=== PATIENT | male | born 1995 | race Asian ===

== ENCOUNTER 2016-07-16 14:17 | Inpatient (IN) | payer MEDICAID, OTHER ==
[~2016-07-16] VITALS: Ht 160 cm; Wt 84.8 kg
[~2016-07-16 14:17] MED LIST: DIVA500T52 PO; QUET300T2 PO; SIMV-260 PO
[2016-07-16 14:44] LABS: BASOPHILS # (AUTO) 0.02 K/uL (0.00-0.20); BASOPHILS % (AUTO) 0.3 % (0.0-2.0); EOSINOPHILS # (AUTO) 0.15 K/uL (0.00-0.70); EOSINOPHILS % (AUTO) 2.08 % (1.0-6.0); HEMATOCRIT 43.1 % (41-53); HEMOGLOBIN 14.8 g/dL (13.5-17.5); LYMPHOCYTES # (AUTO) 2.8 K/uL (1.0-4.8); LYMPHOCYTES % (AUTO) 37.7 % (22.0-44.0); MEAN CORPUSCULAR HEMOGLOBIN 30.5 pg (26.0-34.0); MEAN CORPUSCULAR HGB CONC 34.3 G/dL (31.0-37.0); MEAN CORPUSCULAR VOLUME 89 fL (80-100); MONOCYTES # (AUTO) 0.7 K/uL (0.1-1.0); MONOCYTES % (AUTO) 9.2 % (2.0-9.0); NEUTROPHILS # (AUTO) 3.8 K/uL (1.8-7.7); NEUTROPHILS % (AUTO) 50.7 % (40.0-70.0); PLATELET COUNT (AUTO) 244 K/uL (150-450); RED BLOOD CELL COUNT(AUTO) 4.84 MIL/uL (4.50-5.90); RED CELL DISTRIBUTION WIDTH 12.7 % (11.5-14.5); WHITE BLOOD COUNT (AUTO) 7.4 K/uL (4.5-11.0)
[2016-07-16 14:52] LABS: ANION GAP 15 mmol/L (8-16); CALCIUM, TOTAL 8.8 mg/dL (8.8-10.5); CARBON DIOXIDE 21 mmol/L (22-29); CHLORIDE 105 mmol/L (98-107); CREATININE 1.19 mg/dL (0.60-1.30); GLOMERULAR FILTR. RATE CALC > 60 mL/min (>60); POTASSIUM 3.6 mmol/L (3.5-5.1); SODIUM SERUM 141 mmol/L (136-145); UREA NITROGEN, BLOOD 11 mg/dL (7-18)
[2016-07-16 14:59] LABS: ALANINE AMINOTRANSFERASE 70 U/L (12-78); ASPARTATE AMINOTRANSFERASE 36 U/L (15-37); BILIRUBIN,TOTAL 0.1 mg/dL (0.1-1.0); TOTAL PROTEIN, SERUM 8.1 g/dL (6.4-8.2)
[2016-07-16] MEDS ORDERED: FOLI1 PO (15:24)
[2016-07-16] MEDS ORDERED: TOPI100 PO (15:24)
[2016-07-16] MEDS ORDERED: FISH1CAP27 PO (15:24)
[2016-07-16] MEDS ORDERED: QUET300T2 PO (15:24)
[2016-07-16] MEDS ORDERED: TOPI25 PO (15:24)
[2016-07-16] MEDS ORDERED: MULT-723 PO (15:24)
[2016-07-16] MEDS ORDERED: LEVO25TA4 PO (15:24)
[2016-07-16] MEDS ORDERED: GuaiFENesin/D-METHORPHAN [SUGAR-FREE] 200-20MG/10 ML SYRUP UDCUP PO PRN (16:30)
[2016-07-16] MEDS ORDERED: PROMETHAZINE HCL 25 MG TABLET PO PRN (16:30)
[2016-07-16] MEDS ORDERED: MAGNESIUM HYDROXIDE SUSPENSION 30 ML UDCUP PO PRN (16:30)
[2016-07-16] MEDS ORDERED: ACETAMINOPHEN 325 MG TABLET PO PRN (16:30)
[2016-07-16] MEDS ORDERED: QUEtiapine FUMARATE 100 MG TABLET PO PRN (16:30)
[2016-07-16] MEDS ORDERED: MAG HYDROX/AL HYDROX/SIMETH ES 30 ML SUSPENSION UDCUP PO PRN (16:30)
[2016-07-16] MEDS ORDERED: HydrOXYzine PAMOATE 50 MG CAPSULE PO PRN (16:30)
[2016-07-16] MEDS ORDERED: LOPERAMIDE HCL 2 MG CAPSULE PO PRN (16:30)
[2016-07-16] MEDS ORDERED: ZOLPIDEM TARTRATE 10 MG TABLET PO PRN (16:30)
[2016-07-16] MEDS ORDERED: LORazepam 2 MG TABLET PO PRN (16:30)
[2016-07-16 20:38] VITALS: BP 120/98
[2016-07-16] MEDS: DIVALPROEX SODIUM 500 MG ER TABLET PO SCH (20:45)
[2016-07-16] MEDS: THIAMINE HCL 100 MG TABLET PO SCH (20:46)
[2016-07-16] MEDS: TOPIRAMATE 100 MG TABLET PO SCH (20:46)
[2016-07-16] MEDS ORDERED: QUEtiapine FUMARATE 200 MG TABLET PO SCH (21:00)
[2016-07-17 06:28] LABS: BASOPHILS % (AUTO) 0.2 % (0.0-2.0); EOSINOPHILS % (AUTO) 2.5 % (1.0-6.0); LYMPHOCYTES # (AUTO) 2.7 K/uL (1.0-4.8); LYMPHOCYTES % (AUTO) 37.5 % (22.0-44.0); MEAN CORPUSCULAR HEMOGLOBIN 30.9 pg (26.0-34.0); MEAN CORPUSCULAR HGB CONC 34.1 G/dL (31.0-37.0); MEAN CORPUSCULAR VOLUME 91 fL (80-100); MONOCYTES # (AUTO) 0.8 K/uL (0.1-1.0); MONOCYTES % (AUTO) 11.5 % (2.0-9.0); NEUTROPHILS # (AUTO) 3.5 K/uL (1.8-7.7); NEUTROPHILS % (AUTO) 48.3 % (40.0-70.0); PLATELET COUNT (AUTO) 238 K/uL (150-450); RED BLOOD CELL COUNT(AUTO) 4.53 MIL/uL (4.50-5.90); RED CELL DISTRIBUTION WIDTH 12.9 % (11.5-14.5); WHITE BLOOD COUNT (AUTO) 7.3 K/uL (4.5-11.0)
[2016-07-17 07:14] LABS: ALANINE AMINOTRANSFERASE 59 U/L (12-78); ALBUMIN 3.5 g/dL (3.4-5.0); ANION GAP 10 mmol/L (8-16); ASPARTATE AMINOTRANSFERASE 32 U/L (15-37); BILIRUBIN,TOTAL 0.3 mg/dL (0.1-1.0); CALCIUM, TOTAL 8.9 mg/dL (8.8-10.5); CARBON DIOXIDE 24 mmol/L (22-29); CHLORIDE 107 mmol/L (98-107); CHOL/HDL RATIO 2.4 (4.2-7.3); CREATININE 1.06 mg/dL (0.60-1.30); GLOMERULAR FILTR. RATE CALC > 60 mL/min (>60); SODIUM SERUM 141 mmol/L (136-145); THYROID STIMULATING HORMONE 3.06 uIU/mL (0.36-3.74); TOTAL PROTEIN, SERUM 7.4 g/dL (6.4-8.2); UREA NITROGEN, BLOOD 14 mg/dL (7-18); VALPROIC ACID 82 mcg/mL (50-100)
[2016-07-17 07:35] LABS: HEMOGLOBIN A1C 5.5 % (4.5-6.2)
[2016-07-17] MEDS: TOPIRAMATE 25 MG TABLET PO SCH (09:05)
[2016-07-17] MEDS: FOLIC ACID 1 MG TABLET PO SCH (09:05)
[2016-07-17] MEDS: MULTIVITAMINS WITH MINERALS, THERAPEUTIC TABLET PO SCH (09:05)
[2016-07-17] MEDS: THIAMINE HCL 100 MG TABLET PO SCH ×2 (09:05→17:24)
[2016-07-17 10:46] VITALS: BP 130/80
[2016-07-17 16:00] VITALS: BP 134/68
[2016-07-17] MEDS: DIVALPROEX SODIUM 500 MG ER TABLET PO SCH (20:49)
[2016-07-17] MEDS: TOPIRAMATE 100 MG TABLET PO SCH (20:50)
[2016-07-17] MEDS ORDERED: QUEtiapine FUMARATE 200 MG TABLET PO SCH (21:00)
[2016-07-18] MEDS: MULTIVITAMINS WITH MINERALS, THERAPEUTIC TABLET PO SCH (08:23)
[2016-07-18] MEDS: FOLIC ACID 1 MG TABLET PO SCH (08:24)
[2016-07-18] MEDS: THIAMINE HCL 100 MG TABLET PO SCH ×2 (08:24→17:39)
[2016-07-18] MEDS: TOPIRAMATE 25 MG TABLET PO SCH (08:24)
[2016-07-18 08:34] VITALS: BP 111/74
[2016-07-18] MEDS ORDERED: DIVA500T69 PO (11:04)
[2016-07-18] MEDS ORDERED: TOPI25 PO (11:04)
[2016-07-18] MEDS ORDERED: TOPI100 PO (11:04)
[2016-07-18] MEDS ORDERED: QUET200T29 PO (11:04)
[2016-07-18 16:00] VITALS: BP 141/91
[2016-07-18] MEDS: DIVALPROEX SODIUM 500 MG ER TABLET PO SCH (20:00)
[2016-07-18] MEDS: TOPIRAMATE 100 MG TABLET PO SCH (20:00)
[2016-07-18] MEDS ORDERED: QUEtiapine FUMARATE 300 MG TABLET PO SCH (21:00)
[2016-07-19] MEDS: TOPIRAMATE 25 MG TABLET PO SCH (08:03)
[2016-07-19] MEDS: FOLIC ACID 1 MG TABLET PO SCH (08:03)
[2016-07-19] MEDS: THIAMINE HCL 100 MG TABLET PO SCH (08:03)
[2016-07-19] MEDS: MULTIVITAMINS WITH MINERALS, THERAPEUTIC TABLET PO SCH (08:03)
[2016-07-19 08:43] VITALS: BP 120/77
== END 2016-07-19 14:00 | disposition home or self-care (01) | DRG 750 ==
LOC: EMS 14:20 → 3EC 19:09 → 3EI 07-19 11:07
PROVIDERS: ADMIT Psychiatry & Neurology Psychiatry; ATTEND Psychiatry & Neurology Psychiatry
DX: F25.9 Schizoaffective disorder, unspecified (principal); Z78.1 Physical restraint status; E03.9 Hypothyroidism, unspecified; E78.1 Pure hyperglyceridemia; E66.9 Obesity, unspecified; F70 Mild intellectual disabilities; G80.9 Cerebral palsy, unspecified; K31.9 Disease of stomach and duodenum, unspecified; R26.89 Other abnormalities of gait and mobility; E78.5 Hyperlipidemia, unspecified; Z91.19 Patient's noncompliance with other medical treatment and regimen; Z79.899 Other long term (current) drug therapy; Z68.33 Body mass index [BMI] 33.0-33.9, adult
CPT/HCPCS: 83036; 84439; 84443; 86592; 99285; G0480

== ENCOUNTER 2016-08-07 07:07 | Emergency (ER) | payer MEDICAID, OTHER ==
[~2016-08-07] VITALS: Ht 160 cm; Wt 86.4 kg
[~2016-08-07 07:07] MED LIST changes: +DIVA500T69 PO; +QUET200T29 PO; -SIMV-260 PO; +TOPI100 PO; +TOPI25 PO
[2016-08-07] MEDS ORDERED: SODIUM CHLORIDE 0.9% 250 ML IRRIG SOLUTION BOTTLE IRRIG ONE (07:15)
[2016-08-07 09:55] VITALS: BP 147/82
[2016-08-08] MEDS ORDERED: SIMV-260 PO (07:38)
[2016-08-08] MEDS ORDERED: TOPI25 PO (07:38)
[2016-08-08] MEDS ORDERED: LEVO25TA4 PO (07:38)
[2016-08-08] MEDS ORDERED: FOLI1 PO (07:38)
[2016-08-08] MEDS ORDERED: [UNRECOGNIZED DRUG - OTHER] PO (07:38)
[2016-08-08] MEDS ORDERED: OMEG1CAP45 PO (07:38)
[2016-08-08] MEDS ORDERED: QUET25TA PO (07:38)
[2016-08-08] MEDS ORDERED: TOPI100 PO (07:38)
== END 2016-08-07 09:57 | disposition home or self-care (01) ==
LOC: EMS 07:09
DX: S01.511A Laceration without foreign body of lip, initial encounter (principal); F31.9 Bipolar disorder, unspecified; F91.1 Conduct disorder, childhood-onset type; G80.9 Cerebral palsy, unspecified; X83.8XXA Intentional self-harm by other specified means, initial encounter; Y93.89 Activity, other specified; Y92.89 Other specified places as the place of occurrence of the external cause; Y99.8 Other external cause status
CPT/HCPCS: 99283

== ENCOUNTER 2016-08-08 07:18 | Inpatient (IN) | payer MEDICAID, OTHER ==
[~2016-08-08] VITALS: Ht 160 cm; Wt 84.4 kg
[2016-08-08] MEDS ORDERED: OMEG1CAP45 PO (07:38)
[2016-08-08] MEDS ORDERED: SIMV-260 PO (07:38)
[2016-08-08] MEDS ORDERED: [UNRECOGNIZED DRUG - OTHER] PO (07:38)
[2016-08-08] MEDS ORDERED: TOPI100 PO (07:38)
[2016-08-08] MEDS ORDERED: TOPI25 PO (07:38)
[2016-08-08] MEDS ORDERED: LEVO25TA4 PO (07:38)
[2016-08-08] MEDS ORDERED: FOLI1 PO (07:38)
[2016-08-08] MEDS ORDERED: QUET25TA PO (07:38)
[2016-08-08 07:50] LABS: BASOPHILS % (AUTO) 0.2 % (0.0-2.0); EOSINOPHILS % (AUTO) 3.9 % (1.0-6.0); HEMATOCRIT 42.9 % (41-53); LYMPHOCYTES # (AUTO) 1.3 K/uL (1.0-4.8); LYMPHOCYTES % (AUTO) 21.1 % (22.0-44.0); MEAN CORPUSCULAR HEMOGLOBIN 29.9 pg (26.0-34.0); MEAN CORPUSCULAR HGB CONC 32.8 G/dL (31.0-37.0); MEAN CORPUSCULAR VOLUME 91 fL (80-100); MONOCYTES # (AUTO) 0.5 K/uL (0.1-1.0); MONOCYTES % (AUTO) 8.5 % (2.0-9.0); NEUTROPHILS # (AUTO) 3.9 K/uL (1.8-7.7); NEUTROPHILS % (AUTO) 66.3 % (40.0-70.0); PLATELET COUNT (AUTO) 207 K/uL (150-450); WHITE BLOOD COUNT (AUTO) 5.9 K/uL (4.5-11.0)
[2016-08-08] MEDS ORDERED: LORazepam 2 MG/ML VIAL IM ONE (08:00)
[2016-08-08] MEDS ORDERED: HALOPERIDOL LACTATE 5 MG/ML VIAL IM ONE (08:00)
[2016-08-08] MEDS ORDERED: HALOPERIDOL 5 MG TABLET PO PRN (08:00)
[2016-08-08] MEDS ORDERED: QUEtiapine FUMARATE 100 MG TABLET PO PRN (08:00)
[2016-08-08] MEDS ORDERED: DiphenhydrAMINE HCL 50 MG/ML VIAL IM ONE (08:00)
[2016-08-08 08:03] LABS: ANION GAP 13 mmol/L (8-16); CALCIUM, TOTAL 8.3 mg/dL (8.8-10.5); CARBON DIOXIDE 23 mmol/L (22-29); CHLORIDE 105 mmol/L (98-107); CREATININE 1.19 mg/dL (0.60-1.30); GLOMERULAR FILTR. RATE CALC > 60 mL/min (>60); POTASSIUM 3.7 mmol/L (3.5-5.1); SODIUM SERUM 141 mmol/L (136-145); UREA NITROGEN, BLOOD 13 mg/dL (7-18)
[2016-08-08 08:07] LABS: ALANINE AMINOTRANSFERASE 124 U/L (12-78); ALBUMIN 3.4 g/dL (3.4-5.0); ASPARTATE AMINOTRANSFERASE 66 U/L (15-37); BILIRUBIN,TOTAL 0.4 mg/dL (0.1-1.0); TOTAL PROTEIN, SERUM 7.4 g/dL (6.4-8.2); VALPROIC ACID 79 mcg/mL (50-100)
[2016-08-08] MEDS: TOPIRAMATE 25 MG TABLET PO SCH (09:10)
[2016-08-08] MEDS ORDERED: MAGNESIUM HYDROXIDE SUSPENSION 30 ML UDCUP PO PRN (10:00)
[2016-08-08] MEDS ORDERED: ACETAMINOPHEN 325 MG TABLET PO PRN (10:00)
[2016-08-08] MEDS ORDERED: HydrOXYzine PAMOATE 50 MG CAPSULE PO PRN (10:00)
[2016-08-08] MEDS ORDERED: LOPERAMIDE HCL 2 MG CAPSULE PO PRN (10:00)
[2016-08-08] MEDS ORDERED: GuaiFENesin/D-METHORPHAN [SUGAR-FREE] 200-20MG/10 ML SYRUP UDCUP PO PRN (10:00)
[2016-08-08] MEDS ORDERED: MAG HYDROX/AL HYDROX/SIMETH ES 30 ML SUSPENSION UDCUP PO PRN (10:00)
[2016-08-08] MEDS ORDERED: PROMETHAZINE HCL 25 MG TABLET PO PRN (10:00)
[2016-08-08 12:42] VITALS: BP 114/72
[2016-08-08] MEDS ORDERED: INFLUENZA VIRUS VACCINE QVS 2016-17 (3YR+)/PF 60 MCG/0.5 ML SYRINGE IM ONE (13:00)
[2016-08-08] MEDS ORDERED: PNEUMOCOCCAL VACCINE POLYVALENT 0.5 ML VIAL [PPSV23] IM ONE (13:00)
[2016-08-08 16:07] VITALS: BP 117/68
[2016-08-08] MEDS: DIVALPROEX SODIUM 500 MG DR TABLET PO SCH (20:32)
[2016-08-08] MEDS: SIMVASTATIN 20 MG TABLET PO SCH (20:32)
[2016-08-08] MEDS: TOPIRAMATE 100 MG TABLET PO SCH (20:32)
[2016-08-08] MEDS ORDERED: QUEtiapine FUMARATE 300 MG TABLET PO SCH (21:00)
[2016-08-09] VITALS (11 sets, daily range): BP systolic 100–148; BP diastolic 59–88
[2016-08-09] MEDS: THIAMINE HCL 100 MG TABLET PO SCH ×2 (09:21→17:35)
[2016-08-09] MEDS: LEVOTHYROXINE SODIUM 25 MCG TABLET PO SCH (09:21)
[2016-08-09] MEDS: FOLIC ACID 1 MG TABLET PO SCH (09:22)
[2016-08-09] MEDS: MULTIVITAMINS WITH MINERALS, THERAPEUTIC TABLET PO SCH (09:22)
[2016-08-09] MEDS: TOPIRAMATE 25 MG TABLET PO SCH (09:22)
[2016-08-09] MEDS ORDERED: DiphenhydrAMINE HCL 50 MG/ML VIAL ONE (11:58)
[2016-08-09] MEDS ORDERED: LORazepam 2 MG/ML VIAL ONE (11:58)
[2016-08-09] MEDS ORDERED: HALOPERIDOL LACTATE 5 MG/ML VIAL ONE (11:58)
[2016-08-09] MEDS ORDERED: HALOPERIDOL LACTATE 5 MG/ML VIAL IM ONE (12:00)
[2016-08-09] MEDS ORDERED: LORazepam 2 MG/ML VIAL IM ONE (12:00)
[2016-08-09] MEDS ORDERED: DiphenhydrAMINE HCL 50 MG/ML VIAL IM ONE (12:00)
[2016-08-09] MEDS: LITHIUM CARBONATE 300 MG CAPSULE PO SCH (17:35)
[2016-08-09] MEDS: SIMVASTATIN 20 MG TABLET PO SCH (20:41)
[2016-08-09] MEDS: TOPIRAMATE 100 MG TABLET PO SCH (20:41)
[2016-08-09] MEDS: QUEtiapine FUMARATE 200 MG TABLET PO SCH (20:41)
[2016-08-09] MEDS: DIVALPROEX SODIUM 500 MG DR TABLET PO SCH (20:41)
[2016-08-10 04:00] VITALS: BP 116/66
[2016-08-10 07:45] VITALS: BP 133/74
[2016-08-10 08:09] VITALS: BP 129/76
[2016-08-10] MEDS: THIAMINE HCL 100 MG TABLET PO SCH ×2 (08:23→17:12)
[2016-08-10] MEDS: LITHIUM CARBONATE 300 MG CAPSULE PO SCH ×3 (08:23→17:12)
[2016-08-10] MEDS: MULTIVITAMINS WITH MINERALS, THERAPEUTIC TABLET PO SCH (08:23)
[2016-08-10] MEDS: FOLIC ACID 1 MG TABLET PO SCH (08:23)
[2016-08-10] MEDS: LEVOTHYROXINE SODIUM 25 MCG TABLET PO SCH (08:23)
[2016-08-10] MEDS: TOPIRAMATE 25 MG TABLET PO SCH (08:23)
[2016-08-10] MEDS: LORazepam 2 MG TABLET PO PRN (10:28)
[2016-08-10 12:00] VITALS: BP 129/73
[2016-08-10 12:17] VITALS: BP 129/73
[2016-08-10 16:00] VITALS: BP 118/68
[2016-08-10] MEDS: DIVALPROEX SODIUM 500 MG DR TABLET PO SCH (20:35)
[2016-08-10] MEDS: QUEtiapine FUMARATE 200 MG TABLET PO SCH (20:35)
[2016-08-10] MEDS: TOPIRAMATE 100 MG TABLET PO SCH (20:35)
[2016-08-10] MEDS: SIMVASTATIN 20 MG TABLET PO SCH (20:35)
[2016-08-11] MEDS: LEVOTHYROXINE SODIUM 25 MCG TABLET PO SCH (06:33)
[2016-08-11 06:42] VITALS: BP 119/72
[2016-08-11 08:09] VITALS: BP 124/68
[2016-08-11] MEDS: TOPIRAMATE 25 MG TABLET PO SCH (09:17)
[2016-08-11] MEDS: FOLIC ACID 1 MG TABLET PO SCH (09:17)
[2016-08-11] MEDS: LITHIUM CARBONATE 300 MG CAPSULE PO SCH ×3 (09:17→16:37)
[2016-08-11] MEDS: MULTIVITAMINS WITH MINERALS, THERAPEUTIC TABLET PO SCH (09:17)
[2016-08-11] MEDS: THIAMINE HCL 100 MG TABLET PO SCH ×2 (09:17→16:37)
[2016-08-11] MEDS: LORazepam 2 MG TABLET PO PRN ×2 (09:18→16:37)
[2016-08-11 16:00] VITALS: BP 114/60
[2016-08-11] MEDS: SIMVASTATIN 20 MG TABLET PO SCH (20:11)
[2016-08-11] MEDS: DIVALPROEX SODIUM 500 MG DR TABLET PO SCH (20:11)
[2016-08-11] MEDS: TOPIRAMATE 100 MG TABLET PO SCH (20:11)
[2016-08-11] MEDS: QUEtiapine FUMARATE 200 MG TABLET PO SCH (20:11)
[2016-08-12] MEDS: LEVOTHYROXINE SODIUM 25 MCG TABLET PO SCH (06:07)
[2016-08-12 06:43] VITALS: BP 109/63
[2016-08-12 08:06] VITALS: BP 111/67
[2016-08-12] MEDS: TOPIRAMATE 25 MG TABLET PO SCH (08:49)
[2016-08-12] MEDS: LITHIUM CARBONATE 300 MG CAPSULE PO SCH ×3 (08:49→16:47)
[2016-08-12] MEDS: THIAMINE HCL 100 MG TABLET PO SCH ×2 (08:49→16:47)
[2016-08-12] MEDS: FOLIC ACID 1 MG TABLET PO SCH (08:49)
[2016-08-12] MEDS: MULTIVITAMINS WITH MINERALS, THERAPEUTIC TABLET PO SCH (08:49)
[2016-08-12 16:43] VITALS: BP 128/71
[2016-08-12] MEDS: QUEtiapine FUMARATE 200 MG TABLET PO SCH (20:25)
[2016-08-12] MEDS: TOPIRAMATE 100 MG TABLET PO SCH (20:25)
[2016-08-12] MEDS: DIVALPROEX SODIUM 500 MG DR TABLET PO SCH (20:25)
[2016-08-12] MEDS: SIMVASTATIN 20 MG TABLET PO SCH (20:25)
[2016-08-13 06:11] VITALS: BP 102/62
[2016-08-13] MEDS: LEVOTHYROXINE SODIUM 25 MCG TABLET PO SCH (06:43)
[2016-08-13 08:48] VITALS: BP 126/64
[2016-08-13] MEDS: TOPIRAMATE 25 MG TABLET PO SCH (08:51)
[2016-08-13] MEDS: THIAMINE HCL 100 MG TABLET PO SCH ×2 (08:51→16:19)
[2016-08-13] MEDS: MULTIVITAMINS WITH MINERALS, THERAPEUTIC TABLET PO SCH (08:51)
[2016-08-13] MEDS: LITHIUM CARBONATE 300 MG CAPSULE PO SCH ×3 (08:51→16:19)
[2016-08-13] MEDS: FOLIC ACID 1 MG TABLET PO SCH (08:51)
[2016-08-13 16:00] VITALS: BP 112/68
[2016-08-13] MEDS: DIVALPROEX SODIUM 500 MG DR TABLET PO SCH (20:31)
[2016-08-13] MEDS: QUEtiapine FUMARATE 200 MG TABLET PO SCH (20:31)
[2016-08-13] MEDS: SIMVASTATIN 20 MG TABLET PO SCH (20:31)
[2016-08-13] MEDS: TOPIRAMATE 100 MG TABLET PO SCH (20:31)
[2016-08-14] MEDS: LEVOTHYROXINE SODIUM 25 MCG TABLET PO SCH (06:36)
[2016-08-14 07:02] VITALS: BP 122/71
[2016-08-14 08:34] VITALS: BP 128/73
[2016-08-14] MEDS: LITHIUM CARBONATE 300 MG CAPSULE PO SCH ×3 (09:46→16:15)
[2016-08-14] MEDS: FOLIC ACID 1 MG TABLET PO SCH (09:46)
[2016-08-14] MEDS: TOPIRAMATE 25 MG TABLET PO SCH (09:46)
[2016-08-14] MEDS: THIAMINE HCL 100 MG TABLET PO SCH ×2 (09:47→16:15)
[2016-08-14] MEDS: MULTIVITAMINS WITH MINERALS, THERAPEUTIC TABLET PO SCH (09:47)
[2016-08-14] MEDS ORDERED: MULT-29 PO (14:29)
[2016-08-14] MEDS ORDERED: QUET300T2 PO (14:29)
[2016-08-14] MEDS ORDERED: DIVA500T2 PO (14:45)
[2016-08-14] MEDS ORDERED: LITH300C3 PO (14:45)
[2016-08-14] MEDS ORDERED: QUET200T29 PO (14:45)
[2016-08-14] MEDS ORDERED: TOPI100 PO (14:45)
[2016-08-14 16:00] VITALS: BP 140/80
[2016-08-14] MEDS: TOPIRAMATE 100 MG TABLET PO SCH (20:25)
[2016-08-14] MEDS: QUEtiapine FUMARATE 200 MG TABLET PO SCH (20:25)
[2016-08-14] MEDS: SIMVASTATIN 20 MG TABLET PO SCH (20:25)
[2016-08-14] MEDS: DIVALPROEX SODIUM 500 MG DR TABLET PO SCH (20:25)
[2016-08-15] MEDS: LEVOTHYROXINE SODIUM 25 MCG TABLET PO SCH (06:06)
[2016-08-15 06:50] VITALS: BP 113/73
[2016-08-15] MEDS ORDERED: TOPI100 PO (08:07)
[2016-08-15] MEDS ORDERED: QUET200T PO (08:08)
[2016-08-15] MEDS ORDERED: LITH300C3 PO (08:08)
[2016-08-15 08:09] VITALS: BP 136/76
[2016-08-15] MEDS ORDERED: SIMV20TA6 PO (08:10)
[2016-08-15] MEDS: MULTIVITAMINS WITH MINERALS, THERAPEUTIC TABLET PO SCH (08:36)
[2016-08-15] MEDS: TOPIRAMATE 100 MG TABLET PO SCH (08:36)
[2016-08-15] MEDS: FOLIC ACID 1 MG TABLET PO SCH (08:36)
[2016-08-15] MEDS: LITHIUM CARBONATE 300 MG CAPSULE PO SCH ×2 (08:36→13:24)
[2016-08-15] MEDS: THIAMINE HCL 100 MG TABLET PO SCH (08:36)
== END 2016-08-15 14:40 | disposition home or self-care (01) | DRG 750 ==
LOC: EEVIPCON 07:20 → EMS 07:20 → B3A 11:24 → EMS 11:48
PROVIDERS: ADMIT Psychiatry & Neurology Psychiatry; ATTEND Psychiatry & Neurology Psychiatry
PROC: GZ51ZZZ Individual Psychotherapy, Behavioral (ICD-10-PCS; principal; 2016-08-08)
DX: F25.0 Schizoaffective disorder, bipolar type (principal); Z78.1 Physical restraint status; E66.9 Obesity, unspecified; E03.9 Hypothyroidism, unspecified; E78.5 Hyperlipidemia, unspecified; F70 Mild intellectual disabilities; G80.9 Cerebral palsy, unspecified; Z65.3 Problems related to other legal circumstances; Z91.19 Patient's noncompliance with other medical treatment and regimen; Z68.32 Body mass index [BMI] 32.0-32.9, adult
CPT/HCPCS: 87081; 96372; 99291; G0480; J1200; J1630; J2060

== ENCOUNTER 2016-11-07 08:05 | Inpatient (IN) | payer MEDICAID, OTHER ==
[~2016-11-07] VITALS: Ht 160 cm; Wt 84.9 kg
[~2016-11-07 08:05] MED LIST changes: +DIVA500T2 PO; -DIVA500T52 PO; +LEVO25TA4 PO; +LITH300C3 PO; +QUET200T PO; -QUET300T2 PO; +SIMV-260 PO; +SIMV20TA6 PO; -TOPI25 PO
[2016-11-07 08:34] LABS: BASOPHILS # (AUTO) 0.02 K/uL (0.00-0.20); BASOPHILS % (AUTO) 0.3 % (0.0-2.0); EOSINOPHILS # (AUTO) 0.16 K/uL (0.00-0.70); EOSINOPHILS % (AUTO) 3.01 % (1.0-6.0); HEMATOCRIT 41.2 % (41-53); HEMOGLOBIN 14.2 g/dL (13.5-17.5); LYMPHOCYTES # (AUTO) 1.9 K/uL (1.0-4.8); LYMPHOCYTES % (AUTO) 36.7 % (22.0-44.0); MEAN CORPUSCULAR HEMOGLOBIN 31.3 pg (26.0-34.0); MEAN CORPUSCULAR HGB CONC 34.4 G/dL (31.0-37.0); MEAN CORPUSCULAR VOLUME 91 fL (80-100); MONOCYTES # (AUTO) 0.4 K/uL (0.1-1.0); MONOCYTES % (AUTO) 8.3 % (2.0-9.0); NEUTROPHILS # (AUTO) 2.7 K/uL (1.8-7.7); NEUTROPHILS % (AUTO) 51.7 % (40.0-70.0); PLATELET COUNT (AUTO) 249 K/uL (150-450); RED BLOOD CELL COUNT(AUTO) 4.54 MIL/uL (4.50-5.90); RED CELL DISTRIBUTION WIDTH 13.2 % (11.5-14.5); WHITE BLOOD COUNT (AUTO) 5.3 K/uL (4.5-11.0)
[2016-11-07 08:48] LABS: ANION GAP 10 mmol/L (8-16); CALCIUM, TOTAL 9.2 mg/dL (8.8-10.5); CARBON DIOXIDE 25 mmol/L (22-29); CHLORIDE 102 mmol/L (98-107); CREATININE 1.11 mg/dL (0.60-1.30); GLOMERULAR FILTR. RATE CALC > 60 mL/min (>60); POTASSIUM 3.7 mmol/L (3.5-5.1); SODIUM SERUM 137 mmol/L (136-145); UREA NITROGEN, BLOOD 7 mg/dL (7-18)
[2016-11-07 09:02] LABS: ALANINE AMINOTRANSFERASE 42 U/L (12-78); ASPARTATE AMINOTRANSFERASE 31 U/L (15-37); BILIRUBIN,TOTAL 0.2 mg/dL (0.1-1.0); THYROID STIMULATING HORMONE 4.91 uIU/mL (0.36-3.74); TOTAL PROTEIN, SERUM 8.3 g/dL (6.4-8.2); VALPROIC ACID 87 mcg/mL (50-100)
[2016-11-07 09:17] LABS: LITHIUM 0.82 mmol/L (0.60-1.20)
[2016-11-07] MEDS ORDERED: QUEtiapine FUMARATE 100 MG TABLET PO ONE (09:30)
[2016-11-07] MEDS ORDERED: LORazepam 2 MG TABLET PO PRN (09:45)
[2016-11-07] MEDS ORDERED: HALOPERIDOL 5 MG TABLET PO PRN (09:45)
[2016-11-07] MEDS ORDERED: ZOLPIDEM TARTRATE 10 MG TABLET PO PRN (09:45)
[2016-11-07 10:15] LABS: CHOL/HDL RATIO 3.2 (4.2-7.3)
[2016-11-07] MEDS: LITHIUM CARBONATE 300 MG CAPSULE PO SCH ×2 (12:18→17:13)
[2016-11-07 12:42] VITALS: BP 134/84
[2016-11-07] MEDS: TOPIRAMATE 100 MG TABLET PO SCH (17:13)
[2016-11-07 17:47] VITALS: BP 127/79
[2016-11-07] MEDS: SIMVASTATIN 20 MG TABLET PO SCH (20:28)
[2016-11-07] MEDS: DIVALPROEX SODIUM 500 MG ER TABLET PO SCH (20:28)
[2016-11-07] MEDS: QUEtiapine FUMARATE 200 MG TABLET PO SCH (20:28)
[2016-11-08] MEDS: LEVOTHYROXINE SODIUM 25 MCG TABLET PO SCH (06:52)
[2016-11-08 08:01] VITALS: BP 117/72
[2016-11-08] MEDS: TOPIRAMATE 100 MG TABLET PO SCH ×2 (09:43→16:09)
[2016-11-08] MEDS: LITHIUM CARBONATE 300 MG CAPSULE PO SCH ×3 (09:43→16:09)
[2016-11-08 16:30] VITALS: BP 153/80
[2016-11-08] MEDS: DIVALPROEX SODIUM 500 MG ER TABLET PO SCH (20:06)
[2016-11-08] MEDS: SIMVASTATIN 20 MG TABLET PO SCH (20:06)
[2016-11-08] MEDS: QUEtiapine FUMARATE 200 MG TABLET PO SCH (20:06)
[2016-11-09] MEDS: LEVOTHYROXINE SODIUM 25 MCG TABLET PO SCH (06:55)
[2016-11-09] MEDS: TOPIRAMATE 100 MG TABLET PO SCH ×2 (07:50→16:40)
[2016-11-09] MEDS: LITHIUM CARBONATE 300 MG CAPSULE PO SCH ×3 (07:50→16:40)
[2016-11-09 08:08] VITALS: BP 124/84
[2016-11-09 19:34] VITALS: BP 126/78
[2016-11-09] MEDS: QUEtiapine FUMARATE 200 MG TABLET PO SCH (20:24)
[2016-11-09] MEDS: DIVALPROEX SODIUM 500 MG ER TABLET PO SCH (20:24)
[2016-11-09] MEDS: SIMVASTATIN 20 MG TABLET PO SCH (20:24)
[2016-11-10] MEDS: LEVOTHYROXINE SODIUM 25 MCG TABLET PO SCH (06:55)
[2016-11-10 08:03] VITALS: BP 114/73
[2016-11-10] MEDS: LITHIUM CARBONATE 300 MG CAPSULE PO SCH ×3 (08:04→16:45)
[2016-11-10] MEDS: TOPIRAMATE 100 MG TABLET PO SCH ×2 (08:04→16:45)
[2016-11-10 16:17] VITALS: BP 131/76
[2016-11-10] MEDS: DIVALPROEX SODIUM 500 MG ER TABLET PO SCH (20:13)
[2016-11-10] MEDS: QUEtiapine FUMARATE 200 MG TABLET PO SCH (20:13)
[2016-11-10] MEDS: SIMVASTATIN 20 MG TABLET PO SCH (20:13)
[2016-11-11] MEDS: LEVOTHYROXINE SODIUM 25 MCG TABLET PO SCH (06:54)
[2016-11-11 08:00] LABS: LITHIUM 0.72 mmol/L (0.60-1.20)
[2016-11-11] MEDS: LITHIUM CARBONATE 300 MG CAPSULE PO SCH ×2 (08:06→12:17)
[2016-11-11] MEDS: TOPIRAMATE 100 MG TABLET PO SCH (08:06)
[2016-11-11 08:34] VITALS: BP 136/69
== END 2016-11-11 13:45 | disposition home or self-care (01) | DRG 750 ==
LOC: EEVIPCON 08:07 → EMS 08:07 → 3EC 11:14
PROVIDERS: ADMIT Psychiatry & Neurology Psychiatry; ATTEND Psychiatry & Neurology Psychiatry
DX: F25.9 Schizoaffective disorder, unspecified (principal); E03.9 Hypothyroidism, unspecified; E78.5 Hyperlipidemia, unspecified; G80.9 Cerebral palsy, unspecified
CPT/HCPCS: 84443; 99285; G0480

== ENCOUNTER 2016-12-27 08:55 | Inpatient (IN) | payer MEDICAID, OTHER ==
[~2016-12-27] VITALS: Ht 154.9 cm; Wt 82.9 kg
[~2016-12-27 08:55] MED LIST changes: +CHLO100T24 PO; +DIVA500T35 PO; +DIVA500T52 PO; +FISH1CAP27 PO; +FISH1CAP49 PO; +FOLI1 PO; +LEVO25TA9 PO; +LORA1TAB3 PO; +MULT-29 PO; +MULT-723 PO; +NEOM28.36 TP; +OMEG1CAP45 PO; +QUET100T PO; +QUET25TA PO; +QUET300T2 PO; +RANI150T7 PO; +RISP2 PO; +TOPI25 PO; +TRAZ-147 PO; +TRAZ150 PO; +ZIPR60CA2 PO; +[UNRECOGNIZED DRUG - OTHER] PO
[2016-12-27 09:29] LABS: BASOPHILS % (AUTO) 0.1 % (0.0-2.0); HEMATOCRIT 41.1 % (41-53); HEMOGLOBIN 14.1 g/dL (13.5-17.5); LYMPHOCYTES # (AUTO) 0.8 K/uL (1.0-4.8); LYMPHOCYTES % (AUTO) 9.5 % (22.0-44.0); MEAN CORPUSCULAR HEMOGLOBIN 31.3 pg (26.0-34.0); MEAN CORPUSCULAR HGB CONC 34.4 G/dL (31.0-37.0); MEAN CORPUSCULAR VOLUME 91 fL (80-100); MONOCYTES # (AUTO) 0.9 K/uL (0.1-1.0); MONOCYTES % (AUTO) 10.7 % (2.0-9.0); NEUTROPHILS # (AUTO) 6.8 K/uL (1.8-7.7); NEUTROPHILS % (AUTO) 77.7 % (40.0-70.0); PLATELET COUNT (AUTO) 247 K/uL (150-450); RED BLOOD CELL COUNT(AUTO) 4.52 MIL/uL (4.50-5.90); RED CELL DISTRIBUTION WIDTH 12.7 % (11.5-14.5); WHITE BLOOD COUNT (AUTO) 8.7 K/uL (4.5-11.0)
[2016-12-27] MEDS ORDERED: DiphenhydrAMINE HCL 50 MG/ML VIAL IM ONE (09:30)
[2016-12-27] MEDS ORDERED: HALOPERIDOL LACTATE 5 MG/ML VIAL IM ONE (09:30)
[2016-12-27] MEDS ORDERED: DiphenhydrAMINE HCL 50 MG/ML VIAL ONE (09:30)
[2016-12-27] MEDS ORDERED: HALOPERIDOL LACTATE 5 MG/ML VIAL ONE (09:30)
[2016-12-27] MEDS ORDERED: LORazepam 2 MG/ML VIAL ONE (09:30)
[2016-12-27] MEDS ORDERED: LORazepam 2 MG/ML VIAL IM ONE (09:30)
[2016-12-27 09:37] LABS: ANION GAP 11 mmol/L (8-16); CALCIUM, TOTAL 8.9 mg/dL (8.8-10.5); CARBON DIOXIDE 22 mmol/L (22-29); CHLORIDE 106 mmol/L (98-107); CREATININE 1.11 mg/dL (0.60-1.30); GLOMERULAR FILTR. RATE CALC > 60 mL/min (>60); POTASSIUM 3.5 mmol/L (3.5-5.1); SODIUM SERUM 139 mmol/L (136-145); UREA NITROGEN, BLOOD 6 mg/dL (7-18)
[2016-12-27 09:43] LABS: ALANINE AMINOTRANSFERASE 96 U/L (12-78); ALBUMIN 3.6 g/dL (3.4-5.0); ASPARTATE AMINOTRANSFERASE 64 U/L (15-37); BILIRUBIN,TOTAL 0.4 mg/dL (0.1-1.0); TOTAL PROTEIN, SERUM 7.6 g/dL (6.4-8.2); VALPROIC ACID 94 mcg/mL (50-100)
[2016-12-27 09:51] LABS: LITHIUM 0.62 mmol/L (0.60-1.20)
[2016-12-27] MEDS ORDERED: ZOLPIDEM TARTRATE 10 MG TABLET PO PRN (10:15)
[2016-12-27] MEDS ORDERED: LORazepam 2 MG TABLET PO PRN (10:15)
[2016-12-27] MEDS ORDERED: HALOPERIDOL 5 MG TABLET PO PRN (10:15)
[2016-12-27 11:00] VITALS: BP 114/82
[2016-12-27] MEDS: LITHIUM CARBONATE 300 MG CAPSULE PO SCH ×2 (13:15→16:58)
[2016-12-27] MEDS: TOPIRAMATE 100 MG TABLET PO SCH (16:58)
[2016-12-27 17:44] VITALS: BP 108/74
[2016-12-27] MEDS: DIVALPROEX SODIUM 500 MG DR TABLET PO SCH (20:29)
[2016-12-27] MEDS: QUEtiapine FUMARATE 200 MG TABLET PO SCH (20:29)
[2016-12-27] MEDS: SIMVASTATIN 20 MG TABLET PO SCH (20:29)
[2016-12-28] MEDS: LEVOTHYROXINE SODIUM 25 MCG TABLET PO SCH (06:47)
[2016-12-28 06:49] LABS: BASOPHILS % (AUTO) 0.3 % (0.0-2.0); EOSINOPHILS % (AUTO) 3.1 % (1.0-6.0); HEMATOCRIT 40.9 % (41-53); HEMOGLOBIN 13.9 g/dL (13.5-17.5); LYMPHOCYTES # (AUTO) 1.8 K/uL (1.0-4.8); LYMPHOCYTES % (AUTO) 24.7 % (22.0-44.0); MEAN CORPUSCULAR HEMOGLOBIN 31.3 pg (26.0-34.0); MEAN CORPUSCULAR VOLUME 92 fL (80-100); MONOCYTES # (AUTO) 1.3 K/uL (0.1-1.0); NEUTROPHILS # (AUTO) 4.1 K/uL (1.8-7.7); NEUTROPHILS % (AUTO) 54.9 % (40.0-70.0); PLATELET COUNT (AUTO) 267 K/uL (150-450); RED BLOOD CELL COUNT(AUTO) 4.43 MIL/uL (4.50-5.90); RED CELL DISTRIBUTION WIDTH 12.8 % (11.5-14.5); WHITE BLOOD COUNT (AUTO) 7.4 K/uL (4.5-11.0)
[2016-12-28 06:59] LABS: LITHIUM 0.66 mmol/L (0.60-1.20)
[2016-12-28 07:18] LABS: ALANINE AMINOTRANSFERASE 117 U/L (12-78); ALBUMIN 3.5 g/dL (3.4-5.0); ANION GAP 10 mmol/L (8-16); ASPARTATE AMINOTRANSFERASE 101 U/L (15-37); BILIRUBIN,TOTAL 0.2 mg/dL (0.1-1.0); CALCIUM, TOTAL 9.2 mg/dL (8.8-10.5); CARBON DIOXIDE 23 mmol/L (22-29); CHLORIDE 105 mmol/L (98-107); CHOL/HDL RATIO 2.8 (4.2-7.3); CREATININE 1.21 mg/dL (0.60-1.30); GLOMERULAR FILTR. RATE CALC > 60 mL/min (>60); POTASSIUM 3.7 mmol/L (3.5-5.1); SODIUM SERUM 138 mmol/L (136-145); THYROID STIMULATING HORMONE 6.45 uIU/mL (0.36-3.74); TOTAL PROTEIN, SERUM 7.6 g/dL (6.4-8.2); UREA NITROGEN, BLOOD 9 mg/dL (7-18); VALPROIC ACID 102 mcg/mL (50-100)
[2016-12-28] MEDS: LITHIUM CARBONATE 300 MG CAPSULE PO SCH ×3 (07:31→16:30)
[2016-12-28] MEDS: TOPIRAMATE 100 MG TABLET PO SCH ×2 (07:31→16:30)
[2016-12-28 08:00] VITALS: BP 123/77
[2016-12-28 16:00] VITALS: BP 118/74
[2016-12-28] MEDS: QUEtiapine FUMARATE 200 MG TABLET PO SCH (20:31)
[2016-12-28] MEDS: SIMVASTATIN 20 MG TABLET PO SCH (20:31)
[2016-12-28] MEDS: DIVALPROEX SODIUM 500 MG DR TABLET PO SCH (20:31)
[2016-12-29] MEDS: LEVOTHYROXINE SODIUM 25 MCG TABLET PO SCH (06:52)
[2016-12-29 08:16] VITALS: BP 109/72
[2016-12-29] MEDS: LITHIUM CARBONATE 300 MG CAPSULE PO SCH ×3 (08:49→16:33)
[2016-12-29] MEDS: TOPIRAMATE 100 MG TABLET PO SCH ×2 (08:49→16:33)
[2016-12-29] MEDS: DIVALPROEX SODIUM 500 MG DR TABLET PO SCH (20:20)
[2016-12-29] MEDS: QUEtiapine FUMARATE 200 MG TABLET PO SCH (20:20)
[2016-12-29] MEDS: SIMVASTATIN 20 MG TABLET PO SCH (20:20)
[2016-12-29 21:29] VITALS: BP 112/78
[2016-12-30] MEDS: LEVOTHYROXINE SODIUM 25 MCG TABLET PO SCH (07:00)
[2016-12-30] MEDS: TOPIRAMATE 100 MG TABLET PO SCH ×2 (08:10→16:00)
[2016-12-30] MEDS: LITHIUM CARBONATE 300 MG CAPSULE PO SCH ×3 (08:10→16:00)
[2016-12-30 09:39] VITALS: BP 139/83
[2016-12-30 16:21] VITALS: BP 134/74
[2016-12-30] MEDS: DIVALPROEX SODIUM 500 MG DR TABLET PO SCH (20:32)
[2016-12-30] MEDS: QUEtiapine FUMARATE 200 MG TABLET PO SCH (20:32)
[2016-12-30] MEDS: SIMVASTATIN 20 MG TABLET PO SCH (20:32)
[2016-12-31] MEDS: LEVOTHYROXINE SODIUM 25 MCG TABLET PO SCH (06:52)
[2016-12-31 08:47] VITALS: BP 116/65
[2016-12-31] MEDS: LITHIUM CARBONATE 300 MG CAPSULE PO SCH ×2 (08:56→12:25)
[2016-12-31] MEDS: TOPIRAMATE 100 MG TABLET PO SCH (08:57)
== END 2016-12-31 15:00 | disposition home or self-care (01) | DRG 750 ==
LOC: EMS 08:59 → 3EC 10:31
PROVIDERS: ADMIT Psychiatry & Neurology Psychiatry; ATTEND Psychiatry & Neurology Psychiatry
DX: F25.0 Schizoaffective disorder, bipolar type (principal); Z78.1 Physical restraint status; F79 Unspecified intellectual disabilities; E03.9 Hypothyroidism, unspecified; E78.5 Hyperlipidemia, unspecified; G80.9 Cerebral palsy, unspecified
CPT/HCPCS: 84443; 96372; 99285; G0480; J1200; J1630; J2060

== ENCOUNTER 2017-03-14 20:11 | Emergency (ER) | payer MEDICAID, OTHER ==
[~2017-03-14] VITALS: Ht 160 cm; Wt 84.5 kg
[~2017-03-14 20:11] MED LIST changes: -CHLO100T24 PO; -DIVA500T2 PO; -DIVA500T35 PO; -DIVA500T52 PO; -FISH1CAP27 PO; -FISH1CAP49 PO; -FOLI1 PO; -LEVO25TA9 PO; -LORA1TAB3 PO; -MULT-29 PO; -MULT-723 PO; -NEOM28.36 TP; -OMEG1CAP45 PO; -QUET100T PO; -QUET200T PO; -QUET25TA PO; -QUET300T2 PO; -RANI150T7 PO; -RISP2 PO; -SIMV-260 PO; -TOPI100 PO; +TOPI100T37 PO; -TOPI25 PO; -TRAZ-147 PO; -TRAZ150 PO; -ZIPR60CA2 PO; -[UNRECOGNIZED DRUG - OTHER] PO
[2017-03-14] MEDS ORDERED: SIMV-260 PO (20:22)
[2017-03-14] MEDS ORDERED: QUET200T PO (20:22)
[2017-03-14 20:54] LABS: BASOPHILS % (AUTO) 0.3 % (0.0-2.0); EOSINOPHILS % (AUTO) 2.8 % (1.0-6.0); HEMATOCRIT 40.7 % (41-53); LYMPHOCYTES # (AUTO) 1.7 K/uL (1.0-4.8); LYMPHOCYTES % (AUTO) 26.6 % (22.0-44.0); MEAN CORPUSCULAR HEMOGLOBIN 31.6 pg (26.0-34.0); MEAN CORPUSCULAR HGB CONC 34.4 G/dL (31.0-37.0); MEAN CORPUSCULAR VOLUME 92 fL (80-100); MONOCYTES # (AUTO) 0.8 K/uL (0.1-1.0); MONOCYTES % (AUTO) 12.4 % (2.0-9.0); NEUTROPHILS # (AUTO) 3.8 K/uL (1.8-7.7); NEUTROPHILS % (AUTO) 57.9 % (40.0-70.0); PLATELET COUNT (AUTO) 228 K/uL (150-450); RED BLOOD CELL COUNT(AUTO) 4.42 MIL/uL (4.50-5.90); RED CELL DISTRIBUTION WIDTH 12.5 % (11.5-14.5); WHITE BLOOD COUNT (AUTO) 6.5 K/uL (4.5-11.0)
[2017-03-14 21:07] LABS: ANION GAP 13 mmol/L (8-16); CALCIUM, TOTAL 8.9 mg/dL (8.8-10.5); CARBON DIOXIDE 22 mmol/L (22-29); CHLORIDE 108 mmol/L (98-107); CREATININE 1.05 mg/dL (0.60-1.30); GLOMERULAR FILTR. RATE CALC > 60 mL/min (>60); POTASSIUM 3.8 mmol/L (3.5-5.1); SODIUM SERUM 143 mmol/L (136-145); UREA NITROGEN, BLOOD 5 mg/dL (7-18)
[2017-03-14 21:15] LABS: ALANINE AMINOTRANSFERASE 30 U/L (12-78); ALBUMIN 3.9 g/dL (3.4-5.0); ASPARTATE AMINOTRANSFERASE 22 U/L (15-37); BILIRUBIN,TOTAL 0.2 mg/dL (0.1-1.0); TOTAL PROTEIN, SERUM 8.1 g/dL (6.4-8.2)
[2017-03-14 22:02] VITALS: BP 118/62
== END 2017-03-14 22:26 | disposition home or self-care (01) ==
LOC: EMS 20:13
DX: F91.1 Conduct disorder, childhood-onset type (principal); F31.9 Bipolar disorder, unspecified; G80.9 Cerebral palsy, unspecified
CPT/HCPCS: 36415; 80053; 80307; 85025; 99285; G0480

== ENCOUNTER 2017-05-26 14:44 | Emergency (ER) | payer OTHER ==
[~2017-05-26] VITALS: Ht 160 cm; Wt 88.6 kg
[~2017-05-26 14:44] MED LIST changes: +QUET200T PO; -QUET200T29 PO; +SIMV-260 PO; -SIMV20TA6 PO
[2017-05-26 15:27] LABS: BASOPHILS % (AUTO) 0.3 % (0.0-2.0); EOSINOPHILS % (AUTO) 1.7 % (1.0-6.0); HEMATOCRIT 40.6 % (41-53); HEMOGLOBIN 14.2 g/dL (13.5-17.5); LYMPHOCYTES # (AUTO) 1.5 K/uL (1.0-4.8); LYMPHOCYTES % (AUTO) 14.1 % (22.0-44.0); MEAN CORPUSCULAR HEMOGLOBIN 31.5 pg (26.0-34.0); MEAN CORPUSCULAR HGB CONC 34.9 G/dL (31.0-37.0); MEAN CORPUSCULAR VOLUME 90 fL (80-100); MONOCYTES # (AUTO) 1.2 K/uL (0.1-1.0); MONOCYTES % (AUTO) 11.3 % (2.0-9.0); NEUTROPHILS # (AUTO) 7.6 K/uL (1.8-7.7); NEUTROPHILS % (AUTO) 72.6 % (40.0-70.0); PLATELET COUNT (AUTO) 249 K/uL (150-450); RED BLOOD CELL COUNT(AUTO) 4.49 MIL/uL (4.50-5.90); WHITE BLOOD COUNT (AUTO) 10.4 K/uL (4.5-11.0)
[2017-05-26 15:41] LABS: ANION GAP 13 mmol/L (8-16); CALCIUM, TOTAL 9.4 mg/dL (8.8-10.5); CARBON DIOXIDE 22 mmol/L (22-29); CHLORIDE 108 mmol/L (98-107); CREATININE 1.13 mg/dL (0.60-1.30); GLOMERULAR FILTR. RATE CALC > 60 mL/min (>60); POTASSIUM 3.8 mmol/L (3.5-5.1); SODIUM SERUM 143 mmol/L (136-145); UREA NITROGEN, BLOOD 3 mg/dL (7-18)
[2017-05-26 15:47] LABS: ALANINE AMINOTRANSFERASE 47 U/L (12-78); ALBUMIN 3.8 g/dL (3.4-5.0); ASPARTATE AMINOTRANSFERASE 30 U/L (15-37); BILIRUBIN,TOTAL 0.2 mg/dL (0.1-1.0); TOTAL PROTEIN, SERUM 8.3 g/dL (6.4-8.2)
[2017-05-26 16:43] VITALS: BP 140/82
== END 2017-05-26 18:03 | disposition home or self-care (01) ==
LOC: EMS 14:46
DX: S00.83XA Contusion of other part of head, initial encounter (principal); F31.9 Bipolar disorder, unspecified; F79 Unspecified intellectual disabilities; F91.8 Other conduct disorders; X79.XXXA Intentional self-harm by blunt object, initial encounter; Y93.89 Activity, other specified; Y92.89 Other specified places as the place of occurrence of the external cause; Y99.8 Other external cause status
CPT/HCPCS: 36415; 80053; 80307; 85025; 99285; G0480; 99284

== ENCOUNTER 2017-07-11 12:34 | Emergency (ER) | payer OTHER ==
[~2017-07-11] VITALS: Ht 160 cm; Wt 81.8 kg
[2017-07-11] MEDS ORDERED: PERTUSS(ACELL),DIPH,TET VAC/PF 0.5 ML VIAL IM ONE (13:00)
[2017-07-11] MEDS ORDERED: SODIUM CHLORIDE 0.9% 250 ML IRRIG SOLUTION BOTTLE IRRIG ONE (13:00)
[2017-07-11 13:33] LABS: BASOPHILS % (AUTO) 0.3 % (0.0-2.0); EOSINOPHILS % (AUTO) 2.9 % (1.0-6.0); HEMATOCRIT 39.1 % (41-53); HEMOGLOBIN 13.4 g/dL (13.5-17.5); LYMPHOCYTES # (AUTO) 1.6 K/uL (1.0-4.8); LYMPHOCYTES % (AUTO) 25.6 % (22.0-44.0); MEAN CORPUSCULAR HEMOGLOBIN 31.3 pg (26.0-34.0); MEAN CORPUSCULAR HGB CONC 34.2 G/dL (31.0-37.0); MEAN CORPUSCULAR VOLUME 92 fL (80-100); MONOCYTES # (AUTO) 0.6 K/uL (0.1-1.0); MONOCYTES % (AUTO) 9.3 % (2.0-9.0); NEUTROPHILS # (AUTO) 3.9 K/uL (1.8-7.7); NEUTROPHILS % (AUTO) 61.9 % (40.0-70.0); PLATELET COUNT (AUTO) 258 K/uL (150-450); RED BLOOD CELL COUNT(AUTO) 4.26 MIL/uL (4.50-5.90); RED CELL DISTRIBUTION WIDTH 13.1 % (11.5-14.5)
[2017-07-11 13:46] LABS: ANION GAP 5 mmol/L (8-16); CALCIUM, TOTAL 9.3 mg/dL (8.8-10.5); CARBON DIOXIDE 27 mmol/L (22-29); CHLORIDE 108 mmol/L (98-107); CREATININE 1.15 mg/dL (0.60-1.30); GLOMERULAR FILTR. RATE CALC > 60 mL/min (>60); GLUCOSE,RANDOM 96 mg/dL (70-110); LITHIUM 1.27 mmol/L (0.60-1.20); POTASSIUM 4.2 mmol/L (3.5-5.1); SODIUM SERUM 140 mmol/L (136-145); UREA NITROGEN, BLOOD 7 mg/dL (7-18)
[2017-07-11 14:00] LABS: ALANINE AMINOTRANSFERASE 56 U/L (12-78); ALBUMIN 3.8 g/dL (3.4-5.0); ALKALINE PHOSPHATASE 54 U/L (46-116); ASPARTATE AMINOTRANSFERASE 42 U/L (15-37); BILIRUBIN,TOTAL 0.3 mg/dL (0.1-1.0); THYROID STIMULATING HORMONE 4.64 uIU/mL (0.36-3.74); TOTAL PROTEIN, SERUM 8.1 g/dL (6.4-8.2); VALPROIC ACID 94 mcg/mL (50-100)
[2017-07-11 15:13] VITALS: BP 140/77
== END 2017-07-11 15:41 | disposition home or self-care (01) ==
LOC: EMS 12:38
DX: F25.9 Schizoaffective disorder, unspecified (principal); R46.89 Other symptoms and signs involving appearance and behavior; S00.01XA Abrasion of scalp, initial encounter; F31.9 Bipolar disorder, unspecified; Y04.0XXA Assault by unarmed brawl or fight, initial encounter; Y93.89 Activity, other specified; Y92.89 Other specified places as the place of occurrence of the external cause; Y99.8 Other external cause status
CPT/HCPCS: 36415; 80053; 80164; 80178; 84443; 85025; 90471; 90715; 99284; G0480

== ENCOUNTER 2017-07-29 16:28 | Inpatient (IN) | payer MEDICAID, OTHER ==
[~2017-07-29] VITALS: Ht 160 cm; Wt 81.6 kg
[2017-07-29] MEDS ORDERED: UNABLE PO (16:45)
[2017-07-29] MEDS ORDERED: ZOLPIDEM TARTRATE 10 MG TABLET PO PRN (17:00)
[2017-07-29] MEDS ORDERED: LORazepam 2 MG TABLET PO PRN (17:00)
[2017-07-29] MEDS ORDERED: OLANZapine 5 MG RAPDIS TABLET PO PRN (17:00)
[2017-07-29 17:02] LABS: EOSINOPHILS % (AUTO) 3.5 % (1.0-6.0); HEMATOCRIT 38.5 % (41-53); HEMOGLOBIN 13.1 g/dL (13.5-17.5); LYMPHOCYTES % (AUTO) 28.7 % (22.0-44.0); MEAN CORPUSCULAR HEMOGLOBIN 30.8 pg (26.0-34.0); MEAN CORPUSCULAR HGB CONC 34.1 G/dL (31.0-37.0); MEAN CORPUSCULAR VOLUME 91 fL (80-100); MONOCYTES # (AUTO) 0.7 K/uL (0.1-1.0); MONOCYTES % (AUTO) 10.5 % (2.0-9.0); NEUTROPHILS % (AUTO) 56.3 % (40.0-70.0); PLATELET COUNT (AUTO) 191 K/uL (150-450); RED BLOOD CELL COUNT(AUTO) 4.26 MIL/uL (4.50-5.90); RED CELL DISTRIBUTION WIDTH 13.4 % (11.5-14.5)
[2017-07-29 17:20] LABS: ANION GAP 12 mmol/L (8-16); CALCIUM, TOTAL 8.8 mg/dL (8.8-10.5); CARBON DIOXIDE 22 mmol/L (22-29); CHLORIDE 108 mmol/L (98-107); CREATININE 0.91 mg/dL (0.60-1.30); GLOMERULAR FILTR. RATE CALC > 60 mL/min (>60); GLUCOSE,RANDOM 116 mg/dL (70-110); POTASSIUM 3.5 mmol/L (3.5-5.1); SODIUM SERUM 142 mmol/L (136-145); UREA NITROGEN, BLOOD 8 mg/dL (7-18)
[2017-07-29 17:26] LABS: ALANINE AMINOTRANSFERASE 50 U/L (12-78); ALBUMIN 3.5 g/dL (3.4-5.0); ALKALINE PHOSPHATASE 50 U/L (46-116); ASPARTATE AMINOTRANSFERASE 33 U/L (15-37); BILIRUBIN,TOTAL 0.2 mg/dL (0.1-1.0); TOTAL PROTEIN, SERUM 7.6 g/dL (6.4-8.2)
[2017-07-29 18:33] LABS: AMPHET/METH SCREEN,URINE NEGATIVE (NEGATIVE); BARBITURATE SCREEN, URINE NEGATIVE (NEGATIVE); BENZODIAZEPINES SCREEN,URINE POSITIVE (NEGATIVE); CANNABINOID SCREEN,URINE NEGATIVE (NEGATIVE); COCAINE SCREEN,URINE NEGATIVE (NEGATIVE); METHADONE SCREEN, URINE NEGATIVE (NEGATIVE); OPIATE SCREEN,URINE NEGATIVE (NEGATIVE)
[2017-07-29 18:35] LABS: PHENCYCLIDINE SCREEN,URINE NEGATIVE (NEGATIVE)
[2017-07-30 01:54] VITALS: BP 132/92
[2017-07-30] MEDS ORDERED: PNEUMOCOCCAL VACCINE POLYVALENT 0.5 ML VIAL [PPSV23] IM ONE (02:15)
[2017-07-30 07:46] LABS: CHOL/HDL RATIO 2.4 (4.2-7.3)
[2017-07-30 08:00] VITALS: BP 126/66
[2017-07-30] MEDS ORDERED: ACETAMINOPHEN 325 MG TABLET PO PRN (11:15)
[2017-07-30] MEDS ORDERED: GuaiFENesin/D-METHORPHAN [SUGAR-FREE] 200-20MG/10 ML SYRUP UDCUP PO PRN (11:15)
[2017-07-30] MEDS ORDERED: MAGNESIUM HYDROXIDE SUSPENSION 30 ML UDCUP PO PRN (11:15)
[2017-07-30] MEDS ORDERED: HydrOXYzine PAMOATE 50 MG CAPSULE PO PRN (11:15)
[2017-07-30] MEDS ORDERED: LOPERAMIDE HCL 2 MG CAPSULE PO PRN (11:15)
[2017-07-30] MEDS ORDERED: PROMETHAZINE HCL 25 MG TABLET PO PRN (11:15)
[2017-07-30] MEDS ORDERED: MAG HYDROX/AL HYDROX/SIMETH ES 30 ML SUSPENSION UDCUP PO PRN (11:15)
[2017-07-30] MEDS: QUEtiapine FUMARATE 200 MG TABLET PO SCH (16:10)
[2017-07-30] MEDS: THIAMINE HCL 100 MG TABLET PO SCH (16:11)
[2017-07-30] MEDS: TOPIRAMATE 100 MG TABLET PO SCH (16:11)
[2017-07-30] MEDS ORDERED: DiphenhydrAMINE HCL 50 MG/ML VIAL ONE (17:13)
[2017-07-30] MEDS ORDERED: HALOPERIDOL LACTATE 5 MG/ML VIAL ONE (17:13)
[2017-07-30] MEDS ORDERED: LORazepam 2 MG/ML VIAL ONE (17:13)
[2017-07-30] MEDS ORDERED: HALOPERIDOL LACTATE 5 MG/ML VIAL IM ONE (17:15)
[2017-07-30] MEDS ORDERED: DiphenhydrAMINE HCL 50 MG/ML VIAL IM ONE (17:15)
[2017-07-30] MEDS ORDERED: LORazepam 2 MG/ML VIAL IM ONE (17:15)
[2017-07-30] MEDS: DIVALPROEX SODIUM 500 MG ER TABLET PO SCH (21:00)
[2017-07-30] MEDS: LITHIUM CARBONATE 300 MG CAPSULE PO SCH (21:00)
[2017-07-30 23:17] VITALS: BP 122/78
[2017-07-31 07:33] LABS: LITHIUM 0.31 mmol/L (0.60-1.20)
[2017-07-31 07:51] LABS: CHOL/HDL RATIO 2.8 (4.2-7.3)
[2017-07-31 08:00] VITALS: BP 108/57
[2017-07-31] MEDS: TOPIRAMATE 100 MG TABLET PO SCH ×2 (09:15→17:00)
[2017-07-31] MEDS: FOLIC ACID 1 MG TABLET PO SCH (09:16)
[2017-07-31] MEDS: MULTIVITAMINS WITH MINERALS, THERAPEUTIC TABLET PO SCH (09:16)
[2017-07-31] MEDS: THIAMINE HCL 100 MG TABLET PO SCH ×2 (09:16→16:59)
[2017-07-31] MEDS: QUEtiapine FUMARATE 200 MG TABLET PO SCH ×2 (09:16→16:59)
[2017-07-31] MEDS: GuanFACINE HCL 1 MG TABLET PO SCH ×2 (12:40→17:00)
[2017-07-31] MEDS: DIVALPROEX SODIUM 500 MG ER TABLET PO SCH (20:10)
[2017-07-31] MEDS: LITHIUM CARBONATE 300 MG CAPSULE PO SCH (20:10)
[2017-07-31] MEDS: SIMVASTATIN 20 MG TABLET PO SCH (20:12)
[2017-07-31 21:14] VITALS: BP 132/74
[2017-08-01] MEDS: LEVOTHYROXINE SODIUM 25 MCG TABLET PO SCH (06:43)
[2017-08-01 07:53] LABS: LITHIUM 0.69 mmol/L (0.60-1.20)
[2017-08-01 08:00] VITALS: BP 112/71
[2017-08-01] MEDS: GuanFACINE HCL 1 MG TABLET PO SCH ×3 (09:44→16:30)
[2017-08-01] MEDS: QUEtiapine FUMARATE 200 MG TABLET PO SCH ×2 (09:44→16:30)
[2017-08-01] MEDS: MULTIVITAMINS WITH MINERALS, THERAPEUTIC TABLET PO SCH (09:45)
[2017-08-01] MEDS: FOLIC ACID 1 MG TABLET PO SCH (09:45)
[2017-08-01] MEDS: THIAMINE HCL 100 MG TABLET PO SCH ×2 (09:45→16:30)
[2017-08-01] MEDS: TOPIRAMATE 100 MG TABLET PO SCH ×2 (09:46→16:30)
[2017-08-01 19:43] VITALS: BP 122/74
[2017-08-01] MEDS: SIMVASTATIN 20 MG TABLET PO SCH (21:32)
[2017-08-01] MEDS: DIVALPROEX SODIUM 500 MG ER TABLET PO SCH (21:32)
[2017-08-01] MEDS: LITHIUM CARBONATE 600 MG CAPSULE PO SCH (21:40)
[2017-08-02] MEDS: LEVOTHYROXINE SODIUM 25 MCG TABLET PO SCH (07:00)
[2017-08-02 08:00] VITALS: BP 112/71
[2017-08-02] MEDS: MULTIVITAMINS WITH MINERALS, THERAPEUTIC TABLET PO SCH (08:40)
[2017-08-02] MEDS: FOLIC ACID 1 MG TABLET PO SCH (08:40)
[2017-08-02] MEDS: THIAMINE HCL 100 MG TABLET PO SCH ×2 (08:40→17:40)
[2017-08-02] MEDS: QUEtiapine FUMARATE 200 MG TABLET PO SCH ×2 (08:41→17:40)
[2017-08-02] MEDS: TOPIRAMATE 100 MG TABLET PO SCH ×2 (08:41→17:40)
[2017-08-02] MEDS: GuanFACINE HCL 1 MG TABLET PO SCH ×3 (08:41→17:40)
[2017-08-02] MEDS: SIMVASTATIN 20 MG TABLET PO SCH (20:28)
[2017-08-02] MEDS: DIVALPROEX SODIUM 500 MG ER TABLET PO SCH (20:29)
[2017-08-02] MEDS: LITHIUM CARBONATE 600 MG CAPSULE PO SCH (20:29)
[2017-08-03] MEDS: LEVOTHYROXINE SODIUM 25 MCG TABLET PO SCH (07:03)
[2017-08-03 08:14] VITALS: BP 131/72
[2017-08-03] MEDS: MULTIVITAMINS WITH MINERALS, THERAPEUTIC TABLET PO SCH (09:59)
[2017-08-03] MEDS: QUEtiapine FUMARATE 200 MG TABLET PO SCH ×2 (09:59→16:41)
[2017-08-03] MEDS: THIAMINE HCL 100 MG TABLET PO SCH ×2 (09:59→16:40)
[2017-08-03] MEDS: FOLIC ACID 1 MG TABLET PO SCH (09:59)
[2017-08-03] MEDS: TOPIRAMATE 100 MG TABLET PO SCH ×2 (10:00→16:42)
[2017-08-03] MEDS: GuanFACINE HCL 1 MG TABLET PO SCH ×3 (10:00→16:42)
[2017-08-03 17:29] VITALS: BP 124/61
[2017-08-03] MEDS: LITHIUM CARBONATE 600 MG CAPSULE PO SCH (20:01)
[2017-08-03] MEDS: DIVALPROEX SODIUM 500 MG ER TABLET PO SCH (20:01)
[2017-08-03] MEDS: SIMVASTATIN 20 MG TABLET PO SCH (20:01)
[2017-08-04] MEDS: LEVOTHYROXINE SODIUM 25 MCG TABLET PO SCH (06:52)
[2017-08-04 08:22] VITALS: BP 111/68
[2017-08-04] MEDS: TOPIRAMATE 100 MG TABLET PO SCH ×2 (09:19→16:39)
[2017-08-04] MEDS: GuanFACINE HCL 1 MG TABLET PO SCH ×3 (09:19→16:39)
[2017-08-04] MEDS: THIAMINE HCL 100 MG TABLET PO SCH ×2 (09:21→16:39)
[2017-08-04] MEDS: MULTIVITAMINS WITH MINERALS, THERAPEUTIC TABLET PO SCH (09:22)
[2017-08-04] MEDS: FOLIC ACID 1 MG TABLET PO SCH (09:22)
[2017-08-04] MEDS: QUEtiapine FUMARATE 200 MG TABLET PO SCH ×2 (09:22→16:39)
[2017-08-04 16:00] VITALS: BP 126/78
[2017-08-04] MEDS: SIMVASTATIN 20 MG TABLET PO SCH (21:22)
[2017-08-04] MEDS: DIVALPROEX SODIUM 500 MG ER TABLET PO SCH (21:22)
[2017-08-04] MEDS: LITHIUM CARBONATE 600 MG CAPSULE PO SCH (21:22)
[2017-08-05] MEDS: LEVOTHYROXINE SODIUM 25 MCG TABLET PO SCH (06:59)
[2017-08-05 08:00] VITALS: BP 103/62
[2017-08-05] MEDS: FOLIC ACID 1 MG TABLET PO SCH (08:13)
[2017-08-05] MEDS: TOPIRAMATE 100 MG TABLET PO SCH ×2 (08:14→17:01)
[2017-08-05] MEDS: GuanFACINE HCL 1 MG TABLET PO SCH ×3 (08:14→17:01)
[2017-08-05] MEDS: MULTIVITAMINS WITH MINERALS, THERAPEUTIC TABLET PO SCH (08:14)
[2017-08-05] MEDS: QUEtiapine FUMARATE 200 MG TABLET PO SCH ×2 (08:14→17:01)
[2017-08-05] MEDS: THIAMINE HCL 100 MG TABLET PO SCH ×2 (08:15→17:01)
[2017-08-05 08:29] VITALS: BP 103/62
[2017-08-05] MEDS ORDERED: GUAN1TAB2 PO (15:16)
[2017-08-05] MEDS ORDERED: DIVA500T52 PO (15:16)
[2017-08-05] MEDS ORDERED: QUET200T29 PO (15:16)
[2017-08-05] MEDS ORDERED: TOPI100T31 PO (15:16)
[2017-08-05] MEDS ORDERED: LITH600 PO (15:16)
[2017-08-05 16:00] VITALS: BP 115/73
[2017-08-05] MEDS: SIMVASTATIN 20 MG TABLET PO SCH (20:20)
[2017-08-05] MEDS: DIVALPROEX SODIUM 500 MG ER TABLET PO SCH (20:20)
[2017-08-05] MEDS: LITHIUM CARBONATE 600 MG CAPSULE PO SCH (20:20)
[2017-08-06] MEDS: LEVOTHYROXINE SODIUM 25 MCG TABLET PO SCH (06:39)
[2017-08-06 09:00] VITALS: BP 117/79
[2017-08-06] MEDS: THIAMINE HCL 100 MG TABLET PO SCH ×2 (09:12→15:50)
[2017-08-06] MEDS: FOLIC ACID 1 MG TABLET PO SCH (09:12)
[2017-08-06] MEDS: MULTIVITAMINS WITH MINERALS, THERAPEUTIC TABLET PO SCH (09:13)
[2017-08-06] MEDS: QUEtiapine FUMARATE 200 MG TABLET PO SCH ×2 (09:13→15:50)
[2017-08-06] MEDS: TOPIRAMATE 100 MG TABLET PO SCH ×2 (09:13→15:50)
[2017-08-06] MEDS: GuanFACINE HCL 1 MG TABLET PO SCH ×3 (09:14→15:50)
[2017-08-06] MEDS: SIMVASTATIN 20 MG TABLET PO SCH (20:22)
[2017-08-06] MEDS: DIVALPROEX SODIUM 500 MG ER TABLET PO SCH (20:22)
[2017-08-06 20:50] VITALS: BP 112/78
[2017-08-07] MEDS: LEVOTHYROXINE SODIUM 25 MCG TABLET PO SCH (07:00)
[2017-08-07 07:07] LABS: ANION GAP 10 mmol/L (8-16); CALCIUM, TOTAL 8.9 mg/dL (8.8-10.5); CARBON DIOXIDE 24 mmol/L (22-29); CHLORIDE 107 mmol/L (98-107); CREATININE 0.88 mg/dL (0.60-1.30); GLOMERULAR FILTR. RATE CALC > 60 mL/min (>60); GLUCOSE,RANDOM 98 mg/dL (70-110); POTASSIUM 3.8 mmol/L (3.5-5.1); SODIUM SERUM 141 mmol/L (136-145); UREA NITROGEN, BLOOD 15 mg/dL (7-18)
[2017-08-07 07:18] LABS: LITHIUM 0.62 mmol/L (0.60-1.20)
[2017-08-07] MEDS: MULTIVITAMINS WITH MINERALS, THERAPEUTIC TABLET PO SCH (08:22)
[2017-08-07] MEDS: FOLIC ACID 1 MG TABLET PO SCH (08:22)
[2017-08-07] MEDS: THIAMINE HCL 100 MG TABLET PO SCH ×2 (08:23→16:46)
[2017-08-07] MEDS: QUEtiapine FUMARATE 200 MG TABLET PO SCH ×2 (08:23→16:46)
[2017-08-07] MEDS: GuanFACINE HCL 1 MG TABLET PO SCH ×3 (08:24→16:46)
[2017-08-07] MEDS: TOPIRAMATE 100 MG TABLET PO SCH ×2 (08:24→16:46)
[2017-08-07 10:04] VITALS: BP 149/70
[2017-08-07] MEDS ORDERED: GUAN1TAB22 PO (10:35)
[2017-08-07 16:37] VITALS: BP 111/71
== END 2017-08-07 17:30 | disposition home or self-care (01) | DRG 750 ==
LOC: EMS 16:30 → 3EI 07-30 00:11 → 3EC 07-30 18:41
PROVIDERS: ADMIT Psychiatry & Neurology Psychiatry; ATTEND Psychiatry & Neurology Psychiatry
DX: F25.9 Schizoaffective disorder, unspecified (principal); R45.851 Suicidal ideations; Z78.1 Physical restraint status; E03.9 Hypothyroidism, unspecified; E66.9 Obesity, unspecified; E78.00 Pure hypercholesterolemia, unspecified; G47.00 Insomnia, unspecified; G80.9 Cerebral palsy, unspecified; D64.9 Anemia, unspecified; F41.9 Anxiety disorder, unspecified; E78.5 Hyperlipidemia, unspecified; R03.0 Elevated blood-pressure reading, without diagnosis of hypertension; Z68.31 Body mass index [BMI] 31.0-31.9, adult; Z79.899 Other long term (current) drug therapy; Z91.19 Patient's noncompliance with other medical treatment and regimen
CPT/HCPCS: 70450; 99285; G0480; J1200; J1630; J2060

== ENCOUNTER 2017-08-18 13:29 | Inpatient (IN) | payer MEDICAID, OTHER ==
[~2017-08-18] VITALS: Ht 160 cm; Wt 76.3 kg
[2017-08-18] MEDS: TOPIRAMATE 100 MG TABLET PO SCH (10:45)
[2017-08-18] MEDS: QUEtiapine FUMARATE 200 MG TABLET PO SCH (10:45)
[~2017-08-18 13:29] MED LIST changes: +DIVA500T52 PO; -DIVA500T69 PO; +GUAN1TAB2 PO; -LITH300C3 PO; +LITH600 PO; -QUET200T PO; +QUET200T29 PO; +TOPI100T31 PO; -TOPI100T37 PO
[2017-08-18 13:53] LABS: BASOPHILS % (AUTO) 0.2 % (0.0-2.0); HEMATOCRIT 40.2 % (41-53); HEMOGLOBIN 13.8 g/dL (13.5-17.5); LYMPHOCYTES # (AUTO) 2.5 K/uL (1.0-4.8); LYMPHOCYTES % (AUTO) 32.2 % (22.0-44.0); MEAN CORPUSCULAR HGB CONC 34.3 G/dL (31.0-37.0); MEAN CORPUSCULAR VOLUME 90 fL (80-100); MONOCYTES # (AUTO) 0.5 K/uL (0.1-1.0); MONOCYTES % (AUTO) 6.8 % (2.0-9.0); NEUTROPHILS # (AUTO) 4.4 K/uL (1.8-7.7); NEUTROPHILS % (AUTO) 56.8 % (40.0-70.0); PLATELET COUNT (AUTO) 257 K/uL (150-450); RED BLOOD CELL COUNT(AUTO) 4.44 MIL/uL (4.50-5.90); RED CELL DISTRIBUTION WIDTH 12.7 % (11.5-14.5)
[2017-08-18 14:02] LABS: ANION GAP 13 mmol/L (8-16); CALCIUM, TOTAL 9.1 mg/dL (8.8-10.5); CARBON DIOXIDE 23 mmol/L (22-29); CHLORIDE 105 mmol/L (98-107); CREATININE 1.15 mg/dL (0.60-1.30); GLOMERULAR FILTR. RATE CALC > 60 mL/min (>60); GLUCOSE,RANDOM 142 mg/dL (70-110); POTASSIUM 3.3 mmol/L (3.5-5.1); SODIUM SERUM 141 mmol/L (136-145); UREA NITROGEN, BLOOD 12 mg/dL (7-18)
[2017-08-18 14:08] LABS: ALANINE AMINOTRANSFERASE 26 U/L (12-78); ALBUMIN 3.7 g/dL (3.4-5.0); ALKALINE PHOSPHATASE 48 U/L (46-116); ASPARTATE AMINOTRANSFERASE 16 U/L (15-37); BILIRUBIN,TOTAL 0.1 mg/dL (0.1-1.0)
[2017-08-18] MEDS: GuanFACINE HCL 1 MG TABLET PO SCH ×2 (16:00→20:45)
[2017-08-18 16:35] LABS: LITHIUM 0.85 mmol/L (0.60-1.20)
[2017-08-18 16:49] LABS: THYROID STIMULATING HORMONE 7.61 uIU/mL (0.36-3.74)
[2017-08-18 18:50] LABS: AMPHET/METH SCREEN,URINE NEGATIVE (NEGATIVE); BARBITURATE SCREEN, URINE NEGATIVE (NEGATIVE); BENZODIAZEPINES SCREEN,URINE POSITIVE (NEGATIVE); CANNABINOID SCREEN,URINE NEGATIVE (NEGATIVE); COCAINE SCREEN,URINE NEGATIVE (NEGATIVE); METHADONE SCREEN, URINE NEGATIVE (NEGATIVE); OPIATE SCREEN,URINE NEGATIVE (NEGATIVE)
[2017-08-18 19:06] LABS: PHENCYCLIDINE SCREEN,URINE NEGATIVE (NEGATIVE)
[2017-08-19] MEDS: TOPIRAMATE 100 MG TABLET PO SCH ×2 (09:00→17:15)
[2017-08-19] MEDS: QUEtiapine FUMARATE 200 MG TABLET PO SCH ×2 (09:00→17:15)
[2017-08-19] MEDS: DIVALPROEX SODIUM 500 MG ER TABLET PO SCH ×2 (09:18→20:10)
[2017-08-19] MEDS: GuanFACINE HCL 1 MG TABLET PO SCH ×3 (10:45→17:00)
[2017-08-19] MEDS ORDERED: LOPERAMIDE HCL 2 MG CAPSULE PO PRN (13:15)
[2017-08-19] MEDS ORDERED: HydrOXYzine PAMOATE 50 MG CAPSULE PO PRN (13:15)
[2017-08-19] MEDS ORDERED: MAG HYDROX/AL HYDROX/SIMETH ES 30 ML SUSPENSION UDCUP PO PRN (13:15)
[2017-08-19] MEDS ORDERED: GuaiFENesin/D-METHORPHAN [SUGAR-FREE] 200-20MG/10 ML SYRUP UDCUP PO PRN (13:15)
[2017-08-19] MEDS ORDERED: MAGNESIUM HYDROXIDE SUSPENSION 30 ML UDCUP PO PRN (13:15)
[2017-08-19] MEDS ORDERED: ACETAMINOPHEN 325 MG TABLET PO PRN (13:15)
[2017-08-19] MEDS ORDERED: PROMETHAZINE HCL 25 MG TABLET PO PRN (13:15)
[2017-08-19 14:06] VITALS: BP 120/81
[2017-08-19] MEDS: THIAMINE HCL 100 MG TABLET PO SCH (17:15)
[2017-08-19] MEDS: SIMVASTATIN 20 MG TABLET PO SCH (20:10)
[2017-08-20] MEDS: LEVOTHYROXINE SODIUM 25 MCG TABLET PO SCH (06:28)
[2017-08-20 06:36] LABS: BASOPHILS % (AUTO) 0.3 % (0.0-2.0); EOSINOPHILS % (AUTO) 4.1 % (1.0-6.0); HEMATOCRIT 41.4 % (41-53); HEMOGLOBIN 14.2 g/dL (13.5-17.5); LYMPHOCYTES # (AUTO) 2.7 K/uL (1.0-4.8); LYMPHOCYTES % (AUTO) 36.4 % (22.0-44.0); MEAN CORPUSCULAR HEMOGLOBIN 31.1 pg (26.0-34.0); MEAN CORPUSCULAR HGB CONC 34.4 G/dL (31.0-37.0); MEAN CORPUSCULAR VOLUME 91 fL (80-100); MONOCYTES # (AUTO) 0.9 K/uL (0.1-1.0); MONOCYTES % (AUTO) 11.5 % (2.0-9.0); NEUTROPHILS # (AUTO) 3.6 K/uL (1.8-7.7); NEUTROPHILS % (AUTO) 47.7 % (40.0-70.0); PLATELET COUNT (AUTO) 273 K/uL (150-450); RED BLOOD CELL COUNT(AUTO) 4.57 MIL/uL (4.50-5.90); RED CELL DISTRIBUTION WIDTH 12.6 % (11.5-14.5)
[2017-08-20 07:03] LABS: LITHIUM 0.35 mmol/L (0.60-1.20)
[2017-08-20 07:05] LABS: CHOL/HDL RATIO 3.1 (4.2-7.3)
[2017-08-20 07:07] LABS: HEMOGLOBIN A1C 5.3 % (4.5-6.2)
[2017-08-20] MEDS: FOLIC ACID 1 MG TABLET PO SCH (08:23)
[2017-08-20] MEDS: MULTIVITAMINS WITH MINERALS, THERAPEUTIC TABLET PO SCH (08:23)
[2017-08-20] MEDS: THIAMINE HCL 100 MG TABLET PO SCH ×2 (08:24→15:56)
[2017-08-20] MEDS: QUEtiapine FUMARATE 200 MG TABLET PO SCH ×2 (08:24→15:56)
[2017-08-20] MEDS: TOPIRAMATE 100 MG TABLET PO SCH ×2 (08:24→15:56)
[2017-08-20] MEDS: GuanFACINE HCL 1 MG TABLET PO SCH ×3 (08:25→15:56)
[2017-08-20 08:47] VITALS: BP 121/65
[2017-08-20] MEDS ORDERED: HALOPERIDOL LACTATE 5 MG/ML VIAL IM ONE (09:30)
[2017-08-20] MEDS ORDERED: LORazepam 2 MG/ML VIAL IM ONE (09:30)
[2017-08-20] MEDS ORDERED: DiphenhydrAMINE HCL 50 MG/ML VIAL IM ONE (09:30)
[2017-08-20 11:15] VITALS: BP 142/82
[2017-08-20 21:37] VITALS: BP 125/74
[2017-08-20] MEDS: RisperiDONE 0.5 MG TABLET PO SCH (21:41)
[2017-08-20] MEDS: SIMVASTATIN 20 MG TABLET PO SCH (21:41)
[2017-08-20] MEDS: DIVALPROEX SODIUM 500 MG ER TABLET PO SCH (21:41)
[2017-08-21] MEDS ORDERED: PNEUMOCOCCAL VACCINE POLYVALENT 0.5 ML VIAL [PPSV23] IM ONE (02:30)
[2017-08-21] MEDS: LEVOTHYROXINE SODIUM 25 MCG TABLET PO SCH (06:58)
[2017-08-21] MEDS: FOLIC ACID 1 MG TABLET PO SCH (08:08)
[2017-08-21] MEDS: LORazepam 2 MG TABLET PO PRN (08:08)
[2017-08-21] MEDS: THIAMINE HCL 100 MG TABLET PO SCH ×2 (08:08→16:02)
[2017-08-21] MEDS: RisperiDONE 0.5 MG TABLET PO SCH ×3 (08:08→16:02)
[2017-08-21] MEDS: MULTIVITAMINS WITH MINERALS, THERAPEUTIC TABLET PO SCH (08:08)
[2017-08-21] MEDS: TOPIRAMATE 100 MG TABLET PO SCH ×2 (08:09→16:02)
[2017-08-21] MEDS: GuanFACINE HCL 1 MG TABLET PO SCH ×3 (08:09→16:02)
[2017-08-21 08:21] VITALS: BP 124/63
[2017-08-21 16:00] VITALS: BP 130/65
[2017-08-21] MEDS: DIVALPROEX SODIUM 500 MG ER TABLET PO SCH (20:44)
[2017-08-21] MEDS: SIMVASTATIN 20 MG TABLET PO SCH (20:44)
[2017-08-21] MEDS: ZOLPIDEM TARTRATE 10 MG TABLET PO PRN (21:00)
[2017-08-22] MEDS: LORazepam 2 MG TABLET PO PRN (00:07)
[2017-08-22 05:52] VITALS: BP 128/68
[2017-08-22] MEDS: LEVOTHYROXINE SODIUM 25 MCG TABLET PO SCH (06:32)
[2017-08-22] MEDS: RisperiDONE 0.5 MG TABLET PO SCH (08:28)
[2017-08-22] MEDS: GuanFACINE HCL 1 MG TABLET PO SCH ×3 (08:28→17:54)
[2017-08-22] MEDS: MULTIVITAMINS WITH MINERALS, THERAPEUTIC TABLET PO SCH (08:28)
[2017-08-22] MEDS: TOPIRAMATE 100 MG TABLET PO SCH ×2 (08:28→17:53)
[2017-08-22] MEDS: THIAMINE HCL 100 MG TABLET PO SCH ×2 (08:28→17:54)
[2017-08-22] MEDS: FOLIC ACID 1 MG TABLET PO SCH (08:28)
[2017-08-22 08:42] VITALS: BP 112/52
[2017-08-22] MEDS ORDERED: DiphenhydrAMINE HCL 50 MG/ML VIAL IM ONE (09:00)
[2017-08-22] MEDS ORDERED: LORazepam 2 MG/ML VIAL IM ONE (09:00)
[2017-08-22] MEDS ORDERED: HALOPERIDOL LACTATE 5 MG/ML VIAL IM ONE (09:00)
[2017-08-22] MEDS: LITHIUM CARBONATE 300 MG CAPSULE PO SCH ×2 (12:31→17:54)
[2017-08-22 16:00] VITALS: BP 123/71
[2017-08-22] MEDS: DIVALPROEX SODIUM 500 MG ER TABLET PO SCH (20:24)
[2017-08-22] MEDS: QUEtiapine FUMARATE 300 MG TABLET PO SCH (20:24)
[2017-08-22] MEDS: SIMVASTATIN 20 MG TABLET PO SCH (20:24)
[2017-08-23] MEDS: LEVOTHYROXINE SODIUM 25 MCG TABLET PO SCH (06:37)
[2017-08-23] MEDS: LITHIUM CARBONATE 300 MG CAPSULE PO SCH ×2 (10:05→17:38)
[2017-08-23] MEDS: FOLIC ACID 1 MG TABLET PO SCH (10:05)
[2017-08-23] MEDS: THIAMINE HCL 100 MG TABLET PO SCH ×2 (10:06→17:38)
[2017-08-23] MEDS: GuanFACINE HCL 1 MG TABLET PO SCH ×2 (10:06→17:38)
[2017-08-23] MEDS: TOPIRAMATE 100 MG TABLET PO SCH ×2 (10:06→17:38)
[2017-08-23] MEDS: MULTIVITAMINS WITH MINERALS, THERAPEUTIC TABLET PO SCH (10:06)
[2017-08-23] MEDS ORDERED: DiphenhydrAMINE HCL 50 MG/ML VIAL IM ONE (12:00)
[2017-08-23] MEDS ORDERED: LORazepam 2 MG/ML VIAL IM ONE (12:00)
[2017-08-23] MEDS ORDERED: HALOPERIDOL LACTATE 5 MG/ML VIAL IM ONE (12:00)
[2017-08-23 13:51] VITALS: BP 136/96
[2017-08-23 13:56] VITALS: BP 124/72
[2017-08-23 16:22] VITALS: BP 121/70
[2017-08-23] MEDS: SIMVASTATIN 20 MG TABLET PO SCH (20:21)
[2017-08-23] MEDS: QUEtiapine FUMARATE 300 MG TABLET PO SCH (20:21)
[2017-08-23] MEDS: DIVALPROEX SODIUM 500 MG ER TABLET PO SCH (20:21)
[2017-08-23] MEDS: LORazepam 2 MG TABLET PO PRN (20:21)
[2017-08-23] MEDS: ZOLPIDEM TARTRATE 10 MG TABLET PO PRN (21:49)
[2017-08-24] MEDS: LEVOTHYROXINE SODIUM 25 MCG TABLET PO SCH (06:35)
[2017-08-24 09:34] VITALS: BP 105/63
[2017-08-24] MEDS: MULTIVITAMINS WITH MINERALS, THERAPEUTIC TABLET PO SCH (10:12)
[2017-08-24] MEDS: LORazepam 2 MG TABLET PO PRN (10:12)
[2017-08-24] MEDS: FOLIC ACID 1 MG TABLET PO SCH (10:12)
[2017-08-24] MEDS: TOPIRAMATE 100 MG TABLET PO SCH ×2 (10:12→17:48)
[2017-08-24] MEDS: THIAMINE HCL 100 MG TABLET PO SCH ×2 (10:12→17:48)
[2017-08-24] MEDS: LITHIUM CARBONATE 300 MG CAPSULE PO SCH ×3 (10:12→17:48)
[2017-08-24] MEDS: GuanFACINE HCL 1 MG TABLET PO SCH ×3 (10:12→17:48)
[2017-08-24] MEDS: QUEtiapine FUMARATE 300 MG TABLET PO SCH (20:48)
[2017-08-24] MEDS: DIVALPROEX SODIUM 500 MG ER TABLET PO SCH (20:48)
[2017-08-24] MEDS: SIMVASTATIN 20 MG TABLET PO SCH (20:49)
[2017-08-24 21:57] VITALS: BP 119/70
[2017-08-25] MEDS: ZOLPIDEM TARTRATE 10 MG TABLET PO PRN (01:49)
[2017-08-25] MEDS: LEVOTHYROXINE SODIUM 25 MCG TABLET PO SCH (06:47)
[2017-08-25 08:50] VITALS: BP 113/68
[2017-08-25] MEDS: LORazepam 2 MG TABLET PO PRN (09:43)
[2017-08-25] MEDS: THIAMINE HCL 100 MG TABLET PO SCH ×2 (09:43→16:33)
[2017-08-25] MEDS: FOLIC ACID 1 MG TABLET PO SCH (09:43)
[2017-08-25] MEDS: LITHIUM CARBONATE 300 MG CAPSULE PO SCH ×3 (09:43→16:33)
[2017-08-25] MEDS: MULTIVITAMINS WITH MINERALS, THERAPEUTIC TABLET PO SCH (09:43)
[2017-08-25] MEDS: TOPIRAMATE 100 MG TABLET PO SCH ×2 (09:44→16:33)
[2017-08-25] MEDS: GuanFACINE HCL 1 MG TABLET PO SCH ×3 (09:44→16:33)
[2017-08-25 17:03] VITALS: BP 115/78
[2017-08-25] MEDS: SIMVASTATIN 20 MG TABLET PO SCH (20:17)
[2017-08-25] MEDS: DIVALPROEX SODIUM 500 MG ER TABLET PO SCH (20:17)
[2017-08-25] MEDS: QUEtiapine FUMARATE 300 MG TABLET PO SCH (20:18)
[2017-08-26] MEDS: LEVOTHYROXINE SODIUM 25 MCG TABLET PO SCH (07:03)
[2017-08-26 08:28] VITALS: BP 102/52
[2017-08-26] MEDS: RisperiDONE 0.5 MG TABLET PO PRN (09:37)
[2017-08-26] MEDS: GuanFACINE HCL 1 MG TABLET PO SCH ×3 (09:37→17:45)
[2017-08-26] MEDS: FOLIC ACID 1 MG TABLET PO SCH (09:37)
[2017-08-26] MEDS: MULTIVITAMINS WITH MINERALS, THERAPEUTIC TABLET PO SCH (09:37)
[2017-08-26] MEDS: LITHIUM CARBONATE 300 MG CAPSULE PO SCH ×3 (09:37→17:45)
[2017-08-26] MEDS: THIAMINE HCL 100 MG TABLET PO SCH ×2 (09:37→17:45)
[2017-08-26] MEDS: TOPIRAMATE 100 MG TABLET PO SCH ×2 (09:37→17:45)
[2017-08-26] MEDS: LORazepam 2 MG TABLET PO PRN (09:39)
[2017-08-26] MEDS: OLANZapine 5 MG RAPDIS TABLET PO PRN (09:40)
[2017-08-26 16:24] VITALS: BP 110/75
[2017-08-26] MEDS: SIMVASTATIN 20 MG TABLET PO SCH (20:20)
[2017-08-26] MEDS: DIVALPROEX SODIUM 500 MG ER TABLET PO SCH (20:20)
[2017-08-26] MEDS: QUEtiapine FUMARATE 300 MG TABLET PO SCH (20:20)
[2017-08-26] MEDS: ZOLPIDEM TARTRATE 10 MG TABLET PO PRN (21:47)
[2017-08-27] MEDS: LEVOTHYROXINE SODIUM 25 MCG TABLET PO SCH (06:39)
[2017-08-27 08:22] VITALS: BP 126/74
[2017-08-27] MEDS: TOPIRAMATE 100 MG TABLET PO SCH (08:26)
[2017-08-27] MEDS: LITHIUM CARBONATE 300 MG CAPSULE PO SCH ×2 (08:26→13:36)
[2017-08-27] MEDS: LORazepam 2 MG TABLET PO PRN (08:26)
[2017-08-27] MEDS: FOLIC ACID 1 MG TABLET PO SCH (08:26)
[2017-08-27] MEDS: THIAMINE HCL 100 MG TABLET PO SCH (08:26)
[2017-08-27] MEDS: RisperiDONE 0.5 MG TABLET PO PRN (08:26)
[2017-08-27] MEDS: GuanFACINE HCL 1 MG TABLET PO SCH ×2 (08:26→13:36)
[2017-08-27] MEDS: OLANZapine 5 MG RAPDIS TABLET PO PRN (08:26)
[2017-08-27] MEDS: MULTIVITAMINS WITH MINERALS, THERAPEUTIC TABLET PO SCH (08:26)
[2017-08-27] MEDS ORDERED: GUAN1TAB22 PO (11:51)
[2017-08-27] MEDS ORDERED: QUET300T2 PO (11:51)
[2017-08-27] MEDS ORDERED: LITH300C3 PO (11:51)
== END 2017-08-27 14:00 | disposition home or self-care (01) | DRG 750 ==
LOC: EMS 13:31 → EEVIPCON 13:31 → 3EC 08-19 12:07
PROVIDERS: ADMIT Psychiatry & Neurology Psychiatry; ATTEND Psychiatry & Neurology Psychiatry
PROC: 3E0234Z Introduction of Serum, Toxoid and Vaccine into Muscle, Percutaneous Approach (ICD-10-PCS; principal; 2017-08-21)
DX: F25.0 Schizoaffective disorder, bipolar type (principal); F79 Unspecified intellectual disabilities; E03.9 Hypothyroidism, unspecified; E78.00 Pure hypercholesterolemia, unspecified; E66.9 Obesity, unspecified; E78.1 Pure hyperglyceridemia; G80.9 Cerebral palsy, unspecified; E78.5 Hyperlipidemia, unspecified; F17.210 Nicotine dependence, cigarettes, uncomplicated; I34.0 Nonrheumatic mitral (valve) insufficiency; Z79.899 Other long term (current) drug therapy; Z68.29 Body mass index [BMI] 29.0-29.9, adult; Z23 Encounter for immunization; Z91.19 Patient's noncompliance with other medical treatment and regimen
CPT/HCPCS: 70450; 72125; 83036; 84443; 87081; 99285; G0480; J1200; J1630; J2060

== ENCOUNTER 2017-10-21 16:54 | Emergency (ER) | payer MEDICAID, OTHER ==
[~2017-10-21] VITALS: Ht 160 cm; Wt 81.8 kg
[~2017-10-21 16:54] MED LIST changes: -GUAN1TAB2 PO; +LITH300C3 PO; -LITH600 PO; -QUET200T29 PO; +QUET300T2 PO
[2017-10-21 18:57] LABS: BASOPHILS % (AUTO) 0.4 % (0.0-2.0); EOSINOPHILS % (AUTO) 0.9 % (1.0-6.0); HEMATOCRIT 43.1 % (41-53); HEMOGLOBIN 14.5 g/dL (13.5-17.5); LYMPHOCYTES # (AUTO) 1.7 K/uL (1.0-4.8); LYMPHOCYTES % (AUTO) 14.3 % (22.0-44.0); MEAN CORPUSCULAR HEMOGLOBIN 30.4 pg (26.0-34.0); MEAN CORPUSCULAR HGB CONC 33.7 G/dL (31.0-37.0); MEAN CORPUSCULAR VOLUME 90 fL (80-100); MONOCYTES # (AUTO) 1.3 K/uL (0.1-1.0); MONOCYTES % (AUTO) 10.9 % (2.0-9.0); NEUTROPHILS # (AUTO) 8.8 K/uL (1.8-7.7); NEUTROPHILS % (AUTO) 73.5 % (40.0-70.0); PLATELET COUNT (AUTO) 300 K/uL (150-450); RED BLOOD CELL COUNT(AUTO) 4.77 MIL/uL (4.50-5.90); RED CELL DISTRIBUTION WIDTH 12.7 % (11.5-14.5)
[2017-10-21 19:19] LABS: ANION GAP 9 mmol/L (8-16); CALCIUM, TOTAL 9.1 mg/dL (8.8-10.5); CARBON DIOXIDE 26 mmol/L (22-29); CHLORIDE 107 mmol/L (98-107); CREATININE 0.96 mg/dL (0.60-1.30); GLOMERULAR FILTR. RATE CALC > 60 mL/min (>60); GLUCOSE,RANDOM 104 mg/dL (70-110); POTASSIUM 4.2 mmol/L (3.5-5.1); SODIUM SERUM 142 mmol/L (136-145); UREA NITROGEN, BLOOD 4 mg/dL (7-18)
[2017-10-21 19:21] LABS: ALANINE AMINOTRANSFERASE 26 U/L (12-78); ALBUMIN 3.8 g/dL (3.4-5.0); ALKALINE PHOSPHATASE 51 U/L (46-116); ASPARTATE AMINOTRANSFERASE 17 U/L (15-37); BILIRUBIN,TOTAL 0.2 mg/dL (0.1-1.0); TOTAL PROTEIN, SERUM 8.3 g/dL (6.4-8.2); VALPROIC ACID 92 mcg/mL (50-100)
[2017-10-21 19:57] LABS: LITHIUM 0.77 mmol/L (0.60-1.20)
[2017-10-21 20:07] LABS: AMPHET/METH SCREEN,URINE NEGATIVE (NEGATIVE); BARBITURATE SCREEN, URINE NEGATIVE (NEGATIVE); BENZODIAZEPINES SCREEN,URINE NEGATIVE (NEGATIVE); CANNABINOID SCREEN,URINE NEGATIVE (NEGATIVE); COCAINE SCREEN,URINE NEGATIVE (NEGATIVE); METHADONE SCREEN, URINE NEGATIVE (NEGATIVE); OPIATE SCREEN,URINE NEGATIVE (NEGATIVE); PHENCYCLIDINE SCREEN,URINE NEGATIVE (NEGATIVE)
[2017-10-21 20:54] VITALS: BP 111/79
== END 2017-10-21 21:05 | disposition home or self-care (01) ==
LOC: EMS 16:55
DX: F31.9 Bipolar disorder, unspecified (principal)
CPT/HCPCS: 36415; 80053; 80164; 80178; 80307; 85025; 99285; G0480

== ENCOUNTER 2017-12-02 09:47 | Emergency (ER) | payer OTHER ==
[~2017-12-02] VITALS: Ht 154.9 cm; Wt 81.5 kg
[2017-12-02 10:30] VITALS: BP 127/89
[2017-12-02 10:57] LABS: APPEARANCE,URINE CLEAR (CLEAR); BILIRUBIN,URINE NEGATIVE (NEGATIVE); GLUCOSE, URINE (UA) NEGATIVE (NEGATIVE); KETONES,URINE NEGATIVE (NEGATIVE); LEUKOCYTE ESTERASE ,URINE NEGATIVE (NEGATIVE); NITRATE,URINE NEGATIVE (NEGATIVE); OCCULT BLOOD,URINE NEGATIVE (NEGATIVE); PROTEIN,URINE TRACE (NEGATIVE); UROBILINOGEN,URINE 0.2 mg/dL (<=1.0)
[2017-12-02 11:00] LABS: AMPHET/METH SCREEN,URINE NEGATIVE (NEGATIVE); BARBITURATE SCREEN, URINE NEGATIVE (NEGATIVE); BENZODIAZEPINES SCREEN,URINE NEGATIVE (NEGATIVE); CANNABINOID SCREEN,URINE NEGATIVE (NEGATIVE); COCAINE SCREEN,URINE NEGATIVE (NEGATIVE); METHADONE SCREEN, URINE NEGATIVE (NEGATIVE); OPIATE SCREEN,URINE NEGATIVE (NEGATIVE)
[2017-12-02 11:02] LABS: PHENCYCLIDINE SCREEN,URINE NEGATIVE (NEGATIVE)
== END 2017-12-02 12:41 | disposition home or self-care (01) ==
LOC: EMS 09:49
DX: F25.9 Schizoaffective disorder, unspecified (principal); F91.9 Conduct disorder, unspecified; J34.89 Other specified disorders of nose and nasal sinuses; F31.9 Bipolar disorder, unspecified
CPT/HCPCS: 99284

== ENCOUNTER 2017-12-19 13:21 | Inpatient (IN) | payer MEDICAID, OTHER ==
[~2017-12-19] VITALS: Ht 154.9 cm; Wt 81.2 kg
[2017-12-19 15:46] LABS: BASOPHILS % (AUTO) 0.2 % (0.0-2.0); HEMATOCRIT 38.6 % (41-53); HEMOGLOBIN 13.3 g/dL (13.5-17.5); LYMPHOCYTES # (AUTO) 1.6 K/uL (1.0-4.8); LYMPHOCYTES % (AUTO) 20.4 % (22.0-44.0); MEAN CORPUSCULAR HEMOGLOBIN 31.3 pg (26.0-34.0); MEAN CORPUSCULAR HGB CONC 34.5 G/dL (31.0-37.0); MEAN CORPUSCULAR VOLUME 91 fL (80-100); MONOCYTES # (AUTO) 0.9 K/uL (0.1-1.0); MONOCYTES % (AUTO) 11.4 % (2.0-9.0); NEUTROPHILS # (AUTO) 5.2 K/uL (1.8-7.7); PLATELET COUNT (AUTO) 257 K/uL (150-450); RED BLOOD CELL COUNT(AUTO) 4.26 MIL/uL (4.50-5.90); RED CELL DISTRIBUTION WIDTH 13.2 % (11.5-14.5)
[2017-12-19 15:48] LABS: ANION GAP 5 mmol/L (8-16); CALCIUM, TOTAL 8.9 mg/dL (8.8-10.5); CARBON DIOXIDE 27 mmol/L (22-29); CHLORIDE 105 mmol/L (98-107); CREATININE 0.92 mg/dL (0.60-1.30); GLOMERULAR FILTR. RATE CALC > 60 mL/min (>60); GLUCOSE,RANDOM 101 mg/dL (70-110); POTASSIUM 3.7 mmol/L (3.5-5.1); SODIUM SERUM 137 mmol/L (136-145); UREA NITROGEN, BLOOD 3 mg/dL (7-18)
[2017-12-19 15:52] LABS: APPEARANCE,URINE CLEAR (CLEAR); BILIRUBIN,URINE NEGATIVE (NEGATIVE); GLUCOSE, URINE (UA) NEGATIVE (NEGATIVE); KETONES,URINE NEGATIVE (NEGATIVE); LEUKOCYTE ESTERASE ,URINE NEGATIVE (NEGATIVE); NITRATE,URINE NEGATIVE (NEGATIVE); OCCULT BLOOD,URINE NEGATIVE (NEGATIVE); PROTEIN,URINE SEE CONFIRM (NEGATIVE); UROBILINOGEN,URINE 0.2 mg/dL (<=1.0)
[2017-12-19 15:54] LABS: ALANINE AMINOTRANSFERASE 46 U/L (12-78); ALBUMIN 3.6 g/dL (3.4-5.0); ALKALINE PHOSPHATASE 57 U/L (46-116); ASPARTATE AMINOTRANSFERASE 35 U/L (15-37); BILIRUBIN,TOTAL 0.2 mg/dL (0.1-1.0); TOTAL PROTEIN, SERUM 7.9 g/dL (6.4-8.2)
[2017-12-19 15:56] LABS: AMPHET/METH SCREEN,URINE NEGATIVE (NEGATIVE); BARBITURATE SCREEN, URINE NEGATIVE (NEGATIVE); BENZODIAZEPINES SCREEN,URINE NEGATIVE (NEGATIVE); CANNABINOID SCREEN,URINE NEGATIVE (NEGATIVE); COCAINE SCREEN,URINE NEGATIVE (NEGATIVE); METHADONE SCREEN, URINE NEGATIVE (NEGATIVE); OPIATE SCREEN,URINE NEGATIVE (NEGATIVE)
[2017-12-19 16:00] LABS: PHENCYCLIDINE SCREEN,URINE NEGATIVE (NEGATIVE)
[2017-12-19 16:04] LABS: SULFOSALICYLIC ACID,URINE 3+ (Negative)
[2017-12-19 16:06] LABS: BACTERIA,URINE None Seen /HPF (None Seen); RBC,URINE 0-2 /HPF (0-2); SQUAMOUS EPITHELIAL CELL,UR Few /LPF (None Seen); WBC,URINE 0-2 /HPF (0-5)
[2017-12-19] MEDS ORDERED: DiphenhydrAMINE HCL 50 MG/ML VIAL ONE (16:22)
[2017-12-19] MEDS ORDERED: HALOPERIDOL LACTATE 5 MG/ML VIAL ONE (16:22)
[2017-12-19] MEDS ORDERED: LORazepam 2 MG/ML VIAL ONE (16:22)
[2017-12-19] MEDS ORDERED: DiphenhydrAMINE HCL 50 MG/ML VIAL IM ONE (16:30)
[2017-12-19] MEDS ORDERED: HALOPERIDOL LACTATE 5 MG/ML VIAL IM ONE (16:30)
[2017-12-19] MEDS ORDERED: LORazepam 2 MG/ML VIAL IM ONE (16:30)
[2017-12-19] MEDS ORDERED: HALOPERIDOL 5 MG TABLET PO PRN (18:15)
[2017-12-19 19:48] VITALS: BP 125/74
[2017-12-19] MEDS: SIMVASTATIN 20 MG TABLET PO SCH (21:13)
[2017-12-19] MEDS: DIVALPROEX SODIUM 500 MG ER TABLET PO SCH (21:13)
[2017-12-19] MEDS: QUEtiapine FUMARATE 200 MG TABLET PO SCH (21:13)
[2017-12-20] MEDS: LEVOTHYROXINE SODIUM 25 MCG TABLET PO SCH (06:26)
[2017-12-20 06:31] VITALS: BP 112/62
[2017-12-20 08:24] VITALS: BP 137/82
[2017-12-20] MEDS ORDERED: TOPIRAMATE 100 MG TABLET PO SCH (09:00)
[2017-12-20 09:20] LABS: LITHIUM 0.59 mmol/L (0.60-1.20)
[2017-12-20 09:21] LABS: CHOL/HDL RATIO 3.1 (4.2-7.3); THYROID STIMULATING HORMONE 8.41 uIU/mL (0.36-3.74)
[2017-12-20] MEDS: TOPIRAMATE 100 MG TABLET PO SCH ×2 (09:38→16:23)
[2017-12-20] MEDS: LITHIUM CARBONATE 300 MG CAPSULE PO SCH ×3 (09:39→16:23)
[2017-12-20 16:00] VITALS: BP 129/67
[2017-12-20] MEDS ORDERED: ONDANSETRON HCL 4 MG TABLET PO PRN (16:00)
[2017-12-20] MEDS ORDERED: MAGNESIUM HYDROXIDE SUSPENSION 30 ML UDCUP PO PRN (16:00)
[2017-12-20] MEDS ORDERED: MAG HYDROX/AL HYDROX/SIMETH ES 30 ML SUSPENSION UDCUP PO PRN (16:00)
[2017-12-20] MEDS ORDERED: ALBUTEROL SULFATE HFA 90 MCG/PUFF 8 GM INHALER IH PRN (16:00)
[2017-12-20] MEDS ORDERED: DOCUSATE SODIUM 100 MG CAPSULE PO PRN (16:00)
[2017-12-20] MEDS ORDERED: PETROLATUM,WHITE 71 GM JELLY TP PRN (16:00)
[2017-12-20] MEDS ORDERED: ACETAMINOPHEN 325 MG TABLET PO PRN (16:00)
[2017-12-20] MEDS ORDERED: IBUPROFEN 400 MG TABLET PO PRN (16:00)
[2017-12-20] MEDS: LORazepam 2 MG TABLET PO PRN (16:23)
[2017-12-20] MEDS: QUEtiapine FUMARATE 200 MG TABLET PO SCH (21:02)
[2017-12-20] MEDS: DIVALPROEX SODIUM 500 MG ER TABLET PO SCH (21:02)
[2017-12-20] MEDS: SIMVASTATIN 20 MG TABLET PO SCH (21:03)
[2017-12-21 06:33] VITALS: BP 109/68
[2017-12-21] MEDS: LEVOTHYROXINE SODIUM 25 MCG TABLET PO SCH (06:36)
[2017-12-21 08:08] LABS: % IRON SATURATION 42.5 % (30-44)
[2017-12-21 08:30] VITALS: BP 114/66
[2017-12-21 08:32] LABS: FREE T4 (FREE THYROXINE) 0.61 ng/dL (0.76-1.46)
[2017-12-21] MEDS: NICOTINE 14 MG/24 HOUR PATCH TD SCH (08:38)
[2017-12-21] MEDS: LITHIUM CARBONATE 300 MG CAPSULE PO SCH ×3 (08:39→17:06)
[2017-12-21] MEDS: TOPIRAMATE 100 MG TABLET PO SCH ×2 (08:39→17:06)
[2017-12-21] MEDS ORDERED: DiphenhydrAMINE HCL 50 MG/ML VIAL ONE (15:07)
[2017-12-21] MEDS ORDERED: DiphenhydrAMINE HCL 50 MG/ML VIAL IM ONE (15:15)
[2017-12-21 16:00] VITALS: BP 118/68
[2017-12-21] MEDS: LORazepam 2 MG TABLET PO PRN (17:06)
[2017-12-21] MEDS: SIMVASTATIN 20 MG TABLET PO SCH (20:58)
[2017-12-21] MEDS: DIVALPROEX SODIUM 500 MG ER TABLET PO SCH (20:58)
[2017-12-21] MEDS: QUEtiapine FUMARATE 200 MG TABLET PO SCH (20:58)
[2017-12-21] MEDS: ZOLPIDEM TARTRATE 10 MG TABLET PO PRN (20:58)
[2017-12-22 06:35] VITALS: BP 106/62
[2017-12-22] MEDS: LEVOTHYROXINE SODIUM 25 MCG TABLET PO SCH (06:52)
[2017-12-22 08:09] VITALS: BP 110/60
[2017-12-22] MEDS: NICOTINE 14 MG/24 HOUR PATCH TD SCH (09:00)
[2017-12-22] MEDS: TOPIRAMATE 100 MG TABLET PO SCH ×2 (09:05→16:17)
[2017-12-22] MEDS: LITHIUM CARBONATE 300 MG CAPSULE PO SCH ×3 (09:05→16:17)
[2017-12-22] MEDS: LORazepam 2 MG TABLET PO PRN (12:15)
[2017-12-22 16:25] VITALS: BP 130/60
[2017-12-22] MEDS: SIMVASTATIN 20 MG TABLET PO SCH (20:53)
[2017-12-22] MEDS: DIVALPROEX SODIUM 500 MG ER TABLET PO SCH (20:54)
[2017-12-22] MEDS: ZOLPIDEM TARTRATE 10 MG TABLET PO PRN (20:54)
[2017-12-22] MEDS: QUEtiapine FUMARATE 200 MG TABLET PO SCH (20:54)
[2017-12-23] MEDS: LEVOTHYROXINE SODIUM 25 MCG TABLET PO SCH (06:15)
[2017-12-23 07:20] VITALS: BP 128/86
[2017-12-23] MEDS: NICOTINE 14 MG/24 HOUR PATCH TD SCH (08:38)
[2017-12-23] MEDS: LITHIUM CARBONATE 300 MG CAPSULE PO SCH ×3 (08:38→17:08)
[2017-12-23] MEDS: LORazepam 2 MG TABLET PO PRN ×2 (08:38→17:08)
[2017-12-23] MEDS: TOPIRAMATE 100 MG TABLET PO SCH ×2 (08:38→17:08)
[2017-12-23 09:38] VITALS: BP 104/65
[2017-12-23 16:00] VITALS: BP 130/89
[2017-12-23] MEDS: SIMVASTATIN 20 MG TABLET PO SCH (21:02)
[2017-12-23] MEDS: QUEtiapine FUMARATE 200 MG TABLET PO SCH (21:02)
[2017-12-23] MEDS: ZOLPIDEM TARTRATE 10 MG TABLET PO PRN (21:02)
[2017-12-23] MEDS: DIVALPROEX SODIUM 500 MG ER TABLET PO SCH (21:02)
[2017-12-24 02:28] VITALS: BP 127/77
[2017-12-24] MEDS: LEVOTHYROXINE SODIUM 25 MCG TABLET PO SCH (06:31)
[2017-12-24 08:00] VITALS: BP 109/67
[2017-12-24] MEDS: NICOTINE 14 MG/24 HOUR PATCH TD SCH (09:00)
[2017-12-24] MEDS: TOPIRAMATE 100 MG TABLET PO SCH ×2 (09:19→17:01)
[2017-12-24] MEDS: LITHIUM CARBONATE 300 MG CAPSULE PO SCH ×3 (09:19→17:01)
[2017-12-24 16:00] VITALS: BP 118/67
[2017-12-24] MEDS: QUEtiapine FUMARATE 200 MG TABLET PO SCH (20:45)
[2017-12-24] MEDS: DIVALPROEX SODIUM 500 MG ER TABLET PO SCH (20:45)
[2017-12-24] MEDS: SIMVASTATIN 20 MG TABLET PO SCH (20:46)
[2017-12-25 04:35] VITALS: BP 122/88
[2017-12-25] MEDS: LEVOTHYROXINE SODIUM 25 MCG TABLET PO SCH (06:09)
[2017-12-25 08:10] VITALS: BP 121/62
[2017-12-25] MEDS: NICOTINE 14 MG/24 HOUR PATCH TD SCH (08:51)
[2017-12-25] MEDS: LITHIUM CARBONATE 300 MG CAPSULE PO SCH ×2 (08:52→12:35)
[2017-12-25] MEDS: TOPIRAMATE 100 MG TABLET PO SCH (08:52)
== END 2017-12-25 13:00 | disposition home or self-care (01) | DRG 750 ==
LOC: EMS 13:46 → B3A 18:38
PROVIDERS: ADMIT Psychiatry & Neurology Psychiatry; ATTEND Psychiatry & Neurology Psychiatry
DX: F25.0 Schizoaffective disorder, bipolar type (principal); G83.9 Paralytic syndrome, unspecified; Z78.1 Physical restraint status; D64.9 Anemia, unspecified; I10 Essential (primary) hypertension; S40.811A Abrasion of right upper arm, initial encounter; F79 Unspecified intellectual disabilities; R62.50 Unspecified lack of expected normal physiological development in childhood; M62.838 Other muscle spasm; E03.9 Hypothyroidism, unspecified; E78.5 Hyperlipidemia, unspecified; F31.9 Bipolar disorder, unspecified; F41.9 Anxiety disorder, unspecified; X58.XXXA Exposure to other specified factors, initial encounter; G40.909 Epilepsy, unspecified, not intractable, without status epilepticus; G80.9 Cerebral palsy, unspecified; S40.812A Abrasion of left upper arm, initial encounter; Z79.899 Other long term (current) drug therapy; Y93.89 Activity, other specified; Y92.89 Other specified places as the place of occurrence of the external cause; Y99.8 Other external cause status
CPT/HCPCS: 82728; 83540; 83550; 84439; 84443; 99285; G0480; J1200; J1630; J2060

== ENCOUNTER 2018-01-14 07:32 | Emergency (ER) | payer OTHER ==
[~2018-01-14] VITALS: Ht 154.9 cm; Wt 81.8 kg
[2018-01-14 09:26] LABS: ALANINE AMINOTRANSFERASE 50 U/L (12-78); ALKALINE PHOSPHATASE 61 U/L (46-116); ANION GAP 14 mmol/L (8-16); ASPARTATE AMINOTRANSFERASE 34 U/L (15-37); BILIRUBIN,TOTAL 0.3 mg/dL (0.1-1.0); CALCIUM, TOTAL 9.3 mg/dL (8.8-10.5); CARBON DIOXIDE 22 mmol/L (22-29); CHLORIDE 102 mmol/L (98-107); CREATININE 1.08 mg/dL (0.60-1.30); GLOMERULAR FILTR. RATE CALC > 60 mL/min (>60); GLUCOSE,RANDOM 114 mg/dL (70-110); POTASSIUM 3.4 mmol/L (3.5-5.1); SODIUM SERUM 138 mmol/L (136-145); TOTAL PROTEIN, SERUM 8.5 g/dL (6.4-8.2); UREA NITROGEN, BLOOD 6 mg/dL (7-18)
[2018-01-14 09:32] LABS: AMPHET/METH SCREEN,URINE NEGATIVE (NEGATIVE); BARBITURATE SCREEN, URINE NEGATIVE (NEGATIVE); BENZODIAZEPINES SCREEN,URINE NEGATIVE (NEGATIVE); CANNABINOID SCREEN,URINE NEGATIVE (NEGATIVE); COCAINE SCREEN,URINE NEGATIVE (NEGATIVE); METHADONE SCREEN, URINE NEGATIVE (NEGATIVE); OPIATE SCREEN,URINE NEGATIVE (NEGATIVE)
[2018-01-14 09:34] LABS: PHENCYCLIDINE SCREEN,URINE NEGATIVE (NEGATIVE)
[2018-01-14 09:38] LABS: BASOPHILS % (AUTO) 0.8 % (0.0-2.0); EOSINOPHILS % (AUTO) 2.2 % (1.0-6.0); HEMATOCRIT 40.7 % (41-53); HEMOGLOBIN 13.9 g/dL (13.5-17.5); LYMPHOCYTES % (AUTO) 19.8 % (22.0-44.0); MEAN CORPUSCULAR HEMOGLOBIN 30.9 pg (26.0-34.0); MEAN CORPUSCULAR HGB CONC 34.2 G/dL (31.0-37.0); MEAN CORPUSCULAR VOLUME 90 fL (80-100); MONOCYTES % (AUTO) 9.4 % (2.0-9.0); NEUTROPHILS # (AUTO) 6.2 K/uL (1.8-7.7); NEUTROPHILS % (AUTO) 67.8 % (40.0-70.0); PLATELET COUNT (AUTO) 296 K/uL (150-450); RED BLOOD CELL COUNT(AUTO) 4.51 MIL/uL (4.50-5.90); RED CELL DISTRIBUTION WIDTH 12.7 % (11.5-14.5)
[2018-01-14 09:39] LABS: LYMPHOCYTES # (AUTO) 1.8 K/uL (1.0-4.8); MONOCYTES # (AUTO) 0.9 K/uL (0.1-1.0); PLATELET MORPHOLOGY COMMENT 0.1
[2018-01-14 10:07] VITALS: BP 125/70
== END 2018-01-14 11:40 | disposition home or self-care (01) ==
LOC: EMS 07:32
DX: S00.83XA Contusion of other part of head, initial encounter (principal); F79 Unspecified intellectual disabilities; W18.39XA Other fall on same level, initial encounter; Y93.89 Activity, other specified; Y92.89 Other specified places as the place of occurrence of the external cause; Y99.8 Other external cause status
CPT/HCPCS: 36415; 80053; 80307; 85025; 99284; G0480

== ENCOUNTER 2018-04-11 13:05 | Emergency (ER) | payer OTHER ==
[~2018-04-11] VITALS: Ht 160 cm; Wt 100.0 kg
[~2018-04-11 13:05] MED LIST changes: +CITA-106 PO; +GUAN1TAB22 PO; -LEVO25TA4 PO
[2018-04-11 14:10] LABS: BASOPHILS % (AUTO) 0.4 % (0.0-2.0); EOSINOPHILS % (AUTO) 2.4 % (1.0-6.0); HEMATOCRIT 37.8 % (41-53); HEMOGLOBIN 12.9 g/dL (13.5-17.5); LYMPHOCYTES # (AUTO) 1.4 K/uL (1.0-4.8); LYMPHOCYTES % (AUTO) 21.6 % (22.0-44.0); MEAN CORPUSCULAR HEMOGLOBIN 30.1 pg (26.0-34.0); MEAN CORPUSCULAR HGB CONC 34.1 G/dL (31.0-37.0); MEAN CORPUSCULAR VOLUME 89 fL (80-100); MONOCYTES # (AUTO) 1.3 K/uL (0.1-1.0); MONOCYTES % (AUTO) 18.9 % (2.0-9.0); NEUTROPHILS # (AUTO) 3.8 K/uL (1.8-7.7); NEUTROPHILS % (AUTO) 56.7 % (40.0-70.0); PLATELET COUNT (AUTO) 249 K/uL (150-450); RED BLOOD CELL COUNT(AUTO) 4.28 MIL/uL (4.50-5.90); RED CELL DISTRIBUTION WIDTH 12.9 % (11.5-14.5)
[2018-04-11 14:18] LABS: ANION GAP 10 mmol/L (8-16); CALCIUM, TOTAL 8.7 mg/dL (8.8-10.5); CARBON DIOXIDE 24 mmol/L (22-29); CHLORIDE 104 mmol/L (98-107); CREATININE 1.07 mg/dL (0.60-1.30); GLOMERULAR FILTR. RATE CALC > 60 mL/min (>60); GLUCOSE,RANDOM 108 mg/dL (70-110); POTASSIUM 3.4 mmol/L (3.5-5.1); SODIUM SERUM 138 mmol/L (136-145); UREA NITROGEN, BLOOD 1 mg/dL (7-18)
[2018-04-11 14:23] LABS: LITHIUM 0.85 mmol/L (0.60-1.20)
[2018-04-11 14:25] LABS: ALANINE AMINOTRANSFERASE 23 U/L (12-78); ALBUMIN 3.4 g/dL (3.4-5.0); ALKALINE PHOSPHATASE 48 U/L (46-116); ASPARTATE AMINOTRANSFERASE 14 U/L (15-37); BILIRUBIN,TOTAL 0.1 mg/dL (0.1-1.0); TOTAL PROTEIN, SERUM 7.6 g/dL (6.4-8.2); VALPROIC ACID 104 mcg/mL (50-100)
[2018-04-11 16:59] LABS: AMPHET/METH SCREEN,URINE NEGATIVE (NEGATIVE); BARBITURATE SCREEN, URINE NEGATIVE (NEGATIVE); BENZODIAZEPINES SCREEN,URINE POSITIVE (NEGATIVE); CANNABINOID SCREEN,URINE NEGATIVE (NEGATIVE); COCAINE SCREEN,URINE NEGATIVE (NEGATIVE); METHADONE SCREEN, URINE NEGATIVE (NEGATIVE); OPIATE SCREEN,URINE NEGATIVE (NEGATIVE)
[2018-04-11 17:02] LABS: PHENCYCLIDINE SCREEN,URINE NEGATIVE (NEGATIVE)
[2018-04-11 17:21] VITALS: BP 121/74
== END 2018-04-11 18:36 | disposition home or self-care (01) ==
LOC: EMS 13:07
DX: F43.20 Adjustment disorder, unspecified (principal); F31.9 Bipolar disorder, unspecified; Z79.899 Other long term (current) drug therapy
CPT/HCPCS: 36415; 80053; 80164; 80178; 80307; 85025; 99284; G0480

== ENCOUNTER 2018-05-01 10:00 | Inpatient (IN) | payer MEDICAID, OTHER ==
[~2018-05-01] VITALS: Ht 157.5 cm; Wt 87.1 kg
[2018-05-01] MEDS ORDERED: SODIUM CHLORIDE 0.9% 250 ML IRRIG SOLUTION BOTTLE IRRIG ONE (11:15)
[2018-05-01 11:33] LABS: BASOPHILS % (AUTO) 0.3 % (0.0-2.0); EOSINOPHILS % (AUTO) 3.7 % (1.0-6.0); HEMATOCRIT 38.1 % (41-53); LYMPHOCYTES # (AUTO) 1.6 K/uL (1.0-4.8); LYMPHOCYTES % (AUTO) 20.5 % (22.0-44.0); MEAN CORPUSCULAR HEMOGLOBIN 30.5 pg (26.0-34.0); MEAN CORPUSCULAR HGB CONC 34.1 G/dL (31.0-37.0); MEAN CORPUSCULAR VOLUME 89 fL (80-100); MONOCYTES # (AUTO) 0.5 K/uL (0.1-1.0); MONOCYTES % (AUTO) 6.5 % (2.0-9.0); NEUTROPHILS # (AUTO) 5.3 K/uL (1.8-7.7); PLATELET COUNT (AUTO) 244 K/uL (150-450); RED BLOOD CELL COUNT(AUTO) 4.27 MIL/uL (4.50-5.90); RED CELL DISTRIBUTION WIDTH 12.6 % (11.5-14.5)
[2018-05-01 11:44] LABS: AMPHET/METH SCREEN,URINE NEGATIVE (NEGATIVE); BARBITURATE SCREEN, URINE NEGATIVE (NEGATIVE); BENZODIAZEPINES SCREEN,URINE NEGATIVE (NEGATIVE); CANNABINOID SCREEN,URINE NEGATIVE (NEGATIVE); COCAINE SCREEN,URINE NEGATIVE (NEGATIVE); METHADONE SCREEN, URINE NEGATIVE (NEGATIVE); OPIATE SCREEN,URINE NEGATIVE (NEGATIVE)
[2018-05-01 11:45] LABS: PHENCYCLIDINE SCREEN,URINE NEGATIVE (NEGATIVE)
[2018-05-01] MEDS ORDERED: HALOPERIDOL 5 MG TABLET PO PRN (11:45)
[2018-05-01] MEDS ORDERED: ZOLPIDEM TARTRATE 10 MG TABLET PO PRN (11:45)
[2018-05-01 11:47] LABS: ANION GAP 11 mmol/L (8-16); CARBON DIOXIDE 25 mmol/L (22-29); CHLORIDE 109 mmol/L (98-107); GLOMERULAR FILTR. RATE CALC > 60 mL/min (>60); GLUCOSE,RANDOM 93 mg/dL (70-110); POTASSIUM 3.7 mmol/L (3.5-5.1); SODIUM SERUM 145 mmol/L (136-145); UREA NITROGEN, BLOOD 9 mg/dL (7-18)
[2018-05-01 11:48] LABS: ALANINE AMINOTRANSFERASE 23 U/L (12-78); ALBUMIN 3.8 g/dL (3.4-5.0); ALKALINE PHOSPHATASE 42 U/L (46-116); ASPARTATE AMINOTRANSFERASE 17 U/L (15-37); BILIRUBIN,TOTAL 0.2 mg/dL (0.1-1.0); TOTAL PROTEIN, SERUM 7.8 g/dL (6.4-8.2); VALPROIC ACID 90 mcg/mL (50-100)
[2018-05-01] MEDS ORDERED: PERTUSS(ACELL),DIPH,TET VAC/PF 0.5 ML VIAL IM ONE (13:00)
[2018-05-01 13:50] VITALS: BP 139/78
[2018-05-01] MEDS: LITHIUM CARBONATE 300 MG CAPSULE PO SCH ×2 (14:03→16:23)
[2018-05-01] MEDS: TOPIRAMATE 100 MG TABLET PO SCH (16:23)
[2018-05-01 16:32] VITALS: BP 132/76
[2018-05-01] MEDS ORDERED: OMEPRAZOLE 20 MG CAPSULE PO PRN (19:15)
[2018-05-01] MEDS ORDERED: IBUPROFEN 600 MG TABLET PO PRN (19:15)
[2018-05-01] MEDS ORDERED: MAGNESIUM HYDROXIDE SUSPENSION 30 ML UDCUP PO PRN (19:15)
[2018-05-01] MEDS ORDERED: CloNIDine HCL 0.1 MG TABLET PO PRN (19:15)
[2018-05-01] MEDS ORDERED: LOPERAMIDE HCL 2 MG CAPSULE PO PRN (19:15)
[2018-05-01] MEDS ORDERED: MAG HYDROX/AL HYDROX/SIMETH ES 30 ML SUSPENSION UDCUP PO PRN (19:15)
[2018-05-01] MEDS ORDERED: DOCUSATE SODIUM 100 MG CAPSULE PO PRN (19:15)
[2018-05-01] MEDS ORDERED: BACITRACIN 28.4 GM OINTMENT TP PRN (19:15)
[2018-05-01] MEDS ORDERED: PETROLATUM,WHITE 71 GM JELLY TP PRN (19:15)
[2018-05-01] MEDS ORDERED: ALBUTEROL SULFATE HFA 90 MCG/PUFF 8 GM INHALER IH PRN (19:15)
[2018-05-01] MEDS ORDERED: ONDANSETRON HCL 4 MG TABLET PO PRN (19:15)
[2018-05-01] MEDS ORDERED: ACETAMINOPHEN 325 MG TABLET PO PRN (19:15)
[2018-05-01] MEDS ORDERED: BENZOCAINE/MENTHOL LOZENGE MM PRN (19:15)
[2018-05-01] MEDS: DIVALPROEX SODIUM 500 MG ER TABLET PO SCH (20:29)
[2018-05-01] MEDS: QUEtiapine FUMARATE 300 MG TABLET PO SCH (20:30)
[2018-05-01] MEDS: SIMVASTATIN 20 MG TABLET PO SCH (20:30)
[2018-05-02 07:46] LABS: % IRON SATURATION 41.5 % (30-44)
[2018-05-02] MEDS: MULTIVITAMINS WITH IRON TABLET PO SCH (08:59)
[2018-05-02] MEDS: TOPIRAMATE 100 MG TABLET PO SCH ×2 (08:59→18:11)
[2018-05-02] MEDS: LITHIUM CARBONATE 300 MG CAPSULE PO SCH ×3 (09:00→18:10)
[2018-05-02] MEDS: CITALOPRAM HYDROBROMIDE 20 MG TABLET PO SCH (09:00)
[2018-05-02 09:07] VITALS: BP 110/68
[2018-05-02 16:30] VITALS: BP 132/79
[2018-05-02] MEDS: LORazepam 2 MG TABLET PO PRN (18:10)
[2018-05-02] MEDS ORDERED: QUET200T PO (18:27)
[2018-05-02] MEDS: QUEtiapine FUMARATE 300 MG TABLET PO SCH (20:40)
[2018-05-02] MEDS: SIMVASTATIN 20 MG TABLET PO SCH (20:40)
[2018-05-02] MEDS: DIVALPROEX SODIUM 500 MG ER TABLET PO SCH (20:41)
[2018-05-03] MEDS: LEVOTHYROXINE SODIUM 100 MCG TABLET PO SCH (06:39)
[2018-05-03] MEDS: MULTIVITAMINS WITH IRON TABLET PO SCH (08:42)
[2018-05-03] MEDS: TOPIRAMATE 100 MG TABLET PO SCH ×2 (08:48→17:19)
[2018-05-03] MEDS: CITALOPRAM HYDROBROMIDE 20 MG TABLET PO SCH (08:48)
[2018-05-03] MEDS: LITHIUM CARBONATE 300 MG CAPSULE PO SCH ×3 (08:48→17:19)
[2018-05-03 13:28] VITALS: BP 128/75
[2018-05-03 16:30] VITALS: BP 142/82
[2018-05-03] MEDS: QUEtiapine FUMARATE 300 MG TABLET PO SCH (20:29)
[2018-05-03] MEDS: DIVALPROEX SODIUM 500 MG ER TABLET PO SCH (20:29)
[2018-05-03] MEDS: SIMVASTATIN 20 MG TABLET PO SCH (20:29)
[2018-05-04] MEDS: LEVOTHYROXINE SODIUM 100 MCG TABLET PO SCH (06:38)
[2018-05-04 08:05] VITALS: BP 108/68
[2018-05-04] MEDS: CITALOPRAM HYDROBROMIDE 20 MG TABLET PO SCH (08:12)
[2018-05-04] MEDS: MULTIVITAMINS WITH IRON TABLET PO SCH (08:12)
[2018-05-04] MEDS: TOPIRAMATE 100 MG TABLET PO SCH ×2 (08:12→16:24)
[2018-05-04] MEDS: LITHIUM CARBONATE 300 MG CAPSULE PO SCH ×3 (08:13→16:24)
[2018-05-04] MEDS: LORazepam 2 MG TABLET PO PRN (08:14)
[2018-05-04 16:45] VITALS: BP 121/66
[2018-05-04] MEDS: QUEtiapine FUMARATE 300 MG TABLET PO SCH (20:12)
[2018-05-04] MEDS: DIVALPROEX SODIUM 500 MG ER TABLET PO SCH (20:12)
[2018-05-04] MEDS: SIMVASTATIN 20 MG TABLET PO SCH (20:12)
[2018-05-05] MEDS: LEVOTHYROXINE SODIUM 100 MCG TABLET PO SCH (06:59)
[2018-05-05 08:28] VITALS: BP 120/100
[2018-05-05] MEDS: LITHIUM CARBONATE 300 MG CAPSULE PO SCH ×3 (09:07→16:08)
[2018-05-05] MEDS: MULTIVITAMINS WITH IRON TABLET PO SCH (09:07)
[2018-05-05] MEDS: TOPIRAMATE 100 MG TABLET PO SCH ×2 (09:07→16:08)
[2018-05-05] MEDS: CITALOPRAM HYDROBROMIDE 20 MG TABLET PO SCH (09:07)
[2018-05-05] MEDS ORDERED: QUET300T2 PO (15:08)
[2018-05-05] MEDS ORDERED: LEVO100 PO (15:10)
[2018-05-05] MEDS ORDERED: LEVO50TA11 PO (15:10)
[2018-05-05] MEDS ORDERED: MULT-1065 PO (15:11)
[2018-05-05 17:07] VITALS: BP 133/77
== END 2018-05-05 16:45 | disposition home or self-care (01) | DRG 750 ==
LOC: EMS 10:02 → 3EC 12:52
PROVIDERS: ADMIT Psychiatry & Neurology Psychiatry; ATTEND Psychiatry & Neurology Psychiatry
DX: F25.0 Schizoaffective disorder, bipolar type (principal); S71.111A Laceration without foreign body, right thigh, initial encounter; G40.909 Epilepsy, unspecified, not intractable, without status epilepticus; E03.9 Hypothyroidism, unspecified; G80.9 Cerebral palsy, unspecified; R62.50 Unspecified lack of expected normal physiological development in childhood; E78.5 Hyperlipidemia, unspecified; E66.9 Obesity, unspecified; R03.0 Elevated blood-pressure reading, without diagnosis of hypertension; G47.00 Insomnia, unspecified; F41.9 Anxiety disorder, unspecified; S71.112A Laceration without foreign body, left thigh, initial encounter; X58.XXXA Exposure to other specified factors, initial encounter; Z68.35 Body mass index [BMI] 35.0-35.9, adult; Z90.49 Acquired absence of other specified parts of digestive tract; Y93.89 Activity, other specified; Y92.89 Other specified places as the place of occurrence of the external cause; Y99.8 Other external cause status
CPT/HCPCS: 83540; 83550; 90471; 90715; G0480

== ENCOUNTER 2018-05-25 09:42 | Emergency (ER) | payer MEDICAID, OTHER ==
[~2018-05-25] VITALS: Ht 160 cm; Wt 75.0 kg
[~2018-05-25 09:42] MED LIST changes: -GUAN1TAB22 PO; +LEVO100 PO; +MULT-1065 PO
[2018-05-25] MEDS ORDERED: GUAN1TAB22 PO (10:07)
[2018-05-25 10:08] LABS: BASOPHILS % (AUTO) 0.6 % (0.0-2.0); EOSINOPHILS % (AUTO) 3.8 % (1.0-6.0); HEMATOCRIT 40.5 % (41-53); HEMOGLOBIN 13.8 g/dL (13.5-17.5); LYMPHOCYTES # (AUTO) 2.4 K/uL (1.0-4.8); LYMPHOCYTES % (AUTO) 35.2 % (22.0-44.0); MEAN CORPUSCULAR HEMOGLOBIN 30.6 pg (26.0-34.0); MEAN CORPUSCULAR HGB CONC 33.9 G/dL (31.0-37.0); MEAN CORPUSCULAR VOLUME 90 fL (80-100); MONOCYTES # (AUTO) 0.6 K/uL (0.1-1.0); MONOCYTES % (AUTO) 9.2 % (2.0-9.0); NEUTROPHILS # (AUTO) 3.5 K/uL (1.8-7.7); NEUTROPHILS % (AUTO) 51.2 % (40.0-70.0); PLATELET COUNT (AUTO) 298 K/uL (150-450); RED BLOOD CELL COUNT(AUTO) 4.49 MIL/uL (4.50-5.90); RED CELL DISTRIBUTION WIDTH 12.9 % (11.5-14.5)
[2018-05-25 10:17] LABS: ANION GAP 13 mmol/L (8-16); CALCIUM, TOTAL 9.1 mg/dL (8.8-10.5); CARBON DIOXIDE 22 mmol/L (22-29); CHLORIDE 106 mmol/L (98-107); CREATININE 1.29 mg/dL (0.60-1.30); GLOMERULAR FILTR. RATE CALC > 60 mL/min (>60); GLUCOSE,RANDOM 111 mg/dL (70-110); POTASSIUM 3.6 mmol/L (3.5-5.1); SODIUM SERUM 141 mmol/L (136-145); UREA NITROGEN, BLOOD 3 mg/dL (7-18)
[2018-05-25 10:22] LABS: ALANINE AMINOTRANSFERASE 54 U/L (12-78); ALBUMIN 3.8 g/dL (3.4-5.0); ALKALINE PHOSPHATASE 56 U/L (46-116); ASPARTATE AMINOTRANSFERASE 31 U/L (15-37); BILIRUBIN,TOTAL 0.2 mg/dL (0.1-1.0); TOTAL PROTEIN, SERUM 8.1 g/dL (6.4-8.2)
[2018-05-25 10:23] LABS: AMPHET/METH SCREEN,URINE NEGATIVE (NEGATIVE); BARBITURATE SCREEN, URINE NEGATIVE (NEGATIVE); BENZODIAZEPINES SCREEN,URINE NEGATIVE (NEGATIVE); CANNABINOID SCREEN,URINE NEGATIVE (NEGATIVE); COCAINE SCREEN,URINE NEGATIVE (NEGATIVE); METHADONE SCREEN, URINE NEGATIVE (NEGATIVE); OPIATE SCREEN,URINE NEGATIVE (NEGATIVE); PHENCYCLIDINE SCREEN,URINE NEGATIVE (NEGATIVE)
[2018-05-25 13:54] VITALS: BP 135/78
== END 2018-05-25 14:58 | disposition home or self-care (01) ==
LOC: EMS 09:44
DX: F91.8 Other conduct disorders (principal); F31.9 Bipolar disorder, unspecified; F20.9 Schizophrenia, unspecified; Z79.899 Other long term (current) drug therapy
CPT/HCPCS: 36415; 80053; 80307; 85025; 99285; G0480

== ENCOUNTER 2018-07-11 11:14 | Inpatient (IN) | payer MEDICAID, OTHER ==
[~2018-07-11] VITALS: Ht 154.9 cm; Wt 87.1 kg
[~2018-07-11 11:14] MED LIST changes: +GUAN1TAB22 PO
[2018-07-11] MEDS ORDERED: CITA-106 PO (11:39)
[2018-07-11 12:07] LABS: BASOPHILS % (AUTO) 0.2 % (0.0-2.0); EOSINOPHILS % (AUTO) 4.2 % (1.0-6.0); HEMATOCRIT 38.8 % (41-53); HEMOGLOBIN 12.8 g/dL (13.5-17.5); LYMPHOCYTES # (AUTO) 1.8 K/uL (1.0-4.8); LYMPHOCYTES % (AUTO) 27.3 % (22.0-44.0); MEAN CORPUSCULAR HEMOGLOBIN 29.9 pg (26.0-34.0); MEAN CORPUSCULAR VOLUME 91 fL (80-100); MONOCYTES # (AUTO) 0.6 K/uL (0.1-1.0); MONOCYTES % (AUTO) 9.5 % (2.0-9.0); NEUTROPHILS # (AUTO) 3.9 K/uL (1.8-7.7); NEUTROPHILS % (AUTO) 58.8 % (40.0-70.0); PLATELET COUNT (AUTO) 301 K/uL (150-450); RED BLOOD CELL COUNT(AUTO) 4.28 MIL/uL (4.50-5.90); RED CELL DISTRIBUTION WIDTH 13.5 % (11.5-14.5)
[2018-07-11] MEDS ORDERED: HALOPERIDOL 5 MG TABLET PO PRN (12:15)
[2018-07-11] MEDS ORDERED: ZOLPIDEM TARTRATE 10 MG TABLET PO PRN (12:15)
[2018-07-11 12:19] LABS: LITHIUM 0.64 mmol/L (0.60-1.20)
[2018-07-11 12:21] LABS: ANION GAP 12 mmol/L (8-16); CALCIUM, TOTAL 9.2 mg/dL (8.8-10.5); CARBON DIOXIDE 24 mmol/L (22-29); CHLORIDE 107 mmol/L (98-107); CREATININE 0.88 mg/dL (0.60-1.30); GLOMERULAR FILTR. RATE CALC > 60 mL/min (>60); GLUCOSE,RANDOM 116 mg/dL (70-110); POTASSIUM 3.5 mmol/L (3.5-5.1); SODIUM SERUM 143 mmol/L (136-145); UREA NITROGEN, BLOOD 3 mg/dL (7-18)
[2018-07-11 12:27] LABS: ALANINE AMINOTRANSFERASE 31 U/L (12-78); ALBUMIN 3.3 g/dL (3.4-5.0); ALKALINE PHOSPHATASE 58 U/L (46-116); ASPARTATE AMINOTRANSFERASE 23 U/L (15-37); BILIRUBIN,TOTAL 0.2 mg/dL (0.1-1.0); TOTAL PROTEIN, SERUM 7.6 g/dL (6.4-8.2)
[2018-07-11 12:51] LABS: THYROID STIMULATING HORMONE 4.09 uIU/mL (0.36-3.74); VALPROIC ACID 94 mcg/mL (50-100)
[2018-07-11 13:06] LABS: APPEARANCE,URINE CLEAR (CLEAR); BILIRUBIN,URINE NEGATIVE (NEGATIVE); GLUCOSE, URINE (UA) NEGATIVE (NEGATIVE); KETONES,URINE NEGATIVE (NEGATIVE); LEUKOCYTE ESTERASE ,URINE NEGATIVE (NEGATIVE); NITRATE,URINE NEGATIVE (NEGATIVE); OCCULT BLOOD,URINE NEGATIVE (NEGATIVE); PH,URINE 6.5 (5.0-8.0); PROTEIN,URINE POS 1+ (NEGATIVE); UROBILINOGEN,URINE 0.2 mg/dL (<=1.0)
[2018-07-11 13:07] LABS: AMPHET/METH SCREEN,URINE NEGATIVE (NEGATIVE); BARBITURATE SCREEN, URINE NEGATIVE (NEGATIVE); BENZODIAZEPINES SCREEN,URINE NEGATIVE (NEGATIVE); CANNABINOID SCREEN,URINE NEGATIVE (NEGATIVE); COCAINE SCREEN,URINE NEGATIVE (NEGATIVE); METHADONE SCREEN, URINE NEGATIVE (NEGATIVE); OPIATE SCREEN,URINE NEGATIVE (NEGATIVE); PHENCYCLIDINE SCREEN,URINE NEGATIVE (NEGATIVE)
[2018-07-11] MEDS: LORazepam 2 MG TABLET PO PRN (14:17)
[2018-07-11 16:44] VITALS: BP 102/67
[2018-07-11] MEDS: LITHIUM CARBONATE 300 MG CAPSULE PO SCH (17:00)
[2018-07-11] MEDS: TOPIRAMATE 100 MG TABLET PO SCH (17:00)
[2018-07-11] MEDS: SIMVASTATIN 20 MG TABLET PO SCH (21:00)
[2018-07-11] MEDS: QUEtiapine FUMARATE 300 MG TABLET PO SCH (21:00)
[2018-07-11] MEDS: DIVALPROEX SODIUM 500 MG ER TABLET PO SCH (21:00)
[2018-07-12 03:22] VITALS: BP 142/78
[2018-07-12] MEDS: LEVOTHYROXINE SODIUM 100 MCG TABLET PO SCH (06:26)
[2018-07-12] MEDS: LITHIUM CARBONATE 300 MG CAPSULE PO SCH ×3 (08:50→16:24)
[2018-07-12] MEDS: MULTIVITAMINS WITH IRON TABLET PO SCH (08:50)
[2018-07-12] MEDS: CITALOPRAM HYDROBROMIDE 20 MG TABLET PO SCH (08:50)
[2018-07-12] MEDS: TOPIRAMATE 100 MG TABLET PO SCH ×2 (08:50→16:23)
[2018-07-12] MEDS: GuanFACINE HCL 1 MG TABLET PO SCH ×3 (08:50→16:24)
[2018-07-12 09:13] VITALS: BP 105/71
[2018-07-12] MEDS ORDERED: MAG HYDROX/AL HYDROX/SIMETH ES 30 ML SUSPENSION UDCUP PO PRN (15:00)
[2018-07-12] MEDS ORDERED: IBUPROFEN 600 MG TABLET PO PRN (15:00)
[2018-07-12] MEDS ORDERED: ACETAMINOPHEN 325 MG TABLET PO PRN (15:00)
[2018-07-12] MEDS ORDERED: ALBUTEROL SULFATE HFA 90 MCG/PUFF 8 GM INHALER IH PRN (15:00)
[2018-07-12] MEDS ORDERED: BACITRACIN 28.4 GM OINTMENT TP PRN (15:00)
[2018-07-12] MEDS ORDERED: MAGNESIUM HYDROXIDE SUSPENSION 30 ML UDCUP PO PRN (15:00)
[2018-07-12] MEDS ORDERED: ONDANSETRON HCL 4 MG TABLET PO PRN (15:00)
[2018-07-12] MEDS ORDERED: BENZOCAINE/MENTHOL LOZENGE MM PRN (15:00)
[2018-07-12] MEDS ORDERED: LOPERAMIDE HCL 2 MG CAPSULE PO PRN (15:00)
[2018-07-12] MEDS ORDERED: CloNIDine HCL 0.1 MG TABLET PO PRN (15:00)
[2018-07-12] MEDS ORDERED: PETROLATUM,WHITE 71 GM JELLY TP PRN (15:00)
[2018-07-12] MEDS: LORazepam 2 MG TABLET PO PRN (17:41)
[2018-07-12 17:55] VITALS: BP 128/78
[2018-07-12] MEDS: DIVALPROEX SODIUM 500 MG ER TABLET PO SCH (20:28)
[2018-07-12] MEDS: SIMVASTATIN 20 MG TABLET PO SCH (20:28)
[2018-07-12] MEDS: QUEtiapine FUMARATE 300 MG TABLET PO SCH (20:28)
[2018-07-13 00:23] VITALS: BP 134/88
[2018-07-13] MEDS: LEVOTHYROXINE SODIUM 100 MCG TABLET PO SCH (06:10)
[2018-07-13 08:27] VITALS: BP 101/65
[2018-07-13] MEDS: CITALOPRAM HYDROBROMIDE 20 MG TABLET PO SCH (08:44)
[2018-07-13] MEDS: MULTIVITAMINS WITH IRON TABLET PO SCH (08:44)
[2018-07-13] MEDS: GuanFACINE HCL 1 MG TABLET PO SCH ×3 (08:44→16:16)
[2018-07-13] MEDS: LITHIUM CARBONATE 300 MG CAPSULE PO SCH ×3 (08:45→16:16)
[2018-07-13] MEDS: TOPIRAMATE 100 MG TABLET PO SCH ×2 (08:45→16:16)
[2018-07-13 16:23] VITALS: BP 103/61
[2018-07-13] MEDS: DIVALPROEX SODIUM 500 MG ER TABLET PO SCH (20:20)
[2018-07-13] MEDS: QUEtiapine FUMARATE 300 MG TABLET PO SCH (20:20)
[2018-07-13] MEDS: SIMVASTATIN 20 MG TABLET PO SCH (20:20)
[2018-07-14] MEDS: LEVOTHYROXINE SODIUM 100 MCG TABLET PO SCH (06:19)
[2018-07-14 06:24] VITALS: BP 108/62
[2018-07-14 08:07] VITALS: BP 112/62
[2018-07-14] MEDS: MULTIVITAMINS WITH IRON TABLET PO SCH (08:25)
[2018-07-14] MEDS: GuanFACINE HCL 1 MG TABLET PO SCH ×3 (08:25→17:08)
[2018-07-14] MEDS: LITHIUM CARBONATE 300 MG CAPSULE PO SCH ×3 (08:25→17:08)
[2018-07-14] MEDS: TOPIRAMATE 100 MG TABLET PO SCH ×2 (08:25→17:08)
[2018-07-14] MEDS: CITALOPRAM HYDROBROMIDE 20 MG TABLET PO SCH (08:25)
[2018-07-14 16:19] VITALS: BP 107/62
[2018-07-14] MEDS: QUEtiapine FUMARATE 300 MG TABLET PO SCH (20:52)
[2018-07-14] MEDS: DIVALPROEX SODIUM 500 MG ER TABLET PO SCH (20:52)
[2018-07-14] MEDS: SIMVASTATIN 20 MG TABLET PO SCH (20:52)
[2018-07-15 05:50] VITALS: BP 105/60
[2018-07-15] MEDS: LEVOTHYROXINE SODIUM 100 MCG TABLET PO SCH (06:23)
[2018-07-15 08:08] VITALS: BP 110/78
[2018-07-15] MEDS: MULTIVITAMINS WITH IRON TABLET PO SCH (08:27)
[2018-07-15] MEDS: CITALOPRAM HYDROBROMIDE 20 MG TABLET PO SCH (08:27)
[2018-07-15] MEDS: GuanFACINE HCL 1 MG TABLET PO SCH ×2 (08:27→12:18)
[2018-07-15] MEDS: LITHIUM CARBONATE 300 MG CAPSULE PO SCH ×2 (08:27→12:17)
[2018-07-15] MEDS: TOPIRAMATE 100 MG TABLET PO SCH (08:27)
== END 2018-07-15 13:20 | disposition home or self-care (01) | DRG 750 ==
LOC: EMS 11:14 → B2S 15:49 → B3A 15:49 → UNDOADMIN 15:49
PROVIDERS: ADMIT Psychiatry & Neurology Psychiatry; ATTEND Psychiatry & Neurology Psychiatry
DX: F25.0 Schizoaffective disorder, bipolar type (principal); R45.851 Suicidal ideations; G40.909 Epilepsy, unspecified, not intractable, without status epilepticus; E78.5 Hyperlipidemia, unspecified; E66.9 Obesity, unspecified; E03.9 Hypothyroidism, unspecified; F31.9 Bipolar disorder, unspecified; F41.9 Anxiety disorder, unspecified; G47.00 Insomnia, unspecified; G80.9 Cerebral palsy, unspecified; K21.9 Gastro-esophageal reflux disease without esophagitis; X58.XXXA Exposure to other specified factors, initial encounter; R04.0 Epistaxis; S00.83XA Contusion of other part of head, initial encounter; F98.4 Stereotyped movement disorders; R94.6 Abnormal results of thyroid function studies; Z23 Encounter for immunization; Z79.899 Other long term (current) drug therapy; Z79.890 Hormone replacement therapy; Z68.36 Body mass index [BMI] 36.0-36.9, adult; Y93.89 Activity, other specified; Y92.89 Other specified places as the place of occurrence of the external cause; Y99.8 Other external cause status
CPT/HCPCS: 84443; 90686; G0480

== ENCOUNTER 2018-08-21 17:15 | Emergency (ER) | payer MEDICAID, OTHER ==
[~2018-08-21] VITALS: Ht 157.5 cm; Wt 86.4 kg
[2018-08-21 19:08] LABS: BASOPHILS % (AUTO) 0.6 % (0.0-2.0); EOSINOPHILS % (AUTO) 1.3 % (1.0-6.0); HEMOGLOBIN 12.2 g/dL (13.5-17.5); LYMPHOCYTES # (AUTO) 1.7 K/uL (1.0-4.8); LYMPHOCYTES % (AUTO) 14.6 % (22.0-44.0); MEAN CORPUSCULAR HEMOGLOBIN 29.9 pg (26.0-34.0); MEAN CORPUSCULAR VOLUME 91 fL (80-100); MONOCYTES # (AUTO) 1.4 K/uL (0.1-1.0); MONOCYTES % (AUTO) 11.6 % (2.0-9.0); NEUTROPHILS # (AUTO) 8.6 K/uL (1.8-7.7); NEUTROPHILS % (AUTO) 71.9 % (40.0-70.0); PLATELET COUNT (AUTO) 281 K/uL (150-450); RED BLOOD CELL COUNT(AUTO) 4.08 MIL/uL (4.50-5.90)
[2018-08-21 19:36] LABS: ANION GAP 7 mmol/L (8-16); CALCIUM, TOTAL 9.4 mg/dL (8.8-10.5); CARBON DIOXIDE 26 mmol/L (22-29); CHLORIDE 107 mmol/L (98-107); CREATININE 0.97 mg/dL (0.60-1.30); GLOMERULAR FILTR. RATE CALC > 60 mL/min (>60); GLUCOSE,RANDOM 95 mg/dL (70-110); POTASSIUM 4.2 mmol/L (3.5-5.1); SODIUM SERUM 140 mmol/L (136-145); UREA NITROGEN, BLOOD 7 mg/dL (7-18)
[2018-08-21 19:42] LABS: ALANINE AMINOTRANSFERASE 34 U/L (12-78); ALBUMIN 3.3 g/dL (3.4-5.0); ALKALINE PHOSPHATASE 46 U/L (46-116); ASPARTATE AMINOTRANSFERASE 28 U/L (15-37); BILIRUBIN,TOTAL 0.2 mg/dL (0.1-1.0); TOTAL PROTEIN, SERUM 7.4 g/dL (6.4-8.2)
[2018-08-21 21:37] VITALS: BP 112/68
== END 2018-08-21 22:15 | disposition home or self-care (01) ==
LOC: EMS 18:34
DX: S09.90XA Unspecified injury of head, initial encounter (principal); G83.9 Paralytic syndrome, unspecified; F31.9 Bipolar disorder, unspecified; F84.0 Autistic disorder; Z79.899 Other long term (current) drug therapy; W22.8XXA Striking against or struck by other objects, initial encounter; Y93.89 Activity, other specified; Y92.89 Other specified places as the place of occurrence of the external cause; Y99.8 Other external cause status
CPT/HCPCS: 36415; 80053; 85025; 99283; G0480

== ENCOUNTER 2018-09-01 11:36 | Inpatient (IN) | payer MEDICAID, OTHER ==
[~2018-09-01] VITALS: Ht 154.9 cm; Wt 88.1 kg
[2018-09-01 12:13] LABS: BASOPHILS % (AUTO) 0.4 % (0.0-2.0); EOSINOPHILS % (AUTO) 2.5 % (1.0-6.0); HEMATOCRIT 36.1 % (41-53); HEMOGLOBIN 12.1 g/dL (13.5-17.5); LYMPHOCYTES # (AUTO) 1.9 K/uL (1.0-4.8); LYMPHOCYTES % (AUTO) 27.1 % (22.0-44.0); MEAN CORPUSCULAR HEMOGLOBIN 30.5 pg (26.0-34.0); MEAN CORPUSCULAR HGB CONC 33.4 G/dL (31.0-37.0); MEAN CORPUSCULAR VOLUME 91 fL (80-100); MONOCYTES % (AUTO) 14.9 % (2.0-9.0); NEUTROPHILS # (AUTO) 3.9 K/uL (1.8-7.7); NEUTROPHILS % (AUTO) 55.1 % (40.0-70.0); PLATELET COUNT (AUTO) 226 K/uL (150-450); RED BLOOD CELL COUNT(AUTO) 3.96 MIL/uL (4.50-5.90); RED CELL DISTRIBUTION WIDTH 13.7 % (11.5-14.5)
[2018-09-01 12:32] LABS: AMPHET/METH SCREEN,URINE NEGATIVE (NEGATIVE); BARBITURATE SCREEN, URINE NEGATIVE (NEGATIVE); BENZODIAZEPINES SCREEN,URINE NEGATIVE (NEGATIVE); CANNABINOID SCREEN,URINE NEGATIVE (NEGATIVE); COCAINE SCREEN,URINE NEGATIVE (NEGATIVE); METHADONE SCREEN, URINE NEGATIVE (NEGATIVE); OPIATE SCREEN,URINE NEGATIVE (NEGATIVE)
[2018-09-01 12:36] LABS: PHENCYCLIDINE SCREEN,URINE NEGATIVE (NEGATIVE)
[2018-09-01 12:36] LABS: ANION GAP 9 mmol/L (8-16); CALCIUM, TOTAL 9.2 mg/dL (8.8-10.5); CARBON DIOXIDE 22 mmol/L (22-29); CHLORIDE 105 mmol/L (98-107); CREATININE 0.93 mg/dL (0.60-1.30); GLOMERULAR FILTR. RATE CALC > 60 mL/min (>60); GLUCOSE,RANDOM 116 mg/dL (70-110); POTASSIUM 3.6 mmol/L (3.5-5.1); SODIUM SERUM 136 mmol/L (136-145); UREA NITROGEN, BLOOD 4 mg/dL (7-18)
[2018-09-01 12:38] LABS: LITHIUM 0.82 mmol/L (0.60-1.20)
[2018-09-01 12:43] LABS: ALANINE AMINOTRANSFERASE 49 U/L (12-78); ALBUMIN 3.2 g/dL (3.4-5.0); ALKALINE PHOSPHATASE 49 U/L (46-116); ASPARTATE AMINOTRANSFERASE 51 U/L (15-37); BILIRUBIN,TOTAL 0.2 mg/dL (0.1-1.0); TOTAL PROTEIN, SERUM 7.3 g/dL (6.4-8.2); VALPROIC ACID 98 mcg/mL (50-100)
[2018-09-01] MEDS ORDERED: LORazepam 2 MG TABLET PO PRN (12:45)
[2018-09-01] MEDS ORDERED: HALOPERIDOL 5 MG TABLET PO PRN (12:45)
[2018-09-01 16:34] VITALS: BP 132/72
[2018-09-01] MEDS ORDERED: ALBUTEROL SULFATE HFA 90 MCG/PUFF 8 GM INHALER IH PRN (20:00)
[2018-09-01] MEDS ORDERED: LOPERAMIDE HCL 2 MG CAPSULE PO PRN (20:00)
[2018-09-01] MEDS ORDERED: PETROLATUM,WHITE 71 GM JELLY TP PRN (20:00)
[2018-09-01] MEDS ORDERED: BENZOCAINE/MENTHOL LOZENGE MM PRN (20:00)
[2018-09-01] MEDS ORDERED: MAG HYDROX/AL HYDROX/SIMETH ES 30 ML SUSPENSION UDCUP PO PRN (20:00)
[2018-09-01] MEDS ORDERED: CloNIDine HCL 0.1 MG TABLET PO PRN (20:00)
[2018-09-01] MEDS ORDERED: IBUPROFEN 600 MG TABLET PO PRN (20:00)
[2018-09-01] MEDS ORDERED: MAGNESIUM HYDROXIDE SUSPENSION 30 ML UDCUP PO PRN (20:00)
[2018-09-01] MEDS ORDERED: ACETAMINOPHEN 325 MG TABLET PO PRN (20:00)
[2018-09-01] MEDS ORDERED: ONDANSETRON HCL 4 MG TABLET PO PRN (20:00)
[2018-09-01] MEDS ORDERED: BACITRACIN 28.4 GM OINTMENT TP PRN (20:00)
[2018-09-01] MEDS: DIVALPROEX SODIUM 500 MG ER TABLET PO SCH (21:06)
[2018-09-01] MEDS: QUEtiapine FUMARATE 300 MG TABLET PO SCH (21:07)
[2018-09-01] MEDS: SIMVASTATIN 20 MG TABLET PO SCH (21:07)
[2018-09-01] MEDS: ZOLPIDEM TARTRATE 10 MG TABLET PO PRN (21:10)
[2018-09-02 06:25] VITALS: BP 130/65
[2018-09-02] MEDS: LEVOTHYROXINE SODIUM 100 MCG TABLET PO SCH (06:38)
[2018-09-02] MEDS ORDERED: -PHARMACY VACCINE NOTE- MISC ONE (07:30)
[2018-09-02] MEDS: TOPIRAMATE 100 MG TABLET PO SCH ×2 (08:18→16:14)
[2018-09-02] MEDS: OMEPRAZOLE 20 MG CAPSULE PO SCH (08:18)
[2018-09-02] MEDS: MULTIVITAMINS WITH MINERALS, THERAPEUTIC TABLET PO SCH (08:18)
[2018-09-02] MEDS: LITHIUM CARBONATE 300 MG CAPSULE PO SCH ×3 (08:18→16:14)
[2018-09-02] MEDS: CITALOPRAM HYDROBROMIDE 20 MG TABLET PO SCH (08:18)
[2018-09-02] MEDS: DOCUSATE SODIUM 100 MG CAPSULE PO SCH (08:18)
[2018-09-02 08:32] LABS: BAND NEUTROPHILS % (MANUAL) 0 % (0-5)
[2018-09-02 08:38] LABS: HEMATOCRIT 36.9 % (41-53); HEMOGLOBIN 12.1 g/dL (13.5-17.5); MEAN CORPUSCULAR HEMOGLOBIN 30.4 pg (26.0-34.0); MEAN CORPUSCULAR HGB CONC 32.8 G/dL (31.0-37.0); MEAN CORPUSCULAR VOLUME 93 fL (80-100); PLATELET COUNT (AUTO) 229 K/uL (150-450); RED BLOOD CELL COUNT(AUTO) 3.98 MIL/uL (4.50-5.90); RED CELL DISTRIBUTION WIDTH 13.9 % (11.5-14.5)
[2018-09-02 08:49] VITALS: BP 108/60
[2018-09-02 09:10] LABS: ANION GAP 7 mmol/L (8-16); CALCIUM, TOTAL 9.4 mg/dL (8.8-10.5); CARBON DIOXIDE 25 mmol/L (22-29); CHLORIDE 107 mmol/L (98-107); CHOL/HDL RATIO 3.1 (4.2-7.3); CHOLESTEROL 138 mg/dL (131-200); CREATININE 0.82 mg/dL (0.60-1.30); GLOMERULAR FILTR. RATE CALC > 60 mL/min (>60); GLUCOSE,RANDOM 92 mg/dL (70-110); HDL CHOLESTEROL 44 mg/dL (40-60); LDL CHOL (CALC.) 47 mg/dL (0-130); PHOSPHORUS 6.3 mg/dL (2.5-4.9); POTASSIUM 3.9 mmol/L (3.5-5.1); SODIUM SERUM 139 mmol/L (136-145); TRIGLYCERIDES 236 mg/dL (15-150); UREA NITROGEN, BLOOD 9 mg/dL (7-18)
[2018-09-02 09:16] LABS: HEMOGLOBIN A1C 5.6 % (4.5-6.2)
[2018-09-02 09:43] LABS: EOSINOPHILS % (MANUAL) 5 % (1-6); LYMPHOCYTES % (MANUAL) 46 % (22-44); MONOCYTES % (MANUAL) 15 % (2-9); MYELOCYTES % 1 % (0-0); SEGMENTED NEUTROPHILS % 33 % (40-70)
[2018-09-02 16:00] VITALS: BP 138/76
[2018-09-02] MEDS: DIVALPROEX SODIUM 500 MG ER TABLET PO SCH (20:34)
[2018-09-02] MEDS: QUEtiapine FUMARATE 300 MG TABLET PO SCH (20:35)
[2018-09-02] MEDS: SIMVASTATIN 20 MG TABLET PO SCH (20:35)
[2018-09-02] MEDS: ZOLPIDEM TARTRATE 10 MG TABLET PO PRN (20:35)
[2018-09-03] MEDS: LEVOTHYROXINE SODIUM 100 MCG TABLET PO SCH (06:30)
[2018-09-03] MEDS: TOPIRAMATE 100 MG TABLET PO SCH ×2 (08:38→16:42)
[2018-09-03] MEDS: CITALOPRAM HYDROBROMIDE 20 MG TABLET PO SCH (08:38)
[2018-09-03] MEDS: DOCUSATE SODIUM 100 MG CAPSULE PO SCH (08:38)
[2018-09-03] MEDS: OMEPRAZOLE 20 MG CAPSULE PO SCH (08:39)
[2018-09-03] MEDS: LITHIUM CARBONATE 300 MG CAPSULE PO SCH ×3 (08:39→16:42)
[2018-09-03] MEDS: MULTIVITAMINS WITH MINERALS, THERAPEUTIC TABLET PO SCH (08:39)
[2018-09-03] MEDS: OMEGA-3/DHA/EPA/FISH OIL 1,000 MG CAPSULE PO SCH (08:39)
[2018-09-03 08:48] VITALS: BP 129/77
[2018-09-03 16:00] VITALS: BP 123/88
[2018-09-03] MEDS: DIVALPROEX SODIUM 500 MG ER TABLET PO SCH (20:59)
[2018-09-03] MEDS: QUEtiapine FUMARATE 300 MG TABLET PO SCH (20:59)
[2018-09-03] MEDS: SIMVASTATIN 20 MG TABLET PO SCH (20:59)
[2018-09-04 05:19] VITALS: BP 119/89
[2018-09-04] MEDS: LEVOTHYROXINE SODIUM 100 MCG TABLET PO SCH (06:37)
[2018-09-04 08:16] VITALS: BP 110/73
[2018-09-04] MEDS: LITHIUM CARBONATE 300 MG CAPSULE PO SCH ×3 (08:29→16:31)
[2018-09-04] MEDS: OMEGA-3/DHA/EPA/FISH OIL 1,000 MG CAPSULE PO SCH (08:29)
[2018-09-04] MEDS: OMEPRAZOLE 20 MG CAPSULE PO SCH (08:29)
[2018-09-04] MEDS: MULTIVITAMINS WITH MINERALS, THERAPEUTIC TABLET PO SCH (08:29)
[2018-09-04] MEDS: DOCUSATE SODIUM 100 MG CAPSULE PO SCH (08:29)
[2018-09-04] MEDS: TOPIRAMATE 100 MG TABLET PO SCH ×2 (08:29→16:31)
[2018-09-04] MEDS: CITALOPRAM HYDROBROMIDE 20 MG TABLET PO SCH (08:30)
[2018-09-04 16:28] VITALS: BP 107/78
[2018-09-04] MEDS: QUEtiapine FUMARATE 300 MG TABLET PO SCH (20:44)
[2018-09-04] MEDS: DIVALPROEX SODIUM 500 MG ER TABLET PO SCH (20:44)
[2018-09-04] MEDS: SIMVASTATIN 20 MG TABLET PO SCH (20:44)
[2018-09-05] MEDS: LEVOTHYROXINE SODIUM 100 MCG TABLET PO SCH (06:03)
[2018-09-05 08:36] VITALS: BP 116/73
[2018-09-05] MEDS: CITALOPRAM HYDROBROMIDE 20 MG TABLET PO SCH (08:47)
[2018-09-05] MEDS: TOPIRAMATE 100 MG TABLET PO SCH ×2 (08:47→16:11)
[2018-09-05] MEDS: LITHIUM CARBONATE 300 MG CAPSULE PO SCH ×3 (08:47→16:11)
[2018-09-05] MEDS: DOCUSATE SODIUM 100 MG CAPSULE PO SCH (08:47)
[2018-09-05] MEDS: OMEGA-3/DHA/EPA/FISH OIL 1,000 MG CAPSULE PO SCH (08:47)
[2018-09-05] MEDS: OMEPRAZOLE 20 MG CAPSULE PO SCH (08:47)
[2018-09-05] MEDS: MULTIVITAMINS WITH MINERALS, THERAPEUTIC TABLET PO SCH (08:48)
[2018-09-05 09:31] LABS: LITHIUM 0.88 mmol/L (0.60-1.20)
[2018-09-05 16:04] VITALS: BP 134/79
[2018-09-05] MEDS: DIVALPROEX SODIUM 500 MG ER TABLET PO SCH (20:57)
[2018-09-05] MEDS: QUEtiapine FUMARATE 300 MG TABLET PO SCH (20:57)
[2018-09-05] MEDS: SIMVASTATIN 20 MG TABLET PO SCH (20:58)
[2018-09-06 06:19] VITALS: BP 128/80
[2018-09-06] MEDS: LEVOTHYROXINE SODIUM 100 MCG TABLET PO SCH (06:43)
[2018-09-06 08:10] VITALS: BP 114/66
[2018-09-06] MEDS: TOPIRAMATE 100 MG TABLET PO SCH ×2 (08:38→16:19)
[2018-09-06] MEDS: CITALOPRAM HYDROBROMIDE 20 MG TABLET PO SCH (08:38)
[2018-09-06] MEDS: OMEGA-3/DHA/EPA/FISH OIL 1,000 MG CAPSULE PO SCH (08:38)
[2018-09-06] MEDS: DOCUSATE SODIUM 100 MG CAPSULE PO SCH (08:38)
[2018-09-06] MEDS: LITHIUM CARBONATE 300 MG CAPSULE PO SCH ×3 (08:38→16:19)
[2018-09-06] MEDS: MULTIVITAMINS WITH MINERALS, THERAPEUTIC TABLET PO SCH (08:38)
[2018-09-06] MEDS: OMEPRAZOLE 20 MG CAPSULE PO SCH (08:38)
[2018-09-06 16:13] VITALS: BP 118/62
[2018-09-06] MEDS: QUEtiapine FUMARATE 300 MG TABLET PO SCH (20:17)
[2018-09-06] MEDS: DIVALPROEX SODIUM 500 MG ER TABLET PO SCH (20:17)
[2018-09-06] MEDS: SIMVASTATIN 20 MG TABLET PO SCH (20:17)
[2018-09-07 03:48] VITALS: BP 114/72
[2018-09-07] MEDS: LEVOTHYROXINE SODIUM 100 MCG TABLET PO SCH (06:11)
[2018-09-07 08:09] VITALS: BP 127/68
[2018-09-07] MEDS: MULTIVITAMINS WITH MINERALS, THERAPEUTIC TABLET PO SCH (08:31)
[2018-09-07] MEDS: OMEPRAZOLE 20 MG CAPSULE PO SCH (08:31)
[2018-09-07] MEDS: DOCUSATE SODIUM 100 MG CAPSULE PO SCH (08:31)
[2018-09-07] MEDS: TOPIRAMATE 100 MG TABLET PO SCH (08:31)
[2018-09-07] MEDS: CITALOPRAM HYDROBROMIDE 20 MG TABLET PO SCH (08:31)
[2018-09-07] MEDS: LITHIUM CARBONATE 300 MG CAPSULE PO SCH (08:31)
[2018-09-07] MEDS: OMEGA-3/DHA/EPA/FISH OIL 1,000 MG CAPSULE PO SCH (09:05)
== END 2018-09-07 13:27 | disposition home or self-care (01) | DRG 750 ==
LOC: EMS 11:38 → B3A 14:47
PROVIDERS: ADMIT Psychiatry & Neurology Psychiatry; ATTEND Psychiatry & Neurology Psychiatry
DX: F25.9 Schizoaffective disorder, unspecified (principal); G40.909 Epilepsy, unspecified, not intractable, without status epilepticus; E03.9 Hypothyroidism, unspecified; E66.9 Obesity, unspecified; E78.5 Hyperlipidemia, unspecified; F31.9 Bipolar disorder, unspecified; F41.9 Anxiety disorder, unspecified; G47.00 Insomnia, unspecified; G80.9 Cerebral palsy, unspecified; K21.9 Gastro-esophageal reflux disease without esophagitis; Z68.36 Body mass index [BMI] 36.0-36.9, adult
CPT/HCPCS: 83036; 83735; 84100; 84443; 85007; G0480

== ENCOUNTER 2018-10-13 08:13 | Emergency (ER) | payer MEDICAID, OTHER ==
[~2018-10-13] VITALS: Ht 167.6 cm; Wt 85.6 kg
[~2018-10-13 08:13] MED LIST changes: -GUAN1TAB22 PO; -MULT-1065 PO
[2018-10-13] MEDS ORDERED: ZOLP5TAB2 PO (08:44)
[2018-10-13 08:54] LABS: BASOPHILS % (AUTO) 0.3 % (0.0-2.0); HEMATOCRIT 40.3 % (41-53); HEMOGLOBIN 13.4 g/dL (13.5-17.5); LYMPHOCYTES % (AUTO) 9.8 % (22.0-44.0); MEAN CORPUSCULAR HEMOGLOBIN 30.7 pg (26.0-34.0); MEAN CORPUSCULAR HGB CONC 33.3 G/dL (31.0-37.0); MEAN CORPUSCULAR VOLUME 92 fL (80-100); MONOCYTES # (AUTO) 1.6 K/uL (0.1-1.0); MONOCYTES % (AUTO) 14.9 % (2.0-9.0); NEUTROPHILS # (AUTO) 7.7 K/uL (1.8-7.7); PLATELET COUNT (AUTO) 301 K/uL (150-450); RED BLOOD CELL COUNT(AUTO) 4.38 MIL/uL (4.50-5.90); RED CELL DISTRIBUTION WIDTH 13.3 % (11.5-14.5)
[2018-10-13 09:05] LABS: ANION GAP 10 mmol/L (8-16); CALCIUM, TOTAL 9.4 mg/dL (8.8-10.5); CARBON DIOXIDE 23 mmol/L (22-29); CHLORIDE 109 mmol/L (98-107); CREATININE 1.12 mg/dL (0.60-1.30); GLOMERULAR FILTR. RATE CALC > 60 mL/min (>60); GLUCOSE,RANDOM 100 mg/dL (70-110); POTASSIUM 4.1 mmol/L (3.5-5.1); SODIUM SERUM 142 mmol/L (136-145); UREA NITROGEN, BLOOD 8 mg/dL (7-18)
[2018-10-13 09:10] LABS: ALANINE AMINOTRANSFERASE 58 U/L (12-78); ALBUMIN 3.7 g/dL (3.4-5.0); ALKALINE PHOSPHATASE 54 U/L (46-116); ASPARTATE AMINOTRANSFERASE 42 U/L (15-37); BILIRUBIN,TOTAL 0.2 mg/dL (0.1-1.0); TOTAL PROTEIN, SERUM 8.1 g/dL (6.4-8.2)
[2018-10-13 10:37] LABS: AMPHET/METH SCREEN,URINE NEGATIVE (NEGATIVE); BARBITURATE SCREEN, URINE NEGATIVE (NEGATIVE); BENZODIAZEPINES SCREEN,URINE NEGATIVE (NEGATIVE); CANNABINOID SCREEN,URINE NEGATIVE (NEGATIVE); COCAINE SCREEN,URINE NEGATIVE (NEGATIVE); METHADONE SCREEN, URINE NEGATIVE (NEGATIVE); OPIATE SCREEN,URINE NEGATIVE (NEGATIVE); PHENCYCLIDINE SCREEN,URINE NEGATIVE (NEGATIVE)
[2018-10-13 10:45] LABS: APPEARANCE,URINE CLEAR (CLEAR); BILIRUBIN,URINE NEGATIVE (NEGATIVE); GLUCOSE, URINE (UA) NEGATIVE (NEGATIVE); KETONES,URINE NEGATIVE (NEGATIVE); LEUKOCYTE ESTERASE ,URINE NEGATIVE (NEGATIVE); NITRATE,URINE NEGATIVE (NEGATIVE); OCCULT BLOOD,URINE SMALL (NEGATIVE); PROTEIN,URINE POS 1+ (NEGATIVE); UROBILINOGEN,URINE 0.2 mg/dL (<=1.0)
[2018-10-13 10:53] LABS: BACTERIA,URINE None Seen /HPF (None Seen); WBC,URINE None Seen /HPF (0-5)
[2018-10-13 11:59] VITALS: BP 138/81
== END 2018-10-13 12:03 | disposition home or self-care (01) ==
LOC: EMS 08:14
DX: S00.83XA Contusion of other part of head, initial encounter (principal); F31.9 Bipolar disorder, unspecified; F63.81 Intermittent explosive disorder; W22.8XXA Striking against or struck by other objects, initial encounter; Y93.89 Activity, other specified; Y92.89 Other specified places as the place of occurrence of the external cause; Y99.8 Other external cause status
CPT/HCPCS: 36415; 80053; 80307; 81001; 85025; 99285; G0480

== ENCOUNTER 2018-12-17 16:30 | Emergency (ER) | payer OTHER ==
[~2018-12-17] VITALS: Ht 160 cm; Wt 90.4 kg
[~2018-12-17 16:30] MED LIST changes: +ZOLP5TAB2 PO
[2018-12-17 18:18] LABS: BASOPHILS % (AUTO) 0.3 % (0.0-2.0); EOSINOPHILS % (AUTO) 1.8 % (1.0-6.0); HEMOGLOBIN 12.7 g/dL (13.5-17.5); LYMPHOCYTES # (AUTO) 1.7 K/uL (1.0-4.8); LYMPHOCYTES % (AUTO) 17.2 % (22.0-44.0); MEAN CORPUSCULAR HGB CONC 33.3 G/dL (31.0-37.0); MEAN CORPUSCULAR VOLUME 93 fL (80-100); MONOCYTES # (AUTO) 1.2 K/uL (0.1-1.0); MONOCYTES % (AUTO) 12.3 % (2.0-9.0); NEUTROPHILS # (AUTO) 6.6 K/uL (1.8-7.7); NEUTROPHILS % (AUTO) 68.4 % (40.0-70.0); PLATELET COUNT (AUTO) 307 K/uL (150-450); RED BLOOD CELL COUNT(AUTO) 4.09 MIL/uL (4.50-5.90); RED CELL DISTRIBUTION WIDTH 12.7 % (11.5-14.5)
[2018-12-17 18:33] LABS: LITHIUM 0.79 mmol/L (0.60-1.20)
[2018-12-17 18:37] LABS: ANION GAP 10 mmol/L (8-16); CALCIUM, TOTAL 9.7 mg/dL (8.8-10.5); CARBON DIOXIDE 24 mmol/L (22-29); CHLORIDE 106 mmol/L (98-107); GLOMERULAR FILTR. RATE CALC > 60 mL/min (>60); GLUCOSE,RANDOM 84 mg/dL (70-110); POTASSIUM 3.9 mmol/L (3.5-5.1); SODIUM SERUM 140 mmol/L (136-145); UREA NITROGEN, BLOOD 8 mg/dL (7-18)
[2018-12-17 18:42] LABS: ALANINE AMINOTRANSFERASE 41 U/L (12-78); ALBUMIN 3.5 g/dL (3.4-5.0); ALKALINE PHOSPHATASE 52 U/L (46-116); ASPARTATE AMINOTRANSFERASE 32 U/L (15-37); BILIRUBIN,TOTAL 0.3 mg/dL (0.1-1.0); VALPROIC ACID 100 mcg/mL (50-100)
[2018-12-18 05:36] VITALS: BP 120/78
== END 2018-12-18 06:41 | disposition home or self-care (01) ==
LOC: EMS 16:30
DX: F31.9 Bipolar disorder, unspecified (principal); Z79.899 Other long term (current) drug therapy; W18.39XA Other fall on same level, initial encounter; Y93.89 Activity, other specified; Y92.89 Other specified places as the place of occurrence of the external cause; Y99.8 Other external cause status
CPT/HCPCS: 36415; 80053; 80164; 80178; 85025; 99285; G0480

== ENCOUNTER 2019-04-26 08:45 | Emergency (ER) | payer OTHER ==
[~2019-04-26] VITALS: Ht 165.1 cm; Wt 81.8 kg
[2019-04-26] MEDS ORDERED: LEVO25TA9 PO (09:08)
[2019-04-26 09:36] LABS: BASOPHILS % (AUTO) 0.6 % (0.0-2.0); EOSINOPHILS % (AUTO) 2.3 % (1.0-6.0); HEMATOCRIT 40.1 % (41-53); HEMOGLOBIN 13.4 g/dL (13.5-17.5); LYMPHOCYTES # (AUTO) 1.5 K/uL (1.0-4.8); LYMPHOCYTES % (AUTO) 35.5 % (22.0-44.0); MEAN CORPUSCULAR HGB CONC 33.4 G/dL (31.0-37.0); MEAN CORPUSCULAR VOLUME 93 fL (80-100); MONOCYTES # (AUTO) 0.5 K/uL (0.1-1.0); MONOCYTES % (AUTO) 13.3 % (2.0-9.0); NEUTROPHILS % (AUTO) 48.3 % (40.0-70.0); PLATELET COUNT (AUTO) 246 K/uL (150-450); RED BLOOD CELL COUNT(AUTO) 4.32 MIL/uL (4.50-5.90)
[2019-04-26 09:44] LABS: AMPHET/METH SCREEN,URINE NEGATIVE (NEGATIVE); BARBITURATE SCREEN, URINE NEGATIVE (NEGATIVE); BENZODIAZEPINES SCREEN,URINE NEGATIVE (NEGATIVE); CANNABINOID SCREEN,URINE NEGATIVE (NEGATIVE); COCAINE SCREEN,URINE NEGATIVE (NEGATIVE); METHADONE SCREEN, URINE NEGATIVE (NEGATIVE); OPIATE SCREEN,URINE NEGATIVE (NEGATIVE)
[2019-04-26 09:46] LABS: LITHIUM 0.41 mmol/L (0.60-1.20)
[2019-04-26 09:49] LABS: PHENCYCLIDINE SCREEN,URINE NEGATIVE (NEGATIVE)
[2019-04-26 10:08] LABS: ALANINE AMINOTRANSFERASE 29 U/L (12-78); ALBUMIN 3.8 g/dL (3.4-5.0); ALKALINE PHOSPHATASE 51 U/L (46-116); ANION GAP 7 mmol/L (8-16); ASPARTATE AMINOTRANSFERASE 23 U/L (15-37); BILIRUBIN,TOTAL 0.3 mg/dL (0.1-1.0); CALCIUM, TOTAL 9.5 mg/dL (8.8-10.5); CARBON DIOXIDE 27 mmol/L (22-29); CHLORIDE 106 mmol/L (98-107); CREATININE 0.95 mg/dL (0.60-1.30); GLOMERULAR FILTR. RATE CALC > 60 mL/min (>60); GLUCOSE,RANDOM 99 mg/dL (70-110); POTASSIUM 3.6 mmol/L (3.5-5.1); SODIUM SERUM 140 mmol/L (136-145); TOTAL PROTEIN, SERUM 8.5 g/dL (6.4-8.2); UREA NITROGEN, BLOOD 4 mg/dL (7-18); VALPROIC ACID 102 mcg/mL (50-100)
[2019-04-26] MEDS ORDERED: PERTUSS(ACELL),DIPH,TET VAC/PF 0.5 ML VIAL IM ONE (13:15)
[2019-04-26 14:26] VITALS: BP 120/75
[2019-06-09] MEDS ORDERED: ZOLP10TA7 PO (16:29)
== END 2019-04-26 14:28 | disposition home or self-care (01) ==
LOC: EMS 09:14
DX: S00.83XA Contusion of other part of head, initial encounter (principal); R51 Headache; R45.851 Suicidal ideations; F31.9 Bipolar disorder, unspecified; Z86.69 Personal history of other diseases of the nervous system and sense organs; W50.0XXA Accidental hit or strike by another person, initial encounter; Y93.89 Activity, other specified; Y92.89 Other specified places as the place of occurrence of the external cause; Y99.8 Other external cause status
CPT/HCPCS: 36415; 70450; 70486; 80053; 80164; 80178; 80307; 85025; 90471; 90715; 99285; G0480

== ENCOUNTER 2019-08-13 18:26 | Emergency (ER) | payer MEDICAID, OTHER ==
[~2019-08-13] VITALS: Ht 154.9 cm; Wt 86.4 kg
[~2019-08-13 18:26] MED LIST changes: -LEVO100 PO; +LEVO25TA9 PO; -ZOLP5TAB2 PO
[2019-08-13] MEDS ORDERED: ZOLP5 PO (19:10)
[2019-08-13] MEDS ORDERED: DIVALPROEX SODIUM 500 MG ER TABLET PO ONE (19:30)
[2019-08-13] MEDS ORDERED: LORazepam 2 MG TABLET PO ONE (19:30)
[2019-08-13 19:46] LABS: BASOPHILS % (AUTO) 0.1 % (0.0-2.0); EOSINOPHILS % (AUTO) 0 % (1.0-6.0); HEMATOCRIT 37.2 % (41-53); HEMOGLOBIN 12.4 g/dL (13.5-17.5); LYMPHOCYTES # (AUTO) 1.2 K/uL (1.0-4.8); LYMPHOCYTES % (AUTO) 7.4 % (22.0-44.0); MEAN CORPUSCULAR HEMOGLOBIN 31.1 pg (26.0-34.0); MEAN CORPUSCULAR HGB CONC 33.4 G/dL (31.0-37.0); MEAN CORPUSCULAR VOLUME 93 fL (80-100); MONOCYTES # (AUTO) 1.6 K/uL (0.1-1.0); MONOCYTES % (AUTO) 9.5 % (2.0-9.0); NEUTROPHILS # (AUTO) 13.5 K/uL (1.8-7.7); PLATELET COUNT (AUTO) 252 K/uL (150-450); RED CELL DISTRIBUTION WIDTH 12.8 % (11.5-14.5)
[2019-08-13 20:27] LABS: ALANINE AMINOTRANSFERASE 23 U/L (12-78); ALBUMIN 3.5 g/dL (3.4-5.0); ALKALINE PHOSPHATASE 46 U/L (46-116); ANION GAP 12 mmol/L (8-16); ASPARTATE AMINOTRANSFERASE 22 U/L (15-37); BILIRUBIN,TOTAL 0.3 mg/dL (0.1-1.0); CALCIUM, TOTAL 8.4 mg/dL (8.8-10.5); CARBON DIOXIDE 24 mmol/L (22-29); CHLORIDE 104 mmol/L (98-107); CREATININE 0.91 mg/dL (0.60-1.30); GLOMERULAR FILTR. RATE CALC > 60 mL/min (>60); GLUCOSE,RANDOM 168 mg/dL (70-110); SODIUM SERUM 140 mmol/L (136-145); TOTAL PROTEIN, SERUM 7.1 g/dL (6.4-8.2); UREA NITROGEN, BLOOD 6 mg/dL (7-18)
[2019-08-13] MEDS ORDERED: POTASSIUM CHLORIDE 10% 40 MEQ/30 ML LIQUID UDCUP PO ONE (20:45)
[2019-08-13 20:49] LABS: AMPHET/METH SCREEN,URINE NEGATIVE (NEGATIVE); BARBITURATE SCREEN, URINE NEGATIVE (NEGATIVE); BENZODIAZEPINES SCREEN,URINE NEGATIVE (NEGATIVE); CANNABINOID SCREEN,URINE NEGATIVE (NEGATIVE); COCAINE SCREEN,URINE NEGATIVE (NEGATIVE); METHADONE SCREEN, URINE NEGATIVE (NEGATIVE); OPIATE SCREEN,URINE NEGATIVE (NEGATIVE)
[2019-08-13 20:50] LABS: PHENCYCLIDINE SCREEN,URINE NEGATIVE (NEGATIVE)
[2019-08-13 21:45] VITALS: BP 121/76
== END 2019-08-13 21:50 | disposition home or self-care (01) ==
LOC: EMS 18:26
DX: S00.83XA Contusion of other part of head, initial encounter (principal); S50.02XA Contusion of left elbow, initial encounter; E87.6 Hypokalemia; F31.9 Bipolar disorder, unspecified; Z79.899 Other long term (current) drug therapy; Y35.813A Legal intervention involving manhandling, suspect injured, initial encounter; Y93.89 Activity, other specified; Y92.89 Other specified places as the place of occurrence of the external cause; Y99.8 Other external cause status
CPT/HCPCS: 36415; 73080; 80053; 80164; 80178; 80307; 85025; 99285; G0480

== ENCOUNTER 2019-12-12 13:54 | Emergency (ER) | payer OTHER ==
[~2019-12-12] VITALS: Ht 154.9 cm; Wt 77.3 kg
[~2019-12-12 13:54] MED LIST changes: -CITA-106 PO; +CITA-144 PO; +ZOLP-280 PO
[2019-12-12 14:29] LABS: BASOPHILS % (AUTO) 0.2 % (0.0-2.0); EOSINOPHILS % (AUTO) 0.4 % (1.0-6.0); HEMATOCRIT 37.8 % (41-53); HEMOGLOBIN 12.7 g/dL (13.5-17.5); LYMPHOCYTES # (AUTO) 0.9 K/uL (1.0-4.8); LYMPHOCYTES % (AUTO) 7.3 % (22.0-44.0); MEAN CORPUSCULAR HEMOGLOBIN 31.4 pg (26.0-34.0); MEAN CORPUSCULAR HGB CONC 33.7 G/dL (31.0-37.0); MEAN CORPUSCULAR VOLUME 93 fL (80-100); MONOCYTES # (AUTO) 1.2 K/uL (0.1-1.0); MONOCYTES % (AUTO) 10.4 % (2.0-9.0); NEUTROPHILS # (AUTO) 9.6 K/uL (1.8-7.7); NEUTROPHILS % (AUTO) 81.7 % (40.0-70.0); PLATELET COUNT (AUTO) 295 K/uL (150-450); RED BLOOD CELL COUNT(AUTO) 4.06 MIL/uL (4.50-5.90)
[2019-12-12 14:46] LABS: ANION GAP 12 mmol/L (8-16); CALCIUM, TOTAL 9.3 mg/dL (8.8-10.5); CARBON DIOXIDE 24 mmol/L (22-29); CHLORIDE 103 mmol/L (98-107); CREATININE 1.23 mg/dL (0.60-1.30); GLOMERULAR FILTR. RATE CALC > 60 mL/min (>60); GLUCOSE,RANDOM 117 mg/dL (70-110); POTASSIUM 3.4 mmol/L (3.5-5.1); SODIUM SERUM 139 mmol/L (136-145); UREA NITROGEN, BLOOD 6 mg/dL (7-18)
[2019-12-12 14:52] LABS: ALANINE AMINOTRANSFERASE 25 U/L (12-78); ALKALINE PHOSPHATASE 50 U/L (46-116); ASPARTATE AMINOTRANSFERASE 20 U/L (15-37); BILIRUBIN,TOTAL 0.5 mg/dL (0.1-1.0); TOTAL PROTEIN, SERUM 8.1 g/dL (6.4-8.2)
[2019-12-12] MEDS ORDERED: ZOLP10TA8 PO (16:25)
[2019-12-12] MEDS ORDERED: POTASSIUM CHLORIDE 20 MEQ ER TABLET PO ONE (16:30)
[2019-12-12 16:49] VITALS: BP 125/77
[2019-12-12 17:16] LABS: AMPHET/METH SCREEN,URINE NEGATIVE (NEGATIVE); BARBITURATE SCREEN, URINE NEGATIVE (NEGATIVE); BENZODIAZEPINES SCREEN,URINE NEGATIVE (NEGATIVE); CANNABINOID SCREEN,URINE NEGATIVE (NEGATIVE); COCAINE SCREEN,URINE NEGATIVE (NEGATIVE); METHADONE SCREEN, URINE NEGATIVE (NEGATIVE); OPIATE SCREEN,URINE NEGATIVE (NEGATIVE)
[2019-12-12 17:20] LABS: PHENCYCLIDINE SCREEN,URINE NEGATIVE (NEGATIVE)
== END 2019-12-12 18:06 | disposition home or self-care (01) ==
LOC: EMS 13:59
DX: S00.83XA Contusion of other part of head, initial encounter (principal); F91.8 Other conduct disorders; R45.851 Suicidal ideations; F31.9 Bipolar disorder, unspecified; W22.01XA Walked into wall, initial encounter; Y93.89 Activity, other specified; Y92.89 Other specified places as the place of occurrence of the external cause; Y99.8 Other external cause status
CPT/HCPCS: 36415; 80053; 80307; 85025; 99285; G0480

== ENCOUNTER 2020-01-15 17:25 | Inpatient (IN) | payer MEDICAID, OTHER ==
[~2020-01-15] VITALS: Ht 154.9 cm; Wt 82.5 kg
[~2020-01-15 17:25] MED LIST changes: +DIVA-80 PO; -DIVA500T52 PO; -ZOLP-280 PO; +ZOLP10TA8 PO
[2020-01-15 18:57] LABS: BASOPHILS % (AUTO) 0.4 % (0.0-2.0); EOSINOPHILS % (AUTO) 0.6 % (1.0-6.0); HEMATOCRIT 35.2 % (41-53); LYMPHOCYTES # (AUTO) 1.7 K/uL (1.0-4.8); LYMPHOCYTES % (AUTO) 17.5 % (22.0-44.0); MEAN CORPUSCULAR HEMOGLOBIN 31.1 pg (26.0-34.0); MEAN CORPUSCULAR HGB CONC 34.1 G/dL (31.0-37.0); MEAN CORPUSCULAR VOLUME 91 fL (80-100); MONOCYTES # (AUTO) 0.9 K/uL (0.1-1.0); NEUTROPHILS # (AUTO) 6.9 K/uL (1.8-7.7); NEUTROPHILS % (AUTO) 72.5 % (40.0-70.0); PLATELET COUNT (AUTO) 293 K/uL (150-450); RED BLOOD CELL COUNT(AUTO) 3.87 MIL/uL (4.50-5.90); RED CELL DISTRIBUTION WIDTH 12.4 % (11.5-14.5)
[2020-01-15 19:09] LABS: ANION GAP 9 mmol/L (8-16); CALCIUM, TOTAL 9.5 mg/dL (8.8-10.5); CARBON DIOXIDE 26 mmol/L (22-29); CHLORIDE 107 mmol/L (98-107); CREATININE 1.01 mg/dL (0.60-1.30); GLOMERULAR FILTR. RATE CALC > 60 mL/min (>60); GLUCOSE,RANDOM 141 mg/dL (70-110); POTASSIUM 3.6 mmol/L (3.5-5.1); SODIUM SERUM 142 mmol/L (136-145); UREA NITROGEN, BLOOD 10 mg/dL (7-18)
[2020-01-15 19:17] LABS: ALANINE AMINOTRANSFERASE 22 U/L (12-78); ALBUMIN 3.5 g/dL (3.4-5.0); ALKALINE PHOSPHATASE 43 U/L (46-116); ASPARTATE AMINOTRANSFERASE 19 U/L (15-37); BILIRUBIN,TOTAL 0.2 mg/dL (0.1-1.0); TOTAL PROTEIN, SERUM 7.7 g/dL (6.4-8.2)
[2020-01-15 20:48] LABS: LITHIUM 1.04 mmol/L (0.60-1.20)
[2020-01-15 20:53] LABS: VALPROIC ACID 84 mcg/mL (50-100)
[2020-01-15] MEDS ORDERED: HALOPERIDOL 5 MG TABLET PO PRN (22:30)
[2020-01-16 05:08] LABS: CHOL/HDL RATIO 2.4 (4.2-7.3)
[2020-01-16 11:32] VITALS: BP 119/88
[2020-01-16] MEDS: LORazepam 2 MG TABLET PO PRN (16:13)
[2020-01-16] MEDS: TOPIRAMATE 100 MG TABLET PO SCH (16:13)
[2020-01-16 16:17] VITALS: BP 117/68
[2020-01-16] MEDS: SIMVASTATIN 20 MG TABLET PO SCH (20:29)
[2020-01-17 06:02] VITALS: BP 111/77
[2020-01-17] MEDS: LEVOTHYROXINE SODIUM 25 MCG TABLET PO SCH (06:02)
[2020-01-17] MEDS ORDERED: BACITRACIN 28.4 GM OINTMENT TP PRN (08:00)
[2020-01-17] MEDS ORDERED: BENZOCAINE/MENTHOL LOZENGE MM PRN (08:00)
[2020-01-17] MEDS ORDERED: ONDANSETRON HCL 4 MG TABLET PO PRN (08:00)
[2020-01-17] MEDS ORDERED: OMEPRAZOLE 20 MG CAPSULE PO PRN (08:00)
[2020-01-17] MEDS ORDERED: CloNIDine HCL 0.1 MG TABLET PO PRN (08:00)
[2020-01-17] MEDS ORDERED: ALBUTEROL SULFATE HFA 90 MCG/PUFF 8 GM INHALER IH PRN (08:00)
[2020-01-17] MEDS ORDERED: LOPERAMIDE HCL 2 MG CAPSULE PO PRN (08:00)
[2020-01-17] MEDS ORDERED: ACETAMINOPHEN 325 MG TABLET PO PRN (08:00)
[2020-01-17] MEDS ORDERED: MAGNESIUM HYDROXIDE SUSPENSION 30 ML UDCUP PO PRN (08:00)
[2020-01-17] MEDS ORDERED: DOCUSATE SODIUM 100 MG CAPSULE PO PRN (08:00)
[2020-01-17] MEDS ORDERED: MAG HYDROX/AL HYDROX/SIMETH ES 30 ML SUSPENSION UDCUP PO PRN (08:00)
[2020-01-17] MEDS ORDERED: IBUPROFEN 600 MG TABLET PO PRN (08:00)
[2020-01-17] MEDS ORDERED: PETROLATUM,WHITE 28 GM JELLY TP PRN (08:00)
[2020-01-17 08:15] VITALS: BP 134/85
[2020-01-17] MEDS: TOPIRAMATE 100 MG TABLET PO SCH ×2 (08:29→16:23)
[2020-01-17 16:09] VITALS: BP 135/75
[2020-01-17] MEDS: LORazepam 2 MG TABLET PO PRN (16:23)
[2020-01-17] MEDS: ZOLPIDEM TARTRATE 10 MG TABLET PO PRN (20:21)
[2020-01-17] MEDS: SIMVASTATIN 20 MG TABLET PO SCH (20:21)
[2020-01-18 05:01] VITALS: BP 136/88
[2020-01-18] MEDS: LEVOTHYROXINE SODIUM 25 MCG TABLET PO SCH (06:02)
[2020-01-18 08:21] VITALS: BP 131/64
[2020-01-18] MEDS: TOPIRAMATE 100 MG TABLET PO SCH ×2 (08:52→17:32)
[2020-01-18] MEDS ORDERED: LORazepam 2 MG/ML VIAL ONE (16:01)
[2020-01-18] MEDS ORDERED: HALOPERIDOL LACTATE 5 MG/ML VIAL ONE (16:01)
[2020-01-18] MEDS ORDERED: DiphenhydrAMINE HCL 50 MG/ML VIAL ONE (16:01)
[2020-01-18] MEDS ORDERED: LORazepam 2 MG/ML VIAL IM ONE (16:15)
[2020-01-18] MEDS ORDERED: HALOPERIDOL LACTATE 5 MG/ML VIAL IM ONE (16:15)
[2020-01-18] MEDS ORDERED: DiphenhydrAMINE HCL 50 MG/ML VIAL IM ONE (16:15)
[2020-01-18 16:25] VITALS: BP 121/72
[2020-01-18] MEDS: ZOLPIDEM TARTRATE 10 MG TABLET PO PRN (20:00)
[2020-01-18] MEDS: SIMVASTATIN 20 MG TABLET PO SCH (20:00)
[2020-01-19 03:04] VITALS: BP 123/78
[2020-01-19] MEDS: LEVOTHYROXINE SODIUM 25 MCG TABLET PO SCH (06:02)
[2020-01-19] MEDS ORDERED: HALOPERIDOL LACTATE 5 MG/ML VIAL ONE (07:47)
[2020-01-19] MEDS ORDERED: DiphenhydrAMINE HCL 50 MG/ML VIAL ONE (07:47)
[2020-01-19] MEDS ORDERED: LORazepam 2 MG/ML VIAL ONE (07:47)
[2020-01-19 08:24] VITALS: BP 116/66
[2020-01-19] MEDS ORDERED: DiphenhydrAMINE HCL 50 MG/ML VIAL IM ONE (08:30)
[2020-01-19] MEDS ORDERED: LORazepam 2 MG/ML VIAL IM ONE (08:30)
[2020-01-19] MEDS ORDERED: HALOPERIDOL LACTATE 5 MG/ML VIAL IM ONE (08:30)
[2020-01-19] MEDS: BACITRACIN 28.4 GM OINTMENT TP SCH ×2 (09:00→17:00)
[2020-01-19] MEDS: TOPIRAMATE 100 MG TABLET PO SCH ×2 (12:16→16:47)
[2020-01-19 16:21] VITALS: BP 125/60
[2020-01-19] MEDS: SIMVASTATIN 20 MG TABLET PO SCH (23:00)
[2020-01-20 03:59] VITALS: BP 124/68
[2020-01-20] MEDS: LEVOTHYROXINE SODIUM 25 MCG TABLET PO SCH (05:32)
[2020-01-20 08:14] VITALS: BP 144/80
[2020-01-20] MEDS: TOPIRAMATE 100 MG TABLET PO SCH ×2 (09:06→16:25)
[2020-01-20] MEDS: BACITRACIN 28.4 GM OINTMENT TP SCH ×2 (09:07→16:25)
[2020-01-20] MEDS ORDERED: PALIPERIDONE PALMITATE 156 MG/ML SYRINGE IM ONE (09:30)
[2020-01-20] MEDS: CITALOPRAM HYDROBROMIDE 20 MG TABLET PO SCH (10:00)
[2020-01-20] MEDS: LORazepam 2 MG TABLET PO PRN ×2 (12:19→16:25)
[2020-01-20] MEDS: LITHIUM CARBONATE 300 MG CAPSULE PO SCH ×2 (13:57→16:25)
[2020-01-20 16:12] VITALS: BP 151/92
[2020-01-20] MEDS: QUEtiapine FUMARATE 300 MG TABLET PO SCH (20:25)
[2020-01-20] MEDS: SIMVASTATIN 20 MG TABLET PO SCH (20:25)
[2020-01-20] MEDS: DIVALPROEX SODIUM 500 MG ER TABLET PO SCH (20:25)
[2020-01-21] MEDS: LEVOTHYROXINE SODIUM 25 MCG TABLET PO SCH (05:49)
[2020-01-21 06:55] VITALS: BP 136/85
[2020-01-21 08:30] VITALS: BP 113/66
[2020-01-21] MEDS: LITHIUM CARBONATE 300 MG CAPSULE PO SCH ×3 (08:54→16:12)
[2020-01-21] MEDS: TOPIRAMATE 100 MG TABLET PO SCH ×2 (08:54→16:12)
[2020-01-21] MEDS: CITALOPRAM HYDROBROMIDE 20 MG TABLET PO SCH (08:54)
[2020-01-21] MEDS: BACITRACIN 28.4 GM OINTMENT TP SCH ×2 (08:55→16:12)
[2020-01-21] MEDS: LORazepam 2 MG TABLET PO PRN (16:12)
[2020-01-21 16:20] VITALS: BP 116/72
[2020-01-21] MEDS: ZOLPIDEM TARTRATE 10 MG TABLET PO PRN (20:30)
[2020-01-21] MEDS: QUEtiapine FUMARATE 300 MG TABLET PO SCH (20:30)
[2020-01-21] MEDS: SIMVASTATIN 20 MG TABLET PO SCH (20:30)
[2020-01-21] MEDS: DIVALPROEX SODIUM 500 MG ER TABLET PO SCH (20:30)
[2020-01-22] MEDS: LEVOTHYROXINE SODIUM 25 MCG TABLET PO SCH (06:01)
[2020-01-22 06:11] VITALS: BP 119/70
[2020-01-22 08:17] VITALS: BP 142/100
[2020-01-22] MEDS: CITALOPRAM HYDROBROMIDE 20 MG TABLET PO SCH (08:27)
[2020-01-22] MEDS: LITHIUM CARBONATE 300 MG CAPSULE PO SCH ×2 (08:27→12:23)
[2020-01-22] MEDS: TOPIRAMATE 100 MG TABLET PO SCH (08:27)
[2020-01-22] MEDS: BACITRACIN 28.4 GM OINTMENT TP SCH (08:28)
[2020-01-22] MEDS ORDERED: LITH300C3 PO (10:14)
== END 2020-01-22 13:35 | disposition home or self-care (01) | DRG 885 ==
LOC: EMS 17:26 → B3A 01-16 09:56
PROVIDERS: ADMIT Psychiatry & Neurology Psychiatry; ATTEND Psychiatry & Neurology Psychiatry
DX: F25.9 Schizoaffective disorder, unspecified (principal); F41.9 Anxiety disorder, unspecified; G40.909 Epilepsy, unspecified, not intractable, without status epilepticus; G47.00 Insomnia, unspecified; G80.9 Cerebral palsy, unspecified; K21.9 Gastro-esophageal reflux disease without esophagitis; E03.9 Hypothyroidism, unspecified; E66.9 Obesity, unspecified; E78.5 Hyperlipidemia, unspecified; Z56.0 Unemployment, unspecified; Z68.34 Body mass index [BMI] 34.0-34.9, adult; Z79.899 Other long term (current) drug therapy
CPT/HCPCS: 70450; G0480; J1200; J1630; J2060

== ENCOUNTER 2020-02-03 11:03 | Inpatient (IN) | payer MEDICAID ==
[~2020-02-03] VITALS: Ht 154.9 cm; Wt 82.6 kg
[~2020-02-03 11:03] MED LIST changes: -TOPI100T31 PO; -ZOLP10TA8 PO
[2020-02-03] MEDS ORDERED: DIVA-80 PO (11:09)
[2020-02-03] MEDS ORDERED: ACET-784 PO (11:10)
[2020-02-03] MEDS ORDERED: AUD NEB (11:11)
[2020-02-03] MEDS ORDERED: BISA10SU11 PR (11:12)
[2020-02-03] MEDS ORDERED: IPRNEB IH (11:13)
[2020-02-03] MEDS ORDERED: MOM30 PO (11:14)
[2020-02-03] MEDS ORDERED: HALOPERIDOL 5 MG TABLET PO PRN (17:00)
[2020-02-03] MEDS ORDERED: ZOLPIDEM TARTRATE 10 MG TABLET PO PRN ×2 (17:00→17:15)
[2020-02-03] MEDS ORDERED: LORazepam 2 MG TABLET PO PRN (17:00)
[2020-02-03] MEDS ORDERED: ZOLPIDEM TARTRATE 5 MG TABLET PO PRN (17:15)
[2020-02-03] MEDS: LITHIUM CARBONATE 300 MG CAPSULE PO SCH (18:04)
[2020-02-03 18:23] VITALS: BP 123/89
[2020-02-03] MEDS ORDERED: ALBUTEROL SULFATE HFA 90 MCG/PUFF 8 GM INHALER IH PRN (20:30)
[2020-02-03] MEDS ORDERED: DIVALPROEX SODIUM 500 MG ER TABLET PO SCH (21:00)
[2020-02-03] MEDS ORDERED: SIMVASTATIN 20 MG TABLET PO SCH (21:00)
[2020-02-03] MEDS ORDERED: QUEtiapine FUMARATE 300 MG TABLET PO SCH (21:00)
[2020-02-04] MEDS ORDERED: LEVOTHYROXINE SODIUM 25 MCG TABLET PO SCH (07:00)
[2020-02-04] MEDS ORDERED: LOPERAMIDE HCL 2 MG CAPSULE PO PRN (07:30)
[2020-02-04] MEDS ORDERED: BACITRACIN 28.4 GM OINTMENT TP PRN (07:30)
[2020-02-04] MEDS ORDERED: DOCUSATE SODIUM 100 MG CAPSULE PO PRN (07:30)
[2020-02-04] MEDS ORDERED: OMEPRAZOLE 20 MG CAPSULE PO PRN (07:30)
[2020-02-04] MEDS ORDERED: MAG HYDROX/AL HYDROX/SIMETH ES 30 ML SUSPENSION UDCUP PO PRN (07:30)
[2020-02-04] MEDS ORDERED: CloNIDine HCL 0.1 MG TABLET PO PRN (07:30)
[2020-02-04] MEDS ORDERED: MAGNESIUM HYDROXIDE SUSPENSION 30 ML UDCUP PO PRN (07:30)
[2020-02-04] MEDS ORDERED: ONDANSETRON HCL 4 MG TABLET PO PRN (07:30)
[2020-02-04] MEDS ORDERED: BENZOCAINE/MENTHOL LOZENGE MM PRN (07:30)
[2020-02-04] MEDS ORDERED: ACETAMINOPHEN 325 MG TABLET PO PRN (07:30)
[2020-02-04] MEDS ORDERED: PETROLATUM,WHITE 28 GM JELLY TP PRN (07:30)
[2020-02-04] MEDS ORDERED: CITALOPRAM HYDROBROMIDE 20 MG TABLET PO SCH (09:00)
[2020-02-04] MEDS: LITHIUM CARBONATE 300 MG CAPSULE PO SCH ×2 (09:27→12:53)
[2020-02-04 10:57] VITALS: BP 116/79
[2020-02-04] MEDS ORDERED: LEVO125T95 PO (11:22)
== END 2020-02-04 14:15 | disposition home or self-care (01) | DRG 885 ==
LOC: 3EC 16:57
PROVIDERS: ADMIT Psychiatry & Neurology Psychiatry; ATTEND Psychiatry & Neurology Psychiatry
DX: F25.9 Schizoaffective disorder, unspecified (principal); F41.9 Anxiety disorder, unspecified; E78.5 Hyperlipidemia, unspecified; E03.9 Hypothyroidism, unspecified; E66.9 Obesity, unspecified; G40.909 Epilepsy, unspecified, not intractable, without status epilepticus; G47.00 Insomnia, unspecified; K21.9 Gastro-esophageal reflux disease without esophagitis; G80.9 Cerebral palsy, unspecified; Z68.34 Body mass index [BMI] 34.0-34.9, adult
CPT/HCPCS: 87081; Z7610

== ENCOUNTER 2020-03-31 16:15 | Emergency (ER) | payer MEDICAID, OTHER ==
[~2020-03-31] VITALS: Ht 160 cm; Wt 77.3 kg
[~2020-03-31 16:15] MED LIST changes: +LEVO125T95 PO; -LEVO25TA9 PO
[2020-03-31 17:25] LABS: BASOPHILS % (AUTO) 0.3 % (0.0-2.0); HEMATOCRIT 32.4 % (41-53); HEMOGLOBIN 11.2 g/dL (13.5-17.5); LYMPHOCYTES # (AUTO) 1.5 K/uL (1.0-4.8); LYMPHOCYTES % (AUTO) 19.1 % (22.0-44.0); MEAN CORPUSCULAR HEMOGLOBIN 30.9 pg (26.0-34.0); MEAN CORPUSCULAR HGB CONC 34.6 G/dL (31.0-37.0); MEAN CORPUSCULAR VOLUME 89 fL (80-100); MONOCYTES # (AUTO) 0.7 K/uL (0.1-1.0); MONOCYTES % (AUTO) 8.6 % (2.0-9.0); NEUTROPHILS # (AUTO) 5.7 K/uL (1.8-7.7); PLATELET COUNT (AUTO) 280 K/uL (150-450); RED BLOOD CELL COUNT(AUTO) 3.63 MIL/uL (4.50-5.90); RED CELL DISTRIBUTION WIDTH 12.7 % (11.5-14.5)
[2020-03-31 17:50] LABS: ANION GAP 13 mmol/L (8-16); CALCIUM, TOTAL 9.2 mg/dL (8.8-10.5); CARBON DIOXIDE 26 mmol/L (22-29); CHLORIDE 100 mmol/L (98-107); GLOMERULAR FILTR. RATE CALC > 60 mL/min (>60); GLUCOSE,RANDOM 138 mg/dL (70-110); POTASSIUM 3.4 mmol/L (3.5-5.1); SODIUM SERUM 139 mmol/L (136-145); UREA NITROGEN, BLOOD 5 mg/dL (7-18)
[2020-03-31 17:55] LABS: ALANINE AMINOTRANSFERASE 21 U/L (12-78); ALBUMIN 3.7 g/dL (3.4-5.0); ALKALINE PHOSPHATASE 38 U/L (46-116); ASPARTATE AMINOTRANSFERASE 17 U/L (15-37); BILIRUBIN,TOTAL 0.3 mg/dL (0.1-1.0)
[2020-03-31 19:54] LABS: COVID AG,FIA SOURCE NASOPHARYNGEAL
[2020-03-31 19:55] LABS: AMPHET/METH SCREEN,URINE NEGATIVE (NEGATIVE); BARBITURATE SCREEN, URINE NEGATIVE (NEGATIVE); BENZODIAZEPINES SCREEN,URINE POSITIVE (NEGATIVE); CANNABINOID SCREEN,URINE NEGATIVE (NEGATIVE); COCAINE SCREEN,URINE NEGATIVE (NEGATIVE); METHADONE SCREEN, URINE NEGATIVE (NEGATIVE); OPIATE SCREEN,URINE NEGATIVE (NEGATIVE)
[2020-03-31 19:58] LABS: PHENCYCLIDINE SCREEN,URINE NEGATIVE (NEGATIVE)
[2020-03-31 23:16] VITALS: BP 115/68
== END 2020-04-01 06:03 | disposition home or self-care (01) ==
LOC: EMS 16:20
DX: S00.83XA Contusion of other part of head, initial encounter (principal); F25.9 Schizoaffective disorder, unspecified; F91.9 Conduct disorder, unspecified; F31.9 Bipolar disorder, unspecified; Z20.828 Contact with and (suspected) exposure to other viral communicable diseases; W22.8XXA Striking against or struck by other objects, initial encounter; Y93.89 Activity, other specified; Y92.89 Other specified places as the place of occurrence of the external cause; Y99.8 Other external cause status
CPT/HCPCS: 36415; 70450; 70486; 72125; 80053; 80074; 80178; 80307; 85025; 87426; 99285; G0480

== ENCOUNTER 2020-04-17 12:07 | Emergency (ER) | payer OTHER ==
[~2020-04-17] VITALS: Ht 162.6 cm; Wt 87.3 kg
[2020-04-17 15:10] LABS: AMPHET/METH SCREEN,URINE NEGATIVE (NEGATIVE); BARBITURATE SCREEN, URINE NEGATIVE (NEGATIVE); BENZODIAZEPINES SCREEN,URINE NEGATIVE (NEGATIVE); CANNABINOID SCREEN,URINE NEGATIVE (NEGATIVE); COCAINE SCREEN,URINE NEGATIVE (NEGATIVE); METHADONE SCREEN, URINE NEGATIVE (NEGATIVE); OPIATE SCREEN,URINE NEGATIVE (NEGATIVE); PHENCYCLIDINE SCREEN,URINE NEGATIVE (NEGATIVE)
[2020-04-17 16:32] LABS: BASOPHILS % (AUTO) 0.2 % (0.0-2.0); EOSINOPHILS % (AUTO) 0.8 % (1.0-6.0); HEMATOCRIT 36.4 % (41-53); HEMOGLOBIN 12.7 g/dL (13.5-17.5); LYMPHOCYTES # (AUTO) 1.5 K/uL (1.0-4.8); LYMPHOCYTES % (AUTO) 15.8 % (22.0-44.0); MEAN CORPUSCULAR HEMOGLOBIN 31.5 pg (26.0-34.0); MEAN CORPUSCULAR HGB CONC 34.9 G/dL (31.0-37.0); MEAN CORPUSCULAR VOLUME 90 fL (80-100); MONOCYTES # (AUTO) 1.2 K/uL (0.1-1.0); MONOCYTES % (AUTO) 12.3 % (2.0-9.0); NEUTROPHILS # (AUTO) 6.6 K/uL (1.8-7.7); NEUTROPHILS % (AUTO) 70.9 % (40.0-70.0); PLATELET COUNT (AUTO) 290 K/uL (150-450); RED BLOOD CELL COUNT(AUTO) 4.03 MIL/uL (4.50-5.90); RED CELL DISTRIBUTION WIDTH 12.8 % (11.5-14.5)
[2020-04-17 16:44] LABS: ANION GAP 9 mmol/L (8-16); CARBON DIOXIDE 27 mmol/L (22-29); CHLORIDE 106 mmol/L (98-107); CREATININE 0.98 mg/dL (0.60-1.30); GLOMERULAR FILTR. RATE CALC > 60 mL/min (>60); GLUCOSE,RANDOM 98 mg/dL (70-110); POTASSIUM 3.7 mmol/L (3.5-5.1); SODIUM SERUM 142 mmol/L (136-145); UREA NITROGEN, BLOOD 4 mg/dL (7-18)
[2020-04-17 16:55] LABS: ALANINE AMINOTRANSFERASE 27 U/L (12-78); ALBUMIN 3.8 g/dL (3.4-5.0); ALKALINE PHOSPHATASE 46 U/L (46-116); ASPARTATE AMINOTRANSFERASE 21 U/L (15-37); BILIRUBIN,TOTAL 0.2 mg/dL (0.1-1.0); TOTAL PROTEIN, SERUM 7.8 g/dL (6.4-8.2)
[2020-04-17 17:33] VITALS: BP 127/79
== END 2020-04-17 19:30 | disposition home or self-care (01) ==
LOC: EMS 12:12
DX: F98.9 Unspecified behavioral and emotional disorders with onset usually occurring in childhood and adolescence (principal); R45.851 Suicidal ideations; F31.9 Bipolar disorder, unspecified; Z86.59 Personal history of other mental and behavioral disorders
CPT/HCPCS: 36415; 80053; 80307; 85025; 99285; G0480

== ENCOUNTER 2020-06-10 12:50 | Emergency (ER) | payer MEDICAID, OTHER ==
[~2020-06-10] VITALS: Ht 154.9 cm; Wt 86.4 kg
[~2020-06-10 12:50] MED LIST changes: -DIVA-80 PO; -LEVO125T95 PO; -SIMV-260 PO; +VALP250C48 PO
[2020-06-10 14:46] LABS: BASOPHILS % (AUTO) 0.3 % (0.0-2.0); EOSINOPHILS % (AUTO) 0.5 % (1.0-6.0); LYMPHOCYTES # (AUTO) 1.1 K/uL (1.0-4.8); LYMPHOCYTES % (AUTO) 11.6 % (22.0-44.0); MEAN CORPUSCULAR HEMOGLOBIN 30.4 pg (26.0-34.0); MEAN CORPUSCULAR HGB CONC 33.3 G/dL (31.0-37.0); MEAN CORPUSCULAR VOLUME 91 fL (80-100); MONOCYTES # (AUTO) 0.8 K/uL (0.1-1.0); MONOCYTES % (AUTO) 8.3 % (2.0-9.0); NEUTROPHILS # (AUTO) 7.4 K/uL (1.8-7.7); NEUTROPHILS % (AUTO) 79.3 % (40.0-70.0); PLATELET COUNT (AUTO) 337 K/uL (150-450); RED BLOOD CELL COUNT(AUTO) 3.94 MIL/uL (4.50-5.90); RED CELL DISTRIBUTION WIDTH 12.7 % (11.5-14.5)
[2020-06-10 14:47] LABS: ANION GAP 19 mmol/L (8-16); CALCIUM, TOTAL 9.3 mg/dL (8.8-10.5); CARBON DIOXIDE 19 mmol/L (22-29); CHLORIDE 99 mmol/L (98-107); CREATININE 1.27 mg/dL (0.60-1.30); GLOMERULAR FILTR. RATE CALC > 60 mL/min (>60); GLUCOSE,RANDOM 147 mg/dL (70-110); POTASSIUM 3.3 mmol/L (3.5-5.1); SODIUM SERUM 137 mmol/L (136-145); UREA NITROGEN, BLOOD 6 mg/dL (7-18)
[2020-06-10 14:49] LABS: LITHIUM 1.03 mmol/L (0.60-1.20)
[2020-06-10 14:54] LABS: ALANINE AMINOTRANSFERASE 37 U/L (12-78); ALBUMIN 4.1 g/dL (3.4-5.0); ALKALINE PHOSPHATASE 46 U/L (46-116); ASPARTATE AMINOTRANSFERASE 25 U/L (15-37); BILIRUBIN,TOTAL 0.2 mg/dL (0.1-1.0); TOTAL PROTEIN, SERUM 8.2 g/dL (6.4-8.2); VALPROIC ACID 7 mcg/mL (50-100)
[2020-06-10] MEDS ORDERED: VALPROIC ACID 250 MG CAPSULE PO ONE (15:30)
[2020-06-10 17:18] VITALS: BP 142/94
== END 2020-06-10 20:06 | disposition home or self-care (01) ==
LOC: EMS 13:01
DX: R45.1 Restlessness and agitation (principal)
CPT/HCPCS: 80053; 80164; 80178; 85025; 99285; G0480

== ENCOUNTER 2020-06-14 08:28 | Emergency (ER) | payer OTHER ==
[~2020-06-14] VITALS: Ht 154.9 cm; Wt 86.4 kg
[2020-06-14 09:44] LABS: BASOPHILS % (AUTO) 0.5 % (0.0-2.0); HEMATOCRIT 36.8 % (41-53); HEMOGLOBIN 12.3 g/dL (13.5-17.5); LYMPHOCYTES # (AUTO) 1.3 K/uL (1.0-4.8); MEAN CORPUSCULAR HEMOGLOBIN 30.5 pg (26.0-34.0); MEAN CORPUSCULAR HGB CONC 33.5 G/dL (31.0-37.0); MEAN CORPUSCULAR VOLUME 91 fL (80-100); MONOCYTES # (AUTO) 0.6 K/uL (0.1-1.0); MONOCYTES % (AUTO) 7.1 % (2.0-9.0); NEUTROPHILS # (AUTO) 6.9 K/uL (1.8-7.7); NEUTROPHILS % (AUTO) 76.4 % (40.0-70.0); PLATELET COUNT (AUTO) 333 K/uL (150-450); RED BLOOD CELL COUNT(AUTO) 4.04 MIL/uL (4.50-5.90); RED CELL DISTRIBUTION WIDTH 12.8 % (11.5-14.5)
[2020-06-14 09:58] LABS: ANION GAP 8 mmol/L (8-16); CALCIUM, TOTAL 9.8 mg/dL (8.8-10.5); CARBON DIOXIDE 25 mmol/L (22-29); CHLORIDE 107 mmol/L (98-107); CREATININE 1.27 mg/dL (0.60-1.30); GLOMERULAR FILTR. RATE CALC > 60 mL/min (>60); GLUCOSE,RANDOM 107 mg/dL (70-110); POTASSIUM 3.7 mmol/L (3.5-5.1); SODIUM SERUM 140 mmol/L (136-145); UREA NITROGEN, BLOOD 5 mg/dL (7-18)
[2020-06-14 09:59] LABS: LITHIUM 1.42 mmol/L (0.60-1.20)
[2020-06-14 10:02] LABS: ALANINE AMINOTRANSFERASE 32 U/L (12-78); ALKALINE PHOSPHATASE 53 U/L (46-116); ASPARTATE AMINOTRANSFERASE 19 U/L (15-37); BILIRUBIN,TOTAL 0.3 mg/dL (0.1-1.0); TOTAL PROTEIN, SERUM 8.3 g/dL (6.4-8.2); VALPROIC ACID 84 mcg/mL (50-100)
[2020-06-14 10:55] LABS: AMPHET/METH SCREEN,URINE NEGATIVE (NEGATIVE); BARBITURATE SCREEN, URINE NEGATIVE (NEGATIVE); BENZODIAZEPINES SCREEN,URINE NEGATIVE (NEGATIVE); CANNABINOID SCREEN,URINE NEGATIVE (NEGATIVE); COCAINE SCREEN,URINE NEGATIVE (NEGATIVE); METHADONE SCREEN, URINE NEGATIVE (NEGATIVE); OPIATE SCREEN,URINE NEGATIVE (NEGATIVE)
[2020-06-14 11:00] LABS: PHENCYCLIDINE SCREEN,URINE NEGATIVE (NEGATIVE)
[2020-06-14] MEDS ORDERED: HALOPERIDOL 5 MG TABLET PO ONE (11:15)
[2020-06-14] MEDS ORDERED: LORazepam 1 MG TABLET PO ONE (11:15)
[2020-06-14 14:11] VITALS: BP 108/60
== END 2020-06-14 14:24 | disposition home or self-care (01) ==
LOC: EMS 08:28
DX: F31.9 Bipolar disorder, unspecified (principal)
CPT/HCPCS: 36415; 80053; 80164; 80178; 80307; 85025; 99285; G0480

== ENCOUNTER 2020-07-18 10:36 | Emergency (ER) | payer OTHER ==
[~2020-07-18] VITALS: Ht 154.9 cm; Wt 86.4 kg
[2020-07-18 10:49] VITALS: BP 140/89
[2020-07-18] MEDS ORDERED: LORazepam 1 MG TABLET PO ONE (11:15)
== END 2020-07-18 13:59 | disposition home or self-care (01) ==
LOC: EMS 10:40
DX: R45.1 Restlessness and agitation (principal); R45.851 Suicidal ideations; F31.9 Bipolar disorder, unspecified
CPT/HCPCS: Z7502; Z7610

== ENCOUNTER 2020-08-28 16:57 | Emergency (ER) | payer OTHER ==
[~2020-08-28] VITALS: Ht 167.6 cm; Wt 81.8 kg
[2020-08-28 18:58] LABS: BASOPHILS % (AUTO) 0.1 % (0.0-2.0); EOSINOPHILS % (AUTO) 0.5 % (1.0-6.0); HEMOGLOBIN 12.7 g/dL (13.5-17.5); LYMPHOCYTES % (AUTO) 9.8 % (22.0-44.0); MEAN CORPUSCULAR HEMOGLOBIN 30.9 pg (26.0-34.0); MEAN CORPUSCULAR HGB CONC 34.4 G/dL (31.0-37.0); MEAN CORPUSCULAR VOLUME 90 fL (80-100); MONOCYTES # (AUTO) 0.9 K/uL (0.1-1.0); MONOCYTES % (AUTO) 8.3 % (2.0-9.0); NEUTROPHILS # (AUTO) 8.6 K/uL (1.8-7.7); NEUTROPHILS % (AUTO) 81.3 % (40.0-70.0); PLATELET COUNT (AUTO) 327 K/uL (150-450); RED BLOOD CELL COUNT(AUTO) 4.12 MIL/uL (4.50-5.90); RED CELL DISTRIBUTION WIDTH 12.6 % (11.5-14.5)
[2020-08-28 19:04] LABS: ANION GAP 11 mmol/L (8-16); CALCIUM, TOTAL 10.5 mg/dL (8.8-10.5); CARBON DIOXIDE 23 mmol/L (22-29); CHLORIDE 107 mmol/L (98-107); CREATININE 0.93 mg/dL (0.60-1.30); GLOMERULAR FILTR. RATE CALC > 60 mL/min (>60); GLUCOSE,RANDOM 108 mg/dL (70-110); POTASSIUM 4.2 mmol/L (3.5-5.1); SODIUM SERUM 141 mmol/L (136-145); UREA NITROGEN, BLOOD 6 mg/dL (7-18)
[2020-08-28 19:10] LABS: LITHIUM 1.01 mmol/L (0.60-1.20)
[2020-08-28 19:12] LABS: AMPHET/METH SCREEN,URINE NEGATIVE (NEGATIVE); BARBITURATE SCREEN, URINE NEGATIVE (NEGATIVE); BENZODIAZEPINES SCREEN,URINE NEGATIVE (NEGATIVE); CANNABINOID SCREEN,URINE NEGATIVE (NEGATIVE); COCAINE SCREEN,URINE NEGATIVE (NEGATIVE); METHADONE SCREEN, URINE NEGATIVE (NEGATIVE); OPIATE SCREEN,URINE NEGATIVE (NEGATIVE)
[2020-08-28 19:13] LABS: PHENCYCLIDINE SCREEN,URINE NEGATIVE (NEGATIVE)
[2020-08-28 19:17] LABS: ALANINE AMINOTRANSFERASE 22 U/L (12-78); ALBUMIN 4.5 g/dL (3.4-5.0); ALKALINE PHOSPHATASE 57 U/L (46-116); ASPARTATE AMINOTRANSFERASE 19 U/L (15-37); BILIRUBIN,TOTAL 0.3 mg/dL (0.1-1.0); TOTAL PROTEIN, SERUM 8.9 g/dL (6.4-8.2); VALPROIC ACID 30 mcg/mL (50-100)
[2020-08-28 19:32] LABS: COVID AG,FIA SOURCE NASOPHARYNGEAL
[2020-08-29 11:24] VITALS: BP 131/67
== END 2020-08-29 12:37 | disposition home or self-care (01) ==
LOC: EMS 16:57
DX: F69 Unspecified disorder of adult personality and behavior (principal); F84.9 Pervasive developmental disorder, unspecified; R45.851 Suicidal ideations; F31.9 Bipolar disorder, unspecified; Z20.822 Contact with and (suspected) exposure to COVID-19
CPT/HCPCS: 36415; 80053; 80164; 80178; 80307; 85025; 87426; 99285; G0480

== ENCOUNTER 2020-10-20 11:19 | Inpatient (IN) | payer MEDICAID, OTHER ==
[~2020-10-20] VITALS: Ht 157.5 cm; Wt 80.3 kg
[2020-10-20] MEDS ORDERED: ZOLPIDEM TARTRATE 10 MG TABLET PO PRN (12:15)
[2020-10-20 12:19] LABS: COVID AG,FIA SOURCE NASOPHARYNGEAL
[2020-10-20 13:05] LABS: AMPHET/METH SCREEN,URINE NEGATIVE (NEGATIVE); BARBITURATE SCREEN, URINE NEGATIVE (NEGATIVE); BENZODIAZEPINES SCREEN,URINE NEGATIVE (NEGATIVE); CANNABINOID SCREEN,URINE NEGATIVE (NEGATIVE); COCAINE SCREEN,URINE NEGATIVE (NEGATIVE); METHADONE SCREEN, URINE NEGATIVE (NEGATIVE); OPIATE SCREEN,URINE NEGATIVE (NEGATIVE)
[2020-10-20 13:09] LABS: PHENCYCLIDINE SCREEN,URINE NEGATIVE (NEGATIVE)
[2020-10-20 15:30] LABS: APPEARANCE,URINE CLEAR (CLEAR); BILIRUBIN,URINE NEGATIVE (NEGATIVE); GLUCOSE, URINE (UA) NEGATIVE (NEGATIVE); KETONES,URINE NEGATIVE (NEGATIVE); LEUKOCYTE ESTERASE ,URINE NEGATIVE (NEGATIVE); NITRATE,URINE NEGATIVE (NEGATIVE); OCCULT BLOOD,URINE NEGATIVE (NEGATIVE); PH,URINE 6.5 (5.0-8.0); PROTEIN,URINE NEGATIVE (NEGATIVE); UROBILINOGEN,URINE 0.2 mg/dL (<=1.0)
[2020-10-20] MEDS: LORazepam 2 MG TABLET PO PRN (16:01)
[2020-10-20] MEDS: HALOPERIDOL 5 MG TABLET PO PRN (16:01)
[2020-10-20 16:02] VITALS: BP 149/84
[2020-10-20] MEDS ORDERED: HALOPERIDOL LACTATE 5 MG/ML VIAL IM ONE (17:00)
[2020-10-20] MEDS ORDERED: LORazepam 2 MG/ML VIAL IM ONE (17:00)
[2020-10-20] MEDS ORDERED: DiphenhydrAMINE HCL 50 MG/ML VIAL IM ONE (17:00)
[2020-10-20 18:00] VITALS: BP 138/86
[2020-10-21] MEDS: LORazepam 2 MG TABLET PO PRN ×2 (06:14→17:06)
[2020-10-21] MEDS: HALOPERIDOL 5 MG TABLET PO PRN (06:14)
[2020-10-21] MEDS ORDERED: DiphenhydrAMINE HCL 50 MG/ML VIAL ONE (06:23)
[2020-10-21] MEDS ORDERED: LORazepam 2 MG/ML VIAL ONE (06:23)
[2020-10-21] MEDS ORDERED: HALOPERIDOL LACTATE 5 MG/ML VIAL ONE (06:23)
[2020-10-21] MEDS ORDERED: DiphenhydrAMINE HCL 50 MG/ML VIAL IM ONE (06:30)
[2020-10-21] MEDS ORDERED: LORazepam 2 MG/ML VIAL IM ONE (06:30)
[2020-10-21] MEDS ORDERED: HALOPERIDOL LACTATE 5 MG/ML VIAL IM ONE (06:30)
[2020-10-21] MEDS: CITALOPRAM HYDROBROMIDE 20 MG TABLET PO SCH (09:58)
[2020-10-21] MEDS: LITHIUM CARBONATE 300 MG CAPSULE PO SCH ×2 (09:58→17:06)
[2020-10-21 16:28] VITALS: BP 118/73
[2020-10-21] MEDS: VALPROIC ACID 250 MG CAPSULE PO SCH (21:04)
[2020-10-21] MEDS: QUEtiapine FUMARATE 300 MG TABLET PO SCH (21:04)
[2020-10-22 06:12] VITALS: BP 144/95
[2020-10-22] MEDS: LORazepam 2 MG TABLET PO PRN ×2 (06:34→17:02)
[2020-10-22] MEDS: LITHIUM CARBONATE 300 MG CAPSULE PO SCH ×3 (06:34→17:02)
[2020-10-22] MEDS: CITALOPRAM HYDROBROMIDE 20 MG TABLET PO SCH (08:40)
[2020-10-22] MEDS: HALOPERIDOL 5 MG TABLET PO PRN ×2 (08:42→17:02)
[2020-10-22 08:49] VITALS: BP 130/78
[2020-10-22 16:24] VITALS: BP 139/86
[2020-10-22] MEDS: VALPROIC ACID 250 MG CAPSULE PO SCH (21:09)
[2020-10-22] MEDS: QUEtiapine FUMARATE 300 MG TABLET PO SCH (21:10)
[2020-10-23 02:08] VITALS: BP 132/79
[2020-10-23] MEDS: LORazepam 2 MG TABLET PO PRN (07:00)
[2020-10-23] MEDS: LITHIUM CARBONATE 300 MG CAPSULE PO SCH ×3 (07:00→16:25)
[2020-10-23] MEDS: HALOPERIDOL 5 MG TABLET PO PRN (07:00)
[2020-10-23] MEDS: CITALOPRAM HYDROBROMIDE 20 MG TABLET PO SCH (08:56)
[2020-10-23 09:11] VITALS: BP 133/84
[2020-10-23 16:32] VITALS: BP 119/77
[2020-10-23] MEDS: QUEtiapine FUMARATE 300 MG TABLET PO SCH (20:32)
[2020-10-23] MEDS: VALPROIC ACID 250 MG CAPSULE PO SCH (20:32)
[2020-10-24 02:01] VITALS: BP 131/80
[2020-10-24] MEDS: LITHIUM CARBONATE 300 MG CAPSULE PO SCH ×3 (06:37→17:07)
[2020-10-24] MEDS: LORazepam 2 MG TABLET PO PRN ×2 (08:49→17:07)
[2020-10-24] MEDS: HALOPERIDOL 5 MG TABLET PO PRN (08:49)
[2020-10-24] MEDS: CITALOPRAM HYDROBROMIDE 20 MG TABLET PO SCH (08:49)
[2020-10-24 09:24] VITALS: BP 137/72
[2020-10-24 20:04] VITALS: BP 113/65
[2020-10-24] MEDS: VALPROIC ACID 250 MG CAPSULE PO SCH (20:45)
[2020-10-24] MEDS: QUEtiapine FUMARATE 300 MG TABLET PO SCH (20:45)
[2020-10-25 06:15] VITALS: BP 121/68
[2020-10-25] MEDS: LITHIUM CARBONATE 300 MG CAPSULE PO SCH ×3 (06:40→16:17)
[2020-10-25] MEDS: CITALOPRAM HYDROBROMIDE 20 MG TABLET PO SCH (08:58)
[2020-10-25 09:09] VITALS: BP 123/69
[2020-10-25 16:16] VITALS: BP 140/80
[2020-10-25] MEDS: VALPROIC ACID 250 MG CAPSULE PO SCH (21:08)
[2020-10-25] MEDS: QUEtiapine FUMARATE 300 MG TABLET PO SCH (21:08)
[2020-10-26 05:46] VITALS: BP 105/62
[2020-10-26] MEDS: LITHIUM CARBONATE 300 MG CAPSULE PO SCH (06:56)
[2020-10-26] MEDS: CITALOPRAM HYDROBROMIDE 20 MG TABLET PO SCH (09:24)
== END 2020-10-26 10:00 | disposition short-term general hospital (02) | DRG 750 ==
LOC: EMS 11:33 → B3A 12:34
PROVIDERS: ADMIT Psychiatry & Neurology Psychiatry; ATTEND Psychiatry & Neurology Psychiatry
DX: F25.9 Schizoaffective disorder, unspecified (principal); G40.909 Epilepsy, unspecified, not intractable, without status epilepticus; E03.9 Hypothyroidism, unspecified; E66.9 Obesity, unspecified; E78.5 Hyperlipidemia, unspecified; F31.9 Bipolar disorder, unspecified; G80.9 Cerebral palsy, unspecified; K21.9 Gastro-esophageal reflux disease without esophagitis; Z20.822 Contact with and (suspected) exposure to COVID-19; Z91.19 Patient's noncompliance with other medical treatment and regimen
CPT/HCPCS: 81003; 87426; 99285; J1200; J1630; J2060

== ENCOUNTER 2020-11-19 15:27 | Inpatient (IN) | payer MEDICAID, OTHER ==
[~2020-11-19] VITALS: Ht 154.9 cm; Wt 79.9 kg
[2020-11-19 16:10] LABS: BASOPHILS % (AUTO) 0.4 % (0.0-2.0); EOSINOPHILS % (AUTO) 1.2 % (1.0-6.0); HEMATOCRIT 32.9 % (41-53); HEMOGLOBIN 11.1 g/dL (13.5-17.5); LYMPHOCYTES # (AUTO) 1.6 K/uL (1.0-4.8); MEAN CORPUSCULAR HEMOGLOBIN 30.3 pg (26.0-34.0); MEAN CORPUSCULAR HGB CONC 33.8 G/dL (31.0-37.0); MEAN CORPUSCULAR VOLUME 90 fL (80-100); MONOCYTES # (AUTO) 1.2 K/uL (0.1-1.0); MONOCYTES % (AUTO) 11.9 % (2.0-9.0); NEUTROPHILS # (AUTO) 6.8 K/uL (1.8-7.7); NEUTROPHILS % (AUTO) 69.5 % (40.0-70.0); PLATELET COUNT (AUTO) 308 K/uL (150-450); RED BLOOD CELL COUNT(AUTO) 3.67 MIL/uL (4.50-5.90); RED CELL DISTRIBUTION WIDTH 12.8 % (11.5-14.5)
[2020-11-19 16:30] LABS: ALANINE AMINOTRANSFERASE 27 U/L (12-78); ALBUMIN 3.8 g/dL (3.4-5.0); ALKALINE PHOSPHATASE 48 U/L (46-116); ANION GAP 9 mmol/L (8-16); ASPARTATE AMINOTRANSFERASE 22 U/L (15-37); BILIRUBIN,TOTAL 0.2 mg/dL (0.1-1.0); CALCIUM, TOTAL 8.7 mg/dL (8.8-10.5); CARBON DIOXIDE 23 mmol/L (22-29); CHLORIDE 102 mmol/L (98-107); GLOMERULAR FILTR. RATE CALC > 60 mL/min (>60); GLUCOSE,RANDOM 92 mg/dL (70-110); POTASSIUM 3.2 mmol/L (3.5-5.1); SODIUM SERUM 134 mmol/L (136-145); TOTAL PROTEIN, SERUM 7.2 g/dL (6.4-8.2); UREA NITROGEN, BLOOD 10 mg/dL (7-18); VALPROIC ACID 6 mcg/mL (50-100)
[2020-11-19] MEDS ORDERED: LIDOCAINE 1%/EPI 1:200,000/PF 10 ML VIAL ID ONE (17:30)
[2020-11-19] MEDS ORDERED: PERTUSS(ACELL),DIPH,TET VAC/PF 0.5 ML SYRINGE IM. ONE (17:30)
[2020-11-19 18:10] LABS: COVID AG,FIA SOURCE NASOPHARYNGEAL
[2020-11-19] MEDS ORDERED: POTASSIUM CHLORIDE 20 MEQ ER TABLET PO ONE (18:15)
[2020-11-19] MEDS ORDERED: ZOLPIDEM TARTRATE 10 MG TABLET PO PRN (18:30)
[2020-11-19 18:57] LABS: LITHIUM 0.84 mmol/L (0.60-1.20)
[2020-11-19 19:03] LABS: AMPHET/METH SCREEN,URINE NEGATIVE (NEGATIVE); BARBITURATE SCREEN, URINE NEGATIVE (NEGATIVE); BENZODIAZEPINES SCREEN,URINE POSITIVE (NEGATIVE); CANNABINOID SCREEN,URINE NEGATIVE (NEGATIVE); COCAINE SCREEN,URINE NEGATIVE (NEGATIVE); METHADONE SCREEN, URINE NEGATIVE (NEGATIVE); OPIATE SCREEN,URINE NEGATIVE (NEGATIVE)
[2020-11-19 19:16] LABS: PHENCYCLIDINE SCREEN,URINE NEGATIVE (NEGATIVE)
[2020-11-19] MEDS: HALOPERIDOL 5 MG TABLET PO PRN (19:26)
[2020-11-19] MEDS ORDERED: LORazepam 2 MG TABLET PO ONE (19:30)
[2020-11-19] MEDS ORDERED: HALOPERIDOL 5 MG TABLET PO ONE (19:45)
[2020-11-19] MEDS ORDERED: DiphenhydrAMINE HCL 25 MG CAPSULE PO ONE (19:45)
[2020-11-19 21:13] VITALS: BP 145/89
[2020-11-20] MEDS: HALOPERIDOL 5 MG TABLET PO PRN ×2 (06:13→13:14)
[2020-11-20] MEDS: LORazepam 2 MG TABLET PO PRN ×2 (06:13→13:14)
[2020-11-20 06:44] LABS: CHOL/HDL RATIO 2.9 (4.2-7.3); FREE T4 (FREE THYROXINE) 0.63 ng/dL (0.76-1.46); THYROID STIMULATING HORMONE 6.55 uIU/mL (0.36-3.74)
[2020-11-20 08:00] VITALS: BP 142/89
[2020-11-20] MEDS: LITHIUM CARBONATE 300 MG CAPSULE PO SCH ×2 (13:13→16:06)
[2020-11-20 17:36] VITALS: BP 123/77
[2020-11-20] MEDS: QUEtiapine FUMARATE 300 MG TABLET PO SCH (20:01)
[2020-11-20] MEDS: VALPROIC ACID 250 MG CAPSULE PO SCH (20:01)
[2020-11-21 08:00] VITALS: BP 132/66
[2020-11-21] MEDS: LITHIUM CARBONATE 300 MG CAPSULE PO SCH ×3 (08:07→16:08)
[2020-11-21] MEDS: CITALOPRAM HYDROBROMIDE 20 MG TABLET PO SCH (08:07)
[2020-11-21 16:30] VITALS: BP 135/77
[2020-11-21] MEDS: QUEtiapine FUMARATE 300 MG TABLET PO SCH (20:05)
[2020-11-21] MEDS: VALPROIC ACID 250 MG CAPSULE PO SCH (20:05)
[2020-11-22 08:00] VITALS: BP 112/61
[2020-11-22] MEDS: LITHIUM CARBONATE 300 MG CAPSULE PO SCH ×2 (08:07→13:40)
[2020-11-22] MEDS: CITALOPRAM HYDROBROMIDE 20 MG TABLET PO SCH (08:07)
== END 2020-11-22 15:30 | disposition home or self-care (01) | DRG 750 ==
LOC: EMS 15:34 → 3EC 18:34
PROVIDERS: ADMIT Psychiatry & Neurology Psychiatry; ATTEND Psychiatry & Neurology Psychiatry
DX: F25.0 Schizoaffective disorder, bipolar type (principal); D64.9 Anemia, unspecified; I10 Essential (primary) hypertension; G80.9 Cerebral palsy, unspecified; G47.33 Obstructive sleep apnea (adult) (pediatric); E78.5 Hyperlipidemia, unspecified; E03.9 Hypothyroidism, unspecified; Z20.822 Contact with and (suspected) exposure to COVID-19
CPT/HCPCS: 70450; 70486; 80053; 80061; 80164; 80178; 84439; 84443; 85025; 90715; 99285; G0480; J3490

== ENCOUNTER 2020-11-26 15:22 | Emergency (ER) | payer MEDICAID ==
[~2020-11-26] VITALS: Ht 154.9 cm; Wt 79.9 kg
[2020-11-26 16:49] LABS: BASOPHILS % (AUTO) 0.3 % (0.0-2.0); EOSINOPHILS % (AUTO) 0.9 % (1.0-6.0); HEMATOCRIT 35.4 % (41-53); HEMOGLOBIN 11.6 g/dL (13.5-17.5); LYMPHOCYTES # (AUTO) 1.5 K/uL (1.0-4.8); LYMPHOCYTES % (AUTO) 11.8 % (22.0-44.0); MEAN CORPUSCULAR HEMOGLOBIN 29.8 pg (26.0-34.0); MEAN CORPUSCULAR HGB CONC 32.7 G/dL (31.0-37.0); MEAN CORPUSCULAR VOLUME 91 fL (80-100); MONOCYTES # (AUTO) 0.9 K/uL (0.1-1.0); MONOCYTES % (AUTO) 6.9 % (2.0-9.0); NEUTROPHILS # (AUTO) 10.5 K/uL (1.8-7.7); NEUTROPHILS % (AUTO) 80.1 % (40.0-70.0); PLATELET COUNT (AUTO) 303 K/uL (150-450); RED BLOOD CELL COUNT(AUTO) 3.89 MIL/uL (4.50-5.90); RED CELL DISTRIBUTION WIDTH 12.8 % (11.5-14.5)
[2020-11-26 16:58] LABS: ANION GAP 10 mmol/L (8-16); CALCIUM, TOTAL 9.4 mg/dL (8.8-10.5); CARBON DIOXIDE 25 mmol/L (22-29); CHLORIDE 103 mmol/L (98-107); CREATININE 1.11 mg/dL (0.60-1.30); GLOMERULAR FILTR. RATE CALC > 60 mL/min (>60); GLUCOSE,RANDOM 107 mg/dL (70-110); POTASSIUM 3.4 mmol/L (3.5-5.1); SODIUM SERUM 138 mmol/L (136-145); UREA NITROGEN, BLOOD 8 mg/dL (7-18)
[2020-11-26 17:04] LABS: ALANINE AMINOTRANSFERASE 27 U/L (12-78); ALBUMIN 4.2 g/dL (3.4-5.0); ALKALINE PHOSPHATASE 54 U/L (46-116); ASPARTATE AMINOTRANSFERASE 34 U/L (15-37); BILIRUBIN,TOTAL 0.3 mg/dL (0.1-1.0); LITHIUM 0.88 mmol/L (0.60-1.20); TOTAL PROTEIN, SERUM 7.8 g/dL (6.4-8.2); VALPROIC ACID 14 mcg/mL (50-100)
[2020-11-26 20:45] VITALS: BP 125/62
== END 2020-11-26 20:50 | disposition home or self-care (01) ==
LOC: EMS 15:27
DX: S00.83XA Contusion of other part of head, initial encounter (principal); F25.9 Schizoaffective disorder, unspecified; F31.9 Bipolar disorder, unspecified; Z48.02 Encounter for removal of sutures; W22.8XXA Striking against or struck by other objects, initial encounter; Y93.89 Activity, other specified; Y92.098 Other place in other non-institutional residence as the place of occurrence of the external cause; Y99.8 Other external cause status
CPT/HCPCS: 36415; 70450; 72125; 80053; 80164; 80178; 85025; 99285; G0480

== ENCOUNTER 2020-11-27 08:19 | Inpatient (IN) | payer MEDICAID, OTHER ==
[~2020-11-27] VITALS: Ht 162.6 cm; Wt 73.9 kg
[2020-11-27 09:20] LABS: BASOPHILS % (AUTO) 0.3 % (0.0-2.0); EOSINOPHILS % (AUTO) 1.7 % (1.0-6.0); HEMATOCRIT 33.9 % (41-53); HEMOGLOBIN 11.4 g/dL (13.5-17.5); LYMPHOCYTES # (AUTO) 1.1 K/uL (1.0-4.8); LYMPHOCYTES % (AUTO) 11.2 % (22.0-44.0); MEAN CORPUSCULAR HEMOGLOBIN 30.5 pg (26.0-34.0); MEAN CORPUSCULAR HGB CONC 33.6 G/dL (31.0-37.0); MEAN CORPUSCULAR VOLUME 91 fL (80-100); MONOCYTES # (AUTO) 0.6 K/uL (0.1-1.0); MONOCYTES % (AUTO) 5.7 % (2.0-9.0); NEUTROPHILS # (AUTO) 8.3 K/uL (1.8-7.7); NEUTROPHILS % (AUTO) 81.1 % (40.0-70.0); PLATELET COUNT (AUTO) 274 K/uL (150-450); RED BLOOD CELL COUNT(AUTO) 3.73 MIL/uL (4.50-5.90); RED CELL DISTRIBUTION WIDTH 12.9 % (11.5-14.5)
[2020-11-27 09:30] LABS: ANION GAP 9 mmol/L (8-16); CALCIUM, TOTAL 9.5 mg/dL (8.8-10.5); CARBON DIOXIDE 24 mmol/L (22-29); CHLORIDE 104 mmol/L (98-107); CREATININE 1.08 mg/dL (0.60-1.30); GLOMERULAR FILTR. RATE CALC > 60 mL/min (>60); GLUCOSE,RANDOM 103 mg/dL (70-110); POTASSIUM 3.3 mmol/L (3.5-5.1); SODIUM SERUM 137 mmol/L (136-145); UREA NITROGEN, BLOOD 7 mg/dL (7-18)
[2020-11-27 09:36] LABS: ALANINE AMINOTRANSFERASE 31 U/L (12-78); ALBUMIN 4.2 g/dL (3.4-5.0); ALKALINE PHOSPHATASE 50 U/L (46-116); ASPARTATE AMINOTRANSFERASE 33 U/L (15-37); BILIRUBIN,TOTAL 0.4 mg/dL (0.1-1.0); TOTAL PROTEIN, SERUM 7.7 g/dL (6.4-8.2); VALPROIC ACID 4 mcg/mL (50-100)
[2020-11-27 09:47] LABS: LITHIUM 0.97 mmol/L (0.60-1.20)
[2020-11-27 10:17] LABS: AMPHET/METH SCREEN,URINE NEGATIVE (NEGATIVE); BARBITURATE SCREEN, URINE NEGATIVE (NEGATIVE); BENZODIAZEPINES SCREEN,URINE POSITIVE (NEGATIVE); CANNABINOID SCREEN,URINE NEGATIVE (NEGATIVE); COCAINE SCREEN,URINE NEGATIVE (NEGATIVE); METHADONE SCREEN, URINE NEGATIVE (NEGATIVE); OPIATE SCREEN,URINE NEGATIVE (NEGATIVE); PHENCYCLIDINE SCREEN,URINE NEGATIVE (NEGATIVE)
[2020-11-27 10:40] LABS: COVID AG,FIA SOURCE NASAL SWAB
[2020-11-27] MEDS ORDERED: LORazepam 2 MG/ML VIAL ONE (11:48)
[2020-11-27] MEDS ORDERED: HALOPERIDOL LACTATE 5 MG/ML VIAL ONE (11:48)
[2020-11-27] MEDS ORDERED: DiphenhydrAMINE HCL 50 MG/ML VIAL ONE (11:48)
[2020-11-27] MEDS ORDERED: DiphenhydrAMINE HCL 50 MG/ML VIAL IM ONE (12:00)
[2020-11-27] MEDS ORDERED: LORazepam 2 MG/ML VIAL IM ONE (12:00)
[2020-11-27] MEDS ORDERED: HALOPERIDOL LACTATE 5 MG/ML VIAL IM ONE (12:00)
[2020-11-27] MEDS: LORazepam 2 MG TABLET PO PRN (19:38)
[2020-11-28] MEDS ORDERED: DiphenhydrAMINE HCL 50 MG/ML VIAL IM ONE ×2 (06:30→10:45)
[2020-11-28] MEDS ORDERED: HALOPERIDOL LACTATE 5 MG/ML VIAL IM ONE (06:30)
[2020-11-28] MEDS ORDERED: LORazepam 2 MG/ML VIAL IM ONE (06:30)
[2020-11-28] MEDS: LORazepam 2 MG TABLET PO PRN ×2 (10:16→16:56)
[2020-11-28] MEDS: CITALOPRAM HYDROBROMIDE 20 MG TABLET PO SCH (11:14)
[2020-11-28 14:32] VITALS: BP 138/92
[2020-11-28 16:08] VITALS: BP 112/68
[2020-11-28] MEDS: HALOPERIDOL 5 MG TABLET PO PRN (16:56)
[2020-11-28] MEDS: LITHIUM CARBONATE 300 MG CAPSULE PO SCH (16:56)
[2020-11-29 05:30] VITALS: BP 121/69
[2020-11-29] MEDS ORDERED: LORazepam 2 MG/ML VIAL ONE (06:00)
[2020-11-29] MEDS ORDERED: DiphenhydrAMINE HCL 50 MG/ML VIAL ONE (06:00)
[2020-11-29] MEDS ORDERED: HALOPERIDOL LACTATE 5 MG/ML VIAL ONE (06:00)
[2020-11-29] MEDS: HALOPERIDOL 5 MG TABLET PO PRN ×2 (06:05→16:34)
[2020-11-29] MEDS: LORazepam 2 MG TABLET PO PRN ×2 (06:05→16:34)
[2020-11-29] MEDS ORDERED: HALOPERIDOL LACTATE 5 MG/ML VIAL IM ONE (06:15)
[2020-11-29] MEDS ORDERED: LORazepam 2 MG/ML VIAL IM ONE (06:15)
[2020-11-29] MEDS ORDERED: DiphenhydrAMINE HCL 50 MG/ML VIAL IM ONE (06:15)
[2020-11-29] MEDS: CITALOPRAM HYDROBROMIDE 20 MG TABLET PO SCH (08:30)
[2020-11-29] MEDS: LITHIUM CARBONATE 300 MG CAPSULE PO SCH ×3 (08:30→16:34)
[2020-11-29 09:01] VITALS: BP 135/80
[2020-11-29 16:37] VITALS: BP 124/82
[2020-11-29] MEDS: ZOLPIDEM TARTRATE 10 MG TABLET PO PRN (22:25)
[2020-11-30 05:49] VITALS: BP 117/71
[2020-11-30] MEDS: LEVOTHYROXINE SODIUM 25 MCG TABLET PO SCH (06:30)
[2020-11-30] MEDS ORDERED: DiphenhydrAMINE HCL 50 MG/ML VIAL IM ONE ×2 (06:45→14:45)
[2020-11-30] MEDS ORDERED: HALOPERIDOL LACTATE 5 MG/ML VIAL IM ONE ×2 (06:45→14:45)
[2020-11-30] MEDS ORDERED: LORazepam 2 MG/ML VIAL IM ONE ×2 (06:45→14:45)
[2020-11-30 08:30] VITALS: BP 125/79
[2020-11-30] MEDS: CITALOPRAM HYDROBROMIDE 20 MG TABLET PO SCH (08:35)
[2020-11-30] MEDS: LORazepam 2 MG TABLET PO PRN ×2 (08:35→17:30)
[2020-11-30] MEDS: LITHIUM CARBONATE 300 MG CAPSULE PO SCH ×3 (08:35→17:30)
[2020-11-30] MEDS: HALOPERIDOL 5 MG TABLET PO PRN (17:30)
[2020-12-01] MEDS: LEVOTHYROXINE SODIUM 25 MCG TABLET PO SCH (06:30)
[2020-12-01] MEDS ORDERED: HALOPERIDOL LACTATE 5 MG/ML VIAL ONE (07:36)
[2020-12-01] MEDS ORDERED: DiphenhydrAMINE HCL 50 MG/ML VIAL IM ONE (07:45)
[2020-12-01] MEDS ORDERED: HALOPERIDOL LACTATE 5 MG/ML VIAL IM ONE (07:45)
[2020-12-01] MEDS ORDERED: LORazepam 2 MG/ML VIAL IM ONE (07:45)
[2020-12-01] MEDS: LITHIUM CARBONATE 300 MG CAPSULE PO SCH ×3 (09:40→16:53)
[2020-12-01] MEDS: CITALOPRAM HYDROBROMIDE 20 MG TABLET PO SCH (09:40)
[2020-12-01 16:33] VITALS: BP 125/60
[2020-12-01] MEDS: LORazepam 2 MG TABLET PO PRN ×2 (16:53→22:25)
[2020-12-01] MEDS: HALOPERIDOL 5 MG TABLET PO PRN ×2 (16:53→22:25)
[2020-12-01] MEDS: ZOLPIDEM TARTRATE 10 MG TABLET PO PRN (22:26)
[2020-12-01 22:32] VITALS: BP 130/72
[2020-12-02] MEDS: HALOPERIDOL 5 MG TABLET PO PRN ×2 (01:57→06:00)
[2020-12-02] MEDS: LORazepam 2 MG TABLET PO PRN ×3 (01:57→16:55)
[2020-12-02] MEDS: LEVOTHYROXINE SODIUM 25 MCG TABLET PO SCH (06:00)
[2020-12-02 06:43] VITALS: BP 139/98
[2020-12-02] MEDS: DIVALPROEX SODIUM 500 MG DR TABLET PO SCH ×3 (08:42→16:55)
[2020-12-02] MEDS: LITHIUM CARBONATE 300 MG CAPSULE PO SCH ×3 (08:43→16:55)
[2020-12-02] MEDS: CITALOPRAM HYDROBROMIDE 20 MG TABLET PO SCH (08:43)
[2020-12-02] MEDS: GuanFACINE HCL 1 MG TABLET PO SCH ×2 (08:43→17:19)
[2020-12-02] MEDS: QUEtiapine FUMARATE 200 MG TABLET PO SCH ×3 (08:43→16:55)
[2020-12-02 08:58] VITALS: BP 131/83
[2020-12-02 16:16] VITALS: BP 126/81
[2020-12-03] MEDS: LEVOTHYROXINE SODIUM 25 MCG TABLET PO SCH (06:17)
[2020-12-03] MEDS: HALOPERIDOL 5 MG TABLET PO PRN ×3 (06:17→17:03)
[2020-12-03] MEDS: LORazepam 2 MG TABLET PO PRN ×3 (06:17→17:03)
[2020-12-03 06:18] VITALS: BP 150/89
[2020-12-03 08:18] VITALS: BP 126/92
[2020-12-03] MEDS: CITALOPRAM HYDROBROMIDE 20 MG TABLET PO SCH (08:18)
[2020-12-03] MEDS: QUEtiapine FUMARATE 200 MG TABLET PO SCH ×3 (08:18→17:03)
[2020-12-03] MEDS: DIVALPROEX SODIUM 500 MG DR TABLET PO SCH ×3 (08:18→17:03)
[2020-12-03] MEDS: LITHIUM CARBONATE 300 MG CAPSULE PO SCH ×3 (08:18→17:03)
[2020-12-03] MEDS: GuanFACINE HCL 1 MG TABLET PO SCH ×2 (08:19→17:03)
[2020-12-03 16:24] VITALS: BP 120/79
[2020-12-04] MEDS: LEVOTHYROXINE SODIUM 25 MCG TABLET PO SCH (06:07)
[2020-12-04] MEDS: LORazepam 2 MG TABLET PO PRN ×3 (06:07→16:30)
[2020-12-04] MEDS: HALOPERIDOL 5 MG TABLET PO PRN ×3 (06:07→16:30)
[2020-12-04 06:35] VITALS: BP 110/75
[2020-12-04] MEDS: DIVALPROEX SODIUM 500 MG DR TABLET PO SCH ×3 (08:44→16:29)
[2020-12-04] MEDS: GuanFACINE HCL 1 MG TABLET PO SCH ×2 (08:44→16:29)
[2020-12-04] MEDS: QUEtiapine FUMARATE 200 MG TABLET PO SCH ×3 (08:44→16:29)
[2020-12-04] MEDS: LITHIUM CARBONATE 300 MG CAPSULE PO SCH ×3 (08:44→16:29)
[2020-12-04] MEDS: CITALOPRAM HYDROBROMIDE 20 MG TABLET PO SCH (08:44)
[2020-12-04 09:20] VITALS: BP 104/58
[2020-12-04 16:28] VITALS: BP 138/93
[2020-12-05] MEDS: LEVOTHYROXINE SODIUM 25 MCG TABLET PO SCH (06:18)
[2020-12-05] MEDS: LORazepam 2 MG TABLET PO PRN ×3 (06:18→16:34)
[2020-12-05] MEDS: HALOPERIDOL 5 MG TABLET PO PRN ×2 (06:18→12:15)
[2020-12-05] MEDS: GuanFACINE HCL 1 MG TABLET PO SCH ×2 (08:41→16:34)
[2020-12-05] MEDS: DIVALPROEX SODIUM 500 MG DR TABLET PO SCH ×3 (08:41→16:34)
[2020-12-05] MEDS: LITHIUM CARBONATE 300 MG CAPSULE PO SCH ×3 (08:41→16:34)
[2020-12-05] MEDS: CITALOPRAM HYDROBROMIDE 20 MG TABLET PO SCH (08:41)
[2020-12-05] MEDS: QUEtiapine FUMARATE 200 MG TABLET PO SCH ×3 (08:41→16:34)
[2020-12-05 10:02] VITALS: BP 126/75
[2020-12-05 16:11] VITALS: BP 102/58
[2020-12-06 05:50] VITALS: BP 144/89
[2020-12-06] MEDS: LEVOTHYROXINE SODIUM 25 MCG TABLET PO SCH (06:46)
[2020-12-06 07:53] LABS: LITHIUM 0.88 mmol/L (0.60-1.20)
[2020-12-06] MEDS: DIVALPROEX SODIUM 500 MG DR TABLET PO SCH ×2 (08:34→12:07)
[2020-12-06] MEDS: LITHIUM CARBONATE 300 MG CAPSULE PO SCH ×2 (08:34→12:07)
[2020-12-06] MEDS: QUEtiapine FUMARATE 200 MG TABLET PO SCH ×2 (08:34→12:07)
[2020-12-06] MEDS: CITALOPRAM HYDROBROMIDE 20 MG TABLET PO SCH (08:34)
[2020-12-06] MEDS: GuanFACINE HCL 1 MG TABLET PO SCH (08:34)
[2020-12-06 08:47] VITALS: BP 121/77
[2020-12-06] MEDS: LORazepam 2 MG TABLET PO PRN (08:52)
[2020-12-06] MEDS ORDERED: DIVA-111 PO (10:33)
[2020-12-06] MEDS ORDERED: LITH300C3 PO (10:36)
[2020-12-06] MEDS ORDERED: LEVO125T95 PO (10:37)
[2020-12-06] MEDS ORDERED: QUET200T PO (10:39)
== END 2020-12-06 13:40 | disposition home or self-care (01) | DRG 750 ==
LOC: EMS 08:19 → B3A 11-28 13:44
PROVIDERS: ADMIT Psychiatry & Neurology Psychiatry; ATTEND Psychiatry & Neurology Psychiatry
DX: F25.0 Schizoaffective disorder, bipolar type (principal); D64.9 Anemia, unspecified; E03.9 Hypothyroidism, unspecified; S00.83XA Contusion of other part of head, initial encounter; E78.5 Hyperlipidemia, unspecified; S01.81XA Laceration without foreign body of other part of head, initial encounter; G47.33 Obstructive sleep apnea (adult) (pediatric); X58.XXXA Exposure to other specified factors, initial encounter; Y93.89 Activity, other specified; Y92.89 Other specified places as the place of occurrence of the external cause; Y99.8 Other external cause status; I10 Essential (primary) hypertension; G80.9 Cerebral palsy, unspecified; Z20.822 Contact with and (suspected) exposure to COVID-19
CPT/HCPCS: 70450; 70486; 72125; 80053; 80164; 80178; 85025; 99285; G0480; J1200; J1630; J2060

== ENCOUNTER 2020-12-07 15:58 | Emergency (ER) | payer MEDICAID, OTHER ==
[~2020-12-07] VITALS: Ht 154.9 cm; Wt 81.8 kg
[~2020-12-07 15:58] MED LIST changes: +DIVA-111 PO; +LEVO125T95 PO; +QUET200T PO; -QUET300T2 PO; -VALP250C48 PO
[2020-12-07 16:45] LABS: COVID AG,FIA SOURCE NASOPHARYNGEAL
[2020-12-07 16:57] LABS: BASOPHILS % (AUTO) 0.1 % (0.0-2.0); EOSINOPHILS % (AUTO) 0.9 % (1.0-6.0); HEMATOCRIT 36.4 % (41-53); HEMOGLOBIN 11.7 g/dL (13.5-17.5); LYMPHOCYTES # (AUTO) 1.5 K/uL (1.0-4.8); LYMPHOCYTES % (AUTO) 11.1 % (22.0-44.0); MEAN CORPUSCULAR HEMOGLOBIN 29.6 pg (26.0-34.0); MEAN CORPUSCULAR HGB CONC 32.1 G/dL (31.0-37.0); MEAN CORPUSCULAR VOLUME 92 fL (80-100); MONOCYTES # (AUTO) 1.1 K/uL (0.1-1.0); MONOCYTES % (AUTO) 7.8 % (2.0-9.0); NEUTROPHILS # (AUTO) 11.2 K/uL (1.8-7.7); NEUTROPHILS % (AUTO) 80.1 % (40.0-70.0); PLATELET COUNT (AUTO) 305 K/uL (150-450); RED BLOOD CELL COUNT(AUTO) 3.95 MIL/uL (4.50-5.90); RED CELL DISTRIBUTION WIDTH 12.8 % (11.5-14.5)
[2020-12-07 17:05] LABS: ANION GAP 9 mmol/L (8-16); CALCIUM, TOTAL 9.6 mg/dL (8.8-10.5); CARBON DIOXIDE 28 mmol/L (22-29); CHLORIDE 105 mmol/L (98-107); CREATININE 0.87 mg/dL (0.60-1.30); GLOMERULAR FILTR. RATE CALC > 60 mL/min (>60); GLUCOSE,RANDOM 95 mg/dL (70-110); POTASSIUM 3.9 mmol/L (3.5-5.1); SODIUM SERUM 142 mmol/L (136-145); UREA NITROGEN, BLOOD 7 mg/dL (7-18)
[2020-12-07 17:07] LABS: LITHIUM 0.53 mmol/L (0.60-1.20)
[2020-12-07 17:13] LABS: ALANINE AMINOTRANSFERASE 27 U/L (12-78); ALBUMIN 3.7 g/dL (3.4-5.0); ALKALINE PHOSPHATASE 49 U/L (46-116); ASPARTATE AMINOTRANSFERASE 21 U/L (15-37); BILIRUBIN,TOTAL 0.2 mg/dL (0.1-1.0); TOTAL PROTEIN, SERUM 7.4 g/dL (6.4-8.2); VALPROIC ACID 19 mcg/mL (50-100)
[2020-12-08 02:59] VITALS: BP 120/81
== END 2020-12-08 03:02 | disposition home or self-care (01) ==
LOC: EMS 15:58
DX: S00.03XA Contusion of scalp, initial encounter (principal); S00.83XA Contusion of other part of head, initial encounter; Z20.822 Contact with and (suspected) exposure to COVID-19; R45.1 Restlessness and agitation; Y04.0XXA Assault by unarmed brawl or fight, initial encounter; Y93.89 Activity, other specified; Y92.89 Other specified places as the place of occurrence of the external cause; Y99.8 Other external cause status
CPT/HCPCS: 36415; 70450; 70486; 72125; 80053; 80164; 80178; 85025; 87426; 99285; G0480

== ENCOUNTER 2020-12-24 11:25 | Inpatient (IN) | payer OTHER ==
[~2020-12-24] VITALS: Ht 175.3 cm; Wt 81.4 kg
[2020-12-24] MEDS ORDERED: LORazepam 2 MG/ML VIAL ONE (11:47)
[2020-12-24] MEDS ORDERED: DiphenhydrAMINE HCL 50 MG/ML VIAL ONE (11:47)
[2020-12-24] MEDS ORDERED: HALOPERIDOL LACTATE 5 MG/ML VIAL ONE (11:47)
[2020-12-24] MEDS ORDERED: DiphenhydrAMINE HCL 50 MG/ML VIAL IM ONE (12:00)
[2020-12-24] MEDS ORDERED: HALOPERIDOL LACTATE 5 MG/ML VIAL IM ONE (12:00)
[2020-12-24] MEDS ORDERED: LORazepam 2 MG/ML VIAL IM ONE (12:00)
[2020-12-24 12:14] LABS: BASOPHILS % (AUTO) 0.2 % (0.0-2.0); EOSINOPHILS % (AUTO) 0 % (1.0-6.0); HEMATOCRIT 39.4 % (41-53); HEMOGLOBIN 12.7 g/dL (13.5-17.5); LYMPHOCYTES # (AUTO) 0.5 K/uL (1.0-4.8); LYMPHOCYTES % (AUTO) 1.9 % (22.0-44.0); MEAN CORPUSCULAR HEMOGLOBIN 29.2 pg (26.0-34.0); MEAN CORPUSCULAR HGB CONC 32.2 G/dL (31.0-37.0); MEAN CORPUSCULAR VOLUME 91 fL (80-100); MONOCYTES # (AUTO) 1.9 K/uL (0.1-1.0); MONOCYTES % (AUTO) 7.3 % (2.0-9.0); NEUTROPHILS # (AUTO) 23.9 K/uL (1.8-7.7); NEUTROPHILS % (AUTO) 90.6 % (40.0-70.0); PLATELET COUNT (AUTO) 308 K/uL (150-450); RED BLOOD CELL COUNT(AUTO) 4.35 MIL/uL (4.50-5.90); RED CELL DISTRIBUTION WIDTH 12.6 % (11.5-14.5)
[2020-12-24 13:10] LABS: ALANINE AMINOTRANSFERASE 20 U/L (12-78); ALBUMIN 3.9 g/dL (3.4-5.0); ALKALINE PHOSPHATASE 58 U/L (46-116); ASPARTATE AMINOTRANSFERASE 25 U/L (15-37); BILIRUBIN,TOTAL 0.2 mg/dL (0.1-1.0); CARBON DIOXIDE 21 mmol/L (22-29); CHLORIDE 107 mmol/L (98-107); CREATININE 1.42 mg/dL (0.60-1.30); GLOMERULAR FILTR. RATE CALC > 60 mL/min (>60); GLUCOSE,RANDOM 107 mg/dL (70-110); POTASSIUM 3.5 mmol/L (3.5-5.1); TOTAL PROTEIN, SERUM 8.1 g/dL (6.4-8.2); UREA NITROGEN, BLOOD 10 mg/dL (7-18)
[2020-12-24 13:12] LABS: ANION GAP 13 mmol/L (8-16); SODIUM SERUM 141 mmol/L (136-145)
[2020-12-24 15:26] LABS: LACTIC ACID 2.4 mmol/L (0.4-2.0)
[2020-12-24] MEDS ORDERED: VANCOMYCIN HCL 1.25 GM in DEXTROSE 5%-WATER 250 ML IV ONE (15:30)
[2020-12-24] MEDS ORDERED: SODIUM CHLORIDE 0.9% 2,600 ML IV ONE (15:30)
[2020-12-24] MEDS ORDERED: CefTRIAXone 1 GM/DEXTROSE 50 ML IV ONE (15:30)
[2020-12-24] MEDS ORDERED: ACETAMINOPHEN 325 MG TABLET PO PRN (15:45)
[2020-12-24] MEDS ORDERED: ONDANSETRON HCL 4 MG/2 ML VIAL IVP PRN (15:45)
[2020-12-24] MEDS: HEPARIN SODIUM,PORCINE 5,000 UNITS/ML VIAL SQ SCH ×2 (16:26→23:43)
[2020-12-24] MEDS ORDERED: RINGERS SOLUTION,LACTATED 1,000 ML IV ONE (18:00)
[2020-12-24 19:22] LABS: COVID AG,FIA SOURCE NASOPHARYNGEAL
[2020-12-24 20:45] VITALS: BP 120/68
[2020-12-24] MEDS: SODIUM CHLORIDE 0.9% 1,000 ML IV SCH (21:00)
[2020-12-24] MEDS: LORazepam 2 MG TABLET PO PRN (21:39)
[2020-12-25] VITALS (7 sets, daily range): BP systolic 98–166; BP diastolic 56–92
[2020-12-25] MEDS: SODIUM CHLORIDE 0.9% 1,000 ML IV SCH ×3 (01:44→16:00)
[2020-12-25 07:02] LABS: BASOPHILS % (AUTO) 0.2 % (0.0-2.0); EOSINOPHILS % (AUTO) 0.7 % (1.0-6.0); HEMATOCRIT 34.1 % (41-53); HEMOGLOBIN 11.3 g/dL (13.5-17.5); LYMPHOCYTES # (AUTO) 1.6 K/uL (1.0-4.8); MEAN CORPUSCULAR HEMOGLOBIN 29.9 pg (26.0-34.0); MEAN CORPUSCULAR HGB CONC 33.2 G/dL (31.0-37.0); MEAN CORPUSCULAR VOLUME 90 fL (80-100); MONOCYTES # (AUTO) 0.9 K/uL (0.1-1.0); MONOCYTES % (AUTO) 6.8 % (2.0-9.0); NEUTROPHILS # (AUTO) 10.5 K/uL (1.8-7.7); NEUTROPHILS % (AUTO) 80.3 % (40.0-70.0); PLATELET COUNT (AUTO) 273 K/uL (150-450); RED BLOOD CELL COUNT(AUTO) 3.78 MIL/uL (4.50-5.90); RED CELL DISTRIBUTION WIDTH 12.5 % (11.5-14.5)
[2020-12-25 07:14] LABS: ANION GAP 4 mmol/L (8-16); CALCIUM, TOTAL 8.7 mg/dL (8.8-10.5); CARBON DIOXIDE 23 mmol/L (22-29); CHLORIDE 110 mmol/L (98-107); CHOL/HDL RATIO 3.6 (4.2-7.3); CHOLESTEROL 149 mg/dL (131-200); CREATININE 0.85 mg/dL (0.60-1.30); GLOMERULAR FILTR. RATE CALC > 60 mL/min (>60); GLUCOSE,RANDOM 86 mg/dL (70-110); HDL CHOLESTEROL 41 mg/dL (40-60); LDL CHOL (CALC.) 79 mg/dL (0-130); POTASSIUM 3.4 mmol/L (3.5-5.1); SODIUM SERUM 137 mmol/L (136-145); TRIGLYCERIDES 146 mg/dL (15-150); UREA NITROGEN, BLOOD 7 mg/dL (7-18)
[2020-12-25] MEDS: HEPARIN SODIUM,PORCINE 5,000 UNITS/ML VIAL SQ SCH (08:00)
[2020-12-25 09:50] LABS: APPEARANCE,URINE CLEAR (CLEAR); BILIRUBIN,URINE NEGATIVE (NEGATIVE); GLUCOSE, URINE (UA) NEGATIVE (NEGATIVE); KETONES,URINE NEGATIVE (NEGATIVE); LEUKOCYTE ESTERASE ,URINE NEGATIVE (NEGATIVE); NITRATE,URINE NEGATIVE (NEGATIVE); OCCULT BLOOD,URINE NEGATIVE (NEGATIVE); PROTEIN,URINE NEGATIVE (NEGATIVE); UROBILINOGEN,URINE 0.2 mg/dL (<=1.0)
[2020-12-25 09:56] LABS: AMPHET/METH SCREEN,URINE NEGATIVE (NEGATIVE); BARBITURATE SCREEN, URINE NEGATIVE (NEGATIVE); BENZODIAZEPINES SCREEN,URINE NEGATIVE (NEGATIVE); CANNABINOID SCREEN,URINE NEGATIVE (NEGATIVE); COCAINE SCREEN,URINE NEGATIVE (NEGATIVE); METHADONE SCREEN, URINE NEGATIVE (NEGATIVE); OPIATE SCREEN,URINE NEGATIVE (NEGATIVE); PHENCYCLIDINE SCREEN,URINE NEGATIVE (NEGATIVE)
[2020-12-25 10:16] LABS: BACTERIA,URINE None Seen /HPF (None Seen); RBC,URINE None Seen /HPF (0-2); WBC,URINE None Seen /HPF (0-5)
[2020-12-25] MEDS ORDERED: HALOPERIDOL LACTATE 5 MG/ML VIAL ONE (14:20)
[2020-12-25] MEDS ORDERED: LORazepam 2 MG/ML VIAL ONE (14:20)
[2020-12-25] MEDS ORDERED: HALOPERIDOL LACTATE 5 MG/ML VIAL IM ONE (14:30)
[2020-12-25] MEDS ORDERED: DiphenhydrAMINE HCL 50 MG/ML VIAL IM ONE (14:30)
[2020-12-25] MEDS ORDERED: LORazepam 2 MG/ML VIAL IM ONE (14:30)
[2020-12-25] MEDS: PIPERACILLIN/TAZO 3.375 GM/D5W 50 ML IV SCH ×2 (15:00→20:33)
[2020-12-25 17:48] LABS: HEMATOCRIT 34.4 % (41-53); HEMOGLOBIN 11.2 g/dL (13.5-17.5)
[2020-12-25] MEDS: LORazepam 2 MG TABLET PO PRN (20:20)
[2020-12-25] MEDS: SODIUM CHLORIDE 0.45% 1,000 ML IV SCH (21:15)
[2020-12-25] MEDS: ZOLPIDEM TARTRATE 10 MG TABLET PO PRN (21:20)
[2020-12-25] MEDS: HALOPERIDOL 5 MG TABLET PO PRN (22:58)
[2020-12-26] MEDS: PIPERACILLIN/TAZO 3.375 GM/D5W 50 ML IV SCH ×4 (05:21→19:54)
[2020-12-26] MEDS: SODIUM CHLORIDE 0.45% 1,000 ML IV SCH ×3 (05:23→21:15)
[2020-12-26 05:32] VITALS: BP 119/74
[2020-12-26 05:56] LABS: BASOPHILS % (AUTO) 0.5 % (0.0-2.0); EOSINOPHILS % (AUTO) 1.6 % (1.0-6.0); HEMATOCRIT 36.4 % (41-53); LYMPHOCYTES % (AUTO) 20.5 % (22.0-44.0); MEAN CORPUSCULAR HEMOGLOBIN 29.7 pg (26.0-34.0); MEAN CORPUSCULAR HGB CONC 32.9 G/dL (31.0-37.0); MEAN CORPUSCULAR VOLUME 90 fL (80-100); MONOCYTES # (AUTO) 1.1 K/uL (0.1-1.0); NEUTROPHILS # (AUTO) 6.4 K/uL (1.8-7.7); NEUTROPHILS % (AUTO) 66.4 % (40.0-70.0); PLATELET COUNT (AUTO) 297 K/uL (150-450); RED BLOOD CELL COUNT(AUTO) 4.03 MIL/uL (4.50-5.90); RED CELL DISTRIBUTION WIDTH 12.3 % (11.5-14.5)
[2020-12-26 06:17] LABS: ANION GAP 5 mmol/L (8-16); CALCIUM, TOTAL 8.8 mg/dL (8.8-10.5); CARBON DIOXIDE 25 mmol/L (22-29); CHLORIDE 108 mmol/L (98-107); CREATININE 0.79 mg/dL (0.60-1.30); GLOMERULAR FILTR. RATE CALC > 60 mL/min (>60); GLUCOSE,RANDOM 96 mg/dL (70-110); POTASSIUM 3.6 mmol/L (3.5-5.1); SODIUM SERUM 138 mmol/L (136-145); UREA NITROGEN, BLOOD 5 mg/dL (7-18)
[2020-12-26 07:23] VITALS: BP 135/79
[2020-12-26] MEDS: LORazepam 2 MG TABLET PO PRN (08:43)
[2020-12-26] MEDS ORDERED: LORazepam 2 MG/ML VIAL IM ONE (10:00)
[2020-12-26 12:00] VITALS: BP 132/75
[2020-12-26] MEDS: HALOPERIDOL 5 MG TABLET PO PRN (13:03)
[2020-12-26] MEDS ORDERED: *CLINICAL-LEVOFLOXACIN ORAL DOSING CLINICAL ONE (14:15)
[2020-12-26] MEDS: LEVOFLOXACIN 750 MG TABLET PO SCH (15:56)
[2020-12-26] MEDS: BENZONATATE 100 MG CAPSULE PO SCH ×2 (16:01→19:54)
[2020-12-26 16:09] VITALS: BP 129/81
[2020-12-26] MEDS: DOXYCYCLINE HYCLATE 100 MG TABLET PO SCH (19:54)
[2020-12-26] MEDS: ZOLPIDEM TARTRATE 10 MG TABLET PO PRN (19:57)
[2020-12-26 20:01] VITALS: BP 148/99
[2020-12-26] MEDS: LORazepam 2 MG/ML VIAL IM PRN (22:05)
[2020-12-26 23:34] VITALS: BP 126/76
[2020-12-27] MEDS: PIPERACILLIN/TAZO 3.375 GM/D5W 50 ML IV SCH ×3 (02:52→15:59)
[2020-12-27] MEDS: LORazepam 2 MG/ML VIAL IM PRN (03:05)
[2020-12-27 04:01] VITALS: BP 137/74
[2020-12-27] MEDS: SODIUM CHLORIDE 0.45% 1,000 ML IV SCH ×2 (05:15→13:15)
[2020-12-27 06:31] LABS: BASOPHILS % (AUTO) 0.3 % (0.0-2.0); EOSINOPHILS % (AUTO) 1.2 % (1.0-6.0); HEMATOCRIT 35.2 % (41-53); HEMOGLOBIN 11.9 g/dL (13.5-17.5); LYMPHOCYTES # (AUTO) 1.8 K/uL (1.0-4.8); LYMPHOCYTES % (AUTO) 17.4 % (22.0-44.0); MEAN CORPUSCULAR HEMOGLOBIN 30.2 pg (26.0-34.0); MEAN CORPUSCULAR HGB CONC 33.9 G/dL (31.0-37.0); MEAN CORPUSCULAR VOLUME 89 fL (80-100); MONOCYTES # (AUTO) 0.7 K/uL (0.1-1.0); MONOCYTES % (AUTO) 6.9 % (2.0-9.0); NEUTROPHILS # (AUTO) 7.6 K/uL (1.8-7.7); NEUTROPHILS % (AUTO) 74.2 % (40.0-70.0); PLATELET COUNT (AUTO) 296 K/uL (150-450); RED BLOOD CELL COUNT(AUTO) 3.95 MIL/uL (4.50-5.90); RED CELL DISTRIBUTION WIDTH 12.4 % (11.5-14.5)
[2020-12-27 06:49] LABS: ANION GAP 6 mmol/L (8-16); CALCIUM, TOTAL 8.8 mg/dL (8.8-10.5); CARBON DIOXIDE 25 mmol/L (22-29); CHLORIDE 105 mmol/L (98-107); CREATININE 0.95 mg/dL (0.60-1.30); GLOMERULAR FILTR. RATE CALC > 60 mL/min (>60); GLUCOSE,RANDOM 101 mg/dL (70-110); POTASSIUM 3.4 mmol/L (3.5-5.1); SODIUM SERUM 136 mmol/L (136-145); UREA NITROGEN, BLOOD 5 mg/dL (7-18)
[2020-12-27 07:32] VITALS: BP 136/85
[2020-12-27] MEDS: DOXYCYCLINE HYCLATE 100 MG TABLET PO SCH (07:50)
[2020-12-27] MEDS: BENZONATATE 100 MG CAPSULE PO SCH ×2 (07:50→17:19)
[2020-12-27] MEDS: LEVOFLOXACIN 750 MG TABLET PO SCH (07:50)
[2020-12-27 10:58] VITALS: BP 132/78
[2020-12-27] MEDS ORDERED: BENZ-70 PO (13:11)
[2020-12-27] MEDS ORDERED: DOXY-354 PO (13:11)
[2020-12-27] MEDS ORDERED: LEVO750T68 PO (13:12)
[2020-12-27 15:53] VITALS: BP 128/66
== END 2020-12-27 19:10 | disposition home or self-care (01) | DRG 720 ==
LOC: EMS 11:39 → 6N 18:24 → 5S 20:20
PROVIDERS: ADMIT Internal Medicine; ATTEND Internal Medicine Geriatric Medicine
DX: A41.9 Sepsis, unspecified organism (principal); N17.9 Acute kidney failure, unspecified; J18.9 Pneumonia, unspecified organism; F25.9 Schizoaffective disorder, unspecified; D64.9 Anemia, unspecified; G80.9 Cerebral palsy, unspecified; Z20.822 Contact with and (suspected) exposure to COVID-19; E03.9 Hypothyroidism, unspecified; Z79.899 Other long term (current) drug therapy
CPT/HCPCS: 71045; 71250; 76770; 80048; 80053; 80061; 81001; 82271; 83605; 83735; 84145; 85014; 85018; 85025; 87040; 87045; 89055; 99285; A9575; G0480; J0696; J1200; J1630; J1644; J2060; J2543; J3370; J7030; J7060; 36415-L1; 36415-TC

== ENCOUNTER 2021-04-15 12:00 | Emergency (ER) | payer OTHER ==
[~2021-04-15] VITALS: Ht 154.9 cm; Wt 81.8 kg
[~2021-04-15 12:00] MED LIST changes: +BENZ-70 PO; +DOXY-354 PO; +LEVO750T68 PO
[2021-04-15] MEDS ORDERED: SODIUM CHLORIDE 0.9% 250 ML IRRIG SOLUTION BOTTLE IRRIG ONE (12:30)
[2021-04-15] MEDS ORDERED: LIDOCAINE 1% 10 ML VIAL ID ONE (12:45)
[2021-04-15 13:48] LABS: BASOPHILS % (AUTO) 0.3 % (0.0-2.0); EOSINOPHILS % (AUTO) 2.4 % (1.0-6.0); LYMPHOCYTES # (AUTO) 1.1 K/uL (1.0-4.8); LYMPHOCYTES % (AUTO) 17.3 % (22.0-44.0); MEAN CORPUSCULAR HEMOGLOBIN 30.7 pg (26.0-34.0); MEAN CORPUSCULAR HGB CONC 33.3 G/dL (31.0-37.0); MEAN CORPUSCULAR VOLUME 92 fL (80-100); MONOCYTES % (AUTO) 15.9 % (2.0-9.0); NEUTROPHILS # (AUTO) 3.9 K/uL (1.8-7.7); NEUTROPHILS % (AUTO) 64.1 % (40.0-70.0); PLATELET COUNT (AUTO) 242 K/uL (150-450); RED CELL DISTRIBUTION WIDTH 13.7 % (11.5-14.5)
[2021-04-15 13:56] LABS: ANION GAP 10 mmol/L (8-16); CALCIUM, TOTAL 9.7 mg/dL (8.8-10.5); CARBON DIOXIDE 21 mmol/L (22-29); CHLORIDE 106 mmol/L (98-107); CREATININE 1.24 mg/dL (0.60-1.30); GLOMERULAR FILTR. RATE CALC > 60 mL/min (>60); GLUCOSE,RANDOM 109 mg/dL (70-110); POTASSIUM 3.3 mmol/L (3.5-5.1); SODIUM SERUM 137 mmol/L (136-145); UREA NITROGEN, BLOOD 5 mg/dL (7-18)
[2021-04-15 13:59] LABS: LITHIUM 1.01 mmol/L (0.60-1.20)
[2021-04-15 14:04] LABS: ALANINE AMINOTRANSFERASE 25 U/L (12-78); ALBUMIN 3.7 g/dL (3.4-5.0); ALKALINE PHOSPHATASE 61 U/L (46-116); ASPARTATE AMINOTRANSFERASE 28 U/L (15-37); BILIRUBIN,TOTAL 0.3 mg/dL (0.1-1.0); VALPROIC ACID 84 mcg/mL (50-100)
[2021-04-15 15:00] VITALS: BP 122/75
== END 2021-04-15 19:18 | disposition home or self-care (01) ==
LOC: EMS 12:00
DX: S01.81XA Laceration without foreign body of other part of head, initial encounter (principal); G40.909 Epilepsy, unspecified, not intractable, without status epilepticus; W19.XXXA Unspecified fall, initial encounter; Y93.89 Activity, other specified; Y92.89 Other specified places as the place of occurrence of the external cause; Y99.8 Other external cause status
CPT/HCPCS: 12013; 36415; 70450; 80053; 80164; 80178; 85025; 99284; J3490

== ENCOUNTER 2021-05-23 19:53 | Emergency (ER) | payer OTHER ==
[~2021-05-23] VITALS: Ht 154.9 cm; Wt 81.8 kg
[2021-05-23] MEDS ORDERED: FOLI0.4T6 PO (20:16)
[2021-05-23] MEDS ORDERED: DIVA-80 PO (20:16)
[2021-05-23] MEDS ORDERED: MULT-1133 PO (20:16)
[2021-05-23] MEDS ORDERED: QUET100T PO (20:16)
[2021-05-23] MEDS ORDERED: QUET300T2 PO (20:16)
[2021-05-23] MEDS ORDERED: SIMV-259 PO (20:16)
[2021-05-23] MEDS ORDERED: TOPI25 PO (20:16)
[2021-05-23] MEDS ORDERED: FISH1CAP27 PO (20:16)
[2021-05-23] MEDS ORDERED: LEVO25TA9 PO (20:16)
[2021-05-23 20:18] LABS: BASOPHILS % (AUTO) 0.3 % (0.0-2.0); HEMATOCRIT 38.2 % (41-53); HEMOGLOBIN 12.6 g/dL (13.5-17.5); LYMPHOCYTES # (AUTO) 1.2 K/uL (1.0-4.8); LYMPHOCYTES % (AUTO) 16.4 % (22.0-44.0); MEAN CORPUSCULAR HEMOGLOBIN 30.5 pg (26.0-34.0); MEAN CORPUSCULAR HGB CONC 32.9 G/dL (31.0-37.0); MEAN CORPUSCULAR VOLUME 93 fL (80-100); MONOCYTES # (AUTO) 1.1 K/uL (0.1-1.0); MONOCYTES % (AUTO) 14.6 % (2.0-9.0); NEUTROPHILS # (AUTO) 4.9 K/uL (1.8-7.7); NEUTROPHILS % (AUTO) 66.7 % (40.0-70.0); PLATELET COUNT (AUTO) 240 K/uL (150-450); RED BLOOD CELL COUNT(AUTO) 4.12 MIL/uL (4.50-5.90); RED CELL DISTRIBUTION WIDTH 13.3 % (11.5-14.5)
[2021-05-23 20:33] LABS: ANION GAP 10 mmol/L (8-16); CALCIUM, TOTAL 9.6 mg/dL (8.8-10.5); CARBON DIOXIDE 24 mmol/L (22-29); CHLORIDE 107 mmol/L (98-107); CREATININE 1.11 mg/dL (0.60-1.30); GLOMERULAR FILTR. RATE CALC > 60 mL/min (>60); GLUCOSE,RANDOM 98 mg/dL (70-110); POTASSIUM 3.8 mmol/L (3.5-5.1); SODIUM SERUM 141 mmol/L (136-145); UREA NITROGEN, BLOOD 8 mg/dL (7-18)
[2021-05-23 20:40] LABS: ALANINE AMINOTRANSFERASE 20 U/L (12-78); ALBUMIN 3.6 g/dL (3.4-5.0); ALKALINE PHOSPHATASE 58 U/L (46-116); ASPARTATE AMINOTRANSFERASE 40 U/L (15-37); BILIRUBIN,TOTAL 0.3 mg/dL (0.1-1.0)
[2021-05-23 20:42] LABS: LITHIUM 0.85 mmol/L (0.60-1.20)
[2021-05-23 20:52] LABS: VALPROIC ACID 94 mcg/mL (50-100)
[2021-05-23 20:54] LABS: AMPHET/METH SCREEN,URINE NEGATIVE (NEGATIVE); BARBITURATE SCREEN, URINE NEGATIVE (NEGATIVE); BENZODIAZEPINES SCREEN,URINE NEGATIVE (NEGATIVE); CANNABINOID SCREEN,URINE NEGATIVE (NEGATIVE); COCAINE SCREEN,URINE NEGATIVE (NEGATIVE); METHADONE SCREEN, URINE NEGATIVE (NEGATIVE); OPIATE SCREEN,URINE NEGATIVE (NEGATIVE)
[2021-05-23 20:56] LABS: PHENCYCLIDINE SCREEN,URINE NEGATIVE (NEGATIVE)
[2021-05-23] MEDS ORDERED: LIDOCAINE 1% 10 ML VIAL SQ ONE (21:15)
[2021-05-23] MEDS ORDERED: BACITRACIN 0.9 GM PACKET OINTMENT TP ONE (21:15)
[2021-05-23 23:13] VITALS: BP 142/98
== END 2021-05-23 23:18 | disposition home or self-care (01) ==
LOC: EMS 20:10
DX: S01.81XA Laceration without foreign body of other part of head, initial encounter (principal); F25.0 Schizoaffective disorder, bipolar type; F31.9 Bipolar disorder, unspecified; Z79.899 Other long term (current) drug therapy; X79.XXXA Intentional self-harm by blunt object, initial encounter; Y93.89 Activity, other specified; Y92.89 Other specified places as the place of occurrence of the external cause; Y99.8 Other external cause status
CPT/HCPCS: 12013; 36415; 80053; 80164; 80178; 80307; 85025; 99285; G0480; J3490

== ENCOUNTER 2021-05-25 13:58 | Inpatient (IN) | payer MEDICAID, OTHER ==
[~2021-05-25] VITALS: Ht 154.9 cm; Wt 72.7 kg
[~2021-05-25 13:58] MED LIST changes: -BENZ-70 PO; -CITA-144 PO; -DIVA-111 PO; +DIVA-80 PO; -DOXY-354 PO; +FISH1CAP27 PO; +FOLI0.4T6 PO; -LEVO125T95 PO; +LEVO25TA9 PO; -LEVO750T68 PO; -LITH300C3 PO; +MULT-1133 PO; +QUET100T PO; -QUET200T PO; +QUET300T2 PO; +SIMV-259 PO; +TOPI25 PO
[2021-05-25] MEDS ORDERED: HALOPERIDOL 5 MG TABLET PO ONE (17:15)
[2021-05-25] MEDS ORDERED: LORazepam 1 MG TABLET PO ONE (17:15)
[2021-05-25 17:26] LABS: COVID AG,FIA SOURCE NASOPHARYNGEAL
[2021-05-25 17:27] LABS: BASOPHILS % (AUTO) 0.2 % (0.0-2.0); EOSINOPHILS % (AUTO) 0 % (1.0-6.0); HEMATOCRIT 37.6 % (41-53); HEMOGLOBIN 12.3 g/dL (13.5-17.5); LYMPHOCYTES # (AUTO) 0.8 K/uL (1.0-4.8); LYMPHOCYTES % (AUTO) 6.3 % (22.0-44.0); MEAN CORPUSCULAR HEMOGLOBIN 30.4 pg (26.0-34.0); MEAN CORPUSCULAR HGB CONC 32.8 G/dL (31.0-37.0); MEAN CORPUSCULAR VOLUME 93 fL (80-100); MONOCYTES # (AUTO) 1.5 K/uL (0.1-1.0); MONOCYTES % (AUTO) 12.5 % (2.0-9.0); PLATELET COUNT (AUTO) 264 K/uL (150-450); RED BLOOD CELL COUNT(AUTO) 4.06 MIL/uL (4.50-5.90)
[2021-05-25 17:38] LABS: ANION GAP 9 mmol/L (8-16); CALCIUM, TOTAL 9.5 mg/dL (8.8-10.5); CARBON DIOXIDE 24 mmol/L (22-29); CHLORIDE 106 mmol/L (98-107); CREATININE 1.19 mg/dL (0.60-1.30); GLOMERULAR FILTR. RATE CALC > 60 mL/min (>60); GLUCOSE,RANDOM 106 mg/dL (70-110); POTASSIUM 3.7 mmol/L (3.5-5.1); SODIUM SERUM 139 mmol/L (136-145); UREA NITROGEN, BLOOD 8 mg/dL (7-18)
[2021-05-25 17:44] LABS: ALANINE AMINOTRANSFERASE 27 U/L (12-78); ALBUMIN 3.8 g/dL (3.4-5.0); ALKALINE PHOSPHATASE 56 U/L (46-116); ASPARTATE AMINOTRANSFERASE 30 U/L (15-37); BILIRUBIN,TOTAL 0.3 mg/dL (0.1-1.0); TOTAL PROTEIN, SERUM 8.3 g/dL (6.4-8.2); VALPROIC ACID 65 mcg/mL (50-100)
[2021-05-25] MEDS ORDERED: HALOPERIDOL 5 MG TABLET PO PRN (18:00)
[2021-05-25] MEDS ORDERED: LORazepam 2 MG TABLET PO PRN (18:00)
[2021-05-25] MEDS ORDERED: ZOLPIDEM TARTRATE 10 MG TABLET PO PRN (18:00)
[2021-05-25 18:19] LABS: APPEARANCE,URINE CLEAR (CLEAR); BILIRUBIN,URINE NEGATIVE (NEGATIVE); GLUCOSE, URINE (UA) NEGATIVE (NEGATIVE); KETONES,URINE TRACE mg/dL (NEGATIVE); LEUKOCYTE ESTERASE ,URINE NEGATIVE (NEGATIVE); NITRATE,URINE NEGATIVE (NEGATIVE); OCCULT BLOOD,URINE TRACE (NEGATIVE); PROTEIN,URINE SEE CONFIRM (NEGATIVE); UROBILINOGEN,URINE 0.2 mg/dL (<=1.0)
[2021-05-25 18:26] LABS: SULFOSALICYLIC ACID,URINE 2+ (Negative)
[2021-05-25 18:27] LABS: BACTERIA,URINE None Seen /HPF (None Seen); RBC,URINE 0-2 /HPF (0-2); WBC,URINE None Seen /HPF (0-5)
[2021-05-25 18:39] LABS: AMPHET/METH SCREEN,URINE NEGATIVE (NEGATIVE); BARBITURATE SCREEN, URINE NEGATIVE (NEGATIVE); BENZODIAZEPINES SCREEN,URINE NEGATIVE (NEGATIVE); CANNABINOID SCREEN,URINE NEGATIVE (NEGATIVE); COCAINE SCREEN,URINE NEGATIVE (NEGATIVE); METHADONE SCREEN, URINE NEGATIVE (NEGATIVE); OPIATE SCREEN,URINE NEGATIVE (NEGATIVE)
[2021-05-25 18:46] LABS: PHENCYCLIDINE SCREEN,URINE NEGATIVE (NEGATIVE)
[2021-05-25 21:33] VITALS: BP 132/82
[2021-05-26 00:38] VITALS: BP 109/65
[2021-05-26] MEDS ORDERED: INFLUENZA VIRUS VACCINE QVS 2021-22 (6MO+)/PF 60 MCG/0.5 ML SYRINGE IM. ONE (04:30)
[2021-05-26] MEDS: LEVOTHYROXINE SODIUM 25 MCG TABLET PO SCH (06:22)
[2021-05-26 08:18] VITALS: BP 112/71
[2021-05-26] MEDS: MULTIVITAMINS WITH MINERALS, THERAPEUTIC TABLET PO SCH (08:26)
[2021-05-26] MEDS: FOLIC ACID 0.4 MG TABLET PO SCH (08:26)
[2021-05-26] MEDS: OMEGA-3/DHA/EPA/FISH OIL 1,000 MG CAPSULE PO SCH ×2 (08:26→16:20)
[2021-05-26 09:16] LABS: CHOL/HDL RATIO 2.9 (4.2-7.3); FREE T4 (FREE THYROXINE) 0.71 ng/dL (0.76-1.46); THYROID STIMULATING HORMONE 13.83 uIU/mL (0.36-3.74)
[2021-05-26] MEDS ORDERED: LORazepam 2 MG/ML VIAL IM ONE (12:15)
[2021-05-26] MEDS ORDERED: DiphenhydrAMINE HCL 50 MG/ML VIAL IM ONE (12:15)
[2021-05-26] MEDS ORDERED: HALOPERIDOL LACTATE 5 MG/ML VIAL IM ONE (12:15)
[2021-05-26 12:57] VITALS: BP 108/53
[2021-05-26] MEDS: CITALOPRAM HYDROBROMIDE 20 MG TABLET PO SCH (13:16)
[2021-05-26 16:13] VITALS: BP 118/68
[2021-05-26] MEDS: LITHIUM CARBONATE 300 MG CAPSULE PO SCH (16:20)
[2021-05-26] MEDS: TOPIRAMATE 100 MG TABLET PO SCH (16:20)
[2021-05-26] MEDS: SIMVASTATIN 10 MG TABLET PO SCH (21:54)
[2021-05-26] MEDS: DIVALPROEX SODIUM 500 MG DR TABLET PO SCH (21:54)
[2021-05-26] MEDS: QUEtiapine FUMARATE 300 MG TABLET PO SCH (21:54)
[2021-05-27 05:48] VITALS: BP 101/65
[2021-05-27] MEDS: LEVOTHYROXINE SODIUM 25 MCG TABLET PO SCH (06:30)
[2021-05-27] MEDS: LITHIUM CARBONATE 300 MG CAPSULE PO SCH ×3 (07:00→16:29)
[2021-05-27] MEDS: MULTIVITAMINS WITH MINERALS, THERAPEUTIC TABLET PO SCH (09:00)
[2021-05-27] MEDS: OMEGA-3/DHA/EPA/FISH OIL 1,000 MG CAPSULE PO SCH ×2 (09:00→16:29)
[2021-05-27] MEDS: CITALOPRAM HYDROBROMIDE 20 MG TABLET PO SCH (10:09)
[2021-05-27] MEDS: FOLIC ACID 0.4 MG TABLET PO SCH (10:09)
[2021-05-27] MEDS: TOPIRAMATE 100 MG TABLET PO SCH ×2 (13:34→16:29)
[2021-05-27 16:14] VITALS: BP 134/87
[2021-05-27] MEDS: QUEtiapine FUMARATE 300 MG TABLET PO SCH (20:38)
[2021-05-27] MEDS: SIMVASTATIN 10 MG TABLET PO SCH (20:38)
[2021-05-27] MEDS: DIVALPROEX SODIUM 500 MG DR TABLET PO SCH (20:39)
[2021-05-28 05:37] VITALS: BP 121/68
[2021-05-28] MEDS: LITHIUM CARBONATE 300 MG CAPSULE PO SCH ×3 (06:23→16:48)
[2021-05-28] MEDS: LEVOTHYROXINE SODIUM 25 MCG TABLET PO SCH (06:23)
[2021-05-28 08:18] VITALS: BP 131/84
[2021-05-28] MEDS: FOLIC ACID 0.4 MG TABLET PO SCH (08:31)
[2021-05-28] MEDS: MULTIVITAMINS WITH MINERALS, THERAPEUTIC TABLET PO SCH (08:31)
[2021-05-28] MEDS: OMEGA-3/DHA/EPA/FISH OIL 1,000 MG CAPSULE PO SCH ×2 (08:31→16:48)
[2021-05-28] MEDS: CITALOPRAM HYDROBROMIDE 20 MG TABLET PO SCH (08:31)
[2021-05-28] MEDS: TOPIRAMATE 100 MG TABLET PO SCH ×2 (08:31→16:48)
[2021-05-28 16:14] VITALS: BP 124/83
[2021-05-28] MEDS: SIMVASTATIN 10 MG TABLET PO SCH (20:58)
[2021-05-28] MEDS: QUEtiapine FUMARATE 300 MG TABLET PO SCH (20:58)
[2021-05-28] MEDS: DIVALPROEX SODIUM 500 MG DR TABLET PO SCH (20:58)
[2021-05-29] MEDS: LITHIUM CARBONATE 300 MG CAPSULE PO SCH ×3 (06:22→17:12)
[2021-05-29] MEDS: LEVOTHYROXINE SODIUM 25 MCG TABLET PO SCH (06:22)
[2021-05-29] MEDS: OMEGA-3/DHA/EPA/FISH OIL 1,000 MG CAPSULE PO SCH ×2 (08:48→17:11)
[2021-05-29] MEDS: CITALOPRAM HYDROBROMIDE 20 MG TABLET PO SCH (08:48)
[2021-05-29] MEDS: MULTIVITAMINS WITH MINERALS, THERAPEUTIC TABLET PO SCH (08:48)
[2021-05-29] MEDS: TOPIRAMATE 100 MG TABLET PO SCH ×2 (08:48→17:12)
[2021-05-29] MEDS: FOLIC ACID 0.4 MG TABLET PO SCH (08:48)
[2021-05-29 16:13] VITALS: BP 138/86
[2021-05-29] MEDS: QUEtiapine FUMARATE 300 MG TABLET PO SCH (20:20)
[2021-05-29] MEDS: SIMVASTATIN 10 MG TABLET PO SCH (20:21)
[2021-05-29] MEDS: DIVALPROEX SODIUM 500 MG DR TABLET PO SCH (20:22)
[2021-05-30 01:39] VITALS: BP 106/66
[2021-05-30] MEDS: LEVOTHYROXINE SODIUM 25 MCG TABLET PO SCH (06:08)
[2021-05-30] MEDS: LITHIUM CARBONATE 300 MG CAPSULE PO SCH ×3 (06:09→16:40)
[2021-05-30] MEDS: FOLIC ACID 0.4 MG TABLET PO SCH (09:00)
[2021-05-30] MEDS: TOPIRAMATE 100 MG TABLET PO SCH ×2 (09:35→16:40)
[2021-05-30] MEDS: MULTIVITAMINS WITH MINERALS, THERAPEUTIC TABLET PO SCH (09:35)
[2021-05-30] MEDS: OMEGA-3/DHA/EPA/FISH OIL 1,000 MG CAPSULE PO SCH ×2 (09:35→17:22)
[2021-05-30] MEDS: CITALOPRAM HYDROBROMIDE 20 MG TABLET PO SCH (09:35)
[2021-05-30 14:35] VITALS: BP 132/81
[2021-05-30] MEDS ORDERED: TOPI100T37 PO (14:56)
[2021-05-30] MEDS ORDERED: DIVA-112 PO (14:56)
[2021-05-30] MEDS ORDERED: CITA-144 PO (14:56)
[2021-05-30] MEDS ORDERED: LACTULOSE 20 GM/30 ML SOLUTION UDCUP PO PRN (15:00)
[2021-05-30] MEDS ORDERED: BISACODYL 5 MG EC TABLET PO PRN (15:00)
[2021-05-30] MEDS: DOCUSATE SODIUM 250 MG CAPSULE PO SCH (16:40)
[2021-05-30 17:26] VITALS: BP 138/94
[2021-05-30] MEDS: SIMVASTATIN 10 MG TABLET PO SCH (20:12)
[2021-05-30] MEDS: DIVALPROEX SODIUM 500 MG DR TABLET PO SCH (20:12)
[2021-05-30] MEDS: QUEtiapine FUMARATE 300 MG TABLET PO SCH (20:12)
[2021-05-31 06:07] VITALS: BP 148/72
[2021-05-31] MEDS: LEVOTHYROXINE SODIUM 25 MCG TABLET PO SCH (06:56)
[2021-05-31] MEDS: LITHIUM CARBONATE 300 MG CAPSULE PO SCH ×3 (06:56→17:46)
[2021-05-31 08:17] VITALS: BP 129/83
[2021-05-31] MEDS: DOCUSATE SODIUM 250 MG CAPSULE PO SCH ×2 (09:11→17:46)
[2021-05-31] MEDS: OMEGA-3/DHA/EPA/FISH OIL 1,000 MG CAPSULE PO SCH ×2 (09:11→18:03)
[2021-05-31] MEDS: TOPIRAMATE 100 MG TABLET PO SCH ×2 (09:11→17:46)
[2021-05-31] MEDS: FOLIC ACID 0.4 MG TABLET PO SCH (09:11)
[2021-05-31] MEDS: CITALOPRAM HYDROBROMIDE 20 MG TABLET PO SCH (09:12)
[2021-05-31] MEDS: MULTIVITAMINS WITH MINERALS, THERAPEUTIC TABLET PO SCH (09:12)
[2021-05-31 16:11] VITALS: BP 121/73
[2021-05-31] MEDS: SIMVASTATIN 10 MG TABLET PO SCH (22:18)
[2021-05-31] MEDS: QUEtiapine FUMARATE 300 MG TABLET PO SCH (22:19)
[2021-05-31] MEDS: DIVALPROEX SODIUM 500 MG DR TABLET PO SCH (22:19)
[2021-06-01 06:11] VITALS: BP 128/75
[2021-06-01] MEDS: LEVOTHYROXINE SODIUM 25 MCG TABLET PO SCH (06:30)
[2021-06-01] MEDS: LITHIUM CARBONATE 300 MG CAPSULE PO SCH ×2 (07:00→12:04)
[2021-06-01] MEDS: OMEGA-3/DHA/EPA/FISH OIL 1,000 MG CAPSULE PO SCH (08:20)
[2021-06-01] MEDS: MULTIVITAMINS WITH MINERALS, THERAPEUTIC TABLET PO SCH (08:20)
[2021-06-01] MEDS: TOPIRAMATE 100 MG TABLET PO SCH (08:20)
[2021-06-01] MEDS: CITALOPRAM HYDROBROMIDE 20 MG TABLET PO SCH (08:20)
[2021-06-01] MEDS: FOLIC ACID 0.4 MG TABLET PO SCH (08:20)
[2021-06-01] MEDS: DOCUSATE SODIUM 250 MG CAPSULE PO SCH (08:20)
[2021-06-01 09:34] VITALS: BP 130/81
[2021-06-01] MEDS ORDERED: TOPI100T37 PO (10:48)
[2021-06-01] MEDS ORDERED: CITA-144 PO (10:49)
[2021-06-01] MEDS ORDERED: QUET300T2 PO (10:49)
[2021-06-01] MEDS ORDERED: DIVA-80 PO (10:50)
[2021-06-01] MEDS ORDERED: LITH300C3 PO (10:50)
[2021-06-01] MEDS ORDERED: PALI156D IM (10:53)
[2021-06-01] MEDS ORDERED: LEVO125T95 PO (10:54)
[2021-06-01] MEDS ORDERED: OMEG-135 PO (10:55)
[2021-06-01] MEDS ORDERED: FOLI0.4T6 PO (10:55)
[2021-06-01] MEDS ORDERED: MULT-413 PO (10:55)
[2021-06-01] MEDS ORDERED: DOCU-350 PO (10:55)
[2021-06-01] MEDS ORDERED: SIMV-259 PO (10:56)
[2021-06-02] MEDS ORDERED: PALIPERIDONE PALMITATE 156 MG/ML SYRINGE IM ONE (09:00)
== END 2021-06-01 13:48 | disposition home or self-care (01) | DRG 750 ==
LOC: EMS 14:02 → B3A 18:36
PROVIDERS: ADMIT Psychiatry & Neurology Psychiatry; ATTEND Psychiatry & Neurology Psychiatry
DX: F25.0 Schizoaffective disorder, bipolar type (principal); F70 Mild intellectual disabilities; E03.9 Hypothyroidism, unspecified; E78.5 Hyperlipidemia, unspecified; Z20.822 Contact with and (suspected) exposure to COVID-19; W22.01XA Walked into wall, initial encounter; G80.9 Cerebral palsy, unspecified; S00.83XA Contusion of other part of head, initial encounter; Z28.21 Immunization not carried out because of patient refusal; Y92.89 Other specified places as the place of occurrence of the external cause; Z79.899 Other long term (current) drug therapy
CPT/HCPCS: 80053; 80061; 80164; 81001; 81002; 84439; 84443; 85025; 99285; G0480; J1200; J1630; J2060

== ENCOUNTER 2021-06-03 11:21 | Inpatient (IN) | payer MEDICAID, OTHER ==
[~2021-06-03] VITALS: Ht 162.6 cm; Wt 68.3 kg
[~2021-06-03 11:21] MED LIST changes: +CITA-144 PO; +DOCU-350 PO; -FISH1CAP27 PO; +LEVO125T95 PO; -LEVO25TA9 PO; +LITH300C3 PO; -MULT-1133 PO; +MULT-413 PO; +OMEG-135 PO; +PALI156D IM; -QUET100T PO; +TOPI100T37 PO; -TOPI25 PO
[2021-06-03] MEDS ORDERED: LEVO25TA9 PO (11:26)
[2021-06-03] MEDS ORDERED: LORazepam 2 MG/ML VIAL IM ONE (11:30)
[2021-06-03] MEDS ORDERED: DiphenhydrAMINE HCL 50 MG/ML VIAL IM ONE (11:30)
[2021-06-03] MEDS ORDERED: HALOPERIDOL LACTATE 5 MG/ML VIAL IM ONE (11:30)
[2021-06-03 12:36] LABS: COVID AG,FIA SOURCE NASOPHARYNGEAL
[2021-06-03 12:46] LABS: AMPHET/METH SCREEN,URINE NEGATIVE (NEGATIVE); BARBITURATE SCREEN, URINE NEGATIVE (NEGATIVE); BENZODIAZEPINES SCREEN,URINE NEGATIVE (NEGATIVE); CANNABINOID SCREEN,URINE NEGATIVE (NEGATIVE); COCAINE SCREEN,URINE NEGATIVE (NEGATIVE); METHADONE SCREEN, URINE NEGATIVE (NEGATIVE); OPIATE SCREEN,URINE NEGATIVE (NEGATIVE)
[2021-06-03 12:51] LABS: PHENCYCLIDINE SCREEN,URINE NEGATIVE (NEGATIVE)
[2021-06-03 13:02] LABS: ANION GAP 7 mmol/L (8-16); BASOPHILS % (AUTO) 0.3 % (0.0-2.0); CALCIUM, TOTAL 9.8 mg/dL (8.8-10.5); CARBON DIOXIDE 25 mmol/L (22-29); CHLORIDE 111 mmol/L (98-107); CREATININE 1.11 mg/dL (0.60-1.30); EOSINOPHILS % (AUTO) 0.9 % (1.0-6.0); GLOMERULAR FILTR. RATE CALC > 60 mL/min (>60); GLUCOSE,RANDOM 110 mg/dL (70-110); HEMATOCRIT 36.2 % (41-53); HEMOGLOBIN 12.2 g/dL (13.5-17.5); LYMPHOCYTES # (AUTO) 0.9 K/uL (1.0-4.8); LYMPHOCYTES % (AUTO) 11.2 % (22.0-44.0); MEAN CORPUSCULAR HEMOGLOBIN 30.8 pg (26.0-34.0); MEAN CORPUSCULAR HGB CONC 33.7 G/dL (31.0-37.0); MEAN CORPUSCULAR VOLUME 92 fL (80-100); MONOCYTES % (AUTO) 12.2 % (2.0-9.0); NEUTROPHILS # (AUTO) 5.9 K/uL (1.8-7.7); NEUTROPHILS % (AUTO) 75.4 % (40.0-70.0); PLATELET COUNT (AUTO) 300 K/uL (150-450); POTASSIUM 3.9 mmol/L (3.5-5.1); RED BLOOD CELL COUNT(AUTO) 3.96 MIL/uL (4.50-5.90); RED CELL DISTRIBUTION WIDTH 13.6 % (11.5-14.5); SODIUM SERUM 143 mmol/L (136-145); UREA NITROGEN, BLOOD 9 mg/dL (7-18)
[2021-06-03 13:07] LABS: ALANINE AMINOTRANSFERASE 39 U/L (12-78); ALBUMIN 4.1 g/dL (3.4-5.0); ALKALINE PHOSPHATASE 60 U/L (46-116); ASPARTATE AMINOTRANSFERASE 31 U/L (15-37); BILIRUBIN,TOTAL 0.3 mg/dL (0.1-1.0); TOTAL PROTEIN, SERUM 8.4 g/dL (6.4-8.2); VALPROIC ACID 5 mcg/mL (50-100)
[2021-06-03] MEDS ORDERED: ZOLPIDEM TARTRATE 10 MG TABLET PO PRN (22:15)
[2021-06-03] MEDS ORDERED: HALOPERIDOL 5 MG TABLET PO PRN (22:15)
[2021-06-03] MEDS ORDERED: LORazepam 2 MG TABLET PO PRN (22:15)
[2021-06-04 07:02] LABS: CHOL/HDL RATIO 2.6 (4.2-7.3); CHOLESTEROL 197 mg/dL (131-200); HDL CHOLESTEROL 77 mg/dL (40-60); LDL CHOL (CALC.) 92 mg/dL (0-130); TRIGLYCERIDES 138 mg/dL (15-150)
[2021-06-04] MEDS ORDERED: HALOPERIDOL LACTATE 5 MG/ML VIAL IM ONE (10:45)
[2021-06-04] MEDS ORDERED: LORazepam 2 MG/ML VIAL IM ONE (10:45)
[2021-06-04] MEDS ORDERED: DiphenhydrAMINE HCL 50 MG/ML VIAL IM ONE (10:45)
[2021-06-04 10:47] LABS: APPEARANCE,URINE CLEAR (CLEAR); BILIRUBIN,URINE NEGATIVE (NEGATIVE); GLUCOSE, URINE (UA) NEGATIVE (NEGATIVE); KETONES,URINE NEGATIVE (NEGATIVE); LEUKOCYTE ESTERASE ,URINE NEGATIVE (NEGATIVE); NITRATE,URINE NEGATIVE (NEGATIVE); OCCULT BLOOD,URINE NEGATIVE (NEGATIVE); PH,URINE 6.5 (5.0-8.0); PROTEIN,URINE NEGATIVE (NEGATIVE); UROBILINOGEN,URINE 0.2 mg/dL (<=1.0)
[2021-06-04] MEDS ORDERED: INFLUENZA VIRUS VACCINE QVS 2021-22 (6MO+)/PF 60 MCG/0.5 ML SYRINGE IM. ONE (20:00)
[2021-06-04] MEDS: DIVALPROEX SODIUM 500 MG DR TABLET PO SCH (20:05)
[2021-06-04] MEDS: SIMVASTATIN 10 MG TABLET PO SCH (20:05)
[2021-06-04] MEDS: QUEtiapine FUMARATE 300 MG TABLET PO SCH (20:05)
[2021-06-04 20:30] VITALS: BP 132/88
[2021-06-05] MEDS: LEVOTHYROXINE SODIUM 25 MCG TABLET PO SCH (06:45)
[2021-06-05] MEDS: LITHIUM CARBONATE 300 MG CAPSULE PO SCH ×3 (06:45→16:23)
[2021-06-05] MEDS: FOLIC ACID 0.4 MG TABLET PO SCH (08:32)
[2021-06-05] MEDS: TOPIRAMATE 100 MG TABLET PO SCH ×2 (08:32→16:23)
[2021-06-05] MEDS: DOCUSATE SODIUM 250 MG CAPSULE PO SCH ×2 (08:32→16:23)
[2021-06-05] MEDS: CITALOPRAM HYDROBROMIDE 20 MG TABLET PO SCH (08:32)
[2021-06-05] MEDS: OMEGA-3/DHA/EPA/FISH OIL 1,000 MG CAPSULE PO SCH ×2 (08:32→16:29)
[2021-06-05] MEDS: MULTIVITAMINS, THERAPEUTIC TABLET PO SCH (08:32)
[2021-06-05] MEDS ORDERED: TOPIRAMATE 100 MG TABLET PO SCH (09:00)
[2021-06-05 11:11] VITALS: BP 106/69
[2021-06-05 16:09] VITALS: BP 110/73
[2021-06-05] MEDS: QUEtiapine FUMARATE 300 MG TABLET PO SCH (21:22)
[2021-06-05] MEDS: DIVALPROEX SODIUM 500 MG DR TABLET PO SCH (21:23)
[2021-06-05] MEDS: SIMVASTATIN 10 MG TABLET PO SCH (21:23)
[2021-06-06] MEDS: LEVOTHYROXINE SODIUM 25 MCG TABLET PO SCH (06:53)
[2021-06-06] MEDS: LITHIUM CARBONATE 300 MG CAPSULE PO SCH ×3 (06:54→16:36)
[2021-06-06 08:17] VITALS: BP 89/61
[2021-06-06] MEDS: FOLIC ACID 0.4 MG TABLET PO SCH (09:18)
[2021-06-06] MEDS: MULTIVITAMINS, THERAPEUTIC TABLET PO SCH (09:21)
[2021-06-06] MEDS: OMEGA-3/DHA/EPA/FISH OIL 1,000 MG CAPSULE PO SCH ×2 (09:21→16:36)
[2021-06-06] MEDS: TOPIRAMATE 100 MG TABLET PO SCH ×2 (09:22→16:36)
[2021-06-06] MEDS: CITALOPRAM HYDROBROMIDE 20 MG TABLET PO SCH (09:22)
[2021-06-06] MEDS: DOCUSATE SODIUM 250 MG CAPSULE PO SCH ×2 (09:22→16:36)
[2021-06-06 17:14] VITALS: BP 141/57
[2021-06-06] MEDS: QUEtiapine FUMARATE 300 MG TABLET PO SCH (20:56)
[2021-06-06] MEDS: DIVALPROEX SODIUM 500 MG DR TABLET PO SCH (20:56)
[2021-06-06] MEDS: SIMVASTATIN 10 MG TABLET PO SCH (20:57)
[2021-06-07] MEDS: LEVOTHYROXINE SODIUM 25 MCG TABLET PO SCH (07:07)
[2021-06-07] MEDS: LITHIUM CARBONATE 300 MG CAPSULE PO SCH ×3 (07:07→16:31)
[2021-06-07 08:33] VITALS: BP 106/63
[2021-06-07] MEDS: DOCUSATE SODIUM 250 MG CAPSULE PO SCH ×2 (09:56→16:31)
[2021-06-07] MEDS: MULTIVITAMINS, THERAPEUTIC TABLET PO SCH (09:56)
[2021-06-07] MEDS: CITALOPRAM HYDROBROMIDE 20 MG TABLET PO SCH (09:57)
[2021-06-07] MEDS: OMEGA-3/DHA/EPA/FISH OIL 1,000 MG CAPSULE PO SCH ×2 (09:57→16:31)
[2021-06-07] MEDS: TOPIRAMATE 100 MG TABLET PO SCH ×2 (09:57→16:31)
[2021-06-07] MEDS: FOLIC ACID 0.4 MG TABLET PO SCH (09:58)
[2021-06-07 16:58] VITALS: BP 136/79
[2021-06-07] MEDS: DIVALPROEX SODIUM 500 MG DR TABLET PO SCH (20:51)
[2021-06-07] MEDS: SIMVASTATIN 10 MG TABLET PO SCH (20:51)
[2021-06-07] MEDS: QUEtiapine FUMARATE 300 MG TABLET PO SCH (20:52)
[2021-06-08] MEDS: LEVOTHYROXINE SODIUM 25 MCG TABLET PO SCH (06:53)
[2021-06-08] MEDS: LITHIUM CARBONATE 300 MG CAPSULE PO SCH ×2 (06:53→13:07)
[2021-06-08 08:57] VITALS: BP 132/72
[2021-06-08] MEDS: OMEGA-3/DHA/EPA/FISH OIL 1,000 MG CAPSULE PO SCH (11:18)
[2021-06-08] MEDS: CITALOPRAM HYDROBROMIDE 20 MG TABLET PO SCH (11:18)
[2021-06-08] MEDS: TOPIRAMATE 100 MG TABLET PO SCH (11:18)
[2021-06-08] MEDS: MULTIVITAMINS, THERAPEUTIC TABLET PO SCH (11:18)
[2021-06-08] MEDS: DOCUSATE SODIUM 250 MG CAPSULE PO SCH (11:21)
[2021-06-08] MEDS: FOLIC ACID 0.4 MG TABLET PO SCH (13:06)
[2021-06-10] MEDS ORDERED: PALIPERIDONE PALMITATE 156 MG/ML SYRINGE IM SCH (09:00)
== END 2021-06-08 13:45 | disposition home or self-care (01) | DRG 750 ==
LOC: EMS 11:23 → 3EC 18:49 → UNDOADMIN 18:49 → 3EC 06-04 05:04 → AHU 06-04 09:12 → 3EC 06-04 18:05
PROVIDERS: ADMIT Psychiatry & Neurology Psychiatry; ATTEND Psychiatry & Neurology Psychiatry
DX: F25.0 Schizoaffective disorder, bipolar type (principal); R45.851 Suicidal ideations; E03.9 Hypothyroidism, unspecified; G80.9 Cerebral palsy, unspecified; Z20.822 Contact with and (suspected) exposure to COVID-19; E78.5 Hyperlipidemia, unspecified
CPT/HCPCS: 80053; 80061; 80164; 80178; 81003; 85025; 99291; G0480; J1200; J1630; J2060

== ENCOUNTER 2021-12-01 14:56 | Emergency (ER) | payer MEDICAID, OTHER ==
[~2021-12-01] VITALS: Ht 160 cm; Wt 86.4 kg
[~2021-12-01 14:56] MED LIST changes: -FOLI0.4T6 PO; -LEVO125T95 PO; +LEVO25TA9 PO; -MULT-413 PO; +OMEG-108 PO; -OMEG-135 PO; -PALI156D IM
[2021-12-01 15:10] VITALS: BP 143/99
== END 2021-12-01 16:44 | disposition home or self-care (01) ==
LOC: EMS 15:00
DX: R04.0 Epistaxis (principal); F20.9 Schizophrenia, unspecified; G80.9 Cerebral palsy, unspecified; I34.0 Nonrheumatic mitral (valve) insufficiency; Z86.59 Personal history of other mental and behavioral disorders
CPT/HCPCS: 99283

== ENCOUNTER 2022-04-08 18:47 | Emergency (ER) | payer OTHER ==
[~2022-04-08] VITALS: Ht 165.1 cm; Wt 104.5 kg
[~2022-04-08 18:47] MED LIST changes: -OMEG-108 PO; +OMEG-135 PO
[2022-04-08] MEDS ORDERED: LORazepam 2 MG TABLET PO ONE (20:15)
[2022-04-08] MEDS ORDERED: BACITRACIN 0.9 GM PACKET OINTMENT TP ONE (20:15)
[2022-04-08 20:36] LABS: BASOPHILS % (AUTO) 0.4 % (0.0-2.0); EOSINOPHILS % (AUTO) 1.1 % (1.0-6.0); HEMATOCRIT 37.2 % (41-53); HEMOGLOBIN 12.2 g/dL (13.5-17.5); LYMPHOCYTES # (AUTO) 1.2 K/uL (1.0-4.8); LYMPHOCYTES % (AUTO) 8.7 % (22.0-44.0); MEAN CORPUSCULAR HEMOGLOBIN 28.8 pg (26.0-34.0); MEAN CORPUSCULAR HGB CONC 32.7 G/dL (31.0-37.0); MEAN CORPUSCULAR VOLUME 88 fL (80-100); MONOCYTES # (AUTO) 0.9 K/uL (0.1-1.0); MONOCYTES % (AUTO) 6.5 % (2.0-9.0); NEUTROPHILS # (AUTO) 11.6 K/uL (1.8-7.7); NEUTROPHILS % (AUTO) 83.3 % (40.0-70.0); PLATELET COUNT (AUTO) 377 K/uL (150-450); RED BLOOD CELL COUNT(AUTO) 4.23 MIL/uL (4.50-5.90); RED CELL DISTRIBUTION WIDTH 13.1 % (11.5-14.5)
[2022-04-08 20:45] LABS: ANION GAP 9 mmol/L (8-16); CARBON DIOXIDE 25 mmol/L (22-29); CHLORIDE 106 mmol/L (98-107); CREATININE 1.65 mg/dL (0.60-1.30); GLOMERULAR FILTR. RATE CALC 51 mL/min (>60); GLUCOSE,RANDOM 104 mg/dL (70-110); POTASSIUM 3.2 mmol/L (3.5-5.1); SODIUM SERUM 140 mmol/L (136-145); UREA NITROGEN, BLOOD 11 mg/dL (7-18)
[2022-04-08 20:50] LABS: LITHIUM 0.95 mmol/L (0.60-1.20)
[2022-04-08 20:51] LABS: ALANINE AMINOTRANSFERASE 43 U/L (12-78); ALBUMIN 3.9 g/dL (3.4-5.0); ALKALINE PHOSPHATASE 68 U/L (46-116); ASPARTATE AMINOTRANSFERASE 23 U/L (15-37); BILIRUBIN,TOTAL 0.2 mg/dL (0.1-1.0); CALCIUM, TOTAL 9.4 mg/dL (8.8-10.5); TOTAL PROTEIN, SERUM 8.1 g/dL (6.4-8.2)
[2022-04-08 20:51] LABS: AMPHET/METH SCREEN,URINE NEGATIVE (NEGATIVE); BARBITURATE SCREEN, URINE NEGATIVE (NEGATIVE); BENZODIAZEPINES SCREEN,URINE NEGATIVE (NEGATIVE); CANNABINOID SCREEN,URINE NEGATIVE (NEGATIVE); COCAINE SCREEN,URINE NEGATIVE (NEGATIVE); METHADONE SCREEN, URINE NEGATIVE (NEGATIVE); OPIATE SCREEN,URINE NEGATIVE (NEGATIVE)
[2022-04-08 20:54] LABS: PHENCYCLIDINE SCREEN,URINE NEGATIVE (NEGATIVE)
[2022-04-08 21:06] LABS: VALPROIC ACID < 3 mcg/mL (50-100)
[2022-04-08 22:02] LABS: COVID AG,FIA SOURCE NASOPHARYNGEAL
[2022-04-08 23:05] VITALS: BP 146/87
== END 2022-04-08 23:36 | disposition home or self-care (01) ==
LOC: EMS 18:47
DX: S00.83XA Contusion of other part of head, initial encounter (principal); Z20.822 Contact with and (suspected) exposure to COVID-19; F20.9 Schizophrenia, unspecified; F69 Unspecified disorder of adult personality and behavior; G80.9 Cerebral palsy, unspecified; X58.XXXA Exposure to other specified factors, initial encounter; Y93.89 Activity, other specified; Y92.89 Other specified places as the place of occurrence of the external cause; Y99.8 Other external cause status; Z86.59 Personal history of other mental and behavioral disorders
CPT/HCPCS: 99285; 87426; 80053; 80164; 80178; 85025; 36415; 80307; G0480

== ENCOUNTER 2023-02-19 18:43 | Inpatient (IN) | payer MEDICAID, OTHER ==
[~2023-02-19] VITALS: Ht 157.5 cm; Wt 80.0 kg
[~2023-02-19 18:43] MED LIST changes: -DIVA-80 PO; +DIVA500T53 PO; -DOCU-350 PO; +DOCU-352 PO
[2023-02-19 20:31] LABS: BASOPHILS % (AUTO) 0.9 % (0.0-2.0); EOSINOPHILS % (AUTO) 1.2 % (1.0-6.0); HEMATOCRIT 35.9 % (41-53); HEMOGLOBIN 11.7 g/dL (13.5-17.5); LYMPHOCYTES # (AUTO) 1.8 K/uL (1.0-4.8); LYMPHOCYTES % (AUTO) 11.4 % (22.0-44.0); MEAN CORPUSCULAR HEMOGLOBIN 29.2 pg (26.0-34.0); MEAN CORPUSCULAR HGB CONC 32.5 G/dL (31.0-37.0); MEAN CORPUSCULAR VOLUME 90 fL (80-100); MONOCYTES # (AUTO) 0.9 K/uL (0.1-1.0); MONOCYTES % (AUTO) 5.9 % (2.0-9.0); NEUTROPHILS # (AUTO) 12.4 K/uL (1.8-7.7); NEUTROPHILS % (AUTO) 80.6 % (40.0-70.0); PLATELET COUNT (AUTO) 317 K/uL (150-450); RED CELL DISTRIBUTION WIDTH 14.1 % (11.5-14.5); WHITE BLOOD COUNT (AUTO) 15.4 K/uL (4.5-11.0)
[2023-02-19 20:41] LABS: ANION GAP 11 mmol/L (8-16); CALCIUM, TOTAL 9.8 mg/dL (8.8-10.5); CARBON DIOXIDE 21 mmol/L (22-29); CHLORIDE 104 mmol/L (98-107); CREATININE 1.11 mg/dL (0.60-1.30); GLOMERULAR FILTR. RATE CALC > 60 mL/min (>60); GLUCOSE,RANDOM 110 mg/dL (70-110); POTASSIUM 3.3 mmol/L (3.5-5.1); SODIUM SERUM 136 mmol/L (136-145); UREA NITROGEN, BLOOD 8 mg/dL (7-18)
[2023-02-19 20:44] LABS: ALCOHOL, BLOOD (SERUM) < 3 mg/dL (0-10)
[2023-02-19 20:46] LABS: ALANINE AMINOTRANSFERASE 33 U/L (12-78); ALBUMIN 3.8 g/dL (3.4-5.0); ALKALINE PHOSPHATASE 72 U/L (46-116); ASPARTATE AMINOTRANSFERASE 25 U/L (15-37); BILIRUBIN,TOTAL 0.2 mg/dL (0.1-1.0); TOTAL PROTEIN, SERUM 7.6 g/dL (6.4-8.2)
[2023-02-19 20:58] LABS: COVID AG,FIA SOURCE NASOPHARYNGEAL
[2023-02-19 21:20] LABS: SARS-COV2 (COVID) ANTIGEN,FIA Negative (Negative)
[2023-02-20 02:04] VITALS: BP 129/83; PULSE 99; RESP 20; TEMP 96.8
[2023-02-20] MEDS ORDERED: HALOPERIDOL LACTATE 5 MG/ML VIAL IM ONE (08:15)
[2023-02-20] MEDS ORDERED: LORazepam 2 MG/ML VIAL IM ONE (08:15)
[2023-02-20] MEDS ORDERED: DiphenhydrAMINE HCL 50 MG/ML VIAL IM ONE (08:15)
[2023-02-20] MEDS ORDERED: LORazepam 2 MG/ML VIAL ONE (08:17)
[2023-02-20] MEDS ORDERED: DiphenhydrAMINE HCL 50 MG/ML VIAL ONE (08:17)
[2023-02-20] MEDS ORDERED: HALOPERIDOL LACTATE 5 MG/ML VIAL ONE (08:17)
[2023-02-20] MEDS: QUEtiapine FUMARATE 300 MG TABLET PO SCH ×2 (13:40→21:45)
[2023-02-20] MEDS: LITHIUM CARBONATE 450 MG ER TABLET PO SCH (13:41)
[2023-02-20] MEDS: CITALOPRAM HYDROBROMIDE 20 MG TABLET PO SCH (13:42)
[2023-02-20 17:14] VITALS: BP 137/90; PULSE 78; TEMP 97.4
[2023-02-20] MEDS: TOPIRAMATE 25 MG TABLET PO SCH (17:37)
[2023-02-20 20:08] VITALS: BP 130/85; PULSE 76; RESP 17; TEMP 97.6
[2023-02-20] MEDS: HALOPERIDOL 5 MG TABLET PO PRN (20:17)
[2023-02-20] MEDS: LORazepam 2 MG TABLET PO PRN (20:17)
[2023-02-20] MEDS: DIVALPROEX SODIUM 500 MG ER TABLET PO SCH (21:45)
[2023-02-20] MEDS: ZOLPIDEM TARTRATE 10 MG TABLET PO PRN (21:46)
[2023-02-21] MEDS: TOPIRAMATE 25 MG TABLET PO SCH ×2 (07:36→16:35)
[2023-02-21] MEDS: HALOPERIDOL 5 MG TABLET PO PRN ×3 (07:37→20:45)
[2023-02-21] MEDS: QUEtiapine FUMARATE 300 MG TABLET PO SCH ×2 (07:37→20:13)
[2023-02-21] MEDS: CITALOPRAM HYDROBROMIDE 20 MG TABLET PO SCH (07:37)
[2023-02-21] MEDS: LORazepam 2 MG TABLET PO PRN ×3 (07:37→20:45)
[2023-02-21] MEDS: LITHIUM CARBONATE 450 MG ER TABLET PO SCH ×2 (07:38→16:35)
[2023-02-21 09:31] VITALS: BP 140/86; PULSE 83; RESP 18; TEMP 98.1
[2023-02-21] MEDS ORDERED: MAGNESIUM HYDROXIDE SUSPENSION 30 ML UDCUP PO PRN (14:45)
[2023-02-21] MEDS ORDERED: ALBUTEROL SULFATE HFA 90 MCG/PUFF 8 GM INHALER IH PRN (14:45)
[2023-02-21] MEDS ORDERED: MAG HYDROX/AL HYDROX/SIMETH ES 30 ML SUSPENSION UDCUP PO PRN (14:45)
[2023-02-21] MEDS ORDERED: LOPERAMIDE HCL 2 MG CAPSULE PO PRN (14:45)
[2023-02-21] MEDS ORDERED: DOCUSATE SODIUM 100 MG CAPSULE PO PRN (14:45)
[2023-02-21] MEDS ORDERED: IBUPROFEN 400 MG TABLET PO PRN (14:45)
[2023-02-21] MEDS ORDERED: GuaiFENesin/D-METHORPHAN [SUGAR-FREE] 200-20MG/10 ML SYRUP UDCUP PO PRN (14:45)
[2023-02-21] MEDS ORDERED: NICOTINE 14 MG/24 HOUR PATCH TD PRN (14:45)
[2023-02-21] MEDS ORDERED: ACETAMINOPHEN 325 MG TABLET PO PRN (14:45)
[2023-02-21] MEDS ORDERED: ONDANSETRON HCL 4 MG TABLET PO PRN (14:45)
[2023-02-21] MEDS ORDERED: CloNIDine HCL 0.1 MG TABLET PO PRN (14:45)
[2023-02-21] MEDS ORDERED: PETROLATUM,WHITE 28 GM JELLY TP PRN (14:45)
[2023-02-21] MEDS: DIVALPROEX SODIUM 500 MG ER TABLET PO SCH (20:13)
[2023-02-21 20:57] VITALS: BP 132/81; PULSE 79; RESP 18; TEMP 97.9
[2023-02-21] MEDS ORDERED: SIMVASTATIN 10 MG TABLET PO SCH (21:00)
[2023-02-21] MEDS: ZOLPIDEM TARTRATE 10 MG TABLET PO PRN (21:40)
[2023-02-22] MEDS: LEVOTHYROXINE SODIUM 25 MCG TABLET PO SCH (06:34)
[2023-02-22 08:07] LABS: HEMOGLOBIN A1C 5.1 % (3.8-5.6)
[2023-02-22 08:58] LABS: CHOL/HDL RATIO 3.5 (4.2-7.3); THYROID STIMULATING HORMONE 3.81 uIU/mL (0.36-3.74)
[2023-02-22 08:59] LABS: LITHIUM 2.28 mmol/L (0.60-1.20)
[2023-02-22] MEDS: CITALOPRAM HYDROBROMIDE 20 MG TABLET PO SCH (09:00)
[2023-02-22] MEDS: TOPIRAMATE 25 MG TABLET PO SCH ×3 (09:00→17:35)
[2023-02-22] MEDS: QUEtiapine FUMARATE 300 MG TABLET PO SCH ×2 (09:00→20:58)
[2023-02-22 10:07] LABS: HEPATITIS A ANTIBODY IGM Negative (Negative); HEPATITIS B CORE IGM Negative (Negative); HEPATITIS C AB (EIA) Non Reactive (Non Reactive)
[2023-02-22 10:19] VITALS: BP 151/80; PULSE 86; RESP 17; TEMP 98
[2023-02-22 20:31] VITALS: PULSE 85; RESP 20; O2SAT 97
[2023-02-22 20:32] VITALS: PULSE 100; RESP 20; O2SAT 98
[2023-02-22 20:58] VITALS: BP 136/82; PULSE 84; RESP 18; TEMP 97.8
[2023-02-22] MEDS: DIVALPROEX SODIUM 500 MG ER TABLET PO SCH (20:58)
[2023-02-22] MEDS: SIMVASTATIN 10 MG TABLET PO SCH (21:00)
[2023-02-23] MEDS: LEVOTHYROXINE SODIUM 25 MCG TABLET PO SCH (06:37)
[2023-02-23 07:50] LABS: FREE T4 (FREE THYROXINE) 0.88 ng/dL (0.76-1.46)
[2023-02-23 08:33] LABS: POTASSIUM 3.8 mmol/L (3.5-5.1)
[2023-02-23 08:35] VITALS: BP 106/64; PULSE 78; RESP 12; TEMP 97.1
[2023-02-23 08:36] LABS: LITHIUM 0.89 mmol/L (0.60-1.20)
[2023-02-23] MEDS: TOPIRAMATE 25 MG TABLET PO SCH ×2 (09:02→16:39)
[2023-02-23] MEDS: QUEtiapine FUMARATE 300 MG TABLET PO SCH ×2 (09:02→20:34)
[2023-02-23] MEDS: CITALOPRAM HYDROBROMIDE 20 MG TABLET PO SCH (09:02)
[2023-02-23] MEDS: SIMVASTATIN 10 MG TABLET PO SCH (20:34)
[2023-02-23] MEDS: DIVALPROEX SODIUM 500 MG ER TABLET PO SCH (20:34)
[2023-02-23 20:57] VITALS: BP 123/77; PULSE 72; RESP 18; TEMP 98.1
[2023-02-24] MEDS: LEVOTHYROXINE SODIUM 25 MCG TABLET PO SCH (06:37)
[2023-02-24 08:30] VITALS: BP 116/73; PULSE 73; RESP 18; TEMP 97.6
[2023-02-24] MEDS: CITALOPRAM HYDROBROMIDE 20 MG TABLET PO SCH (08:52)
[2023-02-24] MEDS: QUEtiapine FUMARATE 300 MG TABLET PO SCH ×2 (08:52→20:27)
[2023-02-24] MEDS: TOPIRAMATE 25 MG TABLET PO SCH ×2 (08:52→16:50)
[2023-02-24 20:23] VITALS: BP 132/82; PULSE 86; RESP 19; TEMP 98.3
[2023-02-24] MEDS: DIVALPROEX SODIUM 500 MG ER TABLET PO SCH (20:27)
[2023-02-24] MEDS: SIMVASTATIN 10 MG TABLET PO SCH (20:28)
[2023-02-24 22:50] VITALS: PULSE 0; RESP 12; O2SAT 0
[2023-02-25] MEDS: LEVOTHYROXINE SODIUM 25 MCG TABLET PO SCH (07:00)
[2023-02-25 08:28] VITALS: BP 108/74; PULSE 96; RESP 17; TEMP 97.7
[2023-02-25] MEDS: QUEtiapine FUMARATE 300 MG TABLET PO SCH ×2 (09:26→20:44)
[2023-02-25] MEDS: TOPIRAMATE 25 MG TABLET PO SCH ×2 (09:28→17:01)
[2023-02-25] MEDS: CITALOPRAM HYDROBROMIDE 20 MG TABLET PO SCH (09:28)
[2023-02-25] MEDS: ZOLPIDEM TARTRATE 10 MG TABLET PO PRN (20:44)
[2023-02-25] MEDS: DIVALPROEX SODIUM 500 MG ER TABLET PO SCH (20:44)
[2023-02-25] MEDS: SIMVASTATIN 10 MG TABLET PO SCH (20:44)
[2023-02-25 21:00] VITALS: RESP 18
[2023-02-26] MEDS: LEVOTHYROXINE SODIUM 25 MCG TABLET PO SCH (06:23)
[2023-02-26] MEDS: CITALOPRAM HYDROBROMIDE 20 MG TABLET PO SCH (08:07)
[2023-02-26] MEDS: QUEtiapine FUMARATE 300 MG TABLET PO SCH (08:07)
[2023-02-26] MEDS: TOPIRAMATE 25 MG TABLET PO SCH (08:07)
[2023-02-26 08:30] VITALS: BP 121/86; PULSE 80; RESP 17; TEMP 97.7
[2023-02-26] MEDS ORDERED: CITA-144 PO (17:54)
[2023-02-26] MEDS ORDERED: TOPI25 PO (17:54)
[2023-02-26] MEDS ORDERED: DIVA500T69 PO (17:54)
[2023-02-26] MEDS ORDERED: QUET300T19 PO (17:54)
== END 2023-02-26 18:01 | disposition home or self-care (01) | DRG 750 ==
LOC: EMS 18:44 → 3EC 02-20 00:01
PROVIDERS: ADMIT Psychiatry & Neurology Child & Adolescent Psychiatry; ATTEND Psychiatry & Neurology Child & Adolescent Psychiatry
PROC: 5A09457 Assistance with Respiratory Ventilation, 24-96 Consecutive Hours, Continuous Positive Airway Pressure (ICD-10-PCS; principal; 2023-02-22)
DX: F25.0 Schizoaffective disorder, bipolar type (principal); D64.9 Anemia, unspecified; F79 Unspecified intellectual disabilities; E03.9 Hypothyroidism, unspecified; S00.83XA Contusion of other part of head, initial encounter; D72.829 Elevated white blood cell count, unspecified; G40.909 Epilepsy, unspecified, not intractable, without status epilepticus; I10 Essential (primary) hypertension; E87.6 Hypokalemia; Z20.822 Contact with and (suspected) exposure to COVID-19; G80.9 Cerebral palsy, unspecified; E78.5 Hyperlipidemia, unspecified; F84.0 Autistic disorder; X58.XXXA Exposure to other specified factors, initial encounter; Y93.89 Activity, other specified; Y92.89 Other specified places as the place of occurrence of the external cause; Y99.8 Other external cause status; Z78.1 Physical restraint status; Z79.899 Other long term (current) drug therapy
CPT/HCPCS: 70450; 72125; 80053; 80061; 80074; 80164; 80178; 83036; 84132; 84439; 84443; 85025; 87081; 92610; 94660; 99291; G0480; J1200; J1630; J2060

== ENCOUNTER 2024-03-06 11:02 | Inpatient (IN) | payer OTHER ==
[~2024-03-06] VITALS: Ht 167.6 cm; Wt 81.8 kg
[~2024-03-06 11:02] MED LIST changes: +ACET-2247 PO; +ALBU18HF12 IH; +CHLO100T36 PO; +CHOL200059 PO; +CYAN100T45 PO; -DIVA500T53 PO; -DOCU-352 PO; +FLUT16SP NASAL; -LEVO25TA9 PO; +LEVO50TA11 PO; -LITH300C3 PO; +LORA10TA7 PO; +PALI156D IM; -SIMV-259 PO; +SIMV-43 PO; +TAMS0.4C94 PO; +TRAZ-257 PO
[2024-03-06 12:50] LABS: BASOPHILS % (AUTO) 0.3 % (0.0-2.0); EOSINOPHILS % (AUTO) 0.8 % (1.0-6.0); HEMATOCRIT 36.8 % (41-53); HEMOGLOBIN 11.8 g/dL (13.5-17.5); LYMPHOCYTES # (AUTO) 1.4 K/uL (1.0-4.8); MEAN CORPUSCULAR HEMOGLOBIN 28.3 pg (26.0-34.0); MEAN CORPUSCULAR VOLUME 88 fL (80-100); MONOCYTES % (AUTO) 6.4 % (2.0-9.0); NEUTROPHILS # (AUTO) 12.9 K/uL (1.8-7.7); NEUTROPHILS % (AUTO) 83.5 % (40.0-70.0); PLATELET COUNT (AUTO) 323 K/uL (150-450); RED BLOOD CELL COUNT(AUTO) 4.16 MIL/uL (4.50-5.90); WHITE BLOOD COUNT (AUTO) 15.4 K/uL (4.5-11.0)
[2024-03-06 13:07] LABS: ANION GAP 10 mmol/L (8-16); CARBON DIOXIDE 21 mmol/L (22-29); CHLORIDE 105 mmol/L (98-107); CREATININE 1.88 mg/dL (0.60-1.30); GLOMERULAR FILTR. RATE CALC 43 mL/min (>60); GLUCOSE,RANDOM 94 mg/dL (70-110); POTASSIUM 3.9 mmol/L (3.5-5.1); SODIUM SERUM 136 mmol/L (136-145); UREA NITROGEN, BLOOD 13 mg/dL (7-18)
[2024-03-06 13:12] LABS: B-TYPE NATRIURETIC PEPTIDE < 5 pg/mL (0-100)
[2024-03-06 13:23] LABS: TROPONIN I-HIGH SENSITIVITY 5 ng/L (<76)
[2024-03-06 13:26] LABS: ALCOHOL, BLOOD (SERUM) < 3 mg/dL (0-10); LITHIUM 0.92 mmol/L (0.60-1.20)
[2024-03-06 13:35] LABS: ALANINE AMINOTRANSFERASE 19 U/L (12-78); ALBUMIN 4.6 g/dL (3.4-5.0); ALKALINE PHOSPHATASE 76 U/L (46-116); ASPARTATE AMINOTRANSFERASE 19 U/L (15-37); BILIRUBIN,TOTAL 0.3 mg/dL (0.1-1.0); CREATINE KINASE, TOTAL ONLY 329 U/L (39-308); PHOSPHORUS 3.2 mg/dL (2.5-4.9); TOTAL PROTEIN, SERUM 8.7 g/dL (6.4-8.2)
[2024-03-06 14:43] LABS: APPEARANCE,URINE CLEAR (CLEAR); BILIRUBIN,URINE NEGATIVE (NEGATIVE); COLOR,URINE COLORLESS (YELLOW); GLUCOSE, URINE (UA) NEGATIVE (NEGATIVE); KETONES,URINE NEGATIVE (NEGATIVE); LEUKOCYTE ESTERASE ,URINE NEGATIVE (NEGATIVE); NITRATE,URINE NEGATIVE (NEGATIVE); OCCULT BLOOD,URINE NEGATIVE (NEGATIVE); PH,URINE 6.5 (5.0-8.0); PH,URINE DRUG SCREEN 6.5 (5.0-8.0); PROTEIN,URINE NEGATIVE (NEGATIVE); SPECIFIC GRAVITIY, URINE 1.004 (1.003-1.030); UROBILINOGEN,URINE <=1.0 mg/dL (<=1.0)
[2024-03-06] MEDS ORDERED: ALBUTEROL SULFATE HFA 90 MCG/PUFF 8 GM INHALER IH PRN (15:00)
[2024-03-06] MEDS ORDERED: 0.9% SODIUM CHLORIDE 10 ML SYRINGE IVP PRN (15:00)
[2024-03-06] MEDS ORDERED: ChlorproMAZINE HCL 100 MG TABLET PO PRN (15:00)
[2024-03-06 15:10] LABS: LACTIC ACID 1.3 mmol/L (0.4-2.0)
[2024-03-06 15:11] LABS: ALCOHOL, URINE DRUG SCREEN NEGATIVE (NEGATIVE); AMPHET/METH SCREEN,URINE NEGATIVE (NEGATIVE); BARBITURATE SCREEN, URINE NEGATIVE (NEGATIVE); BENZODIAZEPINES SCREEN,URINE NEGATIVE (NEGATIVE); CANNABINOID SCREEN,URINE NEGATIVE (NEGATIVE); COCAINE SCREEN,URINE NEGATIVE (NEGATIVE); METHADONE SCREEN, URINE NEGATIVE (NEGATIVE); OPIATE SCREEN,URINE NEGATIVE (NEGATIVE); PHENCYCLIDINE SCREEN,URINE NEGATIVE (NEGATIVE)
[2024-03-06 15:11] LABS: TROPONIN I-HIGH SENSITIVITY 5 ng/L (<76)
[2024-03-06] MEDS: HEPARIN SODIUM,PORCINE 5,000 UNITS/ML VIAL SQ SCH (16:00)
[2024-03-06] MEDS: CefTRIAXone 1 GM/DEXTROSE 50 ML IV SCH (16:16)
[2024-03-06] MEDS: SODIUM CHLORIDE 0.9% 2,450 ML IV ONE (16:17)
[2024-03-06] MEDS: QUEtiapine FUMARATE 300 MG TABLET PO SCH (21:00)
[2024-03-06 21:20] VITALS: BP 142/78; PULSE 76; RESP 20; TEMP 98.5; O2SAT 97
[2024-03-06] MEDS: TraZODone HCL 100 MG TABLET PO SCH (22:14)
[2024-03-06] MEDS: SIMVASTATIN 20 MG TABLET PO SCH (22:14)
[2024-03-06] MEDS: TAMSULOSIN HCL 0.4 MG CAPSULE PO SCH (22:14)
[2024-03-06] MEDS: TOPIRAMATE 100 MG TABLET PO SCH (22:14)
[2024-03-06] MEDS: FLUTICASONE PROPIONATE 50 MCG/SPRAY 16 GM NASAL SPRAY NASAL SCH (22:15)
[2024-03-07] MEDS: LEVOTHYROXINE SODIUM 50 MCG TABLET PO SCH (06:30)
[2024-03-07 06:41] VITALS: BP 144/74; PULSE 88; RESP 20; O2SAT 99
[2024-03-07 08:01] LABS: BASOPHILS % (AUTO) 0.9 % (0.0-2.0); EOSINOPHILS % (AUTO) 2.4 % (1.0-6.0); HEMATOCRIT 35.7 % (41-53); HEMOGLOBIN 11.5 g/dL (13.5-17.5); LYMPHOCYTES # (AUTO) 1.7 K/uL (1.0-4.8); LYMPHOCYTES % (AUTO) 12.3 % (22.0-44.0); MEAN CORPUSCULAR HGB CONC 32.2 G/dL (31.0-37.0); MEAN CORPUSCULAR VOLUME 90 fL (80-100); MONOCYTES # (AUTO) 0.8 K/uL (0.1-1.0); MONOCYTES % (AUTO) 5.9 % (2.0-9.0); NEUTROPHILS # (AUTO) 10.6 K/uL (1.8-7.7); NEUTROPHILS % (AUTO) 78.5 % (40.0-70.0); PLATELET COUNT (AUTO) 311 K/uL (150-450); RED BLOOD CELL COUNT(AUTO) 3.96 MIL/uL (4.50-5.90); RED CELL DISTRIBUTION WIDTH 14.3 % (11.5-14.5); WHITE BLOOD COUNT (AUTO) 13.5 K/uL (4.5-11.0)
[2024-03-07 08:32] VITALS: BP 125/91; PULSE 82; RESP 20; TEMP 98.4; O2SAT 99
[2024-03-07] MEDS: LORATADINE 10 MG TABLET PO SCH (09:00)
[2024-03-07] MEDS: CYANOCOBALAMIN 100 MCG TABLET PO SCH (09:00)
[2024-03-07] MEDS: CITALOPRAM HYDROBROMIDE 20 MG TABLET PO SCH (09:00)
[2024-03-07] MEDS ORDERED: CefTRIAXone 1 GM/DEXTROSE 50 ML IV SCH (11:30)
[2024-03-07] MEDS: RINGERS SOLUTION,LACTATED 1,000 ML IV SCH (13:10)
[2024-03-07 15:09] VITALS: BP 129/99; PULSE 83; RESP 18; TEMP 98.9; O2SAT 97
[2024-03-07 19:15] VITALS: BP 125/90; PULSE 70; RESP 18; TEMP 98.7; O2SAT 99
[2024-03-07 20:07] VITALS: BP 131/77; PULSE 70; RESP 20; TEMP 98.6; O2SAT 98
[2024-03-08] MEDS: QUEtiapine FUMARATE 300 MG TABLET PO SCH (00:33)
[2024-03-08 06:30] VITALS: BP 119/75; PULSE 72; RESP 19; TEMP 98.4; O2SAT 100
[2024-03-08 07:58] VITALS: BP 121/89; PULSE 75; RESP 19; TEMP 98.6; O2SAT 100
[2024-03-08] MEDS: POLYETHYLENE GLYCOL 3350 17 GM PACKET PO SCH (09:26)
[2024-03-08] MEDS: SENNOSIDES 8.8 MG/5 ML SYRUP UDCUP PO ONE (09:27)
[2024-03-08 10:01] LABS: BASOPHILS % (AUTO) 0.5 % (0.0-2.0); EOSINOPHILS % (AUTO) 3.4 % (1.0-6.0); HEMATOCRIT 33.1 % (41-53); HEMOGLOBIN 10.7 g/dL (13.5-17.5); LYMPHOCYTES # (AUTO) 1.4 K/uL (1.0-4.8); LYMPHOCYTES % (AUTO) 14.5 % (22.0-44.0); MEAN CORPUSCULAR HEMOGLOBIN 28.7 pg (26.0-34.0); MEAN CORPUSCULAR HGB CONC 32.3 G/dL (31.0-37.0); MEAN CORPUSCULAR VOLUME 89 fL (80-100); MONOCYTES # (AUTO) 0.5 K/uL (0.1-1.0); MONOCYTES % (AUTO) 5.6 % (2.0-9.0); NEUTROPHILS # (AUTO) 7.2 K/uL (1.8-7.7); PLATELET COUNT (AUTO) 298 K/uL (150-450); RED BLOOD CELL COUNT(AUTO) 3.72 MIL/uL (4.50-5.90); RED CELL DISTRIBUTION WIDTH 14.2 % (11.5-14.5); WHITE BLOOD COUNT (AUTO) 9.5 K/uL (4.5-11.0)
[2024-03-08 10:14] LABS: CREATININE 1.82 mg/dL (0.60-1.30); POTASSIUM 3.7 mmol/L (3.5-5.1)
[2024-03-08 10:20] LABS: BILIRUBIN,TOTAL 0.2 mg/dL (0.1-1.0); TOTAL PROTEIN, SERUM 7.5 g/dL (6.4-8.2)
[2024-03-08] MEDS: PIPERACILLIN/TAZO 3.375 GM/D5W 50 ML IV SCH (10:58)
[2024-03-08] MEDS: DEXTROSE 5%-WATER 1,000 ML IV SCH (13:00)
[2024-03-08 15:12] VITALS: BP 127/88; PULSE 65; RESP 20; TEMP 98.3; O2SAT 99
[2024-03-08 19:48] VITALS: BP 126/90; PULSE 68; RESP 19; TEMP 98.6; O2SAT 100
[2024-03-09 04:24] VITALS: BP 121/93; PULSE 74; RESP 18; TEMP 98.3; O2SAT 97
[2024-03-09 08:09] LABS: CALCIUM, TOTAL 8.6 mg/dL (8.8-10.5); CREATININE 1.86 mg/dL (0.60-1.30); POTASSIUM 3.3 mmol/L (3.5-5.1)
[2024-03-09 08:28] VITALS: BP 111/76; PULSE 87; RESP 18; TEMP 98.9; O2SAT 95
[2024-03-09] MEDS: POTASSIUM CHLORIDE 20 MEQ ER TABLET PO ONE (10:24)
[2024-03-09 14:06] LABS: TOPIRAMATE (TOPAMAX) LEVEL 7.5 ug/mL (2.0-25.0)
[2024-03-09] MEDS ORDERED: QUET300T19 PO (14:28)
[2024-03-09] MEDS ORDERED: AMOX1TAB15 PO (14:47)
[2024-03-09 15:31] VITALS: BP 127/89; PULSE 71; RESP 18; TEMP 98.1; O2SAT 97
[2024-03-09 20:07] VITALS: BP 118/86; PULSE 63; RESP 18; TEMP 98.3; O2SAT 99
[2024-03-10 06:35] VITALS: BP 108/68; PULSE 67; RESP 18; TEMP 97.8; O2SAT 100
[2024-03-10 07:16] VITALS: BP 128/74; PULSE 66; RESP 18; TEMP 98.1; O2SAT 97
[2024-03-10 10:26] LABS: CALCIUM, TOTAL 9.1 mg/dL (8.8-10.5); CREATININE 1.82 mg/dL (0.60-1.30); POTASSIUM 3.5 mmol/L (3.5-5.1)
[2024-03-10] MEDS: RINGERS SOLUTION,LACTATED 1,000 ML IV ONE (12:41)
[2024-03-10 15:38] VITALS: BP 133/76; PULSE 67; RESP 18; TEMP 98.1; O2SAT 100
[2024-03-10 20:28] VITALS: BP 124/81; PULSE 66; RESP 18; TEMP 97.8; O2SAT 100
[2024-03-11 05:42] VITALS: BP 114/76; PULSE 66; RESP 18; TEMP 97.8; O2SAT 96
[2024-03-11 07:37] LABS: BASOPHILS % (AUTO) 0.5 % (0.0-2.0); EOSINOPHILS % (AUTO) 3.7 % (1.0-6.0); HEMATOCRIT 32.2 % (41-53); HEMOGLOBIN 10.6 g/dL (13.5-17.5); LYMPHOCYTES % (AUTO) 29.8 % (22.0-44.0); MEAN CORPUSCULAR HEMOGLOBIN 29.3 pg (26.0-34.0); MEAN CORPUSCULAR HGB CONC 32.9 G/dL (31.0-37.0); MEAN CORPUSCULAR VOLUME 89 fL (80-100); MONOCYTES # (AUTO) 0.5 K/uL (0.1-1.0); MONOCYTES % (AUTO) 7.3 % (2.0-9.0); NEUTROPHILS # (AUTO) 3.9 K/uL (1.8-7.7); NEUTROPHILS % (AUTO) 58.7 % (40.0-70.0); PLATELET COUNT (AUTO) 317 K/uL (150-450); RED BLOOD CELL COUNT(AUTO) 3.62 MIL/uL (4.50-5.90); RED CELL DISTRIBUTION WIDTH 14.2 % (11.5-14.5); WHITE BLOOD COUNT (AUTO) 6.7 K/uL (4.5-11.0)
[2024-03-11 07:51] LABS: CREATININE 1.75 mg/dL (0.60-1.30); POTASSIUM 3.9 mmol/L (3.5-5.1)
[2024-03-11 08:40] VITALS: BP 129/98; PULSE 66; RESP 18; TEMP 97.7; O2SAT 97
[2024-03-11] MEDS: LORazepam 2 MG/ML VIAL IVP ONE (10:01)
[2024-03-11] MEDS: RINGERS SOLUTION,LACTATED 1,000 ML IV ONE (10:01)
[2024-03-11] MEDS ORDERED: LORazepam 2 MG/ML VIAL IVP ONE (11:45)
[2024-03-11 20:19] VITALS: BP 107/77; PULSE 61; RESP 18; TEMP 98; O2SAT 99
[2024-03-12 06:24] VITALS: BP 119/80; PULSE 66; RESP 18; TEMP 97.8; O2SAT 100
[2024-03-12 08:02] LABS: CALCIUM, TOTAL 9.2 mg/dL (8.8-10.5); CREATININE 1.58 mg/dL (0.60-1.30); POTASSIUM 3.8 mmol/L (3.5-5.1)
[2024-03-12 11:26] VITALS: BP 117/72; PULSE 72; RESP 18; TEMP 98.1; O2SAT 99
[2024-03-12 15:47] VITALS: BP 126/82; PULSE 74; RESP 18; TEMP 98.8; O2SAT 100
[2024-03-12] MEDS ORDERED: QUEtiapine FUMARATE 200 MG TABLET PO SCH (21:00)
[2024-03-25] MEDS ORDERED: PALIPERIDONE PALMITATE 156 MG/ML SYRINGE IM SCH (09:00)
== END 2024-03-12 19:55 | DRG 720 ==
LOC: EMS 11:02 → EDH 14:57 → 6S 21:03
PROVIDERS: ADMIT Internal Medicine; ATTEND Internal Medicine
DX: A41.9 Sepsis, unspecified organism (principal); G92.8 Other toxic encephalopathy; N17.9 Acute kidney failure, unspecified; E87.0 Hyperosmolality and hypernatremia; F31.9 Bipolar disorder, unspecified; F20.9 Schizophrenia, unspecified; K52.9 Noninfective gastroenteritis and colitis, unspecified; N18.9 Chronic kidney disease, unspecified; D64.9 Anemia, unspecified; G80.9 Cerebral palsy, unspecified; Z79.899 Other long term (current) drug therapy; Z87.891 Personal history of nicotine dependence
CPT/HCPCS: 70450; 71045; 71250; 72141; 72146; 72148; 72192; 74150; 80048; 80053; 80178; 80201; 80307; 81003; 82550; 82947; 83605; 83615; 83735; 83880; 84100; 84132; 84145; 84484; 85025; 85730; 87040; 87081; 93005; 93306; 97110; 97116; 97162; 97167; 97530; 97535; 99285; G0480; J0696; J1644; J2060; J2543; J7030; J7060; J7120; 36415-L1; 36415-TC

== ENCOUNTER 2024-03-13 15:31 | Inpatient (IN) | payer MEDICAID, OTHER ==
[~2024-03-13] VITALS: Ht 160 cm; Wt 80.5 kg
[~2024-03-13 15:31] MED LIST changes: +QUET300T19 PO; -QUET300T2 PO
[2024-03-13] MEDS: HALOPERIDOL LACTATE 5 MG/ML VIAL IM ONE (15:44)
[2024-03-13] MEDS: LORazepam 2 MG/ML VIAL IM ONE (15:44)
[2024-03-13] MEDS: DiphenhydrAMINE HCL 50 MG/ML VIAL IM ONE (15:44)
[2024-03-13 16:11] LABS: BASOPHILS % (AUTO) 0.6 % (0.0-2.0); EOSINOPHILS % (AUTO) 1.6 % (1.0-6.0); HEMATOCRIT 36.7 % (41-53); HEMOGLOBIN 11.8 g/dL (13.5-17.5); LYMPHOCYTES # (AUTO) 1.5 K/uL (1.0-4.8); LYMPHOCYTES % (AUTO) 17.1 % (22.0-44.0); MEAN CORPUSCULAR HEMOGLOBIN 28.7 pg (26.0-34.0); MEAN CORPUSCULAR HGB CONC 32.2 G/dL (31.0-37.0); MEAN CORPUSCULAR VOLUME 89 fL (80-100); MONOCYTES # (AUTO) 0.6 K/uL (0.1-1.0); MONOCYTES % (AUTO) 6.7 % (2.0-9.0); NEUTROPHILS # (AUTO) 6.3 K/uL (1.8-7.7); PLATELET COUNT (AUTO) 380 K/uL (150-450); RED BLOOD CELL COUNT(AUTO) 4.13 MIL/uL (4.50-5.90); RED CELL DISTRIBUTION WIDTH 14.8 % (11.5-14.5); WHITE BLOOD COUNT (AUTO) 8.5 K/uL (4.5-11.0)
[2024-03-13 16:28] LABS: ALCOHOL, BLOOD (SERUM) < 3 mg/dL (0-10); LITHIUM < 0.20 mmol/L (0.60-1.20)
[2024-03-13 16:31] LABS: ANION GAP 11 mmol/L (8-16); CALCIUM, TOTAL 9.6 mg/dL (8.8-10.5); CARBON DIOXIDE 20 mmol/L (22-29); CHLORIDE 107 mmol/L (98-107); CREATININE 1.42 mg/dL (0.60-1.30); GLOMERULAR FILTR. RATE CALC 59 mL/min (>60); GLUCOSE,RANDOM 116 mg/dL (70-110); POTASSIUM 3.5 mmol/L (3.5-5.1); SODIUM SERUM 138 mmol/L (136-145); UREA NITROGEN, BLOOD 8 mg/dL (7-18)
[2024-03-13 18:24] LABS: COVID AG,FIA SOURCE NASAL SWAB
[2024-03-13 19:12] LABS: SARS-COV2 (COVID) ANTIGEN,FIA Negative (Negative)
[2024-03-13] MEDS: ChlorproMAZINE HCL 50 MG/2 ML AMP IM ONE (23:00)
[2024-03-14] MEDS ORDERED: QUEtiapine FUMARATE 200 MG TABLET PO SCH (09:00)
[2024-03-14] MEDS ORDERED: DIVALPROEX SODIUM 500 MG DR TABLET PO SCH ×2 (09:00→21:00)
[2024-03-14] MEDS: TOPIRAMATE 100 MG TABLET PO SCH (09:53)
[2024-03-14 12:08] LABS: PH,URINE DRUG SCREEN 5.5 (5.0-8.0)
[2024-03-14 12:23] LABS: ALCOHOL, URINE DRUG SCREEN NEGATIVE (NEGATIVE); AMPHET/METH SCREEN,URINE NEGATIVE (NEGATIVE); BARBITURATE SCREEN, URINE NEGATIVE (NEGATIVE); BENZODIAZEPINES SCREEN,URINE NEGATIVE (NEGATIVE); CANNABINOID SCREEN,URINE NEGATIVE (NEGATIVE); COCAINE SCREEN,URINE NEGATIVE (NEGATIVE); METHADONE SCREEN, URINE NEGATIVE (NEGATIVE); OPIATE SCREEN,URINE NEGATIVE (NEGATIVE); PHENCYCLIDINE SCREEN,URINE NEGATIVE (NEGATIVE)
[2024-03-14] MEDS: LORazepam 2 MG/ML VIAL IM ONE (16:34)
[2024-03-14] MEDS: HALOPERIDOL LACTATE 5 MG/ML VIAL IM ONE (16:34)
[2024-03-14] MEDS: DiphenhydrAMINE HCL 50 MG/ML VIAL IM ONE (16:34)
[2024-03-14] MEDS: TraZODone HCL 100 MG TABLET PO SCH (21:00)
[2024-03-15] MEDS: LORazepam 2 MG/ML VIAL IM PRN (08:32)
[2024-03-15] MEDS: DiphenhydrAMINE HCL 50 MG/ML VIAL IM PRN (08:32)
[2024-03-15] MEDS ORDERED: QUEtiapine FUMARATE 200 MG TABLET PO SCH (21:00)
[2024-03-15 21:35] LABS: GLUCOMETER DEV NAME(LOC) ERT.6; GLUCOSE,POINT OF CARE 98 MG/DL (70-110)
[2024-03-16] MEDS: QUEtiapine FUMARATE 200 MG TABLET PO ONE (09:37)
[2024-03-16] MEDS: DIVALPROEX SODIUM 500 MG DR TABLET PO ONE (09:37)
[2024-03-16 16:25] VITALS: BP 123/75; PULSE 73; RESP 18; TEMP 97; O2SAT 99
[2024-03-16] MEDS ORDERED: PROMETHAZINE HCL 25 MG TABLET PO PRN (17:00)
[2024-03-16] MEDS ORDERED: GuaiFENesin/D-METHORPHAN [SUGAR-FREE] 200-20MG/10 ML SYRUP UDCUP PO PRN (17:00)
[2024-03-16] MEDS ORDERED: LOPERAMIDE HCL 2 MG CAPSULE PO PRN (17:00)
[2024-03-16] MEDS ORDERED: MAG HYDROX/ALUMINUM HYD/SIMETH ES 30 ML SUSPENSION UDCUP PO PRN (17:00)
[2024-03-16] MEDS ORDERED: HydrOXYzine PAMOATE 50 MG CAPSULE PO PRN (17:00)
[2024-03-16] MEDS ORDERED: ACETAMINOPHEN 325 MG TABLET PO PRN (17:00)
[2024-03-16] MEDS ORDERED: MAGNESIUM HYDROXIDE SUSPENSION 30 ML UDCUP PO PRN (17:00)
[2024-03-16] MEDS ORDERED: PNEUMOCOCCAL VACCINE POLYVALENT 0.5 ML SYRINGE [PPSV23] IM. ONE (18:00)
[2024-03-16] MEDS ORDERED: INFLUENZA VIRUS VACCINE TVS (6MO+) 2024-25/PF 45 MCG/0.5 ML SYRINGE IM. ONE (18:00)
[2024-03-16] MEDS: THIAMINE 100 MG TABLET PO SCH (18:28)
[2024-03-16] MEDS: MELATONIN 5 MG TABLET PO SCH (20:48)
[2024-03-16] MEDS: DIVALPROEX SODIUM 500 MG ER TABLET PO SCH (20:48)
[2024-03-16] MEDS: TAMSULOSIN HCL 0.4 MG CAPSULE PO SCH (20:49)
[2024-03-16] MEDS: OLANZapine 5 MG RAPDIS TABLET PO SCH (20:49)
[2024-03-16] MEDS: SIMVASTATIN 20 MG TABLET PO SCH (20:50)
[2024-03-16 21:15] VITALS: RESP 18
[2024-03-17] MEDS: LEVOTHYROXINE SODIUM 50 MCG TABLET PO SCH (06:40)
[2024-03-17] MEDS: BACITRACIN 28 GM OINTMENT TP SCH (09:00)
[2024-03-17] MEDS: FOLIC ACID 1 MG TABLET PO SCH (09:20)
[2024-03-17] MEDS: OMEGA-3/DHA/EPA/FISH OIL 1,000 MG CAPSULE PO SCH (09:20)
[2024-03-17] MEDS: LORATADINE 10 MG TABLET PO SCH (09:20)
[2024-03-17] MEDS: MULTIVITAMINS WITH MINERALS, THERAPEUTIC TABLET PO SCH (09:21)
[2024-03-17] MEDS: NALTREXONE HCL 50 MG TABLET PO SCH (09:21)
[2024-03-17 09:23] VITALS: BP 105/72; PULSE 68; RESP 18; TEMP 97.5; O2SAT 100
[2024-03-17] MEDS: FLUTICASONE PROPIONATE 50 MCG/SPRAY 16 GM NASAL SPRAY NASAL SCH (12:16)
[2024-03-17 22:28] VITALS: BP_SYST 122; BP_DIAS 6; BP_DIAS 67; PULSE 69; RESP 18; TEMP 97.3; O2SAT 100
[2024-03-18 08:30] VITALS: BP 118/75; PULSE 79; RESP 18; TEMP 98; O2SAT 96
[2024-03-18] MEDS: OLANZapine 10 MG RAPDIS TABLET PO SCH (21:12)
[2024-03-18 23:42] VITALS: BP 144/75; PULSE 84; RESP 18; TEMP 97.2; O2SAT 97
[2024-03-19 09:54] VITALS: BP 112/75; PULSE 68; RESP 18; TEMP 97.5; O2SAT 98
[2024-03-19] MEDS: DIVALPROEX SODIUM 500 MG ER TABLET PO SCH (12:14)
[2024-03-19 20:45] VITALS: BP 130/90; PULSE 73; RESP 18; TEMP 97.3; O2SAT 97
[2024-03-20 18:11] VITALS: BP 116/71; PULSE 71; RESP 18; TEMP 97; O2SAT 96
[2024-03-20 20:00] VITALS: BP 119/80; PULSE 85; RESP 19; TEMP 97.5; O2SAT 98
[2024-03-21 08:37] VITALS: BP 102/62; PULSE 96; RESP 20; TEMP 97.1; O2SAT 100
[2024-03-21 20:42] VITALS: BP 121/90; PULSE 97; RESP 18; TEMP 96.9; O2SAT 98
[2024-03-21] MEDS ORDERED: LORazepam 0.5 MG TABLET PO PRN (21:45)
[2024-03-21] MEDS ORDERED: ChlorproMAZINE HCL 100 MG TABLET PO PRN (21:45)
[2024-03-21] MEDS: LORazepam 1 MG TABLET PO ONE (22:00)
[2024-03-21] MEDS: ChlorproMAZINE HCL 100 MG TABLET PO ONE (22:00)
[2024-03-22 08:33] VITALS: BP 137/99; PULSE 85; RESP 19; TEMP 96.4; O2SAT 100
[2024-03-22 20:34] VITALS: RESP 18; TEMP 97
[2024-03-23 08:35] VITALS: BP 128/74; PULSE 74; RESP 18; TEMP 97; O2SAT 98
[2024-03-23] MEDS ORDERED: TRAZ-257 PO (10:51)
[2024-03-23] MEDS ORDERED: OMEG100033 PO (10:51)
[2024-03-23] MEDS ORDERED: TOPI100T37 PO (10:51)
[2024-03-23] MEDS ORDERED: OLAN10TA26 PO (10:51)
[2024-03-23] MEDS ORDERED: MELA5TAB40 PO (10:51)
[2024-03-23] MEDS ORDERED: DIVA-153 PO (10:51)
[2024-03-23] MEDS ORDERED: NALT50TA33 PO (10:51)
== END 2024-03-23 19:00 | disposition home or self-care (01) | DRG 750 ==
LOC: EMS 15:31 → 3EC 03-16 15:59
PROVIDERS: ADMIT Psychiatry & Neurology Psychiatry; ATTEND Psychiatry & Neurology Psychiatry
PROC: GZHZZZZ Group Psychotherapy (ICD-10-PCS; principal; 2024-03-16)
PROC: GZ56ZZZ Individual Psychotherapy, Supportive (ICD-10-PCS; 2024-03-16)
DX: F25.0 Schizoaffective disorder, bipolar type (principal); F70 Mild intellectual disabilities; E03.9 Hypothyroidism, unspecified; R45.851 Suicidal ideations; E66.9 Obesity, unspecified; F41.9 Anxiety disorder, unspecified; K21.9 Gastro-esophageal reflux disease without esophagitis; S00.03XA Contusion of scalp, initial encounter; G80.9 Cerebral palsy, unspecified; E78.5 Hyperlipidemia, unspecified; G47.00 Insomnia, unspecified; Z20.822 Contact with and (suspected) exposure to COVID-19; N40.0 Benign prostatic hyperplasia without lower urinary tract symptoms; J45.909 Unspecified asthma, uncomplicated; X58.XXXA Exposure to other specified factors, initial encounter; Z55.9 Problems related to education and literacy, unspecified; Z63.9 Problem related to primary support group, unspecified; Z65.3 Problems related to other legal circumstances; Y93.89 Activity, other specified; Y92.89 Other specified places as the place of occurrence of the external cause; Y99.8 Other external cause status; Z68.31 Body mass index [BMI] 31.0-31.9, adult
CPT/HCPCS: 70450; 80048; 80164; 80178; 80307; 82962; 85025; 87081; 90686; 97110; 97116; 97163; 97530; 99285; G0480; J1200; J1630; J2060

== ENCOUNTER 2024-05-23 09:59 | Inpatient (IN) | payer MEDICAID, OTHER ==
[~2024-05-23] VITALS: Ht 154.9 cm; Wt 85.7 kg
[~2024-05-23 09:59] MED LIST changes: -ACET-2247 PO; -ALBU18HF12 IH; -CHLO100T36 PO; -CHOL200059 PO; -CITA-144 PO; -CYAN100T45 PO; +DIVA-153 PO; +MELA5TAB40 PO; +NALT50TA33 PO; +OLAN10TA26 PO; -OMEG-135 PO; +OMEG100033 PO; -PALI156D IM; -QUET300T19 PO
[2024-05-23 10:50] LABS: COVID AG,FIA SOURCE NASAL SWAB
[2024-05-23 10:53] LABS: BASOPHILS % (AUTO) 0.4 % (0.0-2.0); EOSINOPHILS % (AUTO) 1.9 % (1.0-6.0); HEMATOCRIT 42.1 % (41-53); HEMOGLOBIN 13.8 g/dL (13.5-17.5); LYMPHOCYTES # (AUTO) 1.4 K/uL (1.0-4.8); LYMPHOCYTES % (AUTO) 19.1 % (22.0-44.0); MEAN CORPUSCULAR HEMOGLOBIN 28.4 pg (26.0-34.0); MEAN CORPUSCULAR HGB CONC 32.7 G/dL (31.0-37.0); MEAN CORPUSCULAR VOLUME 87 fL (80-100); MONOCYTES # (AUTO) 0.4 K/uL (0.1-1.0); MONOCYTES % (AUTO) 5.4 % (2.0-9.0); NEUTROPHILS # (AUTO) 5.4 K/uL (1.8-7.7); NEUTROPHILS % (AUTO) 73.2 % (40.0-70.0); PLATELET COUNT (AUTO) 233 K/uL (150-450); RED BLOOD CELL COUNT(AUTO) 4.85 MIL/uL (4.50-5.90); RED CELL DISTRIBUTION WIDTH 14.1 % (11.5-14.5); WHITE BLOOD COUNT (AUTO) 7.4 K/uL (4.5-11.0)
[2024-05-23 11:08] LABS: ANION GAP 13 mmol/L (8-16); CARBON DIOXIDE 24 mmol/L (22-29); CHLORIDE 108 mmol/L (98-107); CREATININE 1.42 mg/dL (0.60-1.30); GLOMERULAR FILTR. RATE CALC 59 mL/min (>60); GLUCOSE,RANDOM 95 mg/dL (70-110); POTASSIUM 4.3 mmol/L (3.5-5.1); SODIUM SERUM 145 mmol/L (136-145); UREA NITROGEN, BLOOD 11 mg/dL (7-18)
[2024-05-23 11:11] LABS: ALCOHOL, BLOOD (SERUM) < 3 mg/dL (0-10)
[2024-05-23 12:02] LABS: SARS-COV2 (COVID) ANTIGEN,FIA Negative (Negative)
[2024-05-23] MEDS: LIDOCAINE 1% 10 ML VIAL SQ ONE (13:09)
[2024-05-23 18:13] LABS: PH,URINE DRUG SCREEN 6.5 (5.0-8.0)
[2024-05-23 18:20] LABS: ALCOHOL, URINE DRUG SCREEN NEGATIVE (NEGATIVE); AMPHET/METH SCREEN,URINE NEGATIVE (NEGATIVE); BARBITURATE SCREEN, URINE NEGATIVE (NEGATIVE); BENZODIAZEPINES SCREEN,URINE NEGATIVE (NEGATIVE); CANNABINOID SCREEN,URINE NEGATIVE (NEGATIVE); COCAINE SCREEN,URINE NEGATIVE (NEGATIVE); METHADONE SCREEN, URINE NEGATIVE (NEGATIVE); OPIATE SCREEN,URINE NEGATIVE (NEGATIVE); PHENCYCLIDINE SCREEN,URINE NEGATIVE (NEGATIVE)
[2024-05-24] MEDS ORDERED: ZOLPIDEM TARTRATE 10 MG TABLET PO PRN
[2024-05-25] MEDS ORDERED: LORazepam 2 MG/ML VIAL ONE (07:57)
[2024-05-25] MEDS ORDERED: DiphenhydrAMINE HCL 50 MG/ML VIAL ONE (07:58)
[2024-05-25] MEDS ORDERED: HALOPERIDOL LACTATE 5 MG/ML VIAL ONE (07:58)
[2024-05-25] MEDS: LORazepam 2 MG/ML VIAL IM ONE (07:59)
[2024-05-25] MEDS: HALOPERIDOL LACTATE 5 MG/ML VIAL IM ONE (08:00)
[2024-05-25] MEDS: DiphenhydrAMINE HCL 50 MG/ML VIAL IM ONE (08:04)
[2024-05-25 09:46] VITALS: O2SAT 96
[2024-05-25 17:13] VITALS: BP 123/94; PULSE 82; RESP 19; TEMP 97.9; O2SAT 100
[2024-05-25] MEDS ORDERED: PALI156D IM (18:15)
[2024-05-25] MEDS ORDERED: [UNRECOGNIZED DRUG - CODE] PO (18:15)
[2024-05-25] MEDS ORDERED: CYAN-53 PO (18:15)
[2024-05-25] MEDS: TAMSULOSIN HCL 0.4 MG CAPSULE PO SCH (20:18)
[2024-05-25] MEDS: SIMVASTATIN 20 MG TABLET PO SCH (20:18)
[2024-05-25 20:52] VITALS: RESP 18
[2024-05-26] MEDS: LEVOTHYROXINE SODIUM 50 MCG TABLET PO SCH (06:00)
[2024-05-26] MEDS: LORATADINE 10 MG TABLET PO SCH (08:21)
[2024-05-26] MEDS: FLUTICASONE PROPIONATE 50 MCG/SPRAY 16 GM NASAL SPRAY NASAL SCH (08:22)
[2024-05-26] MEDS ORDERED: ChlorproMAZINE HCL 50 MG/2 ML AMP ONE (11:59)
[2024-05-26] MEDS ORDERED: LORazepam 2 MG/ML VIAL ONE (11:59)
[2024-05-26] MEDS: LORazepam 2 MG/ML VIAL IM ONE ×2 (12:08→16:21)
[2024-05-26] MEDS: ChlorproMAZINE HCL 50 MG/2 ML AMP IM ONE ×2 (12:08→16:20)
[2024-05-26] MEDS: PALIPERIDONE PALMITATE 156 MG/ML SYRINGE IM SCH (14:30)
[2024-05-26] MEDS: OLANZapine 10 MG RAPDIS TABLET PO SCH ×2 (16:21→20:09)
[2024-05-26] MEDS: DIVALPROEX SODIUM 500 MG ER TABLET PO SCH (17:18)
[2024-05-26 17:28] VITALS: BP 139/92; PULSE 105; RESP 19; TEMP 98.4; O2SAT 99
[2024-05-26] MEDS: TraZODone HCL 100 MG TABLET PO SCH (20:09)
[2024-05-26 20:13] VITALS: RESP 18; TEMP 97.9
[2024-05-27] MEDS: ChlorproMAZINE HCL 50 MG/2 ML AMP IM ONE (08:49)
[2024-05-27] MEDS: DiphenhydrAMINE HCL 50 MG/ML VIAL IM ONE (08:50)
[2024-05-27] MEDS: LORazepam 2 MG/ML VIAL IM ONE (08:50)
[2024-05-27 08:55] VITALS: BP 148/94; PULSE 100; RESP 18; TEMP 97.6; O2SAT 96
[2024-05-27 21:09] VITALS: RESP 18
[2024-05-28] MEDS: LORazepam 2 MG TABLET PO PRN (09:38)
[2024-05-28] MEDS: HALOPERIDOL 5 MG TABLET PO PRN (09:39)
[2024-05-28 10:14] VITALS: BP 142/89; PULSE 108; RESP 17; TEMP 98.3; O2SAT 0
[2024-05-28 20:29] VITALS: RESP 18
[2024-05-29 09:10] VITALS: BP 134/85; PULSE 98; RESP 17; TEMP 97.2; O2SAT 0
[2024-05-29 10:27] LABS: CALCIUM, TOTAL 9.2 mg/dL (8.8-10.5); CREATININE 1.49 mg/dL (0.60-1.30)
[2024-05-29 21:10] VITALS: RESP 18
[2024-05-30 07:08] LABS: ANION GAP 8 mmol/L (8-16); CALCIUM, TOTAL 9.1 mg/dL (8.8-10.5); CARBON DIOXIDE 28 mmol/L (22-29); CHLORIDE 109 mmol/L (98-107); CREATININE 1.15 mg/dL (0.60-1.30); GLOMERULAR FILTR. RATE CALC > 60 mL/min (>60); GLUCOSE,RANDOM 99 mg/dL (70-110); POTASSIUM 4.2 mmol/L (3.5-5.1); SODIUM SERUM 145 mmol/L (136-145); UREA NITROGEN, BLOOD 13 mg/dL (7-18)
[2024-05-30 08:18] VITALS: BP 135/65; PULSE 107; RESP 18; TEMP 98.3; O2SAT 0
[2024-05-31 08:56] VITALS: BP 130/90; PULSE 81; RESP 18; TEMP 97.8; O2SAT 0
[2024-05-31 20:36] VITALS: BP 125/86; PULSE 75; RESP 18; TEMP 97.7; O2SAT 99
[2024-06-01 09:43] VITALS: BP 158/99; PULSE 108; RESP 19; TEMP 97.3; O2SAT 99
[2024-06-02 09:47] VITALS: BP 129/81; PULSE 83; RESP 18; TEMP 98.4; O2SAT 98
[2024-06-02] MEDS ORDERED: LORazepam 2 MG/ML VIAL ONE (12:47)
[2024-06-02] MEDS ORDERED: ChlorproMAZINE HCL 50 MG/2 ML AMP ONE (12:47)
[2024-06-02] MEDS ORDERED: DiphenhydrAMINE HCL 50 MG/ML VIAL ONE (12:48)
[2024-06-02] MEDS: LORazepam 2 MG/ML VIAL IM ONE (13:01)
[2024-06-02] MEDS: ChlorproMAZINE HCL 50 MG/2 ML AMP IM ONE (13:01)
[2024-06-02] MEDS: DiphenhydrAMINE HCL 50 MG/ML VIAL IM ONE (13:02)
[2024-06-02 20:23] VITALS: RESP 18
[2024-06-03 09:00] VITALS: BP 146/94; PULSE 111; RESP 17; TEMP 97.7; O2SAT 96
[2024-06-03 21:00] VITALS: RESP 18
[2024-06-04 09:41] VITALS: BP 140/89; PULSE 115; RESP 17; TEMP 97.1; O2SAT 97
[2024-06-04 20:25] VITALS: BP 134/86; PULSE 93; RESP 20; TEMP 97.7; O2SAT 98
[2024-06-05] MEDS: DiphenhydrAMINE HCL 50 MG/ML VIAL IM ONE (08:38)
[2024-06-05] MEDS: ChlorproMAZINE HCL 50 MG/2 ML AMP IM ONE (08:39)
[2024-06-05] MEDS: LORazepam 2 MG/ML VIAL IM ONE (08:39)
[2024-06-05 09:30] VITALS: BP 148/68; PULSE 107; RESP 18; TEMP 98.7; O2SAT 96
[2024-06-05 20:49] VITALS: RESP 18
[2024-06-06 16:25] VITALS: BP 119/84; PULSE 110; RESP 18; TEMP 97.7; O2SAT 98
[2024-06-06 21:05] VITALS: RESP 18
[2024-06-07 09:03] VITALS: BP 121/69; PULSE 104; RESP 19; TEMP 98.2; O2SAT 97
[2024-06-07 20:42] VITALS: BP 142/89; PULSE 99; RESP 18; TEMP 98.7; O2SAT 96
[2024-06-08 08:29] VITALS: BP 136/82; PULSE 115; RESP 19; TEMP 98; O2SAT 98
[2024-06-08] MEDS ORDERED: OLAN10TA26 PO ×2 (15:34)
== END 2024-06-08 16:00 | disposition home or self-care (01) | DRG 750 ==
LOC: EMS 10:02 → 3EC 05-25 16:43
PROVIDERS: ADMIT Psychiatry & Neurology Child & Adolescent Psychiatry; ATTEND Psychiatry & Neurology Child & Adolescent Psychiatry
PROC: 0HQ1XZZ Repair Face Skin, External Approach (ICD-10-PCS; 2024-05-23)
PROC: GZHZZZZ Group Psychotherapy (ICD-10-PCS; principal; 2024-05-26)
PROC: GZ52ZZZ Individual Psychotherapy, Cognitive (ICD-10-PCS; 2024-05-26)
DX: F25.0 Schizoaffective disorder, bipolar type (principal); N17.9 Acute kidney failure, unspecified; E03.9 Hypothyroidism, unspecified; S01.81XA Laceration without foreign body of other part of head, initial encounter; G80.9 Cerebral palsy, unspecified; Z20.822 Contact with and (suspected) exposure to COVID-19; G47.00 Insomnia, unspecified; E78.5 Hyperlipidemia, unspecified; F84.0 Autistic disorder; I10 Essential (primary) hypertension; J30.9 Allergic rhinitis, unspecified; N40.0 Benign prostatic hyperplasia without lower urinary tract symptoms; Z79.899 Other long term (current) drug therapy; X58.XXXA Exposure to other specified factors, initial encounter; Y93.89 Activity, other specified; Y92.89 Other specified places as the place of occurrence of the external cause; Y99.8 Other external cause status
CPT/HCPCS: 70450; 80048; 80164; 80307; 85025; 99285; G0480; J1200; J2060; J3230; J3490

== ENCOUNTER 2024-06-20 13:27 | Inpatient (IN) | payer MEDICAID, OTHER ==
[~2024-06-20] VITALS: Ht 160 cm; Wt 110.4 kg
[~2024-06-20 13:27] MED LIST changes: -MELA5TAB40 PO; -NALT50TA33 PO; -OMEG100033 PO; +PALI156D IM; -TOPI100T37 PO
[2024-06-20] MEDS ORDERED: DiphenhydrAMINE HCL 50 MG/ML VIAL ONE (13:58)
[2024-06-20] MEDS ORDERED: LORazepam 2 MG/ML VIAL ONE (13:58)
[2024-06-20] MEDS ORDERED: HALOPERIDOL LACTATE 5 MG/ML VIAL ONE (13:58)
[2024-06-20] MEDS: DiphenhydrAMINE HCL 50 MG/ML VIAL IM ONE (14:01)
[2024-06-20] MEDS: HALOPERIDOL LACTATE 5 MG/ML VIAL IM ONE (14:02)
[2024-06-20] MEDS: LORazepam 2 MG/ML VIAL IM ONE (14:03)
[2024-06-20 16:08] LABS: COVID AG,FIA SOURCE NASAL SWAB
[2024-06-20 16:10] LABS: BASOPHILS % (AUTO) 0.1 % (0.0-2.0); EOSINOPHILS % (AUTO) 0.2 % (1.0-6.0); HEMATOCRIT 39.2 % (41-53); HEMOGLOBIN 12.8 g/dL (13.5-17.5); LYMPHOCYTES # (AUTO) 1.2 K/uL (1.0-4.8); MEAN CORPUSCULAR HEMOGLOBIN 28.3 pg (26.0-34.0); MEAN CORPUSCULAR HGB CONC 32.6 G/dL (31.0-37.0); MEAN CORPUSCULAR VOLUME 87 fL (80-100); MONOCYTES # (AUTO) 1.2 K/uL (0.1-1.0); MONOCYTES % (AUTO) 7.6 % (2.0-9.0); NEUTROPHILS # (AUTO) 12.7 K/uL (1.8-7.7); NEUTROPHILS % (AUTO) 84.1 % (40.0-70.0); PLATELET COUNT (AUTO) 325 K/uL (150-450); RED CELL DISTRIBUTION WIDTH 13.7 % (11.5-14.5); WHITE BLOOD COUNT (AUTO) 15.2 K/uL (4.5-11.0)
[2024-06-20 16:27] LABS: ANION GAP 11 mmol/L (8-16); CALCIUM, TOTAL 9.5 mg/dL (8.8-10.5); CARBON DIOXIDE 27 mmol/L (22-29); CHLORIDE 104 mmol/L (98-107); CREATININE 1.39 mg/dL (0.60-1.30); GLOMERULAR FILTR. RATE CALC > 60 mL/min (>60); GLUCOSE,RANDOM 87 mg/dL (70-110); POTASSIUM 3.3 mmol/L (3.5-5.1); SODIUM SERUM 142 mmol/L (136-145); UREA NITROGEN, BLOOD 5 mg/dL (7-18)
[2024-06-20 16:29] LABS: ALCOHOL, BLOOD (SERUM) < 3 mg/dL (0-10)
[2024-06-20] MEDS: POTASSIUM CHLORIDE 20 MEQ ER TABLET PO ONE (17:07)
[2024-06-20 17:10] LABS: SARS-COV2 (COVID) ANTIGEN,FIA Negative (Negative)
[2024-06-20] MEDS ORDERED: ACETAMINOPHEN 325 MG TABLET PO PRN (22:00)
[2024-06-20] MEDS ORDERED: MAG HYDROX/ALUMINUM HYD/SIMETH ES 30 ML SUSPENSION UDCUP PO PRN (22:00)
[2024-06-20] MEDS ORDERED: MAGNESIUM HYDROXIDE SUSPENSION 30 ML UDCUP PO PRN (22:00)
[2024-06-20] MEDS ORDERED: LOPERAMIDE HCL 2 MG CAPSULE PO PRN (22:00)
[2024-06-21] MEDS: DIVALPROEX SODIUM 500 MG ER TABLET PO SCH (08:14)
[2024-06-21] MEDS: OLANZapine 10 MG RAPDIS TABLET PO SCH ×2 (11:09→20:27)
[2024-06-21] MEDS ORDERED: LORazepam 2 MG/ML VIAL ONE (12:09)
[2024-06-21] MEDS ORDERED: DiphenhydrAMINE HCL 50 MG/ML VIAL ONE (12:09)
[2024-06-21] MEDS ORDERED: HALOPERIDOL LACTATE 5 MG/ML VIAL ONE (12:09)
[2024-06-21] MEDS: LORazepam 2 MG/ML VIAL IM ONE (12:13)
[2024-06-21] MEDS: DiphenhydrAMINE HCL 50 MG/ML VIAL IM ONE (12:13)
[2024-06-21] MEDS: HALOPERIDOL LACTATE 5 MG/ML VIAL IM ONE (12:13)
[2024-06-21] MEDS: TraZODone HCL 100 MG TABLET PO SCH (20:26)
[2024-06-22 12:28] LABS: APPEARANCE,URINE CLEAR (CLEAR); BILIRUBIN,URINE NEGATIVE (NEGATIVE); COLOR,URINE LIGHT YELLOW (YELLOW); GLUCOSE, URINE (UA) NEGATIVE (NEGATIVE); KETONES,URINE TRACE mg/dL (NEGATIVE); LEUKOCYTE ESTERASE ,URINE NEGATIVE (NEGATIVE); NITRATE,URINE NEGATIVE (NEGATIVE); OCCULT BLOOD,URINE NEGATIVE (NEGATIVE); PROTEIN,URINE NEGATIVE (NEGATIVE); SPECIFIC GRAVITIY, URINE 1.009 (1.003-1.030); UROBILINOGEN,URINE <=1.0 mg/dL (<=1.0)
[2024-06-22 12:36] LABS: ALCOHOL, URINE DRUG SCREEN NEGATIVE (NEGATIVE); AMPHET/METH SCREEN,URINE NEGATIVE (NEGATIVE); BARBITURATE SCREEN, URINE NEGATIVE (NEGATIVE); BENZODIAZEPINES SCREEN,URINE NEGATIVE (NEGATIVE); CANNABINOID SCREEN,URINE NEGATIVE (NEGATIVE); COCAINE SCREEN,URINE NEGATIVE (NEGATIVE); METHADONE SCREEN, URINE NEGATIVE (NEGATIVE); OPIATE SCREEN,URINE NEGATIVE (NEGATIVE); PHENCYCLIDINE SCREEN,URINE NEGATIVE (NEGATIVE)
[2024-06-22 23:18] VITALS: BP 137/95; PULSE 115; RESP 18; TEMP 98.2; O2SAT 98
[2024-06-22 23:34] VITALS: BP 137/95; PULSE 115; RESP 18; TEMP 98.2; O2SAT 98
[2024-06-23] MEDS ORDERED: INFLUENZA VIRUS VACCINE TVS (6MO+) 2024-25/PF 45 MCG/0.5 ML SYRINGE IM. ONE (00:30)
[2024-06-23 08:52] VITALS: BP 99/62; RESP 16; TEMP 97.7; O2SAT 99
[2024-06-23] MEDS ORDERED: OLANZapine 10 MG TABLET PO SCH ×2 (10:15→21:00)
[2024-06-23] MEDS: HALOPERIDOL 5 MG TABLET PO PRN (12:13)
[2024-06-23] MEDS: LORazepam 2 MG TABLET PO PRN (12:13)
[2024-06-23] MEDS ORDERED: DIVALPROEX SODIUM 500 MG DR TABLET PO SCH (13:00)
[2024-06-23] MEDS: PALIPERIDONE PALMITATE 156 MG/ML SYRINGE IM SCH (17:51)
[2024-06-23] MEDS: ZOLPIDEM TARTRATE 10 MG TABLET PO PRN (20:48)
[2024-06-23] MEDS ORDERED: TraZODone HCL 100 MG TABLET PO SCH (21:00)
[2024-06-24] VITALS (7 sets, daily range): BP systolic 117–149; BP diastolic 70–89; PULSE 98–123; RESP 16–18; TEMP 97.4–98.4; O2SAT 96–98
[2024-06-24 09:46] LABS: CALCIUM, TOTAL 9.3 mg/dL (8.8-10.5); CREATININE 1.72 mg/dL (0.60-1.30); POTASSIUM 4.3 mmol/L (3.5-5.1)
[2024-06-25 08:29] VITALS: BP 115/60; PULSE 101; RESP 17; TEMP 97.6; O2SAT 99
[2024-06-25 20:00] VITALS: BP 132/74; PULSE 100; RESP 16; TEMP 98.1; O2SAT 100
[2024-06-26 09:49] LABS: CALCIUM, TOTAL 8.9 mg/dL (8.8-10.5); CREATININE 1.86 mg/dL (0.60-1.30); POTASSIUM 4.5 mmol/L (3.5-5.1)
[2024-06-26 09:54] LABS: BASOPHILS % (AUTO) 0.6 % (0.0-2.0); EOSINOPHILS % (AUTO) 5.9 % (1.0-6.0); HEMATOCRIT 41.8 % (41-53); HEMOGLOBIN 13.7 g/dL (13.5-17.5); LYMPHOCYTES # (AUTO) 1.5 K/uL (1.0-4.8); LYMPHOCYTES % (AUTO) 21.5 % (22.0-44.0); MEAN CORPUSCULAR HEMOGLOBIN 28.8 pg (26.0-34.0); MEAN CORPUSCULAR HGB CONC 32.7 G/dL (31.0-37.0); MEAN CORPUSCULAR VOLUME 88 fL (80-100); MONOCYTES # (AUTO) 1.1 K/uL (0.1-1.0); MONOCYTES % (AUTO) 16.2 % (2.0-9.0); NEUTROPHILS # (AUTO) 3.8 K/uL (1.8-7.7); NEUTROPHILS % (AUTO) 55.8 % (40.0-70.0); PLATELET COUNT (AUTO) 184 K/uL (150-450); RED BLOOD CELL COUNT(AUTO) 4.75 MIL/uL (4.50-5.90); RED CELL DISTRIBUTION WIDTH 13.7 % (11.5-14.5); WHITE BLOOD COUNT (AUTO) 6.8 K/uL (4.5-11.0)
[2024-06-26 09:57] VITALS: BP 133/87; PULSE 96; RESP 18; TEMP 97.4; O2SAT 98
[2024-06-26 21:26] VITALS: RESP 18
[2024-06-27 08:10] VITALS: BP 135/86; PULSE 96; RESP 16; TEMP 97.3; O2SAT 96
[2024-06-27 20:55] VITALS: BP 129/74; PULSE 89; RESP 18; TEMP 97; O2SAT 97
[2024-06-28] MEDS ORDERED: FLUTICASONE PROPIONATE 50 MCG/SPRAY 16 GM NASAL SPRAY NASAL PRN (09:00)
[2024-06-28 10:17] VITALS: BP 131/66; PULSE 98; RESP 17; TEMP 97.6; O2SAT 98
[2024-06-28 20:48] VITALS: BP 128/84; PULSE 89; RESP 18; TEMP 98.1; O2SAT 97
[2024-06-29 09:28] VITALS: BP 113/63; PULSE 101; RESP 17; TEMP 97.4; O2SAT 96
[2024-06-29] MEDS ORDERED: ChlorproMAZINE HCL 50 MG/2 ML AMP ONE (12:52)
[2024-06-29] MEDS ORDERED: DiphenhydrAMINE HCL 50 MG/ML VIAL ONE (12:52)
[2024-06-29] MEDS ORDERED: LORazepam 2 MG/ML VIAL ONE (12:52)
[2024-06-29] MEDS: DiphenhydrAMINE HCL 50 MG/ML VIAL IM ONE (13:21)
[2024-06-29] MEDS: ChlorproMAZINE HCL 50 MG/2 ML AMP IM ONE (13:21)
[2024-06-29] MEDS: LORazepam 2 MG/ML VIAL IM ONE (13:21)
[2024-06-29 13:30] VITALS: BP 138/94; PULSE 116; RESP 18; TEMP 98.5; O2SAT 95
== END 2024-06-29 18:49 | disposition still patient (30) | DRG 750 ==
LOC: EMS 13:29 → B3A 06-22 22:13
PROVIDERS: ADMIT Psychiatry & Neurology Psychiatry; ATTEND Psychiatry & Neurology Child & Adolescent Psychiatry
PROC: GZ52ZZZ Individual Psychotherapy, Cognitive (ICD-10-PCS; principal; 2024-06-23)
DX: F25.9 Schizoaffective disorder, unspecified (principal); Z91.148 Patient's other noncompliance with medication regimen for other reason; D64.9 Anemia, unspecified; F31.9 Bipolar disorder, unspecified; F84.0 Autistic disorder; Z20.822 Contact with and (suspected) exposure to COVID-19; I10 Essential (primary) hypertension; G80.9 Cerebral palsy, unspecified; D72.829 Elevated white blood cell count, unspecified
CPT/HCPCS: 71045; 80048; 80164; 80307; 81003; 85025; 87081; 96372; 99291; G0480; J1200; J1630; J2060; J3230; 36415-L1; 36415-TC

== ENCOUNTER 2024-06-24 14:36 | Emergency (ER) | payer MEDICAID, OTHER ==
[~2024-06-24] VITALS: Ht 162.6 cm; Wt 86.4 kg
[2024-06-24 15:00] VITALS: BP 136/75; PULSE 110; RESP 20; TEMP 98.4; O2SAT 100
== END 2024-06-24 18:37 ==
LOC: EMS 14:36
DX: S00.511A Abrasion of lip, initial encounter (principal); F20.9 Schizophrenia, unspecified; F31.9 Bipolar disorder, unspecified; G80.9 Cerebral palsy, unspecified; R51.9 Headache, unspecified; Z79.899 Other long term (current) drug therapy; W19.XXXA Unspecified fall, initial encounter; Y93.89 Activity, other specified; Y92.89 Other specified places as the place of occurrence of the external cause; Y99.8 Other external cause status
CPT/HCPCS: 70450; 70486; 99284

== ENCOUNTER 2024-12-06 09:16 | Emergency (ER) | payer OTHER ==
[~2024-12-06] VITALS: Ht 162.6 cm; Wt 86.0 kg
[2024-12-06 09:19] VITALS: BP 116/84; PULSE 82; RESP 18; TEMP 98.2; O2SAT 98
[2024-12-06 09:38] LABS: COVID AG,FIA SOURCE NASAL SWAB
[2024-12-06 09:45] LABS: BASOPHILS % (AUTO) 0.4 % (0.0-2.0); EOSINOPHILS % (AUTO) 2.5 % (1.0-6.0); HEMATOCRIT 39.5 % (41-53); HEMOGLOBIN 13.4 g/dL (13.5-17.5); LYMPHOCYTES # (AUTO) 1.3 K/uL (1.0-4.8); LYMPHOCYTES % (AUTO) 24.8 % (22.0-44.0); MEAN CORPUSCULAR HEMOGLOBIN 30.3 pg (26.0-34.0); MEAN CORPUSCULAR VOLUME 89 fL (80-100); MONOCYTES # (AUTO) 0.4 K/uL (0.1-1.0); MONOCYTES % (AUTO) 8.2 % (2.0-9.0); NEUTROPHILS # (AUTO) 3.3 K/uL (1.8-7.7); NEUTROPHILS % (AUTO) 64.1 % (40.0-70.0); PLATELET COUNT (AUTO) 207 K/uL (150-450); RED BLOOD CELL COUNT(AUTO) 4.43 MIL/uL (4.50-5.90); RED CELL DISTRIBUTION WIDTH 14.5 % (11.5-14.5); WHITE BLOOD COUNT (AUTO) 5.1 K/uL (4.5-11.0)
[2024-12-06 09:49] LABS: CREATININE 1.54 mg/dL (0.60-1.30); POTASSIUM 3.9 mmol/L (3.5-5.1)
[2024-12-06 10:43] LABS: SARS-COV2 (COVID) ANTIGEN,FIA Negative (Negative)
== END 2024-12-06 11:57 | disposition home or self-care (01) ==
LOC: EMS 09:16
DX: S00.83XA Contusion of other part of head, initial encounter (principal); R45.1 Restlessness and agitation; F20.9 Schizophrenia, unspecified; F31.9 Bipolar disorder, unspecified; Z79.899 Other long term (current) drug therapy; Z20.822 Contact with and (suspected) exposure to COVID-19; X58.XXXA Exposure to other specified factors, initial encounter; Y93.89 Activity, other specified; Y92.89 Other specified places as the place of occurrence of the external cause; Y99.8 Other external cause status
CPT/HCPCS: 99285; 70450; 87426; 80048; 85025; 36415; G0480

== ENCOUNTER 2025-01-03 09:12 | Emergency (ER) | payer OTHER ==
[~2025-01-03] VITALS: Ht 160 cm; Wt 93.0 kg
[2025-01-03] MEDS: LIDOCAINE 1%/EPI 1:200,000/PF 10 ML VIAL SQ ONE (09:39)
[2025-01-03] MEDS: BACITRACIN 0.9 GM PACKET OINTMENT TP ONE (09:39)
[2025-01-03 10:17] LABS: PLATELET COUNT (AUTO) 196 K/uL (150-450); RED BLOOD CELL COUNT(AUTO) 4.47 MIL/uL (4.50-5.90); RED CELL DISTRIBUTION WIDTH 13.8 % (11.5-14.5); WHITE BLOOD COUNT (AUTO) 6.8 K/uL (4.5-11.0)
[2025-01-03 10:26] LABS: CALCIUM, TOTAL 9.1 mg/dL (8.8-10.5); CREATININE 1.51 mg/dL (0.60-1.30); GLOMERULAR FILTR. RATE CALC 55.0 mL/min (>60); GLUCOSE,RANDOM 95.0 mg/dL (70-110); SODIUM SERUM 144.0 mmol/L (136-145); UREA NITROGEN, BLOOD 5.0 mg/dL (7-18)
[2025-01-03 10:51] LABS: COVID AG,FIA SOURCE NASAL SWAB
[2025-01-03 11:29] LABS: SARS-COV2 (COVID) ANTIGEN,FIA Negative (Negative)
[2025-01-03 12:38] VITALS: BP 116/71; PULSE 78; RESP 16; TEMP 98.1; O2SAT 98
== END 2025-01-03 12:57 | disposition home or self-care (01) ==
LOC: EMS 09:12
DX: S01.81XA Laceration without foreign body of other part of head, initial encounter (principal); F20.9 Schizophrenia, unspecified; F31.9 Bipolar disorder, unspecified; Z79.899 Other long term (current) drug therapy; G80.9 Cerebral palsy, unspecified; Z20.822 Contact with and (suspected) exposure to COVID-19; W22.01XA Walked into wall, initial encounter; Y93.89 Activity, other specified; Y92.89 Other specified places as the place of occurrence of the external cause; Y99.8 Other external cause status
CPT/HCPCS: 99285; 70450; 87426; 80048; 85025; 36415; 70486; 72125; 12013; G0480; J3490

== ENCOUNTER 2025-01-11 13:57 | Emergency (ER) | payer OTHER ==
[~2025-01-11] VITALS: Ht 154.9 cm; Wt 86.0 kg
[2025-01-11 14:01] VITALS: BP 108/75; PULSE 90; RESP 18; TEMP 98.1; O2SAT 99
== END 2025-01-11 15:15 | disposition home or self-care (01) ==
LOC: EMS 13:57
DX: S01.81XD Laceration without foreign body of other part of head, subsequent encounter (principal); F20.9 Schizophrenia, unspecified; G80.9 Cerebral palsy, unspecified; Z79.899 Other long term (current) drug therapy; W22.8XXD Striking against or struck by other objects, subsequent encounter
CPT/HCPCS: 99281; Z7502

== ENCOUNTER 2025-04-05 13:06 | Emergency (ER) | payer OTHER ==
[~2025-04-05] VITALS: Ht 154.9 cm; Wt 86.4 kg
[2025-04-05 13:29] VITALS: TEMP 98.1
[2025-04-05 14:32] LABS: PLATELET COUNT (AUTO) 172 K/uL (150-450); RED BLOOD CELL COUNT(AUTO) 4.51 MIL/uL (4.50-5.90); RED CELL DISTRIBUTION WIDTH 13.3 % (11.5-14.5); WHITE BLOOD COUNT (AUTO) 6.3 K/uL (4.5-11.0)
[2025-04-05 14:35] LABS: CALCIUM, TOTAL 8.7 mg/dL (8.8-10.5); CREATININE 1.29 mg/dL (0.60-1.30); GLOMERULAR FILTR. RATE CALC > 60 mL/min (>60); GLUCOSE,RANDOM 135 mg/dL (70-110); SODIUM SERUM 143 mmol/L (136-145); UREA NITROGEN, BLOOD 4 mg/dL (7-18)
[2025-04-05 17:20] LABS: APPEARANCE,URINE CLEAR (CLEAR); GLUCOSE, URINE (UA) NEGATIVE (NEGATIVE); LEUKOCYTE ESTERASE ,URINE NEGATIVE (NEGATIVE); NITRATE,URINE NEGATIVE (NEGATIVE); OCCULT BLOOD,URINE NEGATIVE (NEGATIVE); SPECIFIC GRAVITIY, URINE 1.004 (1.003-1.030)
[2025-04-05] MEDS: FLUCONAZOLE 150 MG TABLET PO ONE (19:28)
[2025-04-05] MEDS: POTASSIUM CHLORIDE 20 MEQ ER TABLET PO ONE (19:28)
[2025-04-05 19:55] VITALS: BP 112/76; PULSE 101; RESP 18; O2SAT 97
== END 2025-04-05 20:32 | disposition home or self-care (01) ==
LOC: EMS 13:06
DX: B37.42 Candidal balanitis (principal); L29.9 Pruritus, unspecified; F20.9 Schizophrenia, unspecified; F31.9 Bipolar disorder, unspecified; Z79.899 Other long term (current) drug therapy
CPT/HCPCS: 80048; 81001; 85025; 99283

== ENCOUNTER 2025-04-29 10:38 | Inpatient (IN) | payer MEDICAID ==
[~2025-04-29] VITALS: Ht 157.5 cm; Wt 79.6 kg
[~2025-04-29 10:38] MED LIST changes: +CYAN500T56 PO; +LORA1TAB25 PO; +MELA5TAB40 PO; +NALT50TA33 PO; +NAPH15DR8 OU; -SIMV-43 PO; +TOPI-258 PO
[2025-04-29] MEDS ORDERED: ZOLPIDEM TARTRATE 10 MG TABLET PO PRN (11:15)
[2025-04-30 07:51] LABS: CHOL/HDL RATIO 2.5 (4.2-7.3); LDL CHOL (CALC.) 73.0 mg/dL (0-130)
[2025-04-30 14:05] VITALS: BP 163/119; PULSE 111; RESP 17; TEMP 98.4; O2SAT 98
[2025-04-30] MEDS ORDERED: MAGNESIUM HYDROXIDE SUSPENSION 30 ML UDCUP PO PRN ×2 (14:30→15:15)
[2025-04-30] MEDS ORDERED: MAG HYDROX/ALUMINUM HYD/SIMETH ES 30 ML SUSPENSION UDCUP PO PRN ×2 (14:30→15:15)
[2025-04-30] MEDS ORDERED: PROMETHAZINE HCL 25 MG TABLET PO PRN (14:30)
[2025-04-30] MEDS ORDERED: GuaiFENesin/D-METHORPHAN [SUGAR-FREE] 200-20MG/10 ML SYRUP UDCUP PO PRN ×2 (14:30→15:15)
[2025-04-30] MEDS ORDERED: TUBERCULIN, PURIFIED PROTEIN DERIVATIVE 5 TU/0.1 ML SYRINGE ID ONE (14:30)
[2025-04-30] MEDS ORDERED: LOPERAMIDE HCL 2 MG CAPSULE PO PRN ×2 (14:30→15:15)
[2025-04-30] MEDS ORDERED: ACETAMINOPHEN 325 MG TABLET PO PRN (14:30)
[2025-04-30] MEDS ORDERED: ONDANSETRON 4 MG TABLET PO PRN (15:15)
[2025-04-30] MEDS ORDERED: NICOTINE 14 MG/24 HOUR PATCH TD PRN (15:15)
[2025-04-30] MEDS ORDERED: PETROLATUM,WHITE 28 GM JELLY TP PRN (15:15)
[2025-04-30] MEDS ORDERED: IBUPROFEN 400 MG TABLET PO PRN (15:15)
[2025-04-30] MEDS ORDERED: DOCUSATE SODIUM 100 MG CAPSULE PO PRN (15:15)
[2025-04-30] MEDS ORDERED: ALBUTEROL SULFATE HFA 90 MCG/PUFF 8 GM INHALER IH PRN (15:15)
[2025-04-30 15:37] VITALS: RESP 16
[2025-04-30] MEDS: ACETAMINOPHEN 325 MG TABLET PO PRN (15:41)
[2025-04-30] MEDS: THIAMINE 100 MG TABLET PO SCH (16:09)
[2025-04-30] MEDS: TOPIRAMATE 100 MG TABLET PO SCH (16:10)
[2025-04-30] MEDS: LACTULOSE 20 GM/30 ML SOLUTION UDCUP PO SCH (16:10)
[2025-04-30 16:41] VITALS: RESP 16
[2025-04-30] MEDS: MELATONIN 5 MG TABLET PO SCH (21:00)
[2025-04-30] MEDS: DIVALPROEX SODIUM 500 MG ER TABLET PO SCH (21:00)
[2025-04-30] MEDS: TAMSULOSIN HCL 0.4 MG CAPSULE PO SCH (21:00)
[2025-04-30] MEDS: OLANZapine 5 MG RAPDIS TABLET PO SCH (21:00)
[2025-04-30 21:38] VITALS: BP 140/95; PULSE 95; RESP 16; TEMP 98.1
[2025-05-01] MEDS: LEVOTHYROXINE SODIUM 50 MCG TABLET PO SCH (06:59)
[2025-05-01 08:57] LABS: PLATELET COUNT (AUTO) 154 K/uL (150-450); RED BLOOD CELL COUNT(AUTO) 4.54 MIL/uL (4.50-5.90); RED CELL DISTRIBUTION WIDTH 13.8 % (11.5-14.5); WHITE BLOOD COUNT (AUTO) 8.5 K/uL (4.5-11.0)
[2025-05-01] MEDS: NALTREXONE HCL 50 MG TABLET PO SCH (09:04)
[2025-05-01] MEDS: FOLIC ACID 1 MG TABLET PO SCH (09:04)
[2025-05-01] MEDS: MULTIVITAMINS WITH MINERALS, THERAPEUTIC TABLET PO SCH (09:04)
[2025-05-01] MEDS: PANTOPRAZOLE SODIUM 40 MG DR TABLET PO SCH (09:05)
[2025-05-01 09:25] LABS: ASPARTATE AMINOTRANSFERASE 32 U/L (15-37); CALCIUM, TOTAL 8.9 mg/dL (8.8-10.5); CREATININE 1.20 mg/dL (0.60-1.30); GLOMERULAR FILTR. RATE CALC > 60 mL/min (>60); GLUCOSE,RANDOM 87 mg/dL (70-110); SODIUM SERUM 138 mmol/L (136-145); TOTAL PROTEIN, SERUM 7.6 g/dL (6.4-8.2); UREA NITROGEN, BLOOD 13 mg/dL (7-18)
[2025-05-01 09:56] LABS: CHOL/HDL RATIO 2.7 (4.2-7.3); LDL CHOL (CALC.) 93.0 mg/dL (0-130)
[2025-05-01 10:01] VITALS: BP 122/78; PULSE 71; RESP 18; TEMP 98.2; O2SAT 98
[2025-05-01 20:18] VITALS: BP 111/88; PULSE 94; RESP 18; TEMP 97.8; O2SAT 98
[2025-05-02] MEDS ORDERED: LORazepam 2 MG/ML VIAL ONE (09:52)
[2025-05-02] MEDS: LORazepam 2 MG/ML VIAL IM ONE ×2 (10:04→12:17)
[2025-05-02 11:30] VITALS: BP 140/100; PULSE 99; RESP 18; TEMP 97.5; O2SAT 98
[2025-05-02 20:31] VITALS: BP 128/84; PULSE 96; TEMP 97.3
[2025-05-03 09:22] LABS: CALCIUM, TOTAL 9.1 mg/dL (8.8-10.5); CREATININE 1.37 mg/dL (0.60-1.30); GLOMERULAR FILTR. RATE CALC > 60 mL/min (>60); GLUCOSE,RANDOM 94 mg/dL (70-110); SODIUM SERUM 139 mmol/L (136-145); UREA NITROGEN, BLOOD 20 mg/dL (7-18)
[2025-05-03 12:57] VITALS: BP 106/91; PULSE 110; RESP 18; TEMP 97.6; O2SAT 96
[2025-05-03 17:16] VITALS: BP 108/86; PULSE 101; RESP 16; O2SAT 98
[2025-05-03 20:27] VITALS: BP 127/94; PULSE 110; RESP 18; TEMP 97.5; O2SAT 99
[2025-05-04] MEDS: ATOMOXETINE HCL 10 MG CAPSULE PO SCH (08:30)
[2025-05-04 08:43] VITALS: BP 126/95; PULSE 89; RESP 18; TEMP 97.7; O2SAT 97
[2025-05-04 20:11] VITALS: BP 118/87; PULSE 106; RESP 18; TEMP 97.4; O2SAT 99
[2025-05-05 09:52] VITALS: BP 96/58; PULSE 71; RESP 18; TEMP 97.8; O2SAT 98
[2025-05-05] MEDS ORDERED: DIVA-153 PO (10:42)
[2025-05-05] MEDS ORDERED: OLAN5TAB94 PO (10:42)
[2025-05-05] MEDS ORDERED: MELA5TAB40 PO (10:42)
[2025-05-05] MEDS ORDERED: NALT50TA33 PO (10:42)
[2025-05-05] MEDS ORDERED: GUAN1TAB2 PO (10:42)
[2025-05-05] MEDS ORDERED: TOPI100 PO (10:42)
[2025-05-05] MEDS ORDERED: ATOM10CA4 PO (10:42)
== END 2025-05-05 15:58 | disposition home or self-care (01) | DRG 761 ==
LOC: 3EC 04-30 15:08
PROVIDERS: ADMIT Psychiatry & Neurology Psychiatry; ATTEND Psychiatry & Neurology Psychiatry
PROC: GZHZZZZ Group Psychotherapy (ICD-10-PCS; principal; 2025-04-30)
PROC: GZ58ZZZ Individual Psychotherapy, Cognitive-Behavioral (ICD-10-PCS; 2025-04-30)
PROC: GZ56ZZZ Individual Psychotherapy, Supportive (ICD-10-PCS; 2025-05-03)
DX: F25.9 Schizoaffective disorder, unspecified (principal); E72.20 Disorder of urea cycle metabolism, unspecified; E66.9 Obesity, unspecified; G80.9 Cerebral palsy, unspecified; E03.9 Hypothyroidism, unspecified; J45.909 Unspecified asthma, uncomplicated; G40.409 Other generalized epilepsy and epileptic syndromes, not intractable, without status epilepticus; E55.9 Vitamin D deficiency, unspecified; F70 Mild intellectual disabilities; N40.0 Benign prostatic hyperplasia without lower urinary tract symptoms; G47.00 Insomnia, unspecified; Z63.9 Problem related to primary support group, unspecified; Z59.9 Problem related to housing and economic circumstances, unspecified; Z65.3 Problems related to other legal circumstances; Z55.9 Problems related to education and literacy, unspecified; Z79.899 Other long term (current) drug therapy; Z68.32 Body mass index [BMI] 32.0-32.9, adult
CPT/HCPCS: 70450; 80048; 80053; 80061; 80164; 83036; 84439; 84443; 85025; 86592; 87081; J1200; J2060; J3230